=== PATIENT | female | born 1945 | race Caucasian/White ===

== ENCOUNTER 2016-09-13 13:02 | Emergency (ER) | payer OTHER ==
[~2016-09-13] VITALS: Ht 165.1 cm; Wt 88.9 kg
[~2016-09-13 13:02] MED LIST: CALC-478 PO; CHOLTAB3 PO; ESCI10TA17 PO; GLIP-197 PO; LISI-729 PO; LUTE20TA PO; REDCAP2 PO
[2016-09-13 13:09] VITALS: TEMP 37.5; Ht 165.1 cm; Wt 88.9 kg
[2016-09-13] MEDS ORDERED: SODIUM CHLORIDE 0.9% 1000ML 1,000 ML IV STA (15:49)
[2016-09-13] MEDS ORDERED: CLR10 PO (16:06)
[2016-09-13] MEDS ORDERED: AMOX875T PO (16:06)
[2016-09-13 16:29] LABS: BASO % 0.3 %; BASO ABS # 0.02 K/uL (0-0.2); COMPLETE YES; HEMATOCRIT 39.5 % (37-47); IG% 0.3 %; LYMPH % 9.5 %; LYMPH ABS # 0.66 K/uL (1.2-3.4); MEAN CELL VOLUME 89.4 fL (80-100); MEAN CORPUSCULAR HEMOGLOBIN 30.3 pg (25-34); MEAN CORPUSCULAR HGB CONC 33.9 g/dl (32-36); MEAN PLATELET VOLUME 9.3 fL (7.4-10.4); MONO % 11.1 %; NEUT % 77.8 %; PLATELET COUNT 185 K/uL (130-400); RED BLOOD COUNT 4.42 M/uL (4.2-5.4); WHITE BLOOD COUNT 6.92 K/uL (4.8-10.8)
[2016-09-13 16:38] LABS: INR 0.9 (0.9-1.1); PROTHROMBIN TIME (PATIENT) 9.9 SECONDS (9.0-12.0)
[2016-09-13] MEDS ORDERED: OPTIRAY 320 IV PRN (16:45)
[2016-09-13 16:46] VITALS: O2SAT 98
[2016-09-13 16:52] LABS: ALT/SGPT 18 U/L (12-78); BLOOD UREA NITROGEN 27 mg/dl (7-18); BUN/CREATININE RATIO 22.1 (10-20); CALCIUM 9.2 mg/dl (8.5-10.1); CARBON DIOXIDE 26 mmol/L (21-32); CHLORIDE 101 mmol/L (98-107); GLUCOSE 112 mg/dl (70-99); POTASSIUM 4.3 mmol/L (3.5-5.1); SODIUM 136 mmol/L (136-145)
[2016-09-13 16:55] LABS: ALKALINE PHOSPHATASE 112 U/L (45-117); AST/SGOT 13 U/L (15-37)
--- NOTE | 2016-09-13 18:22 | DIAGNOSTIC IMAGING REPORT ---
CT SCAN OF THE ABDOMEN AND PELVIS WITH IV CONTRAST CLINICAL HISTORY: Rectal bleeding status post colonoscopy. COMPARISON STUDY: Abdominal CT dated 02/23/2015 and 03/22/2011. TECHNIQUE: Following the IV administration of 116 cc of Optiray 320, CT scan of the abdomen and pelvis is performed from the lung bases to the proximal femora. Images are reviewed in the axial, sagittal, and coronal planes. IV contrast was administered without complication. Automated dose control exposure was utilized. CT DOSE: 638.23 mGy.cm FINDINGS: Lung bases: The heart is top normal in size and without pericardial effusion. The coronary arteries are densely calcified. There is elevation of the right hemidiaphragm with right basilar atelectasis. A 4 mm pleural-based nodule in the right lower lobe as seen on image #1. This was also seen previously. No airspace consolidation or pleural effusion is identified. Granulomas are noted at the right lung base. Liver: The contrast-enhanced liver is normal in size, contour, and attenuation. There is minimal central intrahepatic biliary ductal dilatation. The hepatic veins and portal veins are patent. Gallbladder: Surgically absent noting clips in the gallbladder fossa. Spleen: Normal in size and attenuation. There are scattered calcified splenic granulomas. Pancreas: The pancreas is atrophic. There is an 11 mm water attenuation lesion in the pancreatic tail seen on image #150. Adrenal glands: Unremarkable. Kidneys: The contrast enhanced kidneys are atrophic and without hydronephrosis. There are bilateral extrarenal pelvises. The kidneys enhance symmetrically. Abdominal vasculature: The abdominal aorta is normal in course and caliber noting moderate to advanced atherosclerotic calcification. Bowel: There are postoperative changes from left colon resection with left lower quadrant colostomy. There is a large parastomal hernia identified which contains loops of small bowel. Moderate fecal retention is seen in the right colon. There are also changes from right-sided colon resection, and a small bowel anastomosis is present in the left lower quadrant. No bowel obstruction is identified. The appendix is well-visualized and normal. Peritoneum: There is no intraperitoneal free air or abdominal ascites. Lymphadenopathy: None. Pelvic viscera: The bladder is normal as visualized. There are calcified uterine fibroids. There is a cystic focus identified in the right adnexa on image #361 which measures 3.5 x 2.1 cm. This is likely related to the right ovary and was also seen on 03/03/2015. There is marked presacral soft tissue induration. There is a fluid collection seen in the left presacral soft tissues on image #361 measuring approximate 4 x 4 cm. This is new from previous and appears to extend into the medial aspect of the left gluteal musculature. A rectal stump is not well delineated. Skeletal structures: The skeletal structures are osteopenic. Bilateral sacral insufficiency fractures are noted. There are mild superior endplate compression deformities of L2 and L3. Moderate lumbosacral spondylosis is observed. No lytic or blastic lesions are seen. IMPRESSION: 1. There are postoperative changes from left colon resection with left lower quadrant colostomy. There is a large parastomal hernia containing small bowel loops. No bowel obstruction is seen. 2. There is also evidence of previous right colonic resection, with a small bowel anastomosis also seen in the left lower quadrant. 3. A rectal stump is not clearly identified. 4. There is marked presacral soft tissue thickening and induration which is likely treatment related. There is a fluid collection identified in the left presacral soft tissues which appears to extend into the medial aspect of the left gluteal musculature. This is of indeterminant etiology and significance. This could be related to the reported history of a rectal stump with possible perforation/fistula, could represent treatment related change/abscess, or less likely could represent a hematoma given recent instrumentation. Clinical correlation will be essential. Follow-up with the patient's production grip is recommended. 5. There is a 3.5 cm cystic lesion in the right adnexa, likely related the right ovary. This has only minimally increased in size from 2015. 6. There is an 11 mm water attenuation structure in the pancreatic tail, typical in appearance for a small sidebranch abdomen. 7. Bilateral sacral insufficiency fractures. 8. Additional findings as above. Electronically signed by: Mikie Gomez M.D. 09/13/2016 6:21 PM Dictated Date/Time: 09/13/2016 6:00 PM
[2016-09-13 19:04] LABS: MANUAL MICROSCOPIC REQUIRED? NO; REVIEW REQ? NO; URINE APPEARANCE CLEAR (CLEAR); URINE BILIRUBIN NEG (NEG); URINE COLOR YELLOW; URINE EPITHELIAL CELL AUTO 20-30 /lpf (0-5); URINE NITRITE NEG (NEG); URINE SPECIFIC GRAVITY 1.017 (1.000-1.030); UROBILINOGEN NEG (NEG)
[2016-09-13 19:28] VITALS: BP 122/71; PULSE 109; O2SAT 97
--- NOTE | 2016-09-13 22:40 | EMERGENCY ROOM VISIT NOTE ---
History Report prepared by Terell: Thi Kothari Under the Supervision of: Dr. Carlin Holley M.D. First contact with patient: 15:48 Chief Complaint: RECTAL BLEEDING Stated Complaint: ABD PAIN Nursing Triage Summary: triage note: pt reports she had a colonscopy on september 03 and started to have rectal bleeding 4 days ago. pt reports she has a colonstomy "i am bleeding from what is left of my rectum." pt reports rectal pain. History of Present Illness The patient is a 71 year old female who presents to the Emergency Room with complaints of persistent rectal bleeding for the past 4 days. She has been wearing a light pad to collect the bleeding. She reports she underwent a colonoscopy on September [address] Segovia with [facility]. She reports she contacted his office and he was going to have her undergo a CT scan at [facility], but their radiology department was full, so he referred her to the ED for further evaluation. The patient has a history of colon cancer and had an ileostomy that was in place for 1 year, then she was resected. 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 She reports she still has "a little bit of fistula" left and Dr. Segovia told her perhaps the colonoscopy reopened part of her fistula. The patient denies any recent abdominal pain but admits to some "tolerable" back pain in the past 2 weeks. She notes she did see her family physician 5 days ago for a routine 6 month check-up, but states he did not examine her as she "wasn't having symptoms then". She does admit to diaphoresis and the chills 2 days ago, but does not think she has been experiencing a fever. Pt denies LOC , headache, fevers, visual changes, neck pain, chest pain, breathing difficulties, nausea, vomiting, melena, hematochezia, urinary symptoms, numbness , weakness, lymphadenopathy, rash, or other complaints. 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 A total of ten systems were reviewed and were otherwise negative. Past Medical & Surgical Medical Problems: (1) Adenomatous polyp of colon (2) Anemia (3) Anorectal fistula (4) Benign hypertension (5) Carcinoma of colon (6) Chronic kidney disease stage 3 (7) Deep venous thrombosis of lower extremity (8) Depression (9) Diabetes mellitus type 2 (10) Gallbladder disease (11) Pancreatitis (12) Partial resection of colon (13) s/p reversal temporary colostomy Surgical Problems: (1) History of colon resection (2) Status post cataract surgery Family History Diabetes mellitus FATHER FH: cancer FATHER (Lung CA ) Hypertension Social History Smoking Status: Never Smoker Alcohol Use: occasionally Drug Use: none Marital Status: Housing Status: lives with significant other Occupation Status: retired Current/Historical Medications Scheduled Amoxicillin & Pot Clavulanate (Augmentin 875-125 mg), 1 TAB PO BID Hubzctw-Eofektpcr-Ongk (Calcium & Magnesium + Zin 334-134-5 mg), 1 TAB PO QAM Escitalopram (Lexapro), 10 MG PO QAM Glipizide (Glipizide Er), 5 MG PO DAILY Lisinopril (Zestril), 5 MG PO DAILY Loratadine (Claritin), 10 MG PO DAILY Lutein (Lutein), 20 MG PO QAM Allergies Coded Allergies: Adhesives (Verified Allergy, Unknown, HIVES, 09/13/16) Rosiglitazone (Verified Allergy, Unknown, ANEMIA/RECTAL BLEEDING, 09/13/16) Physical Exam Vital Signs Date Time Temp Pulse Resp B/P (MAP) Pulse Ox O2 Delivery O2 Flow Rate FiO2 09/13/16 19:28 109 20 122/71 97 Room Air 09/13/16 16:52 78 09/13/16 16:48 79 18 98 Room Air 09/13/16 16:46 98 Room Air 09/13/16 13:09 37.5 90 18 109/64 92 Room Air Physical Exam GENERAL: Awake, alert, well-appearing, in no distress HENT: Normocephalic, atraumatic. Oropharynx unremarkable. EYES: Normal conjunctiva. Sclera non-icteric. NECK: Supple. No nuchal rigidity. FROM. No JVD. RESPIRATORY: Clear to auscultation. CARDIAC: Regular rate, normal rhythm. Extremities warm and well perfused. Pulses equal. ABDOMEN: Soft, non-distended. No tenderness to palpation. No rebound or guarding. No masses. RECTAL: Old hemorrhage, no active bleeding. No signs of infection. Patient requested not to have an internal exam done at this time. MUSCULOSKELETAL: Chest examination reveals no tenderness. The back is symmetrical on inspection without obvious abnormality. There is no CVA tenderness to palpation. No joint edema. LOWER EXTREMITIES: Calves are equal size bilaterally and non-tender. No edema. No discoloration. NEURO: Normal sensorium. No sensory or motor deficits noted. SKIN: No rash or jaundice noted. Medical Decision & Procedures ER Provider Diagnostic Interpretation: Radiology results as stated below per my review and radiologist interpretation: CT SCAN OF THE ABDOMEN AND PELVIS WITH IV CONTRAST CLINICAL HISTORY: Rectal bleeding status post colonoscopy. COMPARISON STUDY: Abdominal CT dated 02/23/2015 and 03/22/2011. TECHNIQUE: Following the IV administration of 116 cc of Optiray 320, CT scan of the abdomen and pelvis is performed from the lung bases to the proximal femora. Images are reviewed in the axial, sagittal, and coronal planes. IV contrast was administered without complication. Automated dose control exposure was utilized. CT DOSE: 638.23 mGy.cm FINDINGS: Lung bases: The heart is top normal in size and without pericardial effusion. The coronary arteries are densely calcified. There is elevation of the right hemidiaphragm with right basilar atelectasis. A 4 mm pleural-based nodule in the right lower lobe as seen on image #1. This was also seen previously. No airspace consolidation or pleural effusion is identified. Granulomas are noted at the right lung base. Liver: The contrast-enhanced liver is normal in size, contour, and attenuation. There is minimal central intrahepatic biliary ductal dilatation. The hepatic veins and portal veins are patent. Gallbladder: Surgically absent noting clips in the gallbladder fossa. Spleen: Normal in size and attenuation. There are scattered calcified splenic granulomas. Pancreas: The pancreas is atrophic. There is an 11 mm water attenuation lesion in the pancreatic tail seen on image #150. Adrenal glands: Unremarkable. Kidneys: The contrast enhanced kidneys are atrophic and without hydronephrosis. There are bilateral extrarenal pelvises. The kidneys enhance symmetrically. Abdominal vasculature: The abdominal aorta is normal in course and caliber noting moderate to advanced atherosclerotic calcification. Bowel: There are postoperative changes from left colon resection with left lower quadrant colostomy. There is a large parastomal hernia identified which contains loops of small bowel. Moderate fecal retention is seen in the right colon. There are also changes from right-sided colon resection, and a small bowel anastomosis is present in the left lower quadrant. No bowel obstruction is identified. The appendix is well-visualized and normal. Peritoneum: There is no intraperitoneal free air or abdominal ascites. Lymphadenopathy: None. Pelvic viscera: The bladder is normal as visualized. There are calcified uterine fibroids. There is a cystic focus identified in the right adnexa on image #361 which measures 3.5 x 2.1 cm. This is likely related to the right ovary and was also seen on 03/03/2015. There is marked presacral soft tissue induration. There is a fluid collection seen in the left presacral soft tissues on image #361 measuring approximate 4 x 4 cm. This is new from previous and appears to extend into the medial aspect of the left gluteal musculature. A rectal stump is not well delineated. Skeletal structures: The skeletal structures are osteopenic. Bilateral sacral insufficiency fractures are noted. There are mild superior endplate compression deformities of L2 and L3. Moderate lumbosacral spondylosis is observed. No lytic or blastic lesions are seen. IMPRESSION: 1. There are postoperative changes from left colon resection with left lower quadrant colostomy. There is a large parastomal hernia containing small bowel loops. No bowel obstruction is seen. 2. There is also evidence of previous right colonic resection, with a small bowel anastomosis also seen in the left lower quadrant. 3. A rectal stump is not clearly identified. 4. There is marked presacral soft tissue thickening and induration which is likely treatment related. There is a fluid collection identified in the left presacral soft tissues which appears to extend into the medial aspect of the left gluteal musculature. This is of indeterminant etiology and significance. This could be related to the reported history of a rectal stump with possible perforation/fistula, could represent treatment related change/abscess, or less likely could represent a hematoma given recent instrumentation. Clinical correlation will be essential. Follow-up with the patient's office 365 consultant is recommended. 5. There is a 3.5 cm cystic lesion in the right adnexa, likely related the right ovary. This has only minimally increased in size from 2015. 6. There is an 11 mm water attenuation structure in the pancreatic tail, typical in appearance for a small sidebranch abdomen. 7. Bilateral sacral insufficiency fractures. 8. Additional findings as above. Electronically signed by: Mikie Gomez M.D. 09/13/2016 6:21 PM Laboratory Results 09/13/16 16:14 Red Blood Count 4.42, Mean Corpuscular Volume 89.4, Mean Corpuscular Hemoglobin 30.3, Mean Corpuscular Hemoglobin Concent 33.9, Mean Platelet Volume 9.3, Neutrophils (%) (Auto) 77.8, Lymphocytes (%) (Auto) 9.5, Monocytes (%) (Auto) 11.1, Eosinophils (%) (Auto) 1.0, Basophils (%) (Auto) 0.3, Neutrophils # (Auto ) 5.38, Lymphocytes # (Auto) 0.66, Monocytes # (Auto) 0.77, Eosinophils # (Auto ) 0.07, Basophils # (Auto) 0.02 09/13/16 16:14 Test 09/13/16 16:14 09/13/16 17:00 White Blood Count 6.92 K/uL (4.8-10.8) Red Blood Count 4.42 M/uL (4.2-5.4) Hemoglobin 13.4 g/dL (12.0-16.0) Hematocrit 39.5 % (37-47) Mean Corpuscular Volume 89.4 fL (80-100) Mean Corpuscular Hemoglobin 30.3 pg (25-34) Mean Corpuscular Hemoglobin Concent 33.9 g/dl (32-36) Platelet Count 185 K/uL (130-400) Mean Platelet Volume 9.3 fL (7.4-10.4) Neutrophils (%) (Auto) 77.8 % Lymphocytes (%) (Auto) 9.5 % Monocytes (%) (Auto) 11.1 % Eosinophils (%) (Auto) 1.0 % Basophils (%) (Auto) 0.3 % Neutrophils # (Auto) 5.38 K/uL (1.4-6.5) Lymphocytes # (Auto) 0.66 K/uL (1.2-3.4) Monocytes # (Auto) 0.77 K/uL (0.11-0.59) Eosinophils # (Auto) 0.07 K/uL (0-0.5) Basophils # (Auto) 0.02 K/uL (0-0.2) RDW Standard Deviation 43.6 fL (36.4-46.3) RDW Coefficient of Variation 13.2 % (11.5-14.5) Immature Granulocyte % (Auto) 0.3 % Immature Granulocyte # (Auto) 0.02 K/uL (0.00-0.02) Erythrocyte Sedimentation Rate 57 mm/hr (0-21) Prothrombin Time 9.9 SECONDS (9.0-12.0) Prothromb Time International Ratio 0.9 (0.9-1.1) Activated Partial Thromboplast Time 26.8 SECONDS (21.0-31.0) Partial Thromboplastin Ratio 1.0 Anion Gap 9.0 mmol/L (3-11) Est Creatinine Clear Calc Drug Dose 48.7 ml/min Estimated GFR () 53.4 Estimated GFR (Non- 46.1 BUN/Creatinine Ratio 22.1 (10-20) Calcium Level 9.2 mg/dl (8.5-10.1) Total Bilirubin 0.4 mg/dl (0.2-1) Direct Bilirubin < 0.1 mg/dl (0-0.2) Aspartate Amino Transf (AST/SGOT) 13 U/L (15-37) Alanine Aminotransferase (ALT/SGPT) 18 U/L (12-78) Alkaline Phosphatase 112 U/L (45-117) C-Reactive Protein 11.60 mg/dl (0-0.29) Total Protein 7.4 gm/dl (6.4-8.2) Albumin 3.2 gm/dl (3.4-5.0) Lipase 113 U/L (73-393) Urine Color YELLOW Urine Appearance CLEAR (CLEAR) Urine pH 7.0 (4.5-7.5) Urine Specific Topmost 1.017 (1.000-1.030) Urine Protein TRACE (NEG) Urine Glucose (UA) NEG (NEG) Urine Ketones NEG (NEG) Urine Occult Blood NEG (NEG) Urine Nitrite NEG (NEG) Urine Bilirubin NEG (NEG) Urine Urobilinogen NEG (NEG) Urine Leukocyte Esterase SMALL (NEG) Urine WBC (Auto) 5-10 /hpf (0-5) Urine RBC (Auto) 0-4 /hpf (0-4) Urine Hyaline Casts (Auto) 0 /lpf (0-5) Urine Epithelial Cells (Auto) 20-30 /lpf (0-5) Urine Bacteria (Auto) NEG (NEG) Laboratory results reviewed by me Medications Administered Medications (Trade) Dose Ordered Sig/Adrienne Route Start Time Stop Time Status Last Admin Dose Admin Sodium Chloride 1,000 ml @ 125 mls/hr Q8H STAT IV 09/13/16 15:49 09/13/16 20:02 DC 09/13/16 17:09 125 MLS/HR ED Course 1553: The patient was evaluated in room A5. A complete history and physical exam was performed. 1549: NSS 1000 ml @ 125 mls/hr IV. 1623: I discussed the patients case with Dr. Segovia, [facility]. He recommends a CT scan with no contrast. 1855: I discussed the patients case with Dr. Segovia, [facility], again. He recommends checking with the patient and seeing if she feels like she wants to stay in the hospital. If not, he will have his office contact her tomorrow. 190: I reevaluated the patient. She would like to go home. I discussed her results and discharge instruction and she verbalized complete understanding and agreement. Medical Decision Medication Reconciliation: I attest that I have personally reviewed the patient' s current medication list Blood pressure screening: Patient was found to have a slightly elevated blood pressure, but I believe this is situational and does not require follow-up. Etiologies such as a perirectal abscess, rectal perforation, complication of prior surgery, diverticulitis, obstruction, inflammatory bowel disease, mesenteric ischemia, infections, genitourinary, UTI, perforated viscus, as well as others were entertained. The patient was evaluated. Clinically she was doing well. Her CBC was unremarkable. Her chemistry panel did not reveal any significant findings. She did have an elevation of her CRP and ESR concerning for an inflammatory process. The patient underwent CT imaging and this revealed multiple findings as above. The left-sided fluid collection appears to be new. The patient noted that she just started Augmentin today that was prescribed by Dr. Segovia. I contacted him and we discussed the issues. We reviewed the CT imaging in detail. Since the patient is doing very well he offered to follow her up in the office and considered outpatient follow-up CT imaging. The patient was given the option and she does not want to come in the hospital. She prefers to try the Augmentin and have close outpatient follow-up. She feels most comfortable with this plan. I did ask for her to return immediately if she is worsening in anyway and she and her agree. Risks and benefits were discussed. Using shared decision making the patient will be discharged to follow-up with her office 365 consultant. By the evaluation outlined above other emergent etiologies such as those listed in the differential, as well as others, were deemed relatively unlikely. The patient was educated about the findings as listed above. All questions were answered and the patient was pleased with the treatment. Return instructions were outlined and the patient was discharged in stable condition. The patient was referred to gastroenterology this week for follow-up for a recheck of the current condition. Consults Time Called: 1620 Consulting Physician: [facility] Returned Call: [phone] I discussed the patients case with [facility]. He recommends a CT scan with no contrast. Impression Primary Impression: Rectal pain Additional Impression: perirectal fluid collection Scribe Attestation The scribe's documentation has been prepared under my direction and personally reviewed by me in its entirety. I confirm that the note above accurately reflects all work, treatment, procedures, and medical decision making performed by me. Departure Information Dispostion Home / Self-Care Referrals Alcon Salguero M.D.(JERZY) (PCP) Patient Instructions My [facility] Additional Instructions Continue the Augmentin as previously prescribed. Continue current medications. Follow-up with Dr. Segovia's office tomorrow for additional treatment and scheduling outpatient visits. Return to the ER for worsening rectal pain, abdominal pain, vomiting, fevers, bloody stools, or as needed. Problem Qualifiers
== END 2016-09-13 19:38 | disposition home or self-care (01) ==
LOC: C.EDB 13:03 → C.EDA 19:38
DX: K62.89 Other specified diseases of anus and rectum (principal); E11.9 Type 2 diabetes mellitus without complications; I10 Essential (primary) hypertension; N18.3 Chronic kidney disease, stage 3 (moderate); F32.9 Major depressive disorder, single episode, unspecified; K86.1 Other chronic pancreatitis; D64.9 Anemia, unspecified; Z86.718 Personal history of other venous thrombosis and embolism; Z85.038 Personal history of other malignant neoplasm of large intestine; Z98.49 Cataract extraction status, unspecified eye; Z79.899 Other long term (current) drug therapy; Z91.09 Other allergy status, other than to drugs and biological substances; Z88.8 Allergy status to other drugs, medicaments and biological substances; Z83.3 Family history of diabetes mellitus; Z80.9 Family history of malignant neoplasm, unspecified; Z82.49 Family history of ischemic heart disease and other diseases of the circulatory system

== ENCOUNTER 2019-08-02 12:45 | Inpatient (IN) ==
--- OUTSIDE RECORDS SUMMARY | 2019-08-02 12:47 | External Medical Summary | Continuity of Care Document ---
:1945 Author Name Lamar Rogers Address Unavailable Unavailable , Care Team Providers Name Role Phone Sunita Xiao M.D.. 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 Start: 06-Oct-2011 Refills: 0 Vitamin D 400 UNIT TABS; TAKE 1 TABLET DAILY DIRECTED. Start: 06-Oct-2011 Refills: 0 Lutein 6 MG Oral Tablet; daily Start: Oct-2011 Refills: 0 Travatan Z 0.004 % Ophthalmic Solution; one drop right eye a t bedtime Start: 4-Terence-2016 Refills: 0 Loratadine 10 MG Oral Tablet; TAKE 1 TABLET DAILY NEEDED. Start: 10-Mar-2015 Refills: 0 Lexapro 10 MG Oral Tablet; TAKE 1 TABLET EVERY DAY Start: 06-Oct-2011 Quantity: 30 Refills: 1 glipiZIDE 5 MG Oral Tablet; TAKE 1 TABLET DAILY. Start: 06-Oct-2011 Refills: 0 Lisinopril 5 MG Oral Tablet; TAKE 1 TABLET DAILY. Start: 06-Oct-2011 Refills: 0 Lalito-Mag Aspartate 333.33-167 MG Oral Tablet; TAKE 1 TABLET D AILY. Start: 06-Oct-2011 Refills: 0 Procedures History of Cholecystectomy Laparoscopic Status: Completed 06-Mar-2015 0:00 History of Partial Colectomy Status: Com pleted History of Complete Colonoscopy Status: Completed History of Cystoscopy With Insertion Of Ureteral Status: Completed 15-Mar-2012 0:00 Stent History of Abdominal Surgery Status: Com pleted History of Cataract Surgery Status: Comp leted Immunizations Immunizations not documented Family History Father Family history of lung cancer (V16.1) (Z80.1) Status: Active Family history of diabetes mellitus (V18.0) (Z83.3) Status: Active Grandmother Family history of diabetes mellitus (V18.0) (Z83.3) Status: Active Social History - Smoking Status Never smoked tobacco Interventions Discussion/SummaryDoing well s/p Laparoscopic cholecystectomy-dietary plan reviewed, the patient is satisfied with theentire process, will f/u prn. Plan of Treatment Planned Observations Planned Goals not documented Results No Known Results Results not documented Encounters Appointment; Alfonzo Xiao M.D. 16-Apr-2015 10:20 Encounter Diagnosis: Problem not documented
--- NOTE | 2019-08-02 13:14 | Emergency Department Note ---
Impression & Plan CHF (congestive heart failure), SOB (shortness of breath), Elevated troponin I level ED Provider Note NAME: SUSHMA GILMAN AGE: 74 SEX: F : 1945 ARRIVES VIA: Walk-In INFORMANT: Patient, ED PROVIDER(S): Lars Ndiaye MD Chief Complaint: Shortness of breath, weakness HPI: Patient states that she began developing symptoms over the weekend. The patient states she states she 1 evening she had night sweats. Subsequent evening she had a lot of chest pressure. Patient states thereafter she is felt, weak and short of breath. The shortness of breath is intermittent primarily exacerbated with movement. No orthopnea cough. Patient states her allergies have been acting up and she not on antihistamines. Patient does not present with cough, fevers, chills, coronavirus contacts, coronavirus testing, or recent travel. Patient denies any prior heart or lung history. The patient denies any worsening lower extremity swelling. Today patient does not have a prior history of DVT in her left lower extremity which does have slight greater lower extremity swelling compared to the right. The patient states that this was caused by chemo, Procrit, and a procedure. This was approximate 10 years prior. Patient denies any recent procedures or hospitalizations. Patient denies any lower extremity calf pain. Patient was seen at [facility] and referred here due to concern about her shortness of breath. Patient denies any blood in the stool. Patient does not take blood thinners. ROS: See HPI for pertinent positives and negatives. A total of 10 systems were reviewed and otherwise negative. Past medical history: See below Surgical history: See below Social history: See below Physical Exam: GENERAL: NAD, non-toxic. Wearing glasses and mask EYE EXAM: Normal conjunctiva. PERRL, no anisocoria and EOM's grossly intact w/o pain. NECK: Supple, no nuchal rigidity, no adenopathy, non-tender. No signs of meningismus. LUNGS: Clear to auscultation. Normal chest wall mechanics. HEART: NSR, no MRG. ABDOMEN: Abdomen soft, non-tender, normo-active bowel sounds, no masses, no rebound or guarding. BACK: No CVA TTP. SKIN: No rashes and no bruising. UPPER EXTREMITIES: Upper extremities are grossly normal. LOWER EXTREMITIES: Left greater than right lower extremity edema without pain or erythema, negative Homans sign bilaterally. NEURO EXAM: A&O x3, cranial nerves II-XII grossly intact, normal speech, moves all 4 extremities on command w/o issue. Differential diagnoses: Reactive airway disease, pneumonia, pneumothorax, COPD, CHF, infections, cardiac ischemia, pulmonary embolism, musculoskeletal, gastrointestinal, as well as other pathologies. Course: Patient was seen and evaluated the bedside. Full history physical exam was performed. EKG: Indication: Shortness of breath Normal sinus rhythm, rate of 96, wide QRS borderline prolonged QTC, normal axis, left bundle branch block, no Sgarbossa criteria noted. Per patient she does have a known left bundle branch block. Left bundle is new compared to comparison EKG from April 29, 2011. Imaging Studies: Radiology results as stated below per my review in the radiologist's interpretation: XR chest 1V portable CLINICAL HISTORY: Dyspnea COMPARISON STUDY: 03/25/2011 FINDINGS: Moderate cardiomegaly. Small left basilar effusion versus infiltrate. Mild prominence of the pulmonary vasculature. IMPRESSION: Developing congestive heart failure with a potential superimposed left basilar infiltrate/small effusion. ACT 112: Negative or not required by law. The above report was generated using voice recognition software. It may contain grammatical, syntax or spelling errors. Electronically signed by: Gerber Garica M.D. 08/02/2019 1:41 PM Dictated: 08/02/19 1340 Transcribed: 08/02/19 1340 Cardiac monitoring: An order was placed for continuous cardiac monitoring. The monitor shows a rate of 95 with sinus rhythm. MDM: Patient was seen as referral to concern for shortness of breath and weakness. Patient does not have acute symptoms at rest and denies any chest pain. Patient states that over the weekend she did have night sweats as well as chest pain but they were on 2 separate occasions and not concurrent. Patient did a blood work completed along with a chest x-ray. This x-ray shows congestion of change. EKG does show left bundle without sgarbossa criteria. Normal white count H&H and platelet count. Kidney function is unremarkable. Glucose is borderline elevated. Slightly elevated troponin with elevated BNP. Patient's chest x-ray shows concern for congestive change. I believe this is more likely as the patient has had worsening shortness of breath with MIRAMONTES and findings that may be more consistent with CHF than an infectious process at this time as the patient has not had any productive cough fever or white count. I did speak the on-call hospitalist and the patient is to be admitted under Dr. Gilman with [facility] hospitalist service. Past Med/Surg History Medical History (Updated 08/02/19 @ 16:20 by Lars Ndiaye MD) Hypertension Pancreatitis Surgical History History of colon resection (Inactive) Status post cataract surgery (Inactive) Social History Preferred Language: [place] Feels Safe at Home: Yes Smoking Status: Never smoker Allergies Allergies Allergy/AdvReac Type Severity Reaction Status Date / Time adhesive Allergy Unknown HIVES Verified 08/02/19 15:26 rosiglitazone Allergy Unknown ANEMIA/RECTAL Verified 08/02/19 15:26 BLEEDING Home Meds Home Medications Medication Instructions Recorded Confirmed escitalopram oxalate [Lexapro] 10 mg PO DAILY #0 03/20/11 08/02/19 [id number] 1 tab PO DAILY #0 03/03/15 08/02/19 glipizide 5 mg PO DAILY #0 tab 03/03/15 08/02/19 lisinopril [Zestril] 5 mg PO DAILY #0 tab 03/03/15 08/02/19 lutein 20 mg PO DAILY #0 03/03/15 08/02/19 loratadine [Claritin] 10 mg PO DAILY PRN #0 tab 09/13/16 08/02/19 Results & Data (ED) Vital Signs Vital Signs - 24 hr 08/02/19 12:46 08/02/19 12:56 08/02/19 12:57 Temperature 36.9 C Temperature Source Oral Pulse Rate 102 H 104 H 103 H Pulse Rate [Right Finger] Pulse Rhythm Regular Pulse Strength Normal Respiratory Rate 20 17 12 Respiratory Effort / Characteristics Non-Labored Spontaneous Respiratory Depth Normal Respiratory Pattern Regular Blood Pressure 134/83 118/77 Blood Pressure [Right Arm] Blood Pressure Mean 100 89 Blood Pressure Mean [Right Arm] Blood Pressure Position Sitting Pulse Oximetry 96 Oxygen Delivery Method Room Air Sepsis Recent Fever Within 48 Hours No Sepsis New/Unexplained Change in Mental Status No Sepsis Action Taken by Nursing No Action Required 08/02/19 13:00 08/02/19 13:01 08/02/19 13:30 Temperature Temperature Source Pulse Rate 100 H 97 H 106 H Pulse Rate [Right Finger] Pulse Rhythm Pulse Strength Respiratory Rate 14 14 23 Respiratory Effort / Characteristics Respiratory Depth Respiratory Pattern Blood Pressure 154/101 H 153/93 H Blood Pressure [Right Arm] Blood Pressure Mean 126 105 Blood Pressure Mean [Right Arm] Blood Pressure Position Pulse Oximetry Oxygen Delivery Method Sepsis Recent Fever Within 48 Hours Sepsis New/Unexplained Change in Mental Status Sepsis Action Taken by Nursing 08/02/19 13:31 08/02/19 13:56 08/02/19 14:00 Temperature Temperature Source Pulse Rate 106 H 99 H Pulse Rate [Right Finger] Pulse Rhythm Pulse Strength Respiratory Rate 22 26 H Respiratory Effort / Characteristics Respiratory Depth Respiratory Pattern Blood Pressure 126/92 Blood Pressure [Right Arm] Blood Pressure Mean 108 Blood Pressure Mean [Right Arm] Blood Pressure Position Pulse Oximetry Oxygen Delivery Method Room Air Sepsis Recent Fever Within 48 Hours Sepsis New/Unexplained Change in Mental Status Sepsis Action Taken by Nursing 08/02/19 14:01 08/02/19 14:30 08/02/19 14:31 Temperature Temperature Source Pulse Rate 98 H 95 H 96 H Pulse Rate [Right Finger] Pulse Rhythm Pulse Strength Respiratory Rate 26 H 22 16 Respiratory Effort / Characteristics Respiratory Depth Respiratory Pattern Blood Pressure 113/87 Blood Pressure [Right Arm] Blood Pressure Mean 102 Blood Pressure Mean [Right Arm] Blood Pressure Position Pulse Oximetry Oxygen Delivery Method Sepsis Recent Fever Within 48 Hours Sepsis New/Unexplained Change in Mental Status Sepsis Action Taken by Nursing 08/02/19 15:12 Temperature Temperature Source Pulse Rate Pulse Rate [Right Finger] 94 H Pulse Rhythm Pulse Strength Respiratory Rate 22 Respiratory Effort / Characteristics Respiratory Depth Respiratory Pattern Blood Pressure Blood Pressure [Right Arm] 139/87 Blood Pressure Mean Blood Pressure Mean [Right Arm] 104 Blood Pressure Position Pulse Oximetry 97 Oxygen Delivery Method Room Air Sepsis Recent Fever Within 48 Hours Sepsis New/Unexplained Change in Mental Status Sepsis Action Taken by Prison Medications Current Medication List: was personally reviewed by me Laboratory Data Attestation: I reviewed the patient's lab results. Result diagrams: 08/02/19 13:53 08/02/19 13:53 Lab Results 08/02/19 08/02/19 08/02/19 Range/Units 13:53 13:53 13:53 WBC 6.63 (4.8-10.8) K/uL RBC 4.26 (4.2-5.4) M/uL Hgb 12.2 (12.0-16.0) g/dL Hct 37.8 (37-47) % MCV 88.7 (80-100) fL MCH 28.6 (25-34) pg MCHC 32.3 (32-36) g/dL RDW Std Deviation 46.0 (36.4-46.3) fL RDW Coeff of Gemma 14.1 (11.5-14.5) % Plt Count 242 (130-400) K/uL MPV 9.3 (7.4-10.4) fL Immature Gran % (Auto) 0.3 % Neut % (Auto) 81.9 % Lymph % (Auto) 7.5 % [place] % (Auto) 8.9 % Eos % (Auto) 1.1 % Baso % (Auto) 0.3 % Immature Gran # (Auto) 0.02 (0.00-0.02) K/uL Neut # (Auto) 5.43 (1.4-6.5) K/uL Lymph # (Auto) 0.50 L (1.2-3.4) K/uL [place] # (Auto) 0.59 (0.11-0.59) K/uL Eos # (Auto) 0.07 (0-0.5) K/uL Baso # (Auto) 0.02 (0-0.2) K/uL PT 10.7 (9.0-12.0) Seconds INR 1.0 (0.9-1.1) APTT 25.1 (21.0-31.0) Seconds PTT Ratio 0.9 Sodium 138 (136-145) mmol/L Potassium 4.3 (3.5-5.1) mmol/L Chloride 105 (98-107) mmol/L Carbon Dioxide 29 (21-32) mmol/L Anion Gap 4.0 (3-11) BUN 21 H (7-18) mg/dl Creatinine 1.06 (0.6-1.2) mg/dl Est Cr Clr Drug Dosing 52.1 ml/min Est GFR ( Amer) 60.8 Est GFR (Non-Af Amer) 52.4 BUN/Creatinine Ratio 19.7 (10-20) Glucose 181 H (70-99) mg/dl Calcium 8.8 (8.5-10.1) mg/dl Magnesium 2.1 (1.8-2.4) mg/dl Total Bilirubin 0.3 (0.2-1) mg/dl AST 12 L (15-37) U/L ALT 21 (12-78) U/L Alkaline Phosphatase 115 (45-117) U/L Troponin I 0.084 H* (0-0.045) ng/ml NT-Pro-B Natriuret Pep 93575 H (0-900) pg/ml Total Protein 7.0 (6.4-8.2) gm/dl Albumin 3.0 L (3.4-5.0) gm/dl Globulin 4.0 (2.5-4.0) gm/dl Albumin/Globulin Ratio 0.8 L (0.9-2) TSH 0.545 (0.300-4.500) uIu/ml Administered Medications Discontinued Medications Furosemide (Lasix) 40 mg IV NOW STA Stop: 08/02/19 14:53 Last Admin: 08/02/19 15:12 Dose: 40 mg Documented by: [id number] Discharge Plan Visit Data Chief Complaint: Shortness of Breath/Dyspnea Stated Complaint: SOB ED Provider: Lars Ndiaye Discharge Problem: CHF (congestive heart failure), SOB (shortness of breath), Elevated troponin I level Forms Stand Alone Forms: [facility] Prescriptions Prescriptions: No Action escitalopram oxalate [Lexapro] 10 mg Tablet 10 mg PO DAILY Qty: 0 RF: 0 glipizide 5 mg Tablet Extended Release 24hr 5 mg PO DAILY Qty: 0 RF: 0 lisinopril [Zestril] 5 mg Tablet 5 mg PO DAILY Qty: 0 RF: 0 [id number] 333-133-8.3 mg Tablet 1 tab PO DAILY Qty: 0 RF: 0 lutein 20 mg Tablet 20 mg PO DAILY Qty: 0 RF: 0 loratadine [Claritin] 10 mg Tablet 10 mg PO DAILY PRN (Reason: Allergy Symptoms) Qty: 0 RF: 0 Discharge Problem: CHF (congestive heart failure) Qualifiers: Heart failure type: unspecified Heart failure chronicity: acute Qualified Code(s): I50.9 - Heart failure, unspecified
--- NOTE | 2019-08-02 13:43 | XRay Report ---
XR chest 1V portable CLINICAL HISTORY: Dyspnea COMPARISON STUDY: 03/25/2011 FINDINGS: Moderate cardiomegaly. Small left basilar effusion versus infiltrate. Mild prominence of th e pulmonary vasculature. IMPRESSION: Developing congestive heart failure with a potential superimposed left basilar infiltrat e/small effusion. ACT 112: Negative or not required by law. The above report was generated using voice recognition software. It may contain grammatical, syntax or spelling errors. Electronically signed by: Gerber Garcia M.D. 08/02/2019 1:41 PM
[2019-08-02 14:01] LABS: Basophils # (auto) 0.02 K/uL (0-0.2); Basophils % (auto) 0.3 %; Eosinophils # (auto) 0.07 K/uL (0-0.5); Eosinophils % (auto) 1.1 %; Hematocrit (blood only) 37.8 % (37-47); Hemoglobin 12.2 g/dL (12.0-16.0); Immature Granulocytes # (auto) 0.02 K/uL (0.00-0.02); Immature Granulocytes % (auto) 0.3 %; Lymphocytes % (auto) 7.5 %; Mean Corpuscular Hemoglobin 28.6 pg (25-34); Mean Corpuscular Hgb Conc 32.3 g/dL (32-36); Mean Corpuscular Volume 88.7 fL (80-100); Mean Platelet Volume 9.3 fL (7.4-10.4); Monocytes # (auto) 0.59 K/uL (0.11-0.59); Monocytes % (auto) 8.9 %; Neutrophils # (auto) 5.43 K/uL (1.4-6.5); Neutrophils % (auto) 81.9 %; Platelet Count 242 K/uL (130-400); RDW Coefficient of Variation 14.1 % (11.5-14.5); Red Blood Count 4.26 M/uL (4.2-5.4); White Blood Count 6.63 K/uL (4.8-10.8)
[2019-08-02 14:12] LABS: Partial Thromboplastin Ratio 0.9; Partial Thromboplastin Time 25.1 Seconds (21.0-31.0); Prothrombin Time 10.7 Seconds (9.0-12.0)
[2019-08-02 14:18] LABS: BUN Creatinine Ratio 19.7 (10-20); Calcium 8.8 mg/dl (8.5-10.1); Creatinine Clr Calc Pharmacy 52.1 ml/min; Est GFR (African American) 60.8; Est GFR (Non-African American) 52.4; Magnesium 2.1 mg/dl (1.8-2.4); Potassium 4.3 mmol/L (3.5-5.1)
[2019-08-02 14:44] LABS: Albumin Globulin Ratio 0.8 (0.9-2); Bilirubin,Total 0.3 mg/dl (0.2-1); Thyroid Stimulating Hormone 0.545 uIu/ml (0.300-4.500); Troponin I 0.084 ng/ml (0-0.045)
[2019-08-02] MEDS ORDERED: FUROSEMIDE 40 MG/4 ML VIAL IV STA (14:52)
[2019-08-02] MEDS ORDERED: LORATADINE 10 MG TAB PO PRN (17:56)
[2019-08-02] MEDS ORDERED: ACETAMINOPHEN 325 MG TAB PO PRN (17:56)
[2019-08-02] MEDS ORDERED: NITROGLYCERIN SL 0.4 MG/TAB TAB SL PRN (17:56)
[2019-08-02] MEDS ORDERED: MoRPHine SULFATE 2 MG/ML CARP IV PRN (17:56)
--- NOTE | 2019-08-02 18:25 | History & Physical Report ---
Date of Service August 02, 2019 Assessment & Plan (1) CHF (congestive heart failure): Progressive dyspnea over past week. Had an episode of diaphoresis, but no fever. Possible density at left base on chest x-ray. Overall, clinical history, exam, radiographic appearance, elevated BNP suggest new onset CHF. LVEF 45% by echo in 2019. Had mild aortic stenosis at that time. Received IV furosemide in ED. Check echo. Check TSH. Continue lisinopril. Further titration of cardiovascular meds once more data available. (2) Elevated troponin I level: Serum troponin 0.084, repeat 0.085. EKG shows chronic LBBB. Episode of chest pressure 5 days prior to admission. Elevated troponin could be secondary to myocardial infarction, CHF, infection. Check serial troponins. Check echo. Check lipids. Start antiplatelet therapy with aspirin. Consulted Cardiology. IV heparin until acute coronary syndrome ruled out. (3) Elevated d-dimer: D-dimer 3740. Remote history DVT LLE. Check CTA chest and venous duplex lower extremities. IV heparin pending results. (4) Hypertension: Continue lisinopril. Further adjustment of cardiovascular meds after echo results available. 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 Check Hgb A1C. Hold glipizide during hospital stay. Insulin coverage as needed. (6) Dyslipidemia: Check lipid profile. (7) History of MRSA infection: History of MRSA from buttock ulcer. Seen by ID Feb 2019 who recommended decolonization. No testing since then. Contact precautions pending further discussion with Infection Prevention and Control. (8) COVID-19 ruled out: COVID-19 considered in light of sweats, SOB, LLL infiltrate, lymphopenia. VERIFYING SPECIALIST swab for SARS-CoV-2 PCR negative. (9) DVT prophylaxis: Initial anticoagulation with IV heparin as noted above. (10) Discharge planning issues: Anticipated discharge to home. Family Medicine follow-up with Dr. Salguero. Cardiology follow-up with Dr. Little. Admission and Anticipated Discharge Date Admission Date: August 02, 2019 History of Present Illness Chief Complaint: shortness of breath Primary Care Provider: Alcon Salguero MD 74 YO female followed by Dr. Salguero for Family Medicine and Dr. Little for Cardiology. History of hypertension, DM type 2, rectal carcinoma, DVT, and other problems. Preop EKG in 2019 showed left bundle branch block. Seen in consultation by Cardiology. Echo showed mild aortic stenosis, LVEF 45%, no segmental wall motion abnormalities. Nuclear stress study did not show any evidence of stress-induced ischemia. About 1 week prior to admission, experienced onset of malaise and right-sided headache. She had 1 episode of diaphoresis without apparent fever. Subsequently noted onset of dyspnea, at rest and with exertion. The evening of 07/27 she had an episode of midsternal chest pressure at rest with worsening dyspnea. No palpitations. Mild nonproductive cough. No pleuritic chest pain. Over next few days, experienced persistent and worsening dyspnea on exertion. Mild chronic LLE edema. Seen in clinic today for evaluation and referred to ED for further evaluation and management. Received furosemide in ED with improvement of her symptoms. No sick contacts. Traveled to [facility] in February. Traveled to [place] in early May. Has been careful to follow social distancing guidelines. Allergies Allergy/AdvReac Type Severity Reaction Status Date / Time adhesive Allergy Unknown HIVES Verified 08/02/19 15:26 rosiglitazone Allergy Unknown ANEMIA/RECTAL Verified 08/02/19 15:26 BLEEDING Home Medications Home Medications Medication Instructions Recorded Confirmed Type escitalopram oxalate [Lexapro] 10 mg PO DAILY #0 03/20/11 08/02/19 History [id number] 1 tab PO DAILY #0 03/03/15 08/02/19 History glipizide 5 mg PO DAILY #0 tab 03/03/15 08/02/19 History lisinopril [Zestril] 5 mg PO DAILY #0 tab 03/03/15 08/02/19 History lutein 20 mg PO DAILY #0 03/03/15 08/02/19 History loratadine [Claritin] 10 mg PO DAILY PRN #0 tab 09/13/16 08/02/19 History Past Med/Surg History Medical History (Updated 08/02/19 @ 23:42 by Carlin Medina MD) Anorectal fistula (Inactive Unknown) Depression Diabetes mellitus type 2 with complications Diabetic neuropathy Diabetic retinopathy Dyslipidemia History of DVT (deep vein thrombosis) 2003- LLE while receiving EPO History of MRSA infection buttock ulcer 2018 History of osteomyelitis sacrum Hypertension Left bundle branch block Pancreatitis Rectal carcinoma 2003- dS/P resection, chemo, radiation therapy Surgical History (Updated 08/02/19 @ 23:15 by Carlin Medina MD) History of colon resection (Inactive) low anterior resection for colon cancer Status post cataract surgery (Inactive) Status post cholecystectomy Status post colostomy initially after resection rectal cancer, reversed new colostomy after pelvic abscess Family History (Updated 08/02/19 @ 23:16 by Carlin Medina MD) Father Lung cancer Diabetes Mother Hypertension Heart disease Social History (Updated 08/02/19 @ 23:30 by Carlin Medina MD) Preferred Language: Spanish Communication Ability: Effective Rattling Machine Tender Required: No Beliefs That Will Affect Care: None Current Living Situation: Spouse Other Information That Helps Us Care for You: No Feels Safe at Home: Yes Safety Concerns: Feels Safe At This Time Smoking Status: Never smoker Second Hand Exposure: Yes ; Hx Alcohol Use: Yes Alcohol Intake Frequency Comment: occasional Hx Substance Use: No Review of Systems Constitutional: + sweats and + malaise; no fever and no weight loss Eyes: no diplopia and no worsening vision (chronic vision loss due to retinopathy, no recent change) Ear, Nose, Mouth, Throat: + nasal congestion (seasonal allergies); no sinus pain/pressure and no sore throat Respiratory: as per Subjective / HPI Cardiovascular: as per Subjective / HPI Gastrointestinal: no nausea, no vomiting, no constipation, no diarrhea/loose stools, no blood in stools and no melena colostomy Genitourinary: no dysuria and no hematuria Musculoskeletal: no joint pain and no myalgia Integumentary: no rash Neurologic: + headache(s) Psychiatric: + depression Endocrine: no polydipsia and no polyuria blood sugars low 100's Hematologic / Lymphatic: no easy bleeding, no easy bruising and no lymphadenopathy Allergy / Immunological: seasonal allergies Physical Exam Constitutional: WD/WN, vitals as above no acute distress Eyes: PERRL, conjunctivae normal, anicteric sclerae ENMT: external ear and nose normal, oropharynx normal Neck: trachea midline, no thyromegaly Respiratory: no respiratory distress Auscultation: + rales (bibasilar); no rhonchi and no wheezes Cardiovascular: Rate/Rhythm: regular rate Heart Sounds: + murmur (II/ sys murmur at base); no gallop and no cardiac rub Vessels: + JVD Extremities: normal capillary refill; no calf tenderness and no edema Gastrointestinal (Abdomen): normal bowel sounds, soft, nontender, no hepatosplenomegaly left-sided colostomy Musculoskeletal: Head/Neck/Chest: neck supple Extremities: strength 5/5 throughout; no cyanosis and no clubbing Skin: no rashes, warm and dry Neurologic: PERRL, EOMI no facial palsy no dysarthria or aphasia patellar DTR's 1/2 bilat Psychiatric: Orientation: alert and oriented x 3 Affect: euthymic affect Lymphatic: no cervical lymphadenopathy Results & Data Results & Data ([facility]) Vital Signs (Past 12 Hours) Vital Signs Temp Pulse Pulse Resp BP BP Pulse Ox 08/02/19 17:55 102 H 08/02/19 17:42 36.8 C 112 H 20 138/87 93 08/02/19 17:22 134/85 08/02/19 15:12 94 H 22 139/87 97 08/02/19 14:31 96 H 16 08/02/19 14:30 95 H 22 113/87 08/02/19 14:01 98 H 26 H 08/02/19 14:00 99 H 26 H 126/92 08/02/19 13:31 106 H 22 08/02/19 13:30 106 H 23 153/93 H 08/02/19 13:01 97 H 14 154/101 H 08/02/19 13:00 100 H 14 08/02/19 12:57 103 H 12 08/02/19 12:56 104 H 17 118/77 08/02/19 12:46 36.9 C 102 H 20 134/83 96 Laboratory Results Laboratory Results - last 24 hr 08/02/19 08/02/19 08/02/19 13:53 13:53 13:53 WBC 6.63 RBC 4.26 Hgb 12.2 Hct 37.8 MCV 88.7 MCH 28.6 MCHC 32.3 RDW Std Deviation 46.0 RDW Coeff of Gemma 14.1 Plt Count 242 MPV 9.3 Immature Gran % (Auto) 0.3 Neut % (Auto) 81.9 Lymph % (Auto) 7.5 [place] % (Auto) 8.9 Eos % (Auto) 1.1 Baso % (Auto) 0.3 Immature Gran # (Auto) 0.02 Neut # (Auto) 5.43 Lymph # (Auto) 0.50 L [place] # (Auto) 0.59 Eos # (Auto) 0.07 Baso # (Auto) 0.02 PT 10.7 INR 1.0 APTT 25.1 PTT Ratio 0.9 D-Dimer Sodium 138 Potassium 4.3 Chloride 105 Carbon Dioxide 29 Anion Gap 4.0 BUN 21 H Creatinine 1.06 Est Cr Clr Drug Dosing 52.1 Est GFR ( Amer) 60.8 Est GFR (Non-Af Amer) 52.4 BUN/Creatinine Ratio 19.7 Glucose 181 H POC Glucose Calcium 8.8 Magnesium 2.1 Total Bilirubin 0.3 AST 12 L ALT 21 Alkaline Phosphatase 115 Troponin I 0.084 H* NT-Pro-B Natriuret Pep 08972 H Total Protein 7.0 Albumin 3.0 L Globulin 4.0 Albumin/Globulin Ratio 0.8 L TSH 0.545 COVID-19 PCR SARS-CoV-2 RNA (RT-PCR) 08/02/19 08/02/19 08/02/19 17:53 20:06 20:06 WBC RBC Hgb Hct MCV MCH MCHC RDW Std Deviation RDW Coeff of Gemma Plt Count MPV Immature Gran % (Auto) Neut % (Auto) Lymph % (Auto) [place] % (Auto) Eos % (Auto) Baso % (Auto) Immature Gran # (Auto) Neut # (Auto) Lymph # (Auto) [place] # (Auto) Eos # (Auto) Baso # (Auto) PT INR APTT PTT Ratio D-Dimer 3740 H* Sodium Potassium Chloride Carbon Dioxide Anion Gap BUN Creatinine Est Cr Clr Drug Dosing Est GFR ( Amer) Est GFR (Non-Af Amer) BUN/Creatinine Ratio Glucose POC Glucose 115 H Calcium Magnesium Total Bilirubin AST ALT Alkaline Phosphatase Troponin I 0.085 H* NT-Pro-B Natriuret Pep Total Protein Albumin Globulin Albumin/Globulin Ratio TSH COVID-19 PCR SARS-CoV-2 RNA (RT-PCR) 08/02/19 08/02/19 Unknown Unknown WBC RBC Hgb Hct MCV MCH MCHC RDW Std Deviation RDW Coeff of Gemma Plt Count MPV Immature Gran % (Auto) Neut % (Auto) Lymph % (Auto) [place] % (Auto) Eos % (Auto) Baso % (Auto) Immature Gran # (Auto) Neut # (Auto) Lymph # (Auto) [place] # (Auto) Eos # (Auto) Baso # (Auto) PT INR APTT PTT Ratio D-Dimer Sodium Potassium Chloride Carbon Dioxide Anion Gap BUN Creatinine Est Cr Clr Drug Dosing Est GFR ( Amer) Est GFR (Non-Af Amer) BUN/Creatinine Ratio Glucose POC Glucose Calcium Magnesium Total Bilirubin AST ALT Alkaline Phosphatase Troponin I NT-Pro-B Natriuret Pep Total Protein Albumin Globulin Albumin/Globulin Ratio TSH COVID-19 PCR NEGATIVE SARS-CoV-2 RNA (RT-PCR) Cancelled Diagnostic Findings Portable chest x-ray reviewed by undersigned and formally interpreted by Radiology: FINDINGS: Moderate cardiomegaly. Small left basilar effusion versus infiltrate. Mild prominence of the pulmonary vasculature. IMPRESSION: Developing congestive heart failure with a potential superimposed left basilar infiltrate/small effusion. ACT 112: Negative or not required by law. The above report was generated using voice recognition software. It may contain grammatical, syntax or spelling errors. Electronically signed by: Gerber Garcia M.D. 08/02/2019 1:41 PM ECG Additional Comments: EKG performed at 1352 reviewed and demonstrated NSR at 96 / min, left bundle branch block. No significant change compared to 07/13/2018. Code Status & VTE Plan Code Status Discussed with patient. She has a living will. She would like resuscitation attempted if there is a reasonable chance of a meaningful recovery. However, she does not want extraordinary measures initiated or continued if prognosis is very poor. Code status, therefore, is full resuscitation. VTE Prophylaxis Plan VTE Prophylaxis will be ordered: Yes (1) CHF (congestive heart failure) Heart failure chronicity: acute Heart failure type: unspecified Qualified C ode(s): I50.9 - Heart failure, unspecified
[2019-08-02] MEDS: ASPIRIN 81 MG ECTAB PO SCH (18:46)
[2019-08-02 20:40] LABS: D Dimer 3740 ug/L FEU (0-500)
[2019-08-02] MEDS ORDERED: GLUCAGON FOR INJ 1 MG VIAL IM PRN (20:45)
[2019-08-02] MEDS ORDERED: CARBOHYDRATES FOR HYPOGLYCEMIA PO PRN (20:45)
[2019-08-02] MEDS ORDERED: HEPARIN SODIUM/DEXTROSE 25,000 UNITS/500 ML BAG IV SCH (20:45)
[2019-08-02] MEDS ORDERED: DEXTROSE 50% 50 ML SYRINGE IV PRN (20:45)
[2019-08-02] MEDS ORDERED: GLUCOSE 40% GEL 15 GM TUBE PO PRN (20:45)
[2019-08-02] MEDS ORDERED: GLUCOSE 10 TABS/TUBE PO PRN (20:45)
[2019-08-02] MEDS ORDERED: HEPARIN IV BOLUS 5,000 UNITS in SYRINGE 0 ML IV ONE (21:00)
[2019-08-02] MEDS ORDERED: OPTIRAY 320 125ml IV PRN (22:04)
[2019-08-02] MEDS: INSULIN ASPART 100 UNITS/ML 3 ML PEN SC SCH (22:41)
[2019-08-03 06:02] LABS: Partial Thromboplastin Ratio 1.7
[2019-08-03 06:03] LABS: BUN Creatinine Ratio 19.2 (10-20); Calcium 8.6 mg/dl (8.5-10.1); Creatinine Clr Calc Pharmacy 50.2 ml/min; Est GFR (African American) 58.7; Est GFR (Non-African American) 50.7; Partial Thromboplastin Time 46.7 Seconds (21.0-31.0)
[2019-08-03 06:18] LABS: Thyroid Stimulating Hormone 0.688 uIu/ml (0.300-4.500); Troponin I 0.096 ng/ml (0-0.045)
--- NOTE | 2019-08-03 06:37 | Electrocardiogram Report ---
Test Reason : Blood Pressure : / mmHG Vent. Rate : 096 BPM Atrial Rate : 096 BPM P-R Int : 174 ms QRS Dur : 132 ms QT Int : 396 ms P-R-T Axes : 098 019 148 degrees QTc Int : 500 ms Poor data quality, interpretation may be adversely affected Normal sinus rhythm Left bundle branch block Abnormal ECG When compared with ECG of 29-APR-2011 12:44, Left bundle branch block is now Present Confirmed by Papito Gilmore ([id number]) on 08/03/2019 6:36:51 AM Referred By: REFERRED SELF Confirmed By:Papito Gilmore
[2019-08-03 06:56] LABS: Estimated Average Glucose 194 mg/dl; Hemoglobin A1C 8.4 % (4.5-5.6)
--- NOTE | 2019-08-03 07:16 | CT Scan Report ---
CHEST CTA for PULMONARY ARTERIES CT DOSE: 507.65 mGy.cm HISTORY: elevated D-dimer TECHNIQUE: Multiaxial CT images of the chest were performed following the intravenous administration of contrast to evaluate the pulmonary arteries. Maximal intensity projection images were also obtaine d. A dose lowering technique was utilized adhering to the principles of ALARA. COMPARISON STUDY: None. FINDINGS: Normal caliber thoracic aorta with no evidence for dissection. The heart is mildly enlarged . Small to moderate bilateral pleural effusions. No pericardial effusion. Equivocal filling defect se en within a segmental branch of the left lower lobe on image 80 is at a location of motion artifact. Otherwise, no definite filling defects within the pulmonary arteries to suggest pulmonary embolus. No pneumothorax. Mild interlobular septal thickening. A few scattered punctate calcified granulomas. Co nsolidation within the lower lobes posteriorly. This is nonspecific but favors atelectasis from the p leural effusions. No suspicious lytic are blastic osseous lesions. The visualized liver is unremarkab le. Normal esophagus. Mild asymmetric skin thickening within the left nipple/breast. No mediastinal o r hilar lymphadenopathy. Calcified subcarinal and right hilar lymph nodes. Small subpleural nodular d ensity within the right lower lobe with the largest measuring 5 mm. IMPRESSION: 1. No definite filling defects within the pulmonary arteries to suggest pulmonary embolus. Equivocal filling defect within a segmental branch of the left lower lobe is likely due to motion artifact. 2. [id number]-qn-[id number] bilateral pleural effusions and mild interstitial pulmonary edema. 3. Consolidation within the lower lobes posteriorly favors compressive atelectasis from the pleural e ffusions. A developing pneumonia cannot be excluded. 4. A few small nodular densities within the right lower lobe the largest measuring 5 mm. 5. Mild asymmetric skin thickening within the left breast/nipple. Follow-up mammogram recommended for further evaluation. ACT 112: Positive. There are findings on this exam that require communication between the performing entity and the patient following Patient Test Result Information Act ([place] Act 112) guidelines. Electronically signed by: Kalpesh Bolden M.D. 08/03/2019 7:15 AM
--- NOTE | 2019-08-03 07:20 | Ultrasound Report ---
BILATERAL LOWER EXTREMITY VENOUS DOPPLER CLINICAL HISTORY: elevated D-dimer COMPARISON STUDY: Bilateral lower extremity venous Doppler ultrasound August or 2011. TECHNIQUE: Sonography of the deep venous system of the bilateral lower extremities was performed. Co mpression and augmentation were evaluated. FINDINGS: Evaluation was mildly compromised due to inability to tolerate compression of the left leg. The bilateral common femoral, superficial femoral and popliteal veins were compressible. Augmentatio n was normal. Flow was shown within the deep calf vessels. IMPRESSION: Exam mildly compromised but no evidence of deep venous thrombus within the bilateral lowe r extremities. ACT 112: Negative or not required by law. Electronically signed by: Luis Fernando Cobos M.D. 08/03/2019 7:19 AM
[2019-08-03] MEDS: lisinopriL 5 MG TAB PO SCH (08:12)
[2019-08-03] MEDS: ASPIRIN 81 MG ECTAB PO SCH (08:12)
[2019-08-03] MEDS: ESCITALOPRAM OXALATE 10 MG TAB PO SCH (08:12)
[2019-08-03] MEDS ORDERED: FUROSEMIDE 40 MG in SYRINGE 0 ML IV ONE (08:20)
--- NOTE | 2019-08-03 08:58 | Cardiology Consultation ---
Date of Consultation August 03, 2019 Assessment & Plan (1) Acute HFrEF (heart failure with reduced ejection fraction): (2) Left bundle branch block: COVID-[address] angiogram of the chest reveals no evidence of venous thromboembolic disease. Bilateral pleural effusions noted on CT as well as chest x-ray.ProBNP elevated. Follow-up echocardiogram this morning reveals severe left ventricular systolic dysfunction with septal dyskinesis, inferior wall as well, and for severe hy pokinesis otherwise. Chamber size was dilated. Qualitative ejection fraction severely diminished, 25 to 30%. She had a minimal, flat elevation in her troponin consistent with congestive heart failure, although her recent times are somewhat concerning for possible underlying angina however , could have also been due to CHF. The etiology of her LV dysfunction could be due to underlying conduction system abnormality, or perhaps underlying ischemic heart disease and this will need to be sorted out. She had a nuclear stress test without ischemia a year ago, however time, she is developed symptoms, as well as a severe decline in her LV function. Patient received IV contrast evening of 08/02/2019, along with 40 mg of IV furosemide. She received another 40 mg of IV furosemide this morning 08/03/2019. Monitor renal function. Continue 40 mg daily for the time being, reassessment of her kidney function after contrast administration. Future considerations include adding spironolactone. Carvedilol 3.125 mg twice daily has been ordered, and her prior to hospital dosing of lisinopril has been continued. We will work on optimizing her from a CHF standpoint. I do not think she is having an acute coronary syndrome at present, therefore I am going to discontinue her unfractionated heparin, transition her to Lovenox DVT prophylaxis dose. History of Present Illness Attending Physician: Carlin Medina MD History of Present Illness Pearl Persaud is a 74-year-old diabetic female seen in cardiology consultation per the request of Dr. Medina for the evaluation of shortness of breath. I previously seen Pearl in cardiology consultation 08/03/2028. At that time she had been found to have an abnormal left stereotactic core biopsy June 2018 with inconclusive findings therefore excisional biopsy had been however a preop EKG performed 07/13/2018 revealed findings of a new left bundle branch block at 94 bpm with QRS duration of 114 ms. She describes no significant cardiac complaints at that time. A resting echocardiogram demonstrated low normal to mi ldly reduced left ventricular ejection fraction in the range of 45 to 50%, with wall motion abnormality consistent with left bundle branch block, and mild aortic valve stenosis. Nuclear stress testing revealed fixed anteroseptal and inferoseptal perfusion defects. Medication therapy was recommended including lisinopril. She underwent left breast biopsy in September, with findings of a benign lymph node with calcification and ossification. At the time for cardiology follow-up September, she described stable signs and symptoms without cardiac complaint. The patient was seen as an outpatient by primary care yesterday and referred to the emergency room for progressive dyspnea over the last week. She describes shortness of breath with minimal exertion such as climbing a flight of stairs. She describes that about 6 days ago on Tuesday night, she was reading at bedtime, and noted a prolonged interval of resting chest pressure. She cannot get comfortable in bed and therefore moved to her recliner, and this persisted for at least 1 hour at approximately 1 in the morning for she finally was able to get some rest. She states that in retrospect, she felt very poorly, and she regrets not having sought medical care at that point. Additional History: She has a past history of rectal adenocarcinoma status post neoadjuvant chemo radiation with last cycle of chemotherapy received in February 2004.She received four cycles of 5-Fluorouracil and leucovorin chemotherapy between 11/2003- 02/2004. She was hospitalized for infection at [facility] in March 2011 and a transthoracic echocardiogram revealed an echodensity of the aortic valve. She underwent a transesophageal echocardiogram on 03/22/2011. The report unfortunately is not available for review at present, but the patient remembers being counseled that this was not an infectious process and ongoing observation was recommended. She also describes having had a transesophageal echocardiogram in [place] and was told she had a hole in her heart". She has a history of osteomyelitis of the sacroiliac bone and received intravenous antibiotic therapy, colostomy procedure and had surgical interve ntion for this in [place] in 2012. From a vascular standpoint, she has a history of left lower extremity DVTs that occurred during her chemotherapy. She has residual affects of generalized weakness and neuropathy of the left lower leg. She was evaluated for claudication symptoms in 2018. An exercise lower extremity arterial duplex was somewhat technically limited due to calcinosis the vessels, but was not suggestive of significant peripheral arterial disease. Family History: Mother: at age 85, possible heart attack or stroke, suddenly. Had history of high BP. No prior heart trouble. Father: of lung cancer at the age of 69. Prior smoker. Siblin brother, no heart disease Allergies Allergy/AdvReac Type Severity Reaction Status Date / Time adhesive Allergy Unknown HIVES Verified 08/02/19 15:26 rosiglitazone Allergy Unknown ANEMIA/RECTAL Verified 08/02/19 15:26 BLEEDING Home Medications Home Medications Medication Instructions Recorded Confirmed Type escitalopram oxalate [Lexapro] 10 mg PO DAILY #0 03/20/11 08/02/19 History ekrmoun-wuayjbtvw-ebib 1 tab PO DAILY #0 03/03/15 08/02/19 History glipizide 5 mg PO DAILY #0 tab 03/03/15 08/02/19 History lisinopril [Zestril] 5 mg PO DAILY #0 tab 03/03/15 08/02/19 History lutein 20 mg PO DAILY #0 03/03/15 08/02/19 History loratadine [Claritin] 10 mg PO DAILY PRN #0 tab 09/13/16 08/02/19 History Patient History Medical History Anorectal fistula (Inactive Unknown) Depression Diabetes mellitus type 2 with complications Diabetic neuropathy Diabetic retinopathy Dyslipidemia History of DVT (deep vein thrombosis) 2003- LLE while receiving EPO History of MRSA infection buttock ulcer 2019 History of osteomyelitis sacrum Hypertension Left bundle branch block Pancreatitis Rectal carcinoma 2004- dS/P resection, chemo, radiation therapy Surgical History History of colon resection (Inactive) low anterior resection for colon cancer Status post cataract surgery (Inactive) Status post cholecystectomy Status post colostomy initially after resection rectal cancer, reversed new colostomy after pelvic abscess Family History Father Lung cancer Diabetes Mother Hypertension Heart disease Social History Preferred Language: Tanzanian Communication Ability: Effective Other Sports Official Required: No Beliefs That Will Affect Care: None Current Living Situation: Spouse Other Information That Helps Us Care for You: No Feels Safe at Home: Yes Safety Concerns: Feels Safe At This Time Smoking Status: Never smoker Second Hand Exposure: Yes ; Hx Alcohol Use: Yes Alcohol Intake Frequency Comment: occasional Hx Substance Use: No Review of Systems Review of Systems: All systems reviewed & are unremarkable except as noted in HPI & below Physical Exam Physical Exam: Temp Pulse Resp BP Pulse Ox 37.2 C 94 H 19 114/73 90 08/03/19 11:44 08/03/19 11:44 08/03/19 11:44 08/03/19 11:44 08/03/19 11:44 Constitutional: WD/WN, vitals as above Respiratory: Auscultation: + diminished lung sounds (Decreased breath sounds bilaterally at the bases); no rales and no rhonchi Cardiovascular: Rate/Rhythm: regular rate and + tachycardic Heart Sounds: + murmur (1/6 systolic murmur) Vessels: + JVD Extremities: + edema (Trace bilateral lower extremity edema, left leg worse than right(chronic) ) Results & Data ([facility]) Vital Signs (Past 12 Hours) Vital Signs Temp Pulse Pulse Resp BP Pulse Ox 08/03/19 07:33 36.7 C 89 20 117/75 96 08/03/19 03:49 36.8 C 93 H 16 127/77 98 08/02/19 23:15 92 08/02/19 23:00 36.7 C 104 H 95 H 18 110/71 88 L Laboratory Results Cardiac Enzymes 08/02/19 08/02/19 08/03/19 Range/Units 13:53 20:06 05:23 AST 12 L (15-37) U/L Troponin I 0.084 H* 0.085 H* 0.096 H* (0-0.045) ng/ml Coagulation 08/02/19 08/03/19 Range/Units 13:53 05:23 PT 10.7 (9.0-12.0) Seconds APTT 25.1 46.7 H* (21.0-31.0) Seconds Lipids 08/03/19 Range/Units 05:23 Triglycerides 82 (0-150) mg/dl Cholesterol 116 (0-200) mg/dl HDL Cholesterol 34 mg/dl Cholesterol/HDL Ratio 3 CBC 08/02/19 Range/Units 13:53 WBC 6.63 (4.8-10.8) K/uL RBC 4.26 (4.2-5.4) M/uL Hgb 12.2 (12.0-16.0) g/dL Hct 37.8 (37-47) % Plt Count 242 (130-400) K/uL Neut # (Auto) 5.43 (1.4-6.5) K/uL Lymph # (Auto) 0.50 L (1.2-3.4) K/uL [place] # (Auto) 0.59 (0.11-0.59) K/uL Eos # (Auto) 0.07 (0-0.5) K/uL Baso # (Auto) 0.02 (0-0.2) K/uL Comprehensive Metabolic Panel 08/02/19 08/03/19 Range/Units 13:53 05:23 Sodium 138 141 (136-145) mmol/L Potassium 4.3 4.0 (3.5-5.1) mmol/L Chloride 105 107 (98-107) mmol/L Carbon Dioxide 29 30 (21-32) mmol/L BUN 21 H 21 H (7-18) mg/dl Creatinine 1.06 1.09 (0.6-1.2) mg/dl Glucose 181 H 95 (70-99) mg/dl Calcium 8.8 8.6 (8.5-10.1) mg/dl AST 12 L (15-37) U/L ALT 21 (12-78) U/L Alkaline Phosphatase 115 (45-117) U/L Total Protein 7.0 (6.4-8.2) gm/dl Albumin 3.0 L (3.4-5.0) gm/dl Intake and Output 08/02/19 08/03/19 08/03/19 22:59 06:59 14:59 Intake Total 150 / 150 203.6 / 203.6 Output Total 110 / 821 711 / 821 Balance -110 / -671 -561 / -671 203.6 / 203.6 Intake: IV 203.6 / 203.6 HEPARIN SODIUM/DEXTROSE 25,000 203.6 / 203.6 units In 500 ml @ 1,200 UNITS/ HR 24 mls/hr IV .[id number] [facility] Rx #:[id number] Oral 150 / 150 Output: Urine 110 / 820 710 / 820 Stool 0 / 0 Emesis 0 / 0 # Bowel Movements 1 Other: Weight 88.506 kg 88.4 kg Diagnostic Findings EKG 08/03/2019 reveals sinus rhythm with premature atrial contractions, left bundle branch block morphology, QRS duration 130 ms.
[2019-08-03] MEDS: INSULIN ASPART 100 UNITS/ML 3 ML PEN SC SCH ×4 (09:39→21:11)
[2019-08-03] MEDS ORDERED: POTASSIUM CHLORIDE 20 MEQ TABCR PO ONE (11:46)
[2019-08-03] MEDS ORDERED: carvediloL 3.125 MG TAB PO ONE (13:36)
--- NOTE | 2019-08-03 16:57 | Electrocardiogram Report ---
Test Reason : Blood Pressure : / mmHG Vent. Rate : 092 BPM Atrial Rate : 092 BPM P-R Int : 168 ms QRS Dur : 130 ms QT Int : 416 ms P-R-T Axes : 033 -21 113 degrees QTc Int : 514 ms Sinus rhythm with Premature atrial complexes Left bundle branch block Cannot rule out Anteroseptal infarct (cited on or before 03-AUG-2019) T wave abnormality, consider lateral ischemia Abnormal ECG When compared with ECG of 02-AUG-2019 13:52, Premature atrial complexes are now Present Confirmed by Madhu Hall ([id number]) on 08/03/2019 4:56:55 PM Referred By: REFERRED SELF Confirmed By:Madhu Hall
[2019-08-03] MEDS ORDERED: carvediloL 3.125 MG TAB PO SCH (21:00)
[2019-08-03] MEDS: TRAVOPROST Z 0.004% OPH SOLN 2.5 ML BTL OPR SCH (21:14)
--- NOTE | 2019-08-03 21:16 | Hospitalist Progress Note ---
Date of Service August 03, 2019 Assessment & Plan (1) CHF (congestive heart failure): Progressive dyspnea over past week. Had an episode of diaphoresis, but no fever. Possible density at left base on chest x-ray. Overall, clinical history, exam, radiographic appearance, elevated BNP suggest new onset CHF. LVEF 45% by echo in 2019. Had mild aortic stenosis at that time. Echo today showed mild , mild-mod MR, thinning and severe hypokinesis inferior wall, overall LVEF 20-25%. TSH normal. Acute / new onset left ventricular systolic heart failure. Started on carvedilol. Continue lisinopril. Titrate diuretics. (2) Elevated troponin I level: Serum troponin 0.084, repeat 0.085. EKG shows chronic LBBB. Episode of chest pressure 5 days prior to admission. Elevated troponin could be secondary to myocardial infarction, CHF, infection. Serial troponins 0.084, 0.085, 0.096. Echo showed inferior hypokinesis with wall thinning. CTA chest demonstrated coronary calcifications. Probable coronary artery disease with prior infarct; doubt acute coronary syndrome. Pulmonary embolism ruled out. Slightly elevated troponin could be due to CHF. LDL-c = 66. Started antiplatelet therapy with aspirin. Cardiology consulted; cath under consideration. (3) Elevated d-dimer: D-dimer 3740. Remote history DVT LLE. CTA chest negative for PE. Venous duplex lower extremities negative for DVT.. (4) Hypertension: Continue lisinopril. Further adjustment of cardiovascular meds after echo results available. 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 Hgb A1c = 8.4. Hold glipizide during hospital stay. Insulin coverage as needed. (6) Dyslipidemia: Check lipid profile. (7) History of MRSA infection: History of MRSA from buttock ulcer. Seen by ID Feb 2019 who recommended decolonization. No testing since then. Contact precautions. (8) COVID-19 ruled out: COVID-19 considered in light of sweats, SOB, LLL infiltrate, lymphopenia. [employer] swab for SARS-CoV-2 PCR negative. (9) Abnormal finding on breast imaging: Thickening of skin left breast / nipple noted on CT of chest. Had negative breast biopsy with Dr. Rose last year. Needs follow-up with Dr. Rose. # for appt: [phone]. (10) DVT prophylaxis: Initially received anticoagulation with IV heparin. Now receiving SQ enoxaparin. (11) Discharge planning issues: Anticipated discharge to home. Family Medicine follow-up with Dr. Salguero. Cardiology follow-up with Dr. Little. given update by phone this evening. Admission and Anticipated Discharge Date Admission Date: August 02, 2019 Subjective Recheck for CHF and other problems. Patient seen in their room this morning. Feels better. Less SOB. No chest pain. Review of Systems: Constitutional- no fever. Cardiac- as noted above. Pulmonary- no cough or SOB. GI- no nausea, vomiting, diarrhea, melena, hematochezia. - no urinary symptoms. Otherwise, as noted above. Physical Exam Constitutional: WD/WN, vitals as above no acute distress Respiratory: normal respiratory effort, lungs clear to auscultation no respiratory distress Cardiovascular: Rate/Rhythm: regular rate Heart Sounds: + murmur (II/ sys murmur at base); no gallop and no cardiac rub Vessels: + JVD Extremities: normal capillary refill; no calf tenderness and no edema Gastrointestinal (Abdomen): normal bowel sounds, soft, nontender, no hepatosplenomegaly Musculoskeletal: Extremities: no cyanosis and no clubbing Skin: no rashes, warm and dry Psychiatric: Orientation: alert and oriented x 3 Results & Data Results & Data ([facility]) Vital Signs (Past 12 Hours) Vital Signs Temp Pulse Pulse Resp BP Pulse Ox 08/03/19 19:37 36.9 C 88 18 107/71 92 08/03/19 16:00 94 H 08/03/19 15:23 37.2 C 88 19 118/77 90 08/03/19 11:44 37.2 C 94 H 19 114/73 90 Laboratory Results Laboratory Results - last 24 hr 08/03/19 08/03/19 08/03/19 05:23 05:23 05:23 APTT 46.7 H* PTT Ratio 1.7 Sodium 141 Potassium 4.0 Chloride 107 Carbon Dioxide 30 Anion Gap 4.0 BUN 21 H Creatinine 1.09 Est Cr Clr Drug Dosing 50.2 Est GFR ( Amer) 58.7 Est GFR (Non-Af Amer) 50.7 BUN/Creatinine Ratio 19.2 Glucose 95 POC Glucose Estimat Average Glucose 194 Hemoglobin A1c 8.4 H Calcium 8.6 Troponin I 0.096 H* Triglycerides 82 Cholesterol 116 LDL Cholesterol, Calc 66 VLDL Cholesterol, Calc 16 HDL Cholesterol 34 Cholesterol/HDL Ratio 3 TSH 0.688 08/03/19 08/03/19 08/03/19 07:26 11:34 16:17 APTT PTT Ratio Sodium Potassium Chloride Carbon Dioxide Anion Gap BUN Creatinine Est Cr Clr Drug Dosing Est GFR ( Amer) Est GFR (Non-Af Amer) BUN/Creatinine Ratio Glucose POC Glucose 108 H 199 H 144 H Estimat Average Glucose Hemoglobin A1c Calcium Troponin I Triglycerides Cholesterol LDL Cholesterol, Calc VLDL Cholesterol, Calc HDL Cholesterol Cholesterol/HDL Ratio TSH 08/03/19 20:44 APTT PTT Ratio Sodium Potassium Chloride Carbon Dioxide Anion Gap BUN Creatinine Est Cr Clr Drug Dosing Est GFR ( Amer) Est GFR (Non-Af Amer) BUN/Creatinine Ratio Glucose POC Glucose 143 H Estimat Average Glucose Hemoglobin A1c Calcium Troponin I Triglycerides Cholesterol LDL Cholesterol, Calc VLDL Cholesterol, Calc HDL Cholesterol Cholesterol/HDL Ratio TSH (1) CHF (congestive heart failure) Heart failure chronicity: acute Heart failure type: unspecified Qualified Code(s): I50.9 - Heart failure, unspecified
[2019-08-04 06:57] LABS: Basophils # (auto) 0.01 K/uL (0-0.2); Basophils % (auto) 0.2 %; Eosinophils # (auto) 0.09 K/uL (0-0.5); Eosinophils % (auto) 1.4 %; Hematocrit (blood only) 37.6 % (37-47); Hemoglobin 12.2 g/dL (12.0-16.0); Immature Granulocytes # (auto) 0.02 K/uL (0.00-0.02); Immature Granulocytes % (auto) 0.3 %; Lymphocytes # (auto) 0.67 K/uL (1.2-3.4); Lymphocytes % (auto) 10.5 %; Mean Corpuscular Hemoglobin 28.7 pg (25-34); Mean Corpuscular Hgb Conc 32.4 g/dL (32-36); Mean Corpuscular Volume 88.5 fL (80-100); Mean Platelet Volume 9.3 fL (7.4-10.4); Monocytes # (auto) 0.56 K/uL (0.11-0.59); Monocytes % (auto) 8.8 %; Neutrophils # (auto) 5.01 K/uL (1.4-6.5); Neutrophils % (auto) 78.8 %; Platelet Count 242 K/uL (130-400); RDW Coefficient of Variation 14.2 % (11.5-14.5); RDW Standard Deviation 45.9 fL (36.4-46.3); Red Blood Count 4.25 M/uL (4.2-5.4); White Blood Count 6.36 K/uL (4.8-10.8)
[2019-08-04 07:23] LABS: Albumin Level 2.7 gm/dl (3.4-5.0); BUN Creatinine Ratio 22.8 (10-20); Calcium 8.6 mg/dl (8.5-10.1); Creatinine Clr Calc Pharmacy 46.9 ml/min; Est GFR (African American) 54.5; Potassium 4.5 mmol/L (3.5-5.1)
[2019-08-04 07:25] LABS: Albumin Globulin Ratio 0.7 (0.9-2); Bilirubin,Total 0.5 mg/dl (0.2-1); Globulin 3.9 gm/dl (2.5-4.0); Total Protein 6.6 gm/dl (6.4-8.2)
[2019-08-04] MEDS: INSULIN ASPART 100 UNITS/ML 3 ML PEN SC SCH ×4 (09:14→21:02)
[2019-08-04] MEDS: carvediloL 3.125 MG TAB PO SCH ×2 (09:19→20:37)
[2019-08-04] MEDS: lisinopriL 5 MG TAB PO SCH (09:19)
[2019-08-04] MEDS: ESCITALOPRAM OXALATE 10 MG TAB PO SCH (09:19)
[2019-08-04] MEDS: ASPIRIN 81 MG ECTAB PO SCH (09:19)
[2019-08-04] MEDS: ENOXAPARIN INJ 40 MG/0.4 ML SYR SQ SCH (09:19)
--- NOTE | 2019-08-04 11:43 | Cardiology Progress Note ---
Date of Service August 04, 2019 Assessment & Plan (1) Acute HFrEF (heart failure with reduced ejection fraction): (2) Left bundle branch block: (3) Elevated troponin I level: Lasix 40 mg IV today. Repeat basic metabolic panel in a.m. Continue carvedilol and lisinopril as previously ordered. Risk versus benefit of cardiac catheterization discussed with patient at length. Plan left heart catheterization with coronary angiography 08/06/2019. N.p.o. except medications after midnight on Tuesday. Subjective Patient seen and examined at the bedside. Feeling much better from a respiratory standpoint with diuretic therapy. Fluid balance -520 cc over the past 24 hours. Renal function remains stable. Sinus rhythm noted on telemetry. Tolerating current medications. Patient anxious for discharge. Review of Systems Review of Systems: All systems reviewed & are unremarkable except as noted in HPI & below Physical Exam Constitutional: well developed, well nourished and + obese Respiratory: normal respiratory effort; no respiratory distress, no labored breathing and no retractions Auscultation: + rales (Bases bilateral); no crackles, no rhonchi and no wheezes Cardiovascular: Rate/Rhythm: regular rate Heart Sounds: normal S1, normal S2 and + murmur (1/6 systolic ejection murmur heard best at the right second intercostal space) Vessels: no JVD and no carotid bruit Extremities: no edema Gastrointestinal (Abdomen): Inspection/Auscultation: abdomen normal to inspection and normal bowel sounds; abdomen not distended Percussion/Palpation: abdomen soft; abdomen nontender, no guarding and abdomen not rigid Musculoskeletal: Extremities: strength 5/5 throughout Skin: no rashes, warm and dry Neurologic: moves all extremities; no focal motor deficits Speech / Cognition: normal speech Motor/Sensory: no tremor Psychiatric: A+Ox3, euthymic affect Results & Data Vital Signs (Past 12 Hours) Vital Signs Temp Pulse Pulse Resp BP Pulse Ox 08/04/19 11:29 36.9 C 80 20 106/69 90 08/04/19 07:38 89 08/04/19 07:13 36.7 C 87 18 117/72 91 08/04/19 03:34 36.9 C 89 16 100/67 90 08/04/19 00:06 36.8 C 93 H 16 123/78 91
[2019-08-04] MEDS ORDERED: FUROSEMIDE 40 MG in SYRINGE 0 ML IV ONE (12:00)
--- NOTE | 2019-08-04 13:23 | Hospitalist Progress Note ---
Date of Service August 04, 2019 Assessment & Plan (1) CHF (congestive heart failure): Progressive dyspnea over week prior to admission.. Had an episode of diaphoresis, but no fever. Possible density at left base on chest x-ray. Overall, clinical history, exam, radiographic appearance, elevated BNP suggest new onset CHF. LVEF 45% by echo in 2019. Had mild aortic stenosis at that time. Echo 08/02 showed mild , mild-mod MR, thinning and severe hypokinesis inferior wall, overall LVEF 20-25%. TSH normal. Acute / new onset left ventricular systolic heart failure. Started on carvedilol. Continue lisinopril. Titrate diuretics. (2) Elevated troponin I level: Serum troponin 0.084, repeat 0.085. EKG shows chronic LBBB. Episode of chest pressure 5 days prior to admission. Elevated troponin could be secondary to myocardial infarction, CHF, infection. Serial troponins 0.084, 0.085, 0.096. Echo showed inferior hypokinesis with wall thinning. CTA chest demonstrated coronary calcifications. Probable coronary artery disease with prior infarct; doubt acute coronary syndrome. Pulmonary embolism ruled out. Slightly elevated troponin could be due to CHF. LDL-c = 66. Started antiplatelet therapy with aspirin. Cardiology consulted; cath recommended and is tentatively planned for 08/05. (3) Elevated d-dimer: D-dimer 3740. Remote history DVT LLE. CTA chest negative for PE. Venous duplex lower extremities negative for DVT.. (4) Hypertension: Cardiovascular meds as note above. 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 Hgb A1c = 8.4. Hold glipizide during hospital stay. Insulin coverage as needed. FBS today = 108. (6) Dyslipidemia: LDL-c = 66. Start atorvastatin for suspected coronary artery disease. (7) History of MRSA infection: History of MRSA from buttock ulcer. Seen by ID Feb 2019 who recommended decolonization. No testing since then. Contact precautions. (8) COVID-19 ruled out: COVID-19 considered in light of sweats, SOB, LLL infiltrate, lymphopenia. 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 (9) Abnormal finding on breast imaging: Thickening of skin left breast / nipple noted on CT of chest. Had negative breast biopsy with Dr. Rose last year. Needs follow-up with Dr. Rose. # for appt: [phone]. (10) DVT prophylaxis: Initially received anticoagulation with IV heparin. Now receiving SQ enoxaparin. (11) Discharge planning issues: Anticipated discharge to home. Family Medicine follow-up with Dr. Salguero. Cardiology follow-up with Dr. Little. given update by phone last evening. Admission and Anticipated Discharge Date Admission Date: August 02, 2019 Subjective Recheck for CHF and other problems. Patient seen in their room around 1000. Doing well. Less SOB. No chest pain. Review of Systems: Constitutional- no fever. Cardiac- as noted above. Pulmonary- no cough or SOB. GI- no nausea, vomiting, diarrhea, melena, hematochezia. - no urinary symptoms. Otherwise, as noted above. Physical Exam Constitutional: WD/WN, vitals as above no acute distress Respiratory: normal respiratory effort, lungs clear to auscultation no respiratory distress Auscultation: + rales (few bibasilar); no rhonchi and no wheezes Cardiovascular: Rate/Rhythm: regular rate Heart Sounds: + murmur (II/ sys murmur at base / LSB); no gallop and no cardiac rub Vessels: no JVD Extremities: normal capillary refill; no calf tenderness and no edema Gastrointestinal (Abdomen): normal bowel sounds, soft, nontender, no hepatosplenomegaly Musculoskeletal: Extremities: no cyanosis Skin: no rashes, warm and dry Psychiatric: Orientation: alert and oriented x 3 Affect: euthymic affect Results & Data Results & Data ([facility]) Vital Signs (Past 12 Hours) Vital Signs Temp Pulse Pulse Resp BP Pulse Ox 08/04/19 11:29 36.9 C 80 20 106/69 90 08/04/19 07:38 89 08/04/19 07:13 36.7 C 87 18 117/72 91 08/04/19 03:34 36.9 C 89 16 100/67 90 Laboratory Results Cardiac Enzymes 08/04/19 Range/Units 06:17 AST 11 L (15-37) U/L CBC 08/04/19 Range/Units 06:17 WBC 6.36 (4.8-10.8) K/uL RBC 4.25 (4.2-5.4) M/uL Hgb 12.2 (12.0-16.0) g/dL Hct 37.6 (37-47) % Plt Count 242 (130-400) K/uL Neut # (Auto) 5.01 (1.4-6.5) K/uL Lymph # (Auto) 0.67 L (1.2-3.4) K/uL Riley # (Auto) 0.56 (0.11-0.59) K/uL Eos # (Auto) 0.09 (0-0.5) K/uL Baso # (Auto) 0.01 (0-0.2) K/uL Comprehensive Metabolic Panel 08/04/19 Range/Units 06:17 Sodium 138 (136-145) mmol/L Potassium 4.5 (3.5-5.1) mmol/L Chloride 103 (98-107) mmol/L Carbon Dioxide 31 (21-32) mmol/L BUN 26 H (7-18) mg/dl Creatinine 1.16 (0.6-1.2) mg/dl Glucose 106 H (70-99) mg/dl Calcium 8.6 (8.5-10.1) mg/dl AST 11 L (15-37) U/L ALT 18 (12-78) U/L Alkaline Phosphatase 108 (45-117) U/L Total Protein 6.6 (6.4-8.2) gm/dl Albumin 2.7 L (3.4-5.0) gm/dl Intake and Output 08/03/19 08/04/19 08/04/19 22:59 06:59 14:59 Intake Total 300 / 1181.15 100 / 1181.15 Output Total 300 / 1500 300 / 1500 Balance 0 / -318.85 -200 / -318.85 Intake: Oral 300 / 840 100 / 840 Output: Urine 300 / 1500 300 / 1500 Other: Weight 87.4 kg ECG Additional Comments: EKG performed at 0939 reviewed and demonstrated NSR at 90 / min, occasional PVC, LBBB, NSSTTWA's. (1) CHF (congestive heart failure) Heart failure chronicity: acute Heart failure type: unspecified Qualified Code(s): I50.9 - Heart failure, unspecified
[2019-08-04] MEDS: TRAVOPROST Z 0.004% OPH SOLN 2.5 ML BTL OPR SCH (20:37)
[2019-08-05 06:48] LABS: BUN Creatinine Ratio 27.3 (10-20); Calcium 8.4 mg/dl (8.5-10.1); Creatinine Clr Calc Pharmacy 47.4 ml/min; Est GFR (African American) 55.6; Potassium 4.1 mmol/L (3.5-5.1)
--- NOTE | 2019-08-05 07:35 | Electrocardiogram Report ---
Test Reason : Blood Pressure : / mmHG Vent. Rate : 092 BPM Atrial Rate : 092 BPM P-R Int : 172 ms QRS Dur : 130 ms QT Int : 408 ms P-R-T Axes : 042 -46 107 degrees QTc Int : 504 ms Sinus rhythm with occasional Premature ventricular complexes Left axis deviation Left bundle branch block Abnormal ECG When compared with ECG of 03-AUG-2019 07:15, Premature ventricular complexes are now Present Premature atrial complexes are no longer Present Confirmed by Morteza Taylor ([id number]) on 08/05/2019 7:35:27 AM Referred By: REFERRED SELF Confirmed By:Morteza Taylor
[2019-08-05] MEDS: INSULIN ASPART 100 UNITS/ML 3 ML PEN SC SCH ×4 (08:43→21:07)
[2019-08-05] MEDS: carvediloL 3.125 MG TAB PO SCH ×2 (08:44→21:07)
[2019-08-05] MEDS: ESCITALOPRAM OXALATE 10 MG TAB PO SCH (08:44)
[2019-08-05] MEDS: ASPIRIN 81 MG ECTAB PO SCH (08:44)
[2019-08-05] MEDS: lisinopriL 5 MG TAB PO SCH (08:44)
[2019-08-05] MEDS: ATORVASTATIN 40 MG TAB PO SCH (08:44)
[2019-08-05] MEDS: ENOXAPARIN INJ 40 MG/0.4 ML SYR SQ SCH (08:45)
--- NOTE | 2019-08-05 10:35 | Hospitalist Progress Note ---
Date of Service August 05, 2019 Assessment & Plan (1) CHF (congestive heart failure): Progressive dyspnea over week prior to admission.. Had an episode of diaphoresis, but no fever. Possible density at left base on chest x-ray. Overall, clinical history, exam, radiographic appearance, elevated BNP suggest new onset CHF. LVEF 45% by echo in 2019. Had mild aortic stenosis at that time. Echo 08/02 showed mild , mild-mod MR, thinning and severe hypokinesis inferior wall, overall LVEF 20-25%. TSH normal. Acute / new onset left ventricular systolic heart failure. Started on carvedilol. Lisinopril continued. Titrate diuretics. (2) Elevated troponin I level: Serum troponin 0.084, repeat 0.085. EKG shows chronic LBBB. Episode of chest pressure 5 days prior to admission. Elevated troponin could be secondary to myocardial infarction, CHF, infection. Serial troponins 0.084, 0.085, 0.096. Echo showed inferior hypokinesis with wall thinning. CTA chest demonstrated coronary calcifications. Probable coronary artery disease with prior infarct; doubt acute coronary syndrome. Pulmonary embolism ruled out. Slightly elevated troponin could be due to CHF or subacute NE. LDL-c = 66. Started antiplatelet therapy with aspirin. Cardiology consulted; cath recommended and is tentatively planned for 08/05. (3) Elevated d-dimer: D-dimer 3740. Remote history DVT LLE. CTA chest negative for PE. Venous duplex lower extremities negative for DVT.. (4) Hypertension: Cardiovascular meds as note above. 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 Hgb A1c = 8.4. Hold glipizide during hospital stay. Insulin coverage as needed. FBS today = 110. (6) Dyslipidemia: LDL-c = 66. Start atorvastatin for suspected coronary artery disease. (7) History of MRSA infection: History of MRSA from buttock ulcer. Seen by ID Feb 2019 who recommended decolonization. No testing since then. Contact precautions. (8) COVID-19 ruled out: COVID-19 considered in light of sweats, SOB, LLL infiltrate, lymphopenia. 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 (9) Abnormal finding on breast imaging: Thickening of skin left breast / nipple noted on CT of chest. Had negative breast biopsy with Dr. Rose last year. Needs follow-up with Dr. Rose. # for appt: [phone]. (10) DVT prophylaxis: Initially received anticoagulation with IV heparin. Now receiving SQ enoxaparin. (11) Discharge planning issues: Anticipated discharge to home. Family Medicine follow-up with Dr. Salguero. Cardiology follow-up with Dr. Little. Admission and Anticipated Discharge Date Admission Date: August 02, 2019 Subjective Recheck for CHF and other problems. Patient seen in their room around 0910. Doing well. No SOB. No chest pain. Occasional PVC's on campus monitor. Review of Systems: Constitutional- no fever. Cardiac- as noted above. Pulmonary- no cough or SOB. GI- no nausea, vomiting, diarrhea, melena, hematochezia. - no urinary symptoms. Otherwise, as noted above. Physical Exam Constitutional: WD/WN, vitals as above no acute distress Respiratory: normal respiratory effort, lungs clear to auscultation Auscultation: no rales and no wheezes Cardiovascular: Rate/Rhythm: regular rate Heart Sounds: + murmur (II/ sys murmur at base / LSB); no gallop and no cardiac rub Vessels: no JVD Extremities: no calf tenderness and no edema Gastrointestinal (Abdomen): normal bowel sounds, soft, nontender, no hepatosplenomegaly Musculoskeletal: Extremities: no cyanosis Skin: no rashes, warm and dry Psychiatric: Orientation: alert and oriented x 3 Results & Data Results & Data ([facility]) Vital Signs (Past 12 Hours) Vital Signs Temp Pulse Pulse Resp BP Pulse Ox 08/05/19 08:00 83 08/05/19 07:20 36.7 C 80 19 111/69 91 08/05/19 03:31 36.7 C 86 16 103/61 91 08/05/19 00:14 81 08/04/19 23:32 36.8 C 81 18 94/59 L 92 Laboratory Results Comprehensive Metabolic Panel 08/05/19 Range/Units 05:44 Sodium 139 (136-145) mmol/L Potassium 4.1 (3.5-5.1) mmol/L Chloride 103 (98-107) mmol/L Carbon Dioxide 28 (21-32) mmol/L BUN 31 H (7-18) mg/dl Creatinine 1.14 (0.6-1.2) mg/dl Glucose 110 H (70-99) mg/dl Calcium 8.4 L (8.5-10.1) mg/dl Intake and Output 08/04/19 08/05/19 08/05/19 22:59 06:59 14:59 Intake Total 360 / 1040 200 / 1040 Output Total 800 / 1800 400 / 1800 Balance -440 / -760 -200 / -760 Intake: Oral 360 / 1040 200 / 1040 Output: Urine 800 / 1800 400 / 1800 Other: Weight 86.2 kg (1) CHF (congestive heart failure) Heart failure chronicity: acute Heart failure type: unspecified Qualified Code(s): I50.9 - Heart failure, unspecified
--- NOTE | 2019-08-05 12:16 | Cardiology Progress Note ---
Date of Service August 05, 2019 Assessment & Plan (1) Acute HFrEF (heart failure with reduced ejection fraction): (2) Left bundle branch block: (3) Elevated troponin I level: Volume status improved. Hold diuretic therapy today. Repeat basic metabolic panel in a.m. Continue carvedilol and lisinopril as previously ordered. Risk versus benefit of cardiac catheterization reviewed with patient. Left heart catheterization with coronary angiography scheduled 08/06/2019. N.p.o. except medications after midnight. Subjective Patient seen and examined at the bedside. Fluid balance -760 cc over the past 24 hours. Renal function remains stable. Patient feeling better today. Anxious for discharge when possible. Tolerating current medications. Offers no complaints. Telemetry demonstrates sinus rhythm with a short salvos of paroxysmal atrial tachycardia. Review of Systems Review of Systems: All systems reviewed & are unremarkable except as noted in HPI & below Physical Exam Constitutional: well developed, well nourished and + obese Respiratory: normal respiratory effort; no respiratory distress, no labored breathing and no retractions Auscultation: no crackles, no rales (Bases bilateral), no rhonchi and no wheezes Cardiovascular: Rate/Rhythm: regular rate Heart Sounds: normal S1, normal S2 and + murmur (1/6 systolic ejection murmur heard best at the right second intercostal space) Vessels: no JVD and no carotid bruit Extremities: no edema Gastrointestinal (Abdomen): Inspection/Auscultation: abdomen normal to inspection and normal bowel sounds; abdomen not distended Percussio n/Palpation: abdomen soft; abdomen nontender, no guarding and abdomen not rigid Musculoskeletal: Extremities: strength 5/5 throughout Skin: no rashes, warm and dry Neurologic: moves all extremities; no focal motor deficits Speech / Cognition: normal speech Motor/Sensory: no tremor Psychiatric: A+Ox3, euthymic affect Results & Data Vital Signs (Past 12 Hours) Vital Signs Temp Pulse Pulse Resp BP Pulse Ox 08/05/19 11:31 36.7 C 81 18 111/71 92 08/05/19 08:00 83 08/05/19 07:20 36.7 C 80 19 111/69 91 08/05/19 03:31 36.7 C 86 16 103/61 91 08/05/19 00:14 81
[2019-08-05] MEDS: TRAVOPROST Z 0.004% OPH SOLN 2.5 ML BTL OPR SCH (21:06)
[2019-08-06 07:20] LABS: Hematocrit (blood only) 38.5 % (37-47); Hemoglobin 12.3 g/dL (12.0-16.0); Mean Corpuscular Hemoglobin 28.3 pg (25-34); Mean Corpuscular Hgb Conc 31.9 g/dL (32-36); Mean Corpuscular Volume 88.7 fL (80-100); Mean Platelet Volume 9.3 fL (7.4-10.4); Platelet Count 230 K/uL (130-400); RDW Standard Deviation 45.4 fL (36.4-46.3); Red Blood Count 4.34 M/uL (4.2-5.4); White Blood Count 5.66 K/uL (4.8-10.8)
[2019-08-06] MEDS: INSULIN ASPART 100 UNITS/ML 3 ML PEN SC SCH ×2 (07:25→12:00)
[2019-08-06 07:52] LABS: BUN Creatinine Ratio 30.5 (10-20); Calcium 9.2 mg/dl (8.5-10.1); Creatinine Clr Calc Pharmacy 47.9 ml/min; Est GFR (African American) 56.2; Est GFR (Non-African American) 48.5; Potassium 3.9 mmol/L (3.5-5.1)
[2019-08-06] MEDS ORDERED: HEPARIN (PORCINE) 1000 UNIT/ML 10 ML (CATH LAB USE ONLY) ONE (08:19)
[2019-08-06] MEDS ORDERED: NiCARDipine HCL INJ 2.5 MG/ML 10 ML AMP ONE (08:19)
[2019-08-06] MEDS ORDERED: fentaNYL citrate 100 MCG/2 ML VIAL ONE (08:20)
[2019-08-06] MEDS ORDERED: MIDAZOLAM HCL 1 MG/ML 2ML VIAL ONE (08:20)
[2019-08-06] MEDS ORDERED: NITROGLYCERIN/D5W 100MCG/ML 20ML SYR ONE (08:21)
--- NOTE | 2019-08-06 08:34 | Pre Anesthesia Assessment ---
Date of Service August 06, 2019 Pre Sedation Assessment Vital Signs Temp Pulse Pulse Resp BP BP Pulse Ox 08/06/19 10:30 85 20 133/84 94 08/06/19 10:02 83 20 136/87 95 08/06/19 09:50 36.8 C 85 20 122/82 93 08/06/19 07:12 36.8 C 81 19 122/74 92 08/06/19 04:16 36.7 C 86 16 105/68 93 08/05/19 23:33 36.8 C 86 18 102/62 90 08/05/19 22:00 91 H 08/05/19 19:26 36.9 C 82 16 129/74 92 08/05/19 16:00 83 08/05/19 15:17 36.6 C 77 16 117/78 94 08/05/19 11:31 36.7 C 81 18 111/71 92 Cardiovascular RRR, no murmur, no edema Respiratory normal respiratory effort, lungs clear to auscultation Pre-Sedation Airway Assessment Smoking Status: Never smoker Oral Cavity: + WNL Mallampati Class: III ASA: ASA3 NPO Status Date of Last Intake of Fluids: 08/05/19 Date of Last Intake of Solid Food: 08/05/19 Procedure Planning Contraindications for Sedation: none Current Medications Reviewed: Yes Notes The planned sedation has been discussed with the patient. Informed Consent was obtained. I have identified the patient, determined the appropriateness of sedation and have assessed the patient immediately prior to the procedure. All medicine(s) and interventions are by my order.
--- NOTE | 2019-08-06 09:41 | Post Anesthesia Assessment ---
Date of Service August 06, 2019 Post Sedation Assessment Vital Signs Temp Pulse Pulse Resp BP BP Pulse Ox 08/06/19 10:30 85 20 133/84 94 08/06/19 10:02 83 20 136/87 95 08/06/19 09:50 36.8 C 85 20 122/82 93 08/06/19 07:12 36.8 C 81 19 122/74 92 08/06/19 04:16 36.7 C 86 16 105/68 93 08/05/19 23:33 36.8 C 86 18 102/62 90 08/05/19 22:00 91 H 08/05/19 19:26 36.9 C 82 16 129/74 92 08/05/19 16:00 83 08/05/19 15:17 36.6 C 77 16 117/78 94 08/05/19 11:31 36.7 C 81 18 111/71 92 Recovery Score Activity: Moves 4 extremities Respiration: Deep Breath/Cough Circulation: +/-20% PreAnes Value Consciousness: Arouseable (by name) Oxygen Saturation: O2 needed for >90% Discharge Sedation Level of Care: Phase I Post Sedation Plan On clinical assessment, the patient appears to have tolerated the sedation without complications. Patient is recovering as anticipated. Patient will continue to be monitored by nursing and may be discharged when sedation discharge criteria are met per below protocol. Upon Completions of procedure up to 15 minutes continue every 5 minute vital signs and the P.A.R. score; then discharge to a Phase I or Fast Track to Phase II per the following guidelines: * Discharge Patient to appropriate Phase II area if PAR is 8 or greater or return to pre- procedure baseline. The post - procedure orders will be as directed. * If PAR score is less than 8 or not return to pre-procedure baseline then patient will follow Phase I monitoring till PAR is reached for Phase II. The Phase I may be done in procedure room or may call to secure a Phase I area. * If naloxone or flumazenil are used for reversal, hold in Phase I for continued monitoring from when last reversal dose was given for a minimum of 60 minutes or longer pending the nurse and/or physician discretion of patient condition before discharge to Phase II. Please call the Sedation Physician to re-evaluate and complete post-note for discharge to Phase II area. Do NOT discharge from procedure sedation or Phase 1 until post- sedation evaluation note is complete by procedure /sedation MD Sedation Discharge Instructions to be given to the patient at discharge to home.
--- NOTE | 2019-08-06 09:50 | Cardiac Catheterization ---
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 The left main is a large vessel which bifurcates in left anterior descending and left circumflex artery. Left main is free of significant obstructive disease. Left anterior descending artery is a moderate caliber vessel proximally which tapers down to a small vessel apically. The LAD is diffusely diseased. There is a 70% proximal stenosis followed by a small poststenotic aneurysmal segment. The mid segment is diffusely diseased with a 99% mid stenosis. Severe mid to apical LAD stenosis with stenosis up to 90%. The mid to distal LAD appears to be a poor surgical target. The LAD gives rise to 1 small diagonal branch vessel. The diagonal branch vessel demonstrates moderate diffuse disease wit hout focal stenosis. The left circumflex is a large nondominant vessel giving rise to 2 obtuse marginal branch vessels. There is a 75% mid stenosis. The first obtuse marginal is small to moderate caliber without focal obstructive disease. The second obtuse marginal branch vessel is moderate caliber without focal obstructive disease. The right coronary artery is a moderate caliber vessel proximally. There is severe diffuse calcification in the proximal to mid segment. The vessel demonstrates a 100% occlusion in the midsegment. Distal posterior lateral vessel can be seen filling via left to right collaterals. Hemodynamics Rest Ao:: 119/55/85 Final Ao: 119/54/79 LV: 117/3/18 Recommendations Recommendations: CABG Specimens Specimens: None Radiation Exposure (mGy) 626 Contrast (mls) 55 Fluids (cc crystalloids) Fluids (cc crystalloids): 15 Nss Drains Drains: N/A Anesthesia Moderate sedation. Start 903. End 929. Sedation monitor : Bhavik DE LEÓN Procedural Complication(s) None Disposition PCU I attest to the content of the Intraoperative Record and any orders documented therein. Any exceptions are noted below. 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 Status Clinical evaluation leading to the procedure CAD Presenation: Unstable angina Anginal Classification: CCS IV Heart Failure: NYHA Class: CCS IV Cardiogenic Shock within 24 Hours: No Cardiac Arrest within 24 Hours: No Imaging Studies Past 6 Months: Yes Stress Studies Past 6 Months: No Coronary Anatomy Dominant: Right Left Main (% Stenosis): Mid (10%) LAD (% Stenosis): Proximal (70% followed by a small poststenotic aneurysmal segment) and Mid (99% focal stenosis followed by a long diffuse 'string like' 90% stenosis extending to the apical segment.) D1 (% Stenosis): Mid (20-30% diffuse) Circumflex (% Stenosis): Proximal (20%), Mid (75%) and Distal (30% distal to OM2 ostia) OM1 (% Stenosis): Ostial (30%) OM2 (% Stenosis): Proximal (20%) R PDA (% Stenosis): Proximal (70% severe calcification ) and Mid (100%) Diagnostic Physicians Name: Sarbjit Lewis DO Status: Urgent Closure Device Percutaneous Entry Location: Femoral Closure Device: Mynx Recommendations: CABG Intraprocedure Events Significant Disection: No Perforation: No
[2019-08-06] MEDS ORDERED: ACETAMINOPHEN 325 MG TAB PO PRN (10:02)
[2019-08-06] MEDS: ENOXAPARIN INJ 40 MG/0.4 ML SYR SQ SCH (10:07)
[2019-08-06] MEDS: ATORVASTATIN 40 MG TAB PO SCH (10:08)
[2019-08-06] MEDS: ASPIRIN 81 MG ECTAB PO SCH (10:08)
[2019-08-06] MEDS: carvediloL 3.125 MG TAB PO SCH (10:09)
[2019-08-06] MEDS: lisinopriL 5 MG TAB PO SCH (10:09)
[2019-08-06] MEDS: ESCITALOPRAM OXALATE 10 MG TAB PO SCH (10:09)
--- NOTE | 2019-08-06 10:56 | Cardiology Progress Note ---
Date of Service August 06, 2019 Assessment & Plan (1) Multi-vessel coronary artery stenosis: (2) Ischemic cardiomyopathy: (3) Severe mitral regurgitation: (4) Acute HFrEF (heart failure with reduced ejection fraction): (5) Left bundle branch block: (6) Elevated troponin I level: Cardiac catheterization revealed severe multivessel coronary disease with suboptimal surgical targets. Case discussed with cardiothoracic surgery at [facility] in [place]. Recommend transfer to [facility] for viability testing/cardiac MRI. If LAD territory is viable, patient will proceed with coronary artery bypass grafting. She will remain at bedrest for 4 hours post catheterization. Continue current cardiovascular medications as previously ordered. Case discussed with via telephone. Patient agreeable to transfer. Subjective Patient seen and examined post cardiac catheterization. Results of procedure discussed at length. Currently denies chest pain or shortness of breath. Hemodynamically stable. No groin discomfort or hematoma. She offers no concerns/complaints currently. Review of Systems Review of Systems: All systems reviewed & are unremarkable except as noted in HPI & below Physical Exam Constitutional: well developed, well nourished and + obese ENMT: Mallampati Class: III Respiratory: normal respiratory effort, lungs clear to auscultation normal respiratory effort; no respiratory distress, no labored breathing and no retractions Auscultation: no crackles, no rales (Bases bilateral), no rhonchi and no wheezes Cardiovascular: RRR, no murmur, no edema Rate/Rhythm: regular rate Heart Sounds: normal S1, normal S2 and + murmur (1/6 systolic ejection murmur heard best at the right second intercostal space) Vessels: no JVD and no carotid bruit Extremities: no edema Gastrointestinal (Abdomen): Inspection/Auscultation: abdomen normal to inspection and normal bowel sounds; abdomen not distended Percus hugo/Palpation: abdomen soft; abdomen nontender, no guarding and abdomen not rigid Musculoskeletal: Extremities: strength 5/5 throughout Skin: no rashes, warm and dry Neurologic: moves all extremities; no focal motor deficits Speech / Cognition: normal speech Motor/Sensory: no tremor Psychiatric: A+Ox3, euthymic affect Results & Data Vital Signs (Past 12 Hours) Vital Signs Temp Pulse Resp BP BP Pulse Ox 08/06/19 10:30 85 20 133/84 94 06/01/20 10:02 83 20 136/87 95 08/06/19 09:50 36.8 C 85 20 122/82 93 08/06/19 07:12 36.8 C 81 19 122/74 92 08/06/19 04:16 36.7 C 86 16 105/68 93 08/05/19 23:33 36.8 C 86 18 102/62 90
--- NOTE | 2019-08-06 12:22 | Hospitalist Progress Note ---
Date of Service August 06, 2019 Assessment & Plan (1) CHF (congestive heart failure): Progressive dyspnea over week prior to admission. Had an episode of diaphoresis, but no fever. Possible density at left base on chest x-ray. Overall, clinical history, exam, radiographic appearance, elevated BNP suggested new onset CHF. LVEF 45% by echo in 2019. Had mild aortic stenosis at that time. Echo 08/02 showed mild , mild-mod MR, thinning and severe hypokinesis inferior wall, overall LVEF 20-25%. TSH normal. Acute / new onset left ventricular systolic heart failure, probably secondary to underlying ischemic heart disease. Started on carvedilol. Lisinopril continued. Titrate diuretics. (2) Elevated troponin I level: Serum troponin 0.084, repeat 0.085. EKG shows chronic LBBB. Episode of chest pressure 5 days prior to admission. Elevated troponin could be secondary to myocardial infarction, CHF, infection. Serial troponins 0.084, 0.085, 0.096. Echo showed inferior hypokinesis with wall thinning. Probable coronary artery disease with prior infarct; doubt acute coronary syndrome. Pulmonary embolism ruled out. Slightly elevated troponin could be due to CHF or subacute [place]. LDL-c = 66. Started antiplatelet therapy with aspirin. Cardiology consulted; cath as discussed below. (3) Coronary artery disease: No known prior history of ischemic heart disease. Presented with new onset CHF. Episode of chest pressure and SOB several days prior to admission. Troponins slightly elevated as discussed above and did not rise significantly. CTA chest demonstrated coronary calcifications. Echo showed inferior hypokinesis with wall thinning, overall LVEF 25%. Cardiac cath performed by Dr. Lewis: Coronary Anatomy Dominant: Right Left Main (% Stenosis): Mid (10%) LAD (% Stenosis): Proximal (70% followed by a small poststenotic aneurysmal segment) and Mid (99% focal stenosis followed by a long diffuse 'string like' 90% stenosis extending to the apical segment.) D1 (% Stenosis): Mid (20-30% diffuse) Circumflex (% Stenosis): Proximal (20%), Mid (75%) and Distal (30% distal to OM2 ostia) OM1 (% Stenosis): Ostial (30%) OM2 (% Stenosis): Proximal (20%) R PDA (% Stenosis): Proximal (70% severe calcification ) and Mid (100%) Transfer to [facility] recommended for further evaluation and management. (4) Severe mitral regurgitation: Moderate to severe MR noted on echo. MR probably secondary to CHF. Management per Cardiology. (5) Elevated d-dimer: D-dimer 3740. Remote history DVT LLE. CTA chest negative for PE. Venous duplex lower extremities negative for DVT.. (6) Hypertension: Cardiovascular meds as note above. 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 Hgb A1c = 8.4. Hold glipizide during hospital stay. Insulin coverage as needed. FBS today = 172. (8) Dyslipidemia: LDL-c = 66. Started atorvastatin for suspected coronary artery disease. (9) History of MRSA infection: History of MRSA from buttock ulcer. Seen by ID Feb 2019 who recommended decolonization. No testing since then. Contact precautions. (10) COVID-19 ruled out: COVID-19 considered in light of sweats, SOB, LLL infiltrate, lymphopenia. [employer] swab for SARS-CoV-2 PCR negative. (11) Abnormal finding on breast imaging: Thickening of skin left breast / nipple noted on CT of chest. Had negative breast biopsy with Dr. Rose last year. Discussed with Dr. Rose and she recommends outpatient follow-up with her. Findings and need for follow-up were discussed with patient's , but not discussed with the patient during this hospital stay given her cardiac situation and need to avoid additional stress. Will ask PCP to discuss with her an arrange for follow-up once her cardiac needs are addressed. (12) DVT prophylaxis: Initially received anticoagulation with IV heparin. Now receiving SQ enoxaparin. (13) Discharge planning issues: Arrangements are being made for transfer to [facility] for further cardiac evaluation and management. Receiving provider: Dr. Colby. Family Medicine follow-up with Dr. Salguero. Cardiology follow-up with Dr. Little. Admission and Anticipated Discharge Date Admission Date: August 02, 2019 Subjective Recheck for CHF and other problems. Patient seen in their room around 1130. Cardiac cath performed this morning via right femoral approach. Found to have 3-vessel disease. Transfer to [facility] recommended for further evaluation and management. Patient upset about the results of the cath. No CP or SOB. Review of Systems: Constitutional- no fever. Cardiac- as noted above. Pulmonary- no cough or SOB. GI- no nausea, vomiting, diarrhea, melena, hematochezia. - no urinary symptoms. Otherwise, as noted above. Physical Exam Constitutional: WD/WN, vitals as above no acute distress Respiratory: normal respiratory effort, lungs clear to auscultation Auscultation: no rales and no wheezes Cardiovascular: Rate/Rhythm: regular rate Heart Sounds: + murmur (II/ sys murmur at base / LSB); no gallop and no cardiac rub Vessels: no JVD Extremities: no calf tenderness and no edema Gastrointestinal (Abdomen): normal bowel sounds, soft, nontender, no hepatosplenomegaly Musculoskeletal: Extremities: no cyanosis Psychiatric: Orientation: alert and oriented x 3 Results & Data Results & Data ([facility]) Vital Signs (Past 12 Hours) Vital Signs Temp Pulse Resp BP BP Pulse Ox 08/06/19 11:15 79 20 135/84 93 08/06/19 10:45 81 20 140/84 93 08/06/19 10:30 85 20 133/84 94 08/06/19 10:02 83 20 136/87 95 08/06/19 09:50 36.8 C 85 20 122/82 93 08/06/19 07:12 36.8 C 81 19 122/74 92 08/06/19 04:16 36.7 C 86 16 105/68 93 Laboratory Results 08/06/19 07:01 08/06/19 07:01 (1) CHF (congestive heart failure) Heart failure chronicity: acute Heart failure type: unspecified Qualified Code(s): I50.9 - Heart failure, unspecified
--- NOTE | 2019-08-06 13:14 | Discharge Summary ---
Date of Service Date of Admission: 08/02/19 Date of Transfer: 08/06/19 Admission HPI Per Admitting Provider 74 YO female followed by Dr. Salguero for Family Medicine and Dr. Little for Cardiology. History of hypertension, DM type 2, rectal carcinoma, DVT, and other problems. Preop EKG in 2019 showed left bundle branch block. Seen in consultation by Cardiology. Echo showed mild aortic stenosis, LVEF 45%, no segmental wall motion abnormalities. Nuclear stress study did not show any evidence of stress-induced ischemia. About 1 week prior to admission, experienced onset of malaise and right-sided headache. She had 1 episode of diaphoresis without apparent fever. Subsequently noted onset of dyspnea, at rest and with exertion. The evening of 07/27 she had an episode of midsternal chest pressure at rest with worsening dyspnea. No palpitations. Mild nonproductive cough. No pleuritic chest pain. Over next few days, experienced persistent and worsening dyspnea on exertion. Mild chronic LLE edema. Seen in clinic today for evaluation and referred to ED for further evaluation and management. Received furosemide in ED with improvement of her symptoms. No sick contacts. Traveled to [facility] in February. Traveled to [place] in early May. Has been careful to follow social distancing guidelines. Principal Diagnosis congestive heart failure, systolic, due to ischemic cardiomyopathy coronary artery disease, severe, multivessel mitral regurgitation, moderate- severe Discharge Data Allergies Allergy/AdvReac Type Severity Reaction Status Date / Time adhesive Allergy Unknown HIVES Verified 08/02/19 15:26 rosiglitazone Allergy Unknown ANEMIA/RECTAL Verified 08/02/19 15:26 BLEEDING Consultations 08/02/19 15:08 ED Decision to Admit Stat 08/02/19 17:56 Consult Cardiology Routine 08/06/19 08:51 Consult Cardiac Catheterization Routine Procedures Performed Operation Date: 08/06/19 09:00 Actual Procedures p Cath, Left with Cors and Vent - Sarbjit Lewis DO s Cineradiography w/Routine Exam Jose Carlos Lewis DO Ordered Studies 08/02/19 20:54 CT angio chest PE protocol Urgent US venous doppler LE BI Urgent 08/06/19 06:50 CL Cath Imgs for PACS use only Routine Hospital Course (1) CHF (congestive heart failure): Progressive dyspnea over week prior to admission. Had an episode of diaphoresis, but no fever. Possible density at left base on chest x-ray. Overall, clinical history, exam, radiographic appearance, elevated BNP suggested new onset CHF. LVEF 45% by echo in 2019. Had mild aortic stenosis at that time. Echo 08/02 showed mild , mild-mod MR, thinning and severe hypokinesis inferior wall, overall LVEF 20-25%. TSH normal. Acute / new onset left ventricular systolic heart failure, probably secondary to underlying ischemic cardiomyopathy. Started on carvedilol. Lisinopril continued. Titrate diuretics. (2) Elevated troponin I level: Serum troponin 0.084, repeat 0.085. EKG shows chronic LBBB. Episode of chest pressure 5 days prior to admission. Elevated troponin could be secondary to myocardial infarction, CHF, infection. Serial troponins 0.084, 0.085, 0.096. Echo showed inferior hypokinesis with wall thinning. Probable coronary artery disease with prior infarct; doubt acute coronary syndrome. Pulmonary embolism ruled out. Slightly elevated troponin could be due to CHF or subacute [place]. LDL-c = 66. Started antiplatelet therapy with aspirin. Cardiology consulted; cath as discussed below. (3) Coronary artery disease: No known prior history of ischemic heart disease. Presented with new onset CHF. Episode of chest pressure and SOB several days prior to admission. Troponins slightly elevated as discussed above and did not rise significantly. CTA chest demonstrated coronary calcifications. Echo showed inferior hypokinesis with wall thinning, overall LVEF 25%. Cardiac cath performed by Dr. Lewsi 08/06/19: Coronary Anatomy Dominant: Right Left Main (% Stenosis): Mid (10%) LAD (% Stenosis): Proximal (70% followed by a small poststenotic aneurysmal segment) and Mid (99% focal stenosis followed by a long diffuse 'string like' 90% stenosis extending to the apical segment.) D1 (% Stenosis): Mid (20-30% diffuse) Circumflex (% Stenosis): Proximal (20%), Mid (75%) and Distal (30% distal to OM2 ostia) OM1 (% Stenosis): Ostial (30%) OM2 (% Stenosis): Proximal (20%) R PDA (% Stenosis): Proximal (70% severe calcification ) and Mid (100%) Transfer to [facility] recommended for further evaluation and management. (4) Severe mitral regurgitation: Moderate to severe MR noted on echo. MR probably secondary to CHF. Management per Cardiology. (5) Elevated d-dimer: D-dimer 3740. Remote history DVT LLE. CTA chest negative for PE. Venous duplex lower extremities negative for DVT.. (6) Hypertension: Cardiovascular meds as note above. 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 Hgb A1c = 8.4. Hold glipizide during hospital stay. Insulin coverage as needed. FBS day of discharge = 172. (8) Dyslipidemia: LDL-c = 66. Started atorvastatin for suspected coronary artery disease. (9) History of MRSA infection: History of MRSA from buttock ulcer. Seen by ID Feb 2019 who recommended decolonization. No testing since then. Contact precautions. (10) COVID-19 ruled out: COVID-19 considered in light of sweats, SOB, LLL infiltrate, lymphopenia. [employer] swab for SARS-CoV-2 PCR negative. (11) Abnormal finding on breast imaging: Thickening of skin left breast / nipple noted on CT of chest. Had negative breast biopsy with Dr. Rose last year. Discussed with Dr. Rose and she recommends outpatient follow-up with her. Findings and need for follow-up were discussed with patient's , but not discussed with the patient during this hospital stay given her cardiac situation and need to avoid additional stress. Will ask PCP to discuss with her an arrange for follow-up once her cardiac needs are addressed. (12) DVT prophylaxis: Initially received anticoagulation with IV heparin, subsequently received SQ enoxaparin. (13) Discharge planning issues: Arrangements are being made for transfer to [facility] for further cardiac evaluation and management. Receiving provider: Dr. Colby. Family Medicine follow-up with Dr. Salguero. Cardiology follow-up with Dr. Little. Home Medications escitalopram oxalate [Lexapro] 10 mg PO DAILY #0 03/20/11 [History Confirmed 08/02/19] [id number] 1 tab PO DAILY #0 03/03/15 [History Confirmed 08/02/19] glipizide 5 mg PO DAILY #0 tab 03/03/15 [History Confirmed 08/02/19] (on hold during hospital stay) lisinopril [Zestril] 5 mg PO DAILY #0 tab 03/03/15 [History Confirmed 08/02/19] lutein 20 mg PO DAILY #0 03/03/15 [History Confirmed 08/02/19] loratadine [Claritin] 10 mg PO DAILY PRN #0 tab 09/13/16 [History Confirmed 08/02/19] travoprost 1 drp OPR HS 08/03/19 [History Confirmed 08/03/19] Current Inpatient Medications Acetaminophen (Tylenol) 650 mg PO Q4H PRN PRN Reason: Pain or Fever Stop: 09/01/19 17:55 Acetaminophen (Tylenol) 650 mg PO Q4H PRN PRN Reason: PAIN 1-3 Stop: 09/05/19 10:01 Aspirin (Ecotrin Ectab) [facility] [place] Stop: 09/01/19 17:55 Last Admin: 08/06/19 10:08 Dose: 81 mg Documented by: Atorvastatin Calcium (Lipitor) 40 mg PO QAM [facility] Stop: 09/04/19 08:59 Last Admin: 08/06/19 10:08 Dose: 40 mg Documented by: Carvedilol (Coreg) 3.125 mg PO BID [facility] Stop: 09/03/19 08:59 Last Admin: 08/06/19 10:09 Dose: 3.125 mg Documented by: Dextrose (Dextrose 50%) 25 - 50 ml IV UD PRN; Protocol PRN Reason: Hypoglycemia Protocol Stop: 09/01/19 20:44 Enoxaparin Sodium (Lovenox) 40 mg SQ [facility] [place] Stop: 09/03/19 08:59 Last Admin: 08/06/19 10:07 Dose: 40 mg Documented by: Escitalopram Oxalate (Lexapro Tab) 10 mg PO DAILY [facility] Stop: 09/02/19 08:59 Last Admin: 08/06/19 10:09 Dose: 10 mg Documented by: Glucagon (Glucagen) 1 mg IM UD PRN; Protocol PRN Reason: Hypoglycemia Protocol Stop: 09/01/19 20:44 Glucose (Glucose 40%) 15 - 30 gm PO UD PRN; Protocol PRN Reason: Hypoglycemia Protocol Stop: 09/01/19 20:44 Glucose (Dex4 Glucose) 4 - 8 tabs PO UD PRN; Protocol PRN Reason: Hypoglycemia Protocol Stop: 09/01/19 20:44 Insulin Aspart (Novolog Flexpen) 0 units SC [facility] Stop: 09/01/19 20:59 Last Admin: 08/06/19 12:00 Dose: Not Given Documented by: Ioversol (Optiray 320 125ml) 118 ml IV ONCE PRN PRN Reason: Interaction Checking Stop: 08/06/19 22:03 Last Admin: 08/02/19 22:05 Dose: 1 ml Documented by: Lisinopril (Zestril) 5 mg PO DAILY [facility] Stop: 09/02/19 08:59 Last Admin: 08/06/19 10:09 Dose: 5 mg Documented by: Loratadine (Claritin) 10 mg PO DAILY PRN PRN Reason: Allergy Symptoms Stop: 09/01/19 17:55 Last Admin: 08/03/19 08:12 Dose: 10 mg Documented by: Miscellaneous (Carbohydrates For Hypoglycemia) 15 - 30 gm PO UD PRN PRN Reason: Hypoglycemia Treatment Stop: 09/01/19 20:44 Morphine Sulfate (Morphine Sulfate) 2 mg IV Q30M PRN PRN Reason: Chest Pain Stop: 08/16/19 17:55 Nitroglycerin (Nitrostat) 0.4 mg SL UD PRN PRN Reason: Chest Pain Stop: 09/01/19 17:55 Travoprost (Travatan Z) 1 drops OPR HS [facility] Stop: 09/02/19 20:59 Last Admin: 08/05/19 21:06 Dose: 1 drops Documented by: Total Time Total Time Spent Total Time Spent (In Minutes): 50 Discharge Plan Discharge Items Patient Disposition: Transfer Acute Care Hospital Reason For Visit: shortness of breath Discharge Diagnosis: new onset congestive heart failure, systolic coronary artery disease mitral regurgitation Condition on Discharge: Good Activity: As commented below Activity Comment: bedrest for 4 hrs after cardiac cath Non-emergency contact: Primary Care Provider, Hospitalist and Installation And Service Technician Call non-emergency contact if: you have any medication questions and your symptoms worsen Follow-up/Referrals: Alcon Salguero MD [Primary Care Provider] - Diet: Carb Consistent or DM2 and Heart Healthy Addtl Attending Provider Instructions: CURRENT INPATIENT MEDS: Please note current inpatient med list at end of hospital course in discharge summary. ISOLATION PRECAUTIONS: contact isolation for MRSA (wound infection 2019) VTE prophylaxis: enoxaparin 30 mg SQ q a.m. (last dose 08/06/19 at 1007) Images from this admission were transferred to [facility] PACS. Thank you for receiving this patient in transfer. Please call or TigerText if you have any questions. Carlin Medina Pending Studies at Discharge: No Stand-Alone Forms: [facility] Skilled Items Patient informed of condition?: Yes DNR: No Discharge Level of Care: Other Communicable Disease: Yes (hx MRSA wound infection Jan 2019) Discharge Prognosis: Stable Lines: Peripheral IV Urinary Catheter: No Medications and DC Order Prescriptions: Continued escitalopram oxalate [Lexapro] 10 mg Tablet 10 mg PO DAILY Qty: 0 RF: 0 glipizide 5 mg Tablet Extended Release 24hr 5 mg PO DAILY Qty: 0 RF: 0 lisinopril [Zestril] 5 mg Tablet 5 mg PO DAILY Qty: 0 RF: 0 [id number] [id number] mg Tablet 1 tab PO DAILY Qty: 0 RF: 0 lutein 20 mg Tablet 20 mg PO DAILY Qty: 0 RF: 0 loratadine [Claritin] 10 mg Tablet 10 mg PO DAILY PRN (Reason: Allergy Symptoms) Qty: 0 RF: 0 travoprost 0.004 % drops 1 drp OPR HS RF: 0 Admission Data Admit Date/Time: 08/02/19 15:27 Attending Provider: Carlin Medina Admit Provider: Carlin Medina Primary Care Provider: Alcon Salguero Other Providers: Christine Gilman ; Vishnu Little ; Sarbjit Lewis
== END 2019-08-06 15:17 | disposition short-term general hospital (02) | DRG 286 ==
LOC: ED 12:45 → 2S 15:27

== ENCOUNTER 2021-12-11 14:06 | Inpatient (IN) ==
--- NOTE | 2021-12-11 15:22 | XRay Report ---
XR sacrum coccyx min 2V HISTORY: 76 years-old Female fall on bottom, HX of infection acute pelvic pain status post fall COMPARISON: CT abdomen pelvis 09/08/2019 TECHNIQUE: 3 views of the sacrum and coccyx FINDINGS: Demineralized appearance of the bones. Bridging osteophytosis of the lower lumbar spine. Moderate to severe degeneration of the SI joints with unchanged sclerosis. Surgical clips of the pelvis. No acute fracture or dislocation identified. Unchanged deformity of the sacrococcygeal junction. IMPRESSION: 1. No acute fracture identified. 2. Chronic sacral insufficiency fractures. ACT 112: Negative or not required by law. The above report was generated using voice recognition software. It may contain grammatical, syntax o r spelling errors. Electronically signed by: Miller Dougherty M.D. 12/11/2021 3:21 PM
[2021-12-11 16:20] LABS: Hemoglobin 12.7 g/dl (12.0-16.0); Mean Corpuscular Hgb Conc 35.3 g/dL (32.0-36.0); Mean Corpuscular Volume 90.7 fL (80.0-100.0); Mean Platelet Volume 10.3 fL (9.4-12.3); Platelet Count 149 K/uL (130-400); RDW Coefficient of Variation 15.1 % (11.5-14.5); RDW Standard Deviation 48.9 fL (36.4-46.3); Red Blood Count 3.97 M/uL (3.93-5.22); White Blood Count 6.17 K/ul (4.8-10.8)
[2021-12-11 16:40] LABS: Alanine Aminotransferase 17 U/L (7-52); Albumin Level 3.2 gm/dl (3.4-5.0); Alkaline Phosphatase 100 U/L (34-104); Anion Gap 9 (3-11); Aspartate Aminotransferase 17 U/L (13-39); BUN Creatinine Ratio 18.4 (10-20); Bilirubin,Total 0.7 mg/dl (0.2-1.0); Blood Urea Nitrogen 30 mg/dl (6-23); Calcium 8.8 mg/dl (8.5-10.1); Carbon Dioxide 24 mmol/L (21-32); Chloride 99 mmol/L (98-107); Est GFR (African American) 35.6 ml/min; Est GFR (Non-African American) 30.7 ml/min; Globulin 3.2 gm/dl (2.5-4.0); Glucose 264 mg/dl (70-99(Fasting)); Magnesium 1.5 mg/dl (1.7-2.4); Sodium 132 mmol/L (136-145); Total Protein 6.4 gm/dl (6.0-8.3)
[2021-12-11 16:44] LABS: Basophils # (auto) 0.03 K/uL (0-0.2); Basophils % (auto) 0.5 %; Immature Granulocytes # (auto) 0.02 K/uL (0.00-0.02); Immature Granulocytes % (auto) 0.3 %; Lymphocytes % (auto) 3.2 %; Monocytes # (auto) 0.24 K/uL (0.24-0.82); Monocytes % (auto) 3.9 %; Neutrophils # (auto) 5.68 K/uL (1.4-6.5); Neutrophils % (auto) 92.1 %; Polychromasia 1+; Toxic Vacuolation 1+
--- NOTE | 2021-12-11 16:55 | Emergency Department Note ---
History of Present Illness General Chief complaint: Fall Stated complaint: PASSED OUT, FELL Time Seen by Provider: 12/11/21 16:23 Source: patient Mode of arrival: ambulatory Limitations: no limitations History of Present Illness Provider complaint: Syncope, left buttock pain This is a 76-year-old female who presents emergency department with complaints of left buttock pain and a syncopal event today. 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 Patient has had intermittent infections which she states she was told are unable to be treated other than with antibiotics. She states she does keep Bactrim at home that occasionally when she has a small amount of rectal bleeding she starts taking the Bactrim again as she states that is usually the first sign that the infection is recurring. She states she has been told there is no way to completely fix the fistula. She denies any recent change in the drainage from her ostomy. Patient states she noticed pain at the left buttock without any palpable mass or overlying skin changes this morning. She started bactrim and took ibuprofen. She states she and her had traveled to the [place] area today as they were planning to fly to [place] and after getting out of the car and walking towards [facility] she became suddenly lightheaded however the had a hold of her and she did not fall but did lose consciousness on the helped to slowly lowered her to the ground. She denies injury from this event. She denies any other prodromal headaches, chest pain, palpitations, or nausea. No history of syncope. No other recent change in medications. Patient does have significant heart history. She states after several minutes on the ground she felt better and was able to get up with assistance and go inside. denied any seizure-like activity. She states inside she had chills, but no sense of fever. states they both had covid in october. Home Medications Medication Instructions Recorded Confirmed Type apixaban 5 mg tablet (Eliquis) 5 mg PO BID 12/11/21 12/11/21 History atorvastatin 80 mg tablet 80 mg PO QAM 12/11/21 12/11/21 History clopidogrel 75 mg tablet 75 mg PO DAILY 12/11/21 12/11/21 History escitalopram oxalate 10 mg tablet 10 mg PO QAM 12/11/21 12/11/21 History glipizide 5 mg tablet 5 mg PO AMPM 12/11/21 12/11/21 History latanoprost 0.005 % eye drops 1 drp OPR QAM 12/11/21 12/11/21 History metoprolol succinate 25 mg 50 mg PO QAM 12/11/21 12/11/21 History tablet,extended release 24 hr semaglutide 0.25 mg or 0.5 mg (2 0.25 mg subcut WE 12/11/21 12/11/21 History mg/1.5 mL) subcutaneous pen injector (Ozempic) valacyclovir 1 gram tablet 2 mg PO BID PRN .COLD SORES 12/11/21 12/11/21 History vitamins A,C,G-vwqs-veurxo 14,320 1 cap PO DAILY 12/11/21 12/11/21 History unit-226 mg-200 unit capsule (PreserVision AREDS) amoxicillin 875 mg-potassium 1 tab PO BID 12 days #24 tabs 12/13/21 Rx clavulanate 125 mg tablet doxycycline hyclate 100 mg capsule 100 mg PO BID 12 days #24 caps 12/13/21 Rx mupirocin 2 % topical ointment 1 applic topical BID #15 grams 12/13/21 Rx Allergies Allergy/AdvReac Type Severity Reaction Status Date / Time adhesive Allergy Unknown HIVES Verified 12/11/21 20:49 rosiglitazone Allergy Unknown ANEMIA/RECTAL Verified 12/11/21 20:49 BLEEDING Past Med/Surg History Medical History (Updated 12/13/21 @ 19:28 by Catina Ga, ) Anorectal fistula (Unknown) Carotid artery disease Chronic systolic heart failure Coronary artery disease Depression Diabetes mellitus type 2 with complications Diabetic neuropathy Diabetic retinopathy Dyslipidemia History of DVT (deep vein thrombosis) 2004- LLE while receiving EPO History of MRSA infection buttock ulcer 2019 History of osteomyelitis sacrum Hypertension Left bundle branch block Pancreatitis Rectal carcinoma 2004- dS/P resection, chemo, radiation therapy Ventricular mural thrombus Surgical History History of colon resection low anterior resection for colon cancer Status post cataract surgery Status post cholecystectomy Status post colostomy initially after resection rectal cancer, reversed new colostomy after pelvic abscess Family History Father Lung cancer Diabetes Mother Hypertension Heart disease Social History Smoking Status: Never smoker Second Hand Exposure: Yes; Hx Alcohol Use: Yes Alcohol Intake Frequency Comment: occasional Hx Substance Use: No Preferred Language: Persian Communication Ability: Effective Billing Representative Required: No Beliefs That Will Affect Care: None Current Living Situation: Spouse Feels Safe at Home: Yes Assistive Devices: Cane Review of Systems A total of 10 systems reviewed and were otherwise negative All systems reviewed & are unremarkable except as noted in HPI & below Physical Exam Vital Signs Vital Signs - 24 hr 12/11/21 14:43 12/11/21 16:02 12/11/21 16:00 Temperature 36.8 C Temperature Source Oral Pulse Rate 67 76 Pulse Rate [Apical] 76 Pulse Rhythm Regular Pulse Strength Normal Respiratory Rate 18 18 Respiratory Effort / Characteristics Non-Labored Spontaneous Respiratory Depth Normal Blood Pressure 90/56 L Blood Pressure [Left Arm] 103/61 Blood Pressure Mean 67 Blood Pressure Mean [Left Arm] 75 Blood Pressure Position Sitting Blood Pressure Position [Left Arm] Pulse Oximetry 95 93 94 Oxygen Delivery Method Room Air Room Air Room Air Sepsis Recent Fever Within 48 Hours No Sepsis New/Unexplained Change in Mental Status No Sepsis Action Taken by Nursing No Action Required 12/11/21 18:00 12/11/21 20:00 Temperature Temperature Source Pulse Rate Pulse Rate [Apical] 75 73 Pulse Rhythm Pulse Strength Respiratory Rate 18 21 Respiratory Effort / Characteristics Non-Labored Spontaneous Respiratory Depth Normal Blood Pressure Blood Pressure [Left Arm] 115/53 L 112/63 Blood Pressure Mean Blood Pressure Mean [Left Arm] 73 79 Blood Pressure Position Blood Pressure Position [Left Arm] Lying Pulse Oximetry 93 92 Oxygen Delivery Method Room Air Sepsis Recent Fever Within 48 Hours Sepsis New/Unexplained Change in Mental Status Sepsis Action Taken by Nursing GENERAL: alert, well appearing, well nourished, no distress, non-toxic EYE EXAM: normal conjunctiva, PERRL and EOM's grossly intact OROPHARYNX: no exudate, no erythema, lips, buccal mucosa, and tongue normal and mucous membranes are moist NECK: supple, no nuchal rigidity, no adenopathy, non-tender LUNGS: Clear to auscultation. Normal chest wall mechanics, no w/r/r HEART: no murmurs, S1 normal and S2 normal ABDOMEN: abdomen soft, non-tender, normo-active bowel sounds, no masses, no rebound or guarding. BUTTOCK: was able to point the area of pain which is coke still cleaner to palpation on the patient's medial left buttock, no overlying erythema, no area of induration or palpable mass BACK: Back is symmetrical on inspection and there is no deformity, no midline tenderness, no CVA tenderness. SKIN: no rashes and no bruising UPPER EXTREMITIES: upper extremities are grossly normal. FROM, nml pulses b/l. LOWER EXTREMITIES: No pitting edema. FROM, nml pulses b/l. NEURO EXAM: Normal sensorium, cranial nerves II-XII grossly intact, normal speech, no gross weakness of arms, no gross weakness of legs. Gross sensation intact. Course Course 1921: Patient and family updated on results. was able to show me results from her prior culture and PET scan performed at [facility] several years ago. 1935: Discussed with gen surg, Dr. Ram. Administered Medications Discontinued Medications Escitalopram Oxalate (Escitalopram Oxalate 10 Mg Tab) [facility] Stop: 01/11/22 08:59 Last Admin: 12/13/21 08:50 Dose: 10 mg Documented By: Admin: 12/12/21 07:55 Dose: 10 mg Documented By: KAT Magnesium Sulfate/Dextrose (Magnesium Sulfate / D5w) 1 gm in 100 mls @ 100 mls/hr IV NOW STA Stop: 12/11/21 18:22 Last Infusion: 12/11/21 22:06 Dose: 0 mls/hr Documented By: Infusion: 12/11/21 18:56 Dose: 0 mls/hr Documented By: Admin: 12/11/21 17:51 Dose: 100 mls/hr Documented By: ANABELLA Piperacillin Sod/Tazobactam Sod (Zosyn) 4.5 gm in 120 mls @ 240 mls/hr IV NOW ONE Stop: 12/11/21 19:47 Last Infusion: 12/11/21 20:33 Dose: 0 mls/hr Documented By: Admin: 12/11/21 19:54 Dose: 240 mls/hr Documented By: ANABELLA Magnesium Sulfate/Dextrose (Magnesium Sulfate / D5w) 1 gm in 100 mls @ 50 mls/hr IV ONE ONE Stop: 12/11/21 22:00 Last Infusion: 12/11/21 22:23 Dose: 0 mls/hr Documented By: Admin: 12/11/21 20:33 Dose: 50 mls/hr Documented By: JEFFREY Albumin Human (Albumin 25% 100 Ml) 25 gm in 100 mls @ 50 mls/hr IV ONE ONE Stop: 12/11/21 22:31 Last Infusion: 12/12/21 00:23 Dose: 0 mls/hr Documented By: Admin: 12/11/21 22:23 Dose: 50 mls/hr Documented By: ANABELLA Daptomycin 225 mg/ Syringe 4.5 mls @ 2.25 mls/min IV NOW ONE; Protocol Stop: 12/11/21 22:01 Last Admin: 12/11/21 23:20 Dose: 2.25 mls/min Documented By: THOMAS Piperacillin Sod/Tazobactam (Sod 3.375 gm/ Dextrose) 115 mls @ 28.75 mls/hr IV Q8H VERNELL; Protocol Stop: 12/22/21 01:59 Last Infusion: 12/13/21 13:22 Dose: 0 mls/hr Documented By: Admin: 12/13/21 09:51 Dose: 28.5 mls/hr Documented By: Infusion: 12/13/21 07:52 Dose: 0 mls/hr Documented By: Admin: 12/13/21 02:04 Dose: 28.5 mls/hr Documented By: Infusion: 12/12/21 21:26 Dose: 0 mls/hr Documented By: Admin: 12/12/21 17:05 Dose: 28.8 mls/hr Documented By: SMMaggie Infusion: 12/12/21 14:23 Dose: 0 mls/hr Documented By: Admin: 12/12/21 09:36 Dose: 28.8 mls/hr Documented By: Infusion: 12/12/21 05:27 Dose: 0 mls/hr Documented By: Admin: 12/12/21 01:10 Dose: 28.8 mls/hr Documented By: THOMAS Daptomycin 225 mg/ Syringe 4.5 mls @ 2.25 mls/min IV Q24H VERNELL; Protocol Stop: 12/22/21 21:59 Last Admin: 12/12/21 21:14 Dose: 2.25 mls/min Documented By: MARISSA Albumin Human (Albumin 25% 100 Ml) 25 gm in 100 mls @ 50 mls/hr IV Q8H VERNELL Stop: 12/15/21 05:59 Last Infusion: 12/12/21 08:07 Dose: 0 mls/hr Documented By: Admin: 12/12/21 05:21 Dose: 50 mls/hr Documented By: THOMAS Sodium Chloride (Nss 1000ml) 1,000 mls @ 75 mls/hr IV .[id number] [facility] Stop: 01/11/22 08:44 Last Infusion: 12/13/21 09:43 Dose: 0 mls/hr Documented By: Admin: 12/12/21 21:05 Dose: 75 mls/hr Documented By: Infusion: 12/12/21 21:05 Dose: 75 mls/hr Documented By: Admin: 12/12/21 09:50 Dose: 75 mls/hr Documented By: KAT Insulin Aspart (Insulin Aspart Per Unit) 0 units SC ACHS VERNELL Stop: 01/10/22 23:06 Last Admin: 12/13/21 12:23 Dose: 8 units Documented By: KAT Co-signed By: ROSARIO Admin: 12/13/21 08:52 Dose: Not Given Documented By: KAT Co-signed By: ROSARIO Admin: 12/12/21 21:04 Dose: Not Given Documented By: MARISSA Co-signed By: MG Admin: 12/12/21 17:05 Dose: 3 units Documented By: KAT Co-signed By: ROSARIO Admin: 12/12/21 12:31 Dose: 4 units Documented By: KAT Co-signed By: ROSARIO Admin: 12/12/21 07:51 Dose: Not Given Documented By: Admin: 12/11/21 23:25 Dose: 4 units Documented By: THOMAS Co-signed By: [id number] Insulin Glargine (Lantus Per Unit Charge) 5 units SQ NOW STA Stop: 12/11/21 21:47 Last Admin: 12/11/21 22:28 Dose: 5 units Documented By: ANABELLA Co-signed By: KAF Insulin Glargine (Lantus Per Unit Charge) 5 units SQ HS VERNELL Stop: 01/11/22 20:59 Last Admin: 12/12/21 21:05 Dose: 5 units Documented By: LAT Co-signed By: MG Ioversol (Ioversol 350 Mg 100ml Prefilled Syringe) 70 ml IV ONCE ONE Stop: 12/11/21 17:11 Last Admin: 12/11/21 17:11 Dose: 70 ml Documented By: PREMA Lactobacillus Acidophilus (Advanced Probiotic 1250 Mg Capsule) 2 cap PO DAILY [facility] Stop: 01/11/22 11:44 Last Admin: 12/13/21 07:55 Dose: 2 cap Documented By: Admin: 12/12/21 12:46 Dose: 2 cap Documented By: KAT Latanoprost (Latanoprost 0.005% Op Soln 2.5 Ml Btl) 1 drops OPR [facility] Stop: 01/11/22 08:59 Last Admin: 12/13/21 07:51 Dose: Not Given Documented By: Admin: 12/12/21 07:56 Dose: 1 drops Documented By: KAT Metoprolol Succinate (Metoprolol Succ 25mg Ext Rel Tab) [facility] Stop: 01/11/22 08:59 Last Admin: 12/12/21 07:56 Dose: 25 mg Documented By: KAT Metoprolol Succinate (Metoprolol Succ 25mg Ext Rel Tab) 12.5 mg PO [facility] Stop: 01/12/22 08:59 Last Admin: 12/13/21 07:56 Dose: 12.5 mg Documented By: KAT Miscellaneous (Carbohydrates For Hypoglycemia ) 15 - 30 gm PO UD PRN PRN Reason: Hypoglycemia Protocol Stop: 01/10/22 23:06 Last Admin: 12/12/21 07:50 Dose: 15 gm Documented By: KAT Mupirocin (Mupirocin 2% Oint 22 Gm Tube) 1 appln EXT BID [facility] Stop: 01/12/22 11:29 Last Admin: 12/13/21 11:37 Dose: Not Given Documented By: KAT Medical Decision Making Differential Diagnosis Differential diagnosis: Etiologies such as viral syndrome, otitis, pharyngitis, pneumonia, influenza, meningitis, urinary tract infection, sepsis, bacteremia, as well as others were entertained. Medical Records Attestation: I reviewed the patient's medical records. Home Medications Current Medication List: was personally reviewed by me Laboratory Data Attestation: I reviewed the patient's lab results. Result diagrams: 12/13/21 05:19 12/13/21 05:19 Lab Results 12/11/21 12/11/21 12/11/21 Range/Units 14:50 16:00 16:00 WBC 6.17 (4.8-10.8) K/ul RBC 3.97 (3.93-5.22) M/uL Hgb 12.7 (12.0-16.0) g/dl Hct 36.0 (34.1-44.9) % MCV 90.7 (80.0-100.0) fL MCH 32.0 (25.0-34.0) pg MCHC 35.3 (32.0-36.0) g/dL RDW Std Deviation 48.9 H (36.4-46.3) fL RDW Coeff of Gemma 15.1 H (11.5-14.5) % Plt Count 149 (130-400) K/uL MPV 10.3 (9.4-12.3) fL Immature Gran % (Auto) 0.3 % Neut % (Auto) 92.1 % Lymph % (Auto) 3.2 % Wilson % (Auto) 3.9 % Eos % (Auto) 0.0 % Baso % (Auto) 0.5 % Neut # (Auto) 5.68 (1.4-6.5) K/uL Lymph # (Auto) 0.20 L (1.2-3.4) K/uL Wilson # (Auto) 0.24 (0.24-0.82) K/uL Eos # (Auto) 0.00 (0-0.50) K/uL Baso # (Auto) 0.03 (0-0.2) K/uL Immature Gran # (Auto) 0.02 (0.00-0.02) K/uL Toxic Vacuolation 1+ Polychromasia 1+ PT (9.0-12.0) Seconds INR (0.9-1.1) Sodium 132 L (136-145) mmol/L Potassium 4.0 (3.5-5.1) mmol/L Chloride 99 (98-107) mmol/L Carbon Dioxide 24 (21-32) mmol/L Anion Gap 9 (3-11) BUN 30 H (6-23) mg/dl Creatinine 1.63 H (0.6-1.2) mg/dl Est Cr Clr Drug Dosing Not Reportable Est GFR ( Amer) 35.6 ml/min Est GFR (Non-Af Amer) 30.7 ml/min BUN/Creatinine Ratio 18.4 (10-20) Glucose 264 H (70-99(Fasting)) mg/dl POC Glucose 261 H (70-99) mg/dl Lactate (0.4-2.0) mmol/L Calcium 8.8 (8.5-10.1) mg/dl Magnesium 1.5 L (1.7-2.4) mg/dl Total Bilirubin 0.7 (0.2-1.0) mg/dl AST 17 (13-39) U/L ALT 17 (7-52) U/L Alkaline Phosphatase 100 (34-104) U/L Total Protein 6.4 (6.0-8.3) gm/dl Albumin 3.2 L (3.4-5.0) gm/dl Globulin 3.2 (2.5-4.0) gm/dl Albumin/Globulin Ratio 1.0 (0.9-2) Procalcitonin (0-0.5) ng/ml TSH (0.300-4.500) uIu/ml SARS-CoV-2, RNA, NAAT (NEGATIVE) 12/11/21 12/11/21 12/11/21 Range/Units 16:00 16:00 16:00 WBC (4.8-10.8) K/ul RBC (3.93-5.22) M/uL Hgb (12.0-16.0) g/dl Hct (34.1-44.9) % MCV (80.0-100.0) fL MCH (25.0-34.0) pg MCHC (32.0-36.0) g/dL RDW Std Deviation (36.4-46.3) fL RDW Coeff of Gemma (11.5-14.5) % Plt Count (130-400) K/uL MPV (9.4-12.3) fL Immature Gran % (Auto) % Neut % (Auto) % Lymph % (Auto) % Wilson % (Auto) % Eos % (Auto) % Baso % (Auto) % Neut # (Auto) (1.4-6.5) K/uL Lymph # (Auto) (1.2-3.4) K/uL Wilson # (Auto) (0.24-0.82) K/uL Eos # (Auto) (0-0.50) K/uL Baso # (Auto) (0-0.2) K/uL Immature Gran # (Auto) (0.00-0.02) K/uL Toxic Vacuolation Polychromasia PT 11.2 (9.0-12.0) Seconds INR 1.1 (0.9-1.1) Sodium (136-145) mmol/L Potassium (3.5-5.1) mmol/L Chloride (98-107) mmol/L Carbon Dioxide (21-32) mmol/L Anion Gap (3-11) BUN (6-23) mg/dl Creatinine (0.6-1.2) mg/dl Est Cr Clr Drug Dosing Est GFR ( Amer) ml/min Est GFR (Non-Af Amer) ml/min BUN/Creatinine Ratio (10-20) Glucose (70-99(Fasting)) mg/dl POC Glucose (70-99) mg/dl Lactate (0.4-2.0) mmol/L Calcium (8.5-10.1) mg/dl Magnesium (1.7-2.4) mg/dl Total Bilirubin (0.2-1.0) mg/dl AST (13-39) U/L ALT (7-52) U/L Alkaline Phosphatase (34-104) U/L Total Protein (6.0-8.3) gm/dl Albumin (3.4-5.0) gm/dl Globulin (2.5-4.0) gm/dl Albumin/Globulin Ratio (0.9-2) Procalcitonin 4.77 H (0-0.5) ng/ml TSH 0.867 (0.300-4.500) uIu/ml SARS-CoV-2, RNA, NAAT (NEGATIVE) 12/11/21 12/11/21 12/11/21 Range/Units 16:58 19:24 20:33 WBC (4.8-10.8) K/ul RBC (3.93-5.22) M/uL Hgb (12.0-16.0) g/dl Hct (34.1-44.9) % MCV (80.0-100.0) fL MCH (25.0-34.0) pg MCHC (32.0-36.0) g/dL RDW Std Deviation (36.4-46.3) fL RDW Coeff of Gemma (11.5-14.5) % Plt Count (130-400) K/uL MPV (9.4-12.3) fL Immature Gran % (Auto) % Neut % (Auto) % Lymph % (Auto) % Wilson % (Auto) % Eos % (Auto) % Baso % (Auto) % Neut # (Auto) (1.4-6.5) K/uL Lymph # (Auto) (1.2-3.4) K/uL Wilson # (Auto) (0.24-0.82) K/uL Eos # (Auto) (0-0.50) K/uL Baso # (Auto) (0-0.2) K/uL Immature Gran # (Auto) (0.00-0.02) K/uL Toxic Vacuolation Polychromasia PT (9.0-12.0) Seconds INR (0.9-1.1) Sodium (136-145) mmol/L Potassium (3.5-5.1) mmol/L Chloride (98-107) mmol/L Carbon Dioxide (21-32) mmol/L Anion Gap (3-11) BUN (6-23) mg/dl Creatinine (0.6-1.2) mg/dl Est Cr Clr Drug Dosing Est GFR ( Amer) ml/min Est GFR (Non-Af Amer) ml/min BUN/Creatinine Ratio (10-20) Glucose (70-99(Fasting)) mg/dl POC Glucose 245 H (70-99) mg/dl Lactate 1.7 (0.4-2.0) mmol/L Calcium (8.5-10.1) mg/dl Magnesium (1.7-2.4) mg/dl Total Bilirubin (0.2-1.0) mg/dl AST (13-39) U/L ALT (7-52) U/L Alkaline Phosphatase (34-104) U/L Total Protein (6.0-8.3) gm/dl Albumin (3.4-5.0) gm/dl Globulin (2.5-4.0) gm/dl Albumin/Globulin Ratio (0.9-2) Procalcitonin (0-0.5) ng/ml TSH (0.300-4.500) uIu/ml SARS-CoV-2, RNA, NAAT NEGATIVE (NEGATIVE) Imaging Data Radiologist's Impression: Sacrum and Coccyx X-Ray 12/11/21 14:47 XR sacrum coccyx min 2V HISTORY: 76 years-old Female fall on bottom, HX of infection acute pelvic pain status post fall COMPARISON: CT abdomen pelvis 09/08/2019 TECHNIQUE: 3 views of the sacrum and coccyx FINDINGS: Demineralized appearance of the bones. Bridging osteophytosis of the lower lumbar spine. Moderate to severe degeneration of the SI joints with unchanged sclerosis. Surgical clips of the pelvis. No acute fracture or dislocation identified. Unchanged deformity of the sacrococcygeal junction. IMPRESSION: 1. No acute fracture identified. 2. Chronic sacral insufficiency fractures. ACT 112: Negative or not required by law. The above report was generated using voice recognition software. It may contain grammatical, syntax or spelling errors. Electronically signed by: Miller Dougherty M.D. 12/11/2021 3:21 PM Abdomen/Pelvis CT 12/11/21 16:[address] WITH IV CONTRAST CT DOSE: 608.52 mGy.cm HISTORY: Acute pain of the pelvis and left buttock status post fall . Follow-up study in a patient with prior rectal resection and presacral fluid collections. left buttock pain, hx fistula TECHNIQUE: Multiaxial CT images of the abdomen and pelvis were performed following the IV administration of 70 cc of Optiray, A dose lowering technique was utilized adhering to the principles of ALARA. COMPARISON STUDY: CT abdomen pelvis 09/08/2019 FINDINGS: Cardiomegaly with partially imaged pacer/AICD leads. Calcified granulomata of the lung bases. Mild right hemidiaphragmatic elevation. Segmental bibasilar atelectasis/scarring. No pneumatosis or pneumoperitoneum. Calcified granulomata of the spleen. 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 Mild generalized pancreatic atrophy. The adrenal glands are within normal limits. C holecystectomy. Unremarkable liver. Patency of the hepatic and portal veins. Mild cortical thinning of the kidneys without hydronephrosis. Intermediate density 10 mm lesion of the lateral interpolar right kidney on image 157. Probable cyst of the right kidney measuring 7 mm on image 1:30, technically too small to characterize. Urinary bladder wall thickening with partial distention. Calcified uterine fibroids. Atherosclerosis of the aorta without aneurysm. No bowel obstruction. Left parastomal hernia redemonstrated containing trace amount of free fluid. Status post rectal resection. There is redemonstration of presacral soft tissue thickening with chronic fluid collections. 4.1 x 1.6 cm right hemipelvis fluid collection on image 327 previously measured 3.7 x 1.7 cm. Left hemipelvis ill-defined collection on image 362 measures 4.0 x 2.8 cm, previously 3.8 x 3.7 cm. Infiltration within the left greater the right piriform is musculature. The left hemipelvis collection with trace progressively worsened extension into left gluteus fabio muscle and adjacent subcutaneous tissues measuring up to 2.6 x 3.9 x 8.8 cm. Chronic bone infarcts/insufficiency fractures of the sacrum and iliac bones. There is suggestion of prior resection of the coccyx. Unchanged appearance of the chronic L2 and L3 compression deformities. IMPRESSION: 1. No acute posttraumatic intra-abdominal or intrapelvic abnormality. 2. Status post rectal resection with chronic presacral soft tissue thickening and fluid collections suggestive of chronic abscesses. 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 Follow-up ultrasound after treatment course recommended to exclude an underlying solid lesion. 3. Redemonstration of a left parastomal hernia containing a trace amount of fluid. No bowel obstruction. 4. Indeterminate 10 mm intermediate density lesion of the lateral interpolar right kidney. Nonemergent ultrasound recommended to exclude a small renal cell carcinoma. 5. Additional findings as above. ACT 112: Negative or not required by law. The above report was generated using voice recognition software. It may contain grammatical, syntax or spelling errors. Electronically signed by: Miller Dougherty M.D. 12/11/2021 5:36 PM Chest X-Ray 12/11/21 20:01 XR chest 1V portable CLINICAL HISTORY: renal failure COMPARISON STUDY: Chest CT July 25, 2019. Chest radiograph September 08, 2019. FINDINGS: A left subclavian pacer/AICD is in place. Lung volumes are normal. Lungs are clear. There is no pneumothorax or pleural effusion. Mild cardiomegaly is unchanged. Mediastinal contours are normal. There is pulmonary vascular congestion without overt pulmonary edema, unchanged. IMPRESSION: Cardiomegaly with pulmonary vascular congestion, similar to prior exam. ACT 112: Negative or not required by law. Electronically signed by: Luis Fernando Cobos M.D. 12/11/2021 8:25 PM ECG Data Attestation: I personally reviewed and interpreted this ECG as follows: Indication: + syncope Rate (beats per minute): 79 Rhythm: + other ECG Intervals/blocks: + Normal QRS and + Normal QT ECG [place]: + Normal ECG ST segments: + Nonspecific ST abnormalities Additional Comments: paced MDM Narrative An order was placed for continuous cardiac monitoring. The monitor shows a rate of _78_ with _paced_ rhythm. This is an elderly female brought by family due to concern for worsening of chronic abscesses from prior surgery as well as syncopal event. VS stable and patient afebrile. No trauma. Pt did take first dose of bactrim at home as she has previously had "flare ups" of her known abscesses. Patient with minimal to eat/drink prior to syncopal event. While patient does have cardiac history, I do not strongly suspect cardiac etiology of syncopy. No acute surgical emergency noted on CT. Given elevated procalcitonin and patient's history, we d iscussed observation and IV antibiotics. Cultures pending. Case discussed with gen surg regarding CT findings and pt history and then with hospitalist team. 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
[2021-12-11] MEDS ORDERED: IOVERSOL 350 MG 100mL Prefilled Syringe IV ONE (17:10)
[2021-12-11] MEDS ORDERED: MAGNESIUM SULFATE / D5W 1 GM/100 ML BAG IV STA (17:23)
--- NOTE | 2021-12-11 17:37 | CT Scan Report ---
ABDOMEN AND PELVIS CT WITH IV CONTRAST CT DOSE: 608.52 mGy.cm HISTORY: Acute pain of the pelvis and left buttock status post fall . Follow-up study in a patient wi th prior rectal resection and presacral fluid collections. left buttock pain, hx fistula TECHNIQUE: Multiaxial CT images of the abdomen and pelvis were performed following the IV administrat ion of 70 cc of Optiray, A dose lowering technique was utilized adhering to the principles of ALARA. COMPARISON STUDY: CT abdomen pelvis 09/08/2019 FINDINGS: Cardiomegaly with partially imaged pacer/AICD leads. Calcified granulomata of the lung base s. Mild right hemidiaphragmatic elevation. Segmental bibasilar atelectasis/scarring. No pneumatosis o r pneumoperitoneum. Calcified granulomata of the spleen. 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 Mild generalized pancre atic atrophy. The adrenal glands are within normal limits. Cholecystectomy. Unremarkable liver. Paten cy of the hepatic and portal veins. Mild cortical thinning of the kidneys without hydronephrosis. Intermediate density 10 mm lesion of th e lateral interpolar right kidney on image 157. Probable cyst of the right kidney measuring 7 mm on i mage 1:30, technically too small to characterize. Urinary bladder wall thickening with partial disten tion. Calcified uterine fibroids. Atherosclerosis of the aorta without aneurysm. No bowel obstruction. Left parastomal hernia redemonstrated containing trace amount of free fluid. St atus post rectal resection. There is redemonstration of presacral soft tissue thickening with chronic fluid collections. 4.1 x 1.6 cm right hemipelvis fluid collection on image 327 previously measured 3 .7 x 1.7 cm. Left hemipelvis ill-defined collection on image 362 measures 4.0 x 2.8 cm, previously 3. 8 x 3.7 cm. Infiltration within the left greater the right piriform is musculature. The left hemipelv is collection with trace progressively worsened extension into left gluteus fabio muscle and adjace nt subcutaneous tissues measuring up to 2.6 x 3.9 x 8.8 cm. Chronic bone infarcts/insufficiency fractures of the sacrum and iliac bones. There is suggestion of p rior resection of the coccyx. Unchanged appearance of the chronic L2 and L3 compression deformities. IMPRESSION: 1. No acute posttraumatic intra-abdominal or intrapelvic abnormality. 2. Status post rectal resection with chronic presacral soft tissue thickening and fluid collections s uggestive of chronic abscesses. 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 Follow -up ultrasound after treatment course recommended to exclude an underlying solid lesion. 3. Redemonstration of a left parastomal hernia containing a trace amount of fluid. No bowel obstructi on. 4. Indeterminate 10 mm intermediate density lesion of the lateral interpolar right kidney. Nonemergen t ultrasound recommended to exclude a small renal cell carcinoma. 5. Additional findings as above. ACT 112: Negative or not required by law. The above report was generated using voice recognition software. It may contain grammatical, syntax o r spelling errors. Electronically signed by: Miller Dougherty M.D. 12/11/2021 5:36 PM
[2021-12-11 18:03] LABS: INR 1.1 (0.9-1.1); Prothrombin Time 11.2 Seconds (9.0-12.0)
[2021-12-11] MEDS ORDERED: PIPERACILLIN/TAZOBACTAM 4.5 GM/120 ML BAG IV ONE (19:18)
[2021-12-11] MEDS ORDERED: MAGNESIUM SULFATE / D5W 1 GM/100 ML BAG IV ONE (20:01)
--- NOTE | 2021-12-11 20:26 | XRay Report ---
XR chest 1V portable CLINICAL HISTORY: renal failure COMPARISON STUDY: Chest CT July 25, 2019. Chest radiograph September 08, 2019. FINDINGS: A left subclavian pacer/AICD is in place. Lung volumes are normal. Lungs are clear. There i s no pneumothorax or pleural effusion. Mild cardiomegaly is unchanged. Mediastinal contours are duc l. There is pulmonary vascular congestion without overt pulmonary edema, unchanged. IMPRESSION: Cardiomegaly with pulmonary vascular congestion, similar to prior exam. ACT 112: Negative or not required by law. Electronically signed by: Luis Fernando Cobos M.D. 12/11/2021 8:25 PM
--- NOTE | 2021-12-11 20:28 | History & Physical Report ---
Date of Service December 11, 2021 Assessment & Plan (1) Abscess: (2) BENI (acute kidney injury): (3) Hypomagnesemia: (4) Diabetes mellitus type 2 with complications: (5) Coronary artery disease: (6) Chronic systolic heart failure: (7) Hypertension: (8) Dyslipidemia: (9) Left bundle branch block: (10) Ventricular mural thrombus: Plan: HPI, ROS, PE, med rec completed by Jovana Blanco PA-C Assessment and Plan per Dr Zuniga History of Present Illness Chief Complaint: Syncope Primary Care Provider: Dane Godwin MD Patient is 76 y/o F with PMH DM II, HTN, dyslipidemia, history of DVT, rectal CA s/p surgery, chemo, history fistula, ostomy, history of presacral abscess, chronic systolic heart failure, CAD s/p stent, chronic LBBB, history of ventricular thrombus on Eliquis, carotid disease, PAD presented to ER with complaint of syncopal episode today. Patient states this morning woke up and felt a little "off". She reports started having pain to left buttock. Patient with history of presacral abscess and has been seen at [facility] and patient reports was told no further intervention recommended. She states she will intermittently have episodes of bleeding from buttock area and when this occurs she takes Bactrim for a week with resolution. She however does not usually have pain associated with this chronic intermittent bleeding. Did not have any bleeding or noted discharge this morning. Since had onset of buttock discomfort this morning she started Bactrim and has taken one dose. She also took 400mg ibuprofen. She reports she was traveling in the car to go to the airport today. On the way there they stopped at [employer] to eat and she got out of the car. Patient states felt a little lightheaded when getting out of the car however proceeded to walk to the sidewalk. Next thing patient remembers is waking up on the sidewalk. Patient's states patient walked to sidewalk and stopped and her legs started to buckle and she passed out. Her was able to safely lower her to ground avoiding a fall. reports patient "out of it" for approximately 3 minutes. Patient proceeded to go into restaurant and try to drink a Coke and had onset of shaking, chills, diaphoresis. Patient unsure if had fever. They drove home to [facility] and came to ER. Patient denies headache, chest pain, shortness of breath, abdominal pain, nausea, vomiting. Denies any increased stool output to ostomy. Since being in ER started having some bleeding from buttock area. Reports some post nasal drip but relates that to seasonal allergies. Denies vision changes, neck pain, palpitations, cough, sore throat, choking, otalgia, rhinorrhea, abdominal pain, paresthesias, extremity weakness, extremity edema, rashes, urinary symptoms. Allergies Allergy/AdvReac Type Severity Reaction Status Date / Time adhesive Allergy Unknown HIVES Verified 12/11/21 20:49 rosiglitazone Allergy Unknown ANEMIA/RECTAL Verified 12/11/21 20:49 BLEEDING Home Medications Medication Instructions Recorded Confirmed Type apixaban 5 mg tablet (Eliquis) 5 mg PO BID 12/11/21 12/11/21 History atorvastatin 80 mg tablet 80 mg PO QAM 12/11/21 12/11/21 History clopidogrel 75 mg tablet 75 mg PO DAILY 12/11/21 12/11/21 History escitalopram oxalate 10 mg tablet 10 mg PO QAM 12/11/21 12/11/21 History furosemide 20 mg tablet (Lasix) 20 mg PO DAILY 12/11/21 12/11/21 History glipizide 5 mg tablet 5 mg PO AMPM 12/11/21 12/11/21 History latanoprost 0.005 % eye drops 1 drp OPR QAM 12/11/21 12/11/21 History metoprolol succinate 25 mg 50 mg PO QAM 12/11/21 12/11/21 History tablet,extended release 24 hr semaglutide 0.25 mg or 0.5 mg (2 0.25 mg subcut WE 12/11/21 12/11/21 History mg/1.5 mL) subcutaneous pen injector (Ozempic) sulfamethoxazole 800 1 tab PO DIRECTED 12/11/21 12/11/21 History mg-trimethoprim 160 mg tablet valacyclovir 1 gram tablet 2 mg PO BID PRN .COLD SORES 12/11/21 12/11/21 History vitamins A,C,X-cpnr-nvgatd 14,320 1 cap PO DAILY 12/11/21 12/11/21 History unit-226 mg-200 unit capsule (PreserVision AREDS) Past Med/Surg History Medical History (Updated 12/12/21 @ 09:17 by Mara Xiao PA-C) Anorectal fistula (Unknown) Carotid artery disease Chronic systolic heart failure Coronary artery disease Depression Diabetes mellitus type 2 with complications Diabetic neuropathy Diabetic retinopathy Dyslipidemia History of DVT (deep vein thrombosis) 2004- LLE while receiving EPO History of MRSA infection buttock ulcer 2019 History of osteomyelitis sacrum Hypertension Left bundle branch block Pancreatitis Rectal carcinoma 2004- dS/P resection, chemo, radiation therapy Ventricular mural thrombus Surgical History History of colon resection low anterior resection for colon cancer Status post cataract surgery Status post cholecystectomy Status post colostomy initially after resection rectal cancer, reversed new colostomy after pelvic abscess Family History Father Lung cancer Diabetes Mother Hypertension Heart disease Social History Smoking Status: Never smoker Second Hand Exposure: Yes; Hx Alcohol Use: Yes Alcohol Intake Frequency Comment: occasional Hx Substance Use: No Preferred Language: Filipino Communication Ability: Effective Management Technician Required: No Beliefs That Will Affect Care: None Current Living Situation: Spouse Feels Safe at Home: Yes Assistive Devices: Cane Review of Systems Review of Systems: All systems reviewed & are unremarkable except as noted in HPI & below Physical Exam Physical Exam: General: no distress, WDWN Head: normocephalic, atraumatic Eyes: conjunctiva non-injected, anicteric ENT: normal inspection external ears, nose, mucous membranes moist Neck: supple, trachea midline Lungs: clear, no respiratory distress, no wheezing/rhonchi/rales CV: RRR, + murmur, no pretibial edema Abd: +ostomy left side, normal BS, soft, non-tender Buttock: no significant erythema, left buttock medial aspect near gluteal fold with reported area of tenderness with pressure of sitting, however is tenderness not reproducible with palpation. +clothing soiled with bright red blood, however no active bleeding noted from buttock/sacral region at time of exam Ext: no cyanosis, no calf tenderness Neuro: A&O x 3, no focal deficits noted, normal affect Skin: warm, dry Results & Data Results & Data ([facility]) Vital Signs (Past 12 Hours) Vital Signs Temp Pulse Pulse Resp BP BP Pulse Ox 12/11/21 18:00 75 18 115/53 L 93 12/11/21 16:00 76 18 103/61 94 12/11/21 16:02 76 93 12/11/21 14:43 36.8 C 67 18 90/56 L 95 O2 Del Method 12/11/21 18:00 12/11/21 16:00 Room Air 12/11/21 16:02 Room Air 12/11/21 14:43 Room Air Laboratory Results Short CBC 12/11/21 Range/Units 16:00 WBC 6.17 (4.8-10.8) K/ul Hgb 12.7 (12.0-16.0) g/dl Hct 36.0 (34.1-44.9) % Plt Count 149 (130-400) K/uL BMP 12/11/21 16:00 Sodium 132 L Potassium 4.0 Chloride 99 Carbon Dioxide 24 BUN 30 H Creatinine 1.63 H Glucose 264 H Calcium 8.8 Liver Function 12/11/21 Range/Units 16:00 Total Bilirubin 0.7 (0.2-1.0) mg/dl AST 17 (13-39) U/L ALT 17 (7-52) U/L Alkaline Phosphatase 100 (34-104) U/L Albumin 3.2 L (3.4-5.0) gm/dl Diagnostic Findings Sacrum and Coccyx X-Ray 12/11/21 14:47 XR sacrum coccyx min 2V HISTORY: 76 years-old Female fall on bottom, HX of infection acute pelvic pain status post fall COMPARISON: CT abdomen pelvis 09/08/2019 TECHNIQUE: 3 views of the sacrum and coccyx FINDINGS: Demineralized appearance of the bones. Bridging osteophytosis of the lower lumbar spine. Moderate to severe degeneration of the SI joints with unchanged sclerosis. Surgical clips of the pelvis. No acute fracture or dislocation identified. Unchanged deformity of the sacrococcygeal junction. IMPRESSION: 1. No acute fracture identified. 2. Chronic sacral insufficiency fractures. ACT 112: Negative or not required by law. The above report was generated using voice recognition software. It may contain grammatical, syntax or spelling errors. Electronically signed by: Miller Dougherty M.D. 12/11/2021 3:21 PM Abdomen/Pelvis CT 12/11/21 16:[address] WITH IV CONTRAST CT DOSE: 608.52 mGy.cm HISTORY: Acute pain of the pelvis and left buttock status post fall . Follow-up study in a patient with prior rectal resection and presacral fluid collections. left buttock pain, hx fistula TECHNIQUE: Multiaxial CT images of the abdomen and pelvis were performed following the IV administration of 70 cc of Optiray, A dose lowering technique was utilized adhering to the principles of ALARA. COMPARISON STUDY: CT abdomen pelvis 09/08/2019 FINDINGS: Cardiomegaly with partially imaged pacer/AICD leads. Calcified granulomata of the lung bases. Mild right hemidiaphragmatic elevation. Segmental bibasilar atelectasis/scarring. No pneumatosis or pneumoperitoneum. Calcified granulomata of the spleen. 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 Mild generalized pancreatic atrophy. The adrenal glands are within normal limits. Cholecystectomy. Unremarkable liver. Patency of the hepatic and portal veins. Mild cortical thinning of the kidneys without hydronephrosis. Intermediate density 10 mm lesion of the lateral interpolar right kidney on image 157. Probable cyst of the right kidney measuring 7 mm on image 1:30, technically too small to characterize. Urinary bladder wall thickening with partial distention. Calcified uterine fibroids. Atherosclerosis of the aorta without aneurysm. No bowel obstruction. Left parastomal hernia redemonstrated containing trace amount of free fluid. Status post rectal resection. There is redemonstration of presacral soft tissue thickening with chronic fluid collections. 4.1 x 1.6 cm right hemipelvis fluid collection on image 327 previously measured 3.7 x 1.7 cm. Left hemipelvis ill-defined collection on image 362 measures 4.0 x 2.8 cm, previously 3.8 x 3.7 cm. Infiltration within the left greater the right piriform is musculature. The left hemipelvis collection with trace progressively worsened extension into left gluteus fabio muscle and adjacent subcutaneous tissues measuring up to 2.6 x 3.9 x 8.8 cm. Chronic bone infarcts/insufficiency fractures of the sacrum and iliac bones. There is suggestion of prior resection of the coccyx. Unchanged appearance of the chronic L2 and L3 compression deformities. IMPRESSION: 1. No acute posttraumatic intra-abdominal or intrapelvic abnormality. 2. Status post rectal resection with chronic presacral soft tissue thickening and fluid collections suggestive of chronic abscesses. 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 Follow-up ultrasound after treatment course recommended to exclude an underlying solid lesion. 3. Redemonstration of a left parastomal hernia containing a trace amount of fluid. No bowel obstruction. 4. Indeterminate 10 mm intermediate density lesion of the lateral interpolar right kidney. Nonemergent ultrasound recommended to exclude a small renal cell carcinoma. 5. Additional findings as above. ACT 112: Negative or not required by law. The above report was generated using voice recognition software. It may contain grammatical, syntax or spelling errors. Electronically signed by: Miller Dougherty M.D. 12/11/2021 5:36 PM Chest X-Ray 12/11/21 20:01 XR chest 1V portable CLINICAL HISTORY: renal failure COMPARISON STUDY: Chest CT July 25, 2019. Chest radiograph September 08, 2019. FINDINGS: A left subclavian pacer/AICD is in place. Lung volumes are normal. Lungs are clear. There is no pneumothorax or pleural effusion. Mild cardiomegaly is unchanged. Mediastinal contours are normal. There is pulmonary vascular congestion without overt pulmonary edema, unchanged. IMPRESSION: Cardiomegaly with pulmonary vascular congestion, similar to prior exam. ACT 112: Negative or not required by law. Electronically signed by: Luis Fernando Cobos M.D. 12/11/2021 8:25 PM Supervising Physician Co-Signing Physician Notes IM ATTENDING : Patient seen and examined. History obtained from patient and records. Preceding documentation by Ms. Jovana Blanco PA-C reviewed. FINAL ASSESSMENT AND PLAN as follows : Recurrent pelvic abscesses hx rectal cancer status post surgery/chemoradiation History IR drainage History of MRSA on previous CS Patient not a candidate for procedural intervention as per [facility] specialists as per patient account. No sepsis for now Bleeding drainage noted at the ER. Patient predisposed by antiplatelet and Eliquis Rx for CAD status post stent/PVD/cardiac thrombus hx. Current hemoglobin stable. ARF secondary to illness, recent Bactrim Rx contributory Syncope likely secondary to orthostasis secondary to illness SBP 90s upon arrival at the ER. Possible underlying DM neuropathy, suboptimal control DM2 on oral medications, hemoglobin A1c of 8 from October 2021 Rule out progression of valvular heart disease (moderate from TTE 2020) chronic systolic heart failure secondary to ischemic cardiomyopathy (EF 28%, TTE 2020) status post ICD, equivocal volume status pulmonary congestion on CXR, patient seems intravascularly dry chronic LBBB hyperlipidemia on statin Rx hx osteomyelitis/radiation proctitis/fistula status post ostomy status post prolonged antibiotic Rx (2011) hx DVT as per records Medical telemetry CS, Daptomycin, Zosyn General surgery consultation Re: Recurrent pelvic abscesses (ER provider already in touch with Dr. Ram.) Appropriate to hold antiplatelet Rx/Eliquis for now given bleeding drainage. Resume above medications if hemoglobin stable/bleeding resolved. Monitor creatinine response to IV albumin (preferred over crystalloid given congestion on CXR) Hold home diuretic until kidney function back to baseline Decrease maintenance beta-sherif dose for now given borderline BP. Update TTE Basal bolus insulin, ISS BG goal 1 10-1 40, carb count coverage DVT prophylaxis. SCDs Re: Bleeding drainage Full code Text document was generated using [employer] voice recognition software. It may contain grammatical or spelling errors. Kindly contact undersigned for clarification of any documentation item in question.
[2021-12-11] MEDS ORDERED: ALBUMIN 25% 100 mL 25 GM/100 ML VIAL IV ONE (20:32)
[2021-12-11] MEDS ORDERED: LANTUS PER UNIT CHARGE SQ STA (21:46)
[2021-12-11] MEDS ORDERED: DAPTOmycin 225 MG in SYRINGE 0 ML IV ONE (22:00)
[2021-12-11] MEDS ORDERED: PROMETHAZINE HCL 12.5 MG in SODIUM CHLORIDE 0.9% 50 ML IV PRN (23:07)
[2021-12-11] MEDS ORDERED: CARBOHYDRATES FOR HYPOGLYCEMIA PO PRN (23:07)
[2021-12-11] MEDS ORDERED: GLUCAGON FOR INJ 1 MG VIAL SQ PRN (23:07)
[2021-12-11] MEDS ORDERED: traMADol HCL 50 MG TABLET PO PRN (23:07)
[2021-12-11] MEDS ORDERED: GLUCOSE 10 TAB/TUBE PO PRN (23:07)
[2021-12-11] MEDS ORDERED: GLUCOSE 40% GEL 15 GM TUBE PO PRN (23:07)
[2021-12-11] MEDS ORDERED: DEXTROSE 50% 50 ML SYRINGE IV PRN (23:07)
[2021-12-11] MEDS ORDERED: ACETAMINOPHEN 325 MG TAB PO PRN (23:07)
[2021-12-11] MEDS: INSULIN ASPART PER UNIT SC SCH (23:25)
[2021-12-12 01:00] LABS: Hemoglobin 10.3 g/dl (12.0-16.0)
[2021-12-12] MEDS: PIPERACILLIN/TAZOBACTAM 3.375 GM in DEXTROSE 5% 100 ML IV SCH ×3 (01:10→17:05)
[2021-12-12 01:24] LABS: BUN Creatinine Ratio 20.5 (10-20); Calcium 8.5 mg/dl (8.5-10.1); Creatinine Clr Calc Pharmacy 32.3 ml/min; Est GFR (African American) 36.1 ml/min; Est GFR (Non-African American) 31.2 ml/min; Potassium 3.8 mmol/L (3.5-5.1)
[2021-12-12] MEDS ORDERED: ALBUMIN 25% 100 mL 25 GM/100 ML VIAL IV SCH (06:00)
[2021-12-12 06:04] LABS: Hematocrit (blood only) 32.2 % (34.1-44.9); Hemoglobin 11.1 g/dl (12.0-16.0); Mean Platelet Volume 10.2 fL (9.4-12.3); Platelet Count 126 K/uL (130-400)
[2021-12-12 06:30] LABS: Appearance Urine Clear (Clear); Bacteria Urine Automated Negative (Negative); Bilirubin Urine Negative (Negative); Blood Urine 3+ (Negative); Color Urine Yellow; Epithelial Cell Urine Auto 20-30 /lpf (0-5); Glucose Urine UA Negative (Negative); Ketones Urine Negative (Negative); Leukocyte Esterase Urine Trace (Negative); Nitrite Urine Negative (Negative); Protein Urine Negative (Negative); RBC Urine Automated >30 /hpf (0-4); Specific Gravity Urine 1.032 (1.000-1.030); Urobilinogen Urine Negative (Negative)
[2021-12-12 06:41] LABS: Basophils # (auto) 0.01 K/uL (0-0.2); Basophils % (auto) 0.3 %; Eosinophils # (auto) 0.04 K/uL (0-0.50); Eosinophils % (auto) 1.1 %; Immature Granulocytes # (auto) 0.01 K/uL (0.00-0.02); Immature Granulocytes % (auto) 0.3 %; Lymphocytes # (auto) 0.44 K/uL (1.2-3.4); Lymphocytes % (auto) 12.6 %; Mean Corpuscular Hemoglobin 31.1 pg (25.0-34.0); Mean Corpuscular Hgb Conc 34.5 g/dL (32.0-36.0); Mean Corpuscular Volume 90.2 fL (80.0-100.0); Monocytes # (auto) 0.18 K/uL (0.24-0.82); Monocytes % (auto) 5.1 %; Neutrophils # (auto) 2.82 K/uL (1.4-6.5); Neutrophils % (auto) 80.6 %; RDW Standard Deviation 47.9 fL (36.4-46.3); Red Blood Count 3.57 M/uL (3.93-5.22)
[2021-12-12 07:13] LABS: Calcium 8.6 mg/dl (8.5-10.1); Creatinine Clr Calc Pharmacy 32.5 ml/min; Est GFR (African American) 36.4 ml/min; Est GFR (Non-African American) 31.4 ml/min; Potassium 3.6 mmol/L (3.5-5.1)
[2021-12-12] MEDS: INSULIN ASPART PER UNIT SC SCH ×4 (07:51→21:04)
[2021-12-12] MEDS: ESCITALOPRAM OXALATE 10 MG TAB PO SCH (07:55)
[2021-12-12] MEDS: LATANOPROST 0.005% OP SOLN 2.5 ML BTL OPR SCH (07:56)
[2021-12-12] MEDS ORDERED: METOPROLOL SUCC 25MG EXT REL TAB PO SCH (09:00)
--- NOTE | 2021-12-12 09:04 | Surgery Progress Note ---
Date of Service December 12, 2021 Assessment & Plan (1) Pelvic abscess: Plan: 76-year-old female with history of rectal carcinoma s/p resection. Patient has anorectal fistula and has chronic infections that usually respond well to outpatient PO antibiotics. She is followed by [facility] who does not recommend surgical intervention. Recent imaging in ED shows chronic presacral soft tissue thickening and fluid collections suggestive of chronic abscesses. No indication for surgical intervention. Recommend continued antibiotic treatment per primary team. General surgery will sign off. Admission and Anticipated Discharge Date Admission Date: December 11, 2021 Supervising Physician Co-Signing Physician Notes I personally saw and evaluated the patient with Jesus Xiao PA-C and agree with the assessment and plan. 76-year-old female status post LAR in the early with resultant leak and multiple abdominal surgeries, now with a chronic abscess/fistula from her pelvis into the left buttock CT images and results personally viewed by me, no acute infection seen or anything drainable surgically She is feeling better with some IV antibiotics She does have some scant blood per rectum which she states does happen off and on when her infection flares up I have nothing to offer her surgically and would suggest at least 2-week course of antibiotics Surgery will sign off at this time, please call with any questions or concerns Subjective Pearl is a 76-year-old female with past medical history significant for rectal carcinoma (s/p resection, with chemotherapy and radiation) with complication of anorectal fistula. Patient reports chronic issue with infect ions. She states that she is usually treated with outpatient oral antibiotics when she starts to develop rectal bleeding. She follows with [facility] who does not recommend surgical intervention. Patient presented to [facility] ED yesterday after episode of syncope while she was on her way to the airport. She states that she was not feeling well immediately before she passed out. Currently, she states that she is feeling much better than she did on admission and denies feeling lightheaded. No WBC elevation on admission. Hgb 11.1 and Hct 32.[address] of abdomen/pelvis shows 1. No acute posttraumatic intra-abdominal or intrapelvic abnormality. 2. Status post rectal resection with chronic presacral soft tissue thickening and fluid collections suggestive of chronic abscesses. 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 Review of Systems Constitutional: no fever, no chills, no fatigue and no weakness Integumentary: as per Subjective / HPI Physical Exam Constitutional: WD/WN, vitals as above patient afebrile. Respiratory: normal respiratory effort; no respiratory distress and no labored breathing Skin: Left medial buttock- No active bleeding from buttocks. No erythema of the soft tissue, no fluctuance, no area of induration or palpable mass. Patient non-tender. Results & Data ([facility]) Vital Signs (Past 12 Hours) Vital Signs Temp Pulse Pulse Pulse Resp BP BP 12/12/21 08:16 36.7 C 77 19 12/12/21 03:14 36.8 C 93 H 16 107/63 12/11/21 22:53 83 12/11/21 23:35 12/11/21 23:35 36.7 C 77 18 91/55 L 12/11/21 23:07 36.7 C 77 18 91/55 L 12/11/21 23:07 12/11/21 22:35 74 18 132/69 12/11/21 22:00 74 18 134/67 BP Pulse Ox Pulse Ox O2 Del Method O2 Del Method 12/12/21 08:16 103/61 92 Nasal Cannula 12/12/21 03:14 93 Room Air 12/11/21 22:53 12/11/21 23:35 Room Air 12/11/21 23:35 92 Room Air 12/11/21 23:07 92 Room Air 12/11/21 23:07 92 Room Air 12/11/21 22:35 100 Room Air 12/11/21 22:00 97 PG Care Time/CCT Total # of Minutes Spent Total Time Spent with Patient: Total time spent is greater than 50% in coordination of care (as documented) at patient's floor/unit and/or counseling patient: Coding Level of Care Code 25515 Subseq Hosp Care Lvl 1 Diagnoses Pelvic abscess
[2021-12-12] MEDS: SODIUM CHLORIDE 0.9% 1000ML 1,000 ML IV SCH ×2 (09:50→21:05)
[2021-12-12] MEDS: ADVANCED PROBIOTIC 1250 MG CAPSULE PO SCH (12:46)
--- NOTE | 2021-12-12 12:48 | Electrocardiogram Report ---
Test Reason : Blood Pressure : / mmHG Vent. Rate : 079 BPM Atrial Rate : 079 BPM P-R Int : 194 ms QRS Dur : 070 ms QT Int : 404 ms P-R-T Axes : 086 -31 074 degrees QTc Int : 463 ms Poor data quality, interpretation may be adversely affected Atrial-sensed ventricular-paced rhythm Abnormal ECG When compared with ECG of 08-SEP-2019 02:36, Electronic ventricular pacemaker has replaced Sinus rhythm Confirmed by Morteza Taylor ([id number]) on 12/12/2021 12:48:00 PM Referred By: REFERRED SELF Confirmed By:Morteza Taylor
[2021-12-12 13:50] LABS: Hematocrit (blood only) 27.9 % (34.1-44.9)
--- NOTE | 2021-12-12 16:49 | Hospitalist Progress Note ---
Date of Service December 12, 2021 Assessment & Plan (1) Abscess: (2) BENI (acute kidney injury): (3) Hypomagnesemia: (4) Diabetes mellitus type 2 with complications: (5) Coronary artery disease: (6) Chronic systolic heart failure: (7) Hypertension: (8) Dyslipidemia: (9) Left bundle branch block: (10) Ventricular mural thrombus: Plan: Per admitting service notes with addendum: Recurrent pelvic abscesses hx rectal cancer status post surgery/chemoradiation History IR drainage History of MRSA on previous CS -- General surgery consulted No surgical intervention, drainage recommended at this time Recommend to continue antibiotics, to complete 2-week course -- Left buttock pain improving, still having some rectal bleeding Hemoglobin 10 - 11 -- Continue IV Zosyn plus doxycycline ID consulted Possible DC home on doxycycline plus Augmentin to complete 2-week course Probiotics ARF secondary to Lasix, underlying infection, recent Bactrim Rx contributory -- Creatinine 1.6, baseline 0.9 --Hold Lasix, IV NSS ordered --Repeat creatinine tomorrow --Will need to hold Lasix until follow-up with PCP, may need to reduce Lasix to twice a week or discontinue Syncope likely secondary to orthostasis secondary to illness SBP 90s upon arrival at the ER. Possible underlying DM neuropathy, suboptimal control DM2 on oral medications, hemoglobin A1c of 8 from October 2021 Rule out progression of valvular heart disease (moderate from TTE 2020) -- IV NSS --Echocardiogram ordered chronic systolic heart failure secondary to ischemic cardiomyopathy (EF 28%, TTE 2020) status post ICD -- Patient on the dry side Gentle IV fluids ordered chronic LBBB hyperlipidemia on statin Rx hx osteomyelitis/radiation proctitis/fistula status post ostomy status post prolonged antibiotic Rx (2011) hx DVT as per records -- Hold Eliquis in light of rectal bleeding DVT prophylaxis. SCDs Re: Bleeding drainage Full code Disposition Anticipate discharge to home tomorrow when medically stable May benefit from home health services Admission and Anticipated Discharge Date Admission Date: December 11, 2021 Subjective Follow-up for pelvic, and presacral chronic abscess, syncope, etc. Seen sitting up in bed, awake and alert, answers all questions appropriately Comfortable Patient's Baljeet at the bedside visiting Patient states that she feels better today compared to yesterday No dizziness, headache, pink syncope or syncope recurrence, ambulates to the bathroom with no problems Reports left buttock pain is also much better Still had 2 episodes of rectal bleeding this morning No fevers or chills no chest pain, dyspnea, palpitations, dizziness No other symptoms Review of Systems Review of Systems: all noted and negative except for above Physical Exam Physical Exam: General- oriented x 3, not in distress, speaks in sentences with no effort or accessory muscle use Head- atraumatic Eyes- PERRL, EOMI, anicteric ENT- oropharynx clear Neck- supple, no JVD, no adenopathy, no thyromegaly; carotids +2/2, no bruits appreciated Lungs- clear to auscultation bilaterally, no rales/wheezes Heart- normal rate, regular rhythm; positive grade 3 out of 6 holosystolic murmur, no gallop, no rub appreciated Abdomen- normal bowel sounds, nondistended, soft, nontender, no masses or hepatosplenomegaly Colostomy in the left lower quadrant in place, with brown, formed stools Extremities- no pretibial edema, no calf tenderness; peripheral pulses intact Left buttock-positive moderate tenderness area, lower half Neuro- alert, oriented x 3; CN 2-12 grossly intact; motor 5/5 bilaterally;sensation 100% on all extremities; no other gross focal neurologic deficits Skin- warm & dry Results & Data Results & Data ([facility]) Vital Signs (Past 12 Hours) Vital Signs Temp Pulse Pulse Resp BP BP Pulse Ox 12/12/21 15:56 36.7 C 73 20 116/70 95 12/12/21 15:06 70 12/12/21 08:00 51 L 12/12/21 11:48 36.9 C 63 19 132/77 91 12/12/21 08:16 36.7 C 77 19 103/61 92 O2 Del Method 12/12/21 15:56 Room Air 12/12/21 15:06 12/12/21 08:00 12/12/21 11:48 Room Air 12/12/21 08:16 Nasal Cannula all noted and reviewed including below
[2021-12-12] MEDS ORDERED: LANTUS PER UNIT CHARGE SQ SCH (21:00)
[2021-12-12] MEDS ORDERED: DAPTOmycin 225 MG in SYRINGE 0 ML IV SCH (22:00)
[2021-12-13] MEDS: PIPERACILLIN/TAZOBACTAM 3.375 GM in DEXTROSE 5% 100 ML IV SCH ×2 (02:04→09:51)
--- NOTE | 2021-12-13 04:34 | Communication Note ---
Date of Service: December 13, 2021 Patient with episodic bradycardia as per RN. Cardiac rate briefly down to the 30s. Patient asymptomatic as per RN. AP Episodic bradycardia Decrease current beta-sherif dose given syncope complaint on admission
[2021-12-13 05:29] LABS: Basophils # (auto) 0.01 K/uL (0-0.2); Basophils % (auto) 0.4 %; Eosinophils # (auto) 0.08 K/uL (0-0.50); Eosinophils % (auto) 2.9 %; Hematocrit (blood only) 29.5 % (34.1-44.9); Hemoglobin 9.7 g/dl (12.0-16.0); Immature Granulocytes # (auto) 0.01 K/uL (0.00-0.02); Immature Granulocytes % (auto) 0.4 %; Lymphocytes # (auto) 0.58 K/uL (1.2-3.4); Lymphocytes % (auto) 20.8 %; Mean Platelet Volume 9.6 fL (9.4-12.3); Monocytes # (auto) 0.42 K/uL (0.24-0.82); Monocytes % (auto) 15.1 %; Neutrophils # (auto) 1.69 K/uL (1.4-6.5); Neutrophils % (auto) 60.4 %; Platelet Count 111 K/uL (130-400); White Blood Count 2.79 K/ul (4.8-10.8)
[2021-12-13 05:47] LABS: BUN Creatinine Ratio 19.8 (10-20); Calcium 8.4 mg/dl (8.5-10.1); Creatinine Clr Calc Pharmacy 39.6 ml/min; Est GFR (African American) 46.4 ml/min; Magnesium 2.2 mg/dl (1.7-2.4); Potassium 3.9 mmol/L (3.5-5.1)
[2021-12-13 06:04] LABS: Mean Corpuscular Hemoglobin 29.9 pg (25.0-34.0); Mean Corpuscular Hgb Conc 32.9 g/dL (32.0-36.0); RDW Coefficient of Variation 15.2 % (11.5-14.5); Red Blood Count 3.24 M/uL (3.93-5.22)
[2021-12-13] MEDS: LATANOPROST 0.005% OP SOLN 2.5 ML BTL OPR SCH (07:51)
[2021-12-13] MEDS: ADVANCED PROBIOTIC 1250 MG CAPSULE PO SCH (07:55)
[2021-12-13] MEDS: ESCITALOPRAM OXALATE 10 MG TAB PO SCH (08:50)
[2021-12-13] MEDS: INSULIN ASPART PER UNIT SC SCH ×2 (08:52→12:23)
[2021-12-13] MEDS ORDERED: METOPROLOL SUCC 25MG EXT REL TAB PO SCH (09:00)
--- NOTE | 2021-12-13 11:04 | Hospitalist Progress Note ---
Date of Service December 13, 2021 Assessment & Plan (1) Abscess: (2) BENI (acute kidney injury): (3) Hypomagnesemia: (4) Diabetes mellitus type 2 with complications: (5) Coronary artery disease: (6) Chronic systolic heart failure: (7) Hypertension: (8) Dyslipidemia: (9) Left bundle branch block: (10) Ventricular mural thrombus: Plan: Per admitting service notes with addendum: Recurrent pelvic abscesses hx rectal cancer status post surgery/chemoradiation History IR drainage History of MRSA on previous CS -- General surgery consulted No surgical intervention, drainage recommended at this time Recommend to continue antibiotics, to complete 2-week course -- Left buttock pain improved, rectal bleeding also improving Hemoglobin 9-10 -- given IV Zosyn plus doxycycline -- afebrile -- DC home on doxycycline plus Augmentin to complete 2-week course Probiotics daily x 1 month ARF secondary to Lasix, underlying infection, recent Bactrim Rx contributory -- Creatinine 1.6, baseline 0.9 --Hold Lasix, IV NSS ordered --Repeat creatinine : 1.3 --Will need to hold Lasix until follow-up with PCP, may need to reduce Lasix to twice a week or discontinue -- repeat BMP on ff up with PCP Syncope likely secondary to orthostasis SBP 90s upon arrival at the ER. -- IV NSS --Echocardiogram : EF 45-50% -- BP improved no dizziness with ambulation chronic systolic heart failure secondary to ischemic cardiomyopathy (EF 28%, TTE 2020) status post ICD -- given gentle IV fluids Echocardiogram : EF 45-50% ff up with Cardiology chronic LBBB hyperlipidemia on statin Rx hx osteomyelitis/radiation proctitis/fistula status post ostomy status post prolonged antibiotic Rx (2011) hx DVT as per records -- resume Eliquis DVT prophylaxis. SCDs Re: Bleeding drainage Full code Disposition d/c home ff up with PCP in 1 week ff up with Wire Mesh Gate Assembler as scheduled Admission and Anticipated Discharge Date Admission Date: December 11, 2021 Subjective ff up for syncope, etc seen resting in bed, comfortable states she feels much better overall no dizziness, weakness ambulating to the bathroom with no problems buttock pain also much better rectal bleeding resolving no other symptoms Review of Systems Review of Systems: all noted and negative except for above Physical Exam Physical Exam: General- oriented x 3, not in distress, speaks in sentences with no effort or accessory muscle use Eyes- anicteric Neck- no JVD Lungs- clear breath sounds bilaterally, no rales/wheezes Heart- normal rate, regular rhythm; no murmurs Abdomen- normal bowel sounds, nondistended, soft, nontender L Buttock- minimal tenderness Extremities- no pretibial edema, no calf tenderness Neuro- alert, oriented x 3; no gross focal neurologic deficits Skin- warm & dry Results & Data Results & Data ([facility]) Vital Signs (Past 12 Hours) Vital Signs Temp Pulse Pulse Resp BP BP Pulse Ox 12/13/21 11:03 36.9 C 73 18 129/65 93 12/13/21 07:35 36.8 C 71 18 130/75 93 12/13/21 07:16 76 O2 Del Method 12/13/21 11:03 Room Air 12/13/21 07:35 Room Air 12/13/21 07:16 all noted and reviewed including below
[2021-12-13] MEDS ORDERED: MUPIROCIN 2% OINT 22 GM TUBE EXT SCH (11:30)
[2021-12-13 16:29] LABS: Anion Gap 5.7 (3-11)
--- NOTE | 2021-12-14 16:02 | Discharge Summary ---
Discharge Summary Date of Service December 14, 2021 Notes For Next Care Provider Please repeat CBC and basic metabolic profile on follow-up visit [address] week post discharge Abnormal CT abdomen and pelvis findings: Indeterminate 10 mm intermediate density lesion of the lateral interpolar right kidney. Nonemergent ultrasound recommended to exclude a small renal cell carcinoma. Medication Changes From Visit Lasix discontinued New medications: Doxycycline x12 days Augmentin x12 days Mupirocin ointment x4 days Probiotics Admission HPI Per Admitting Provider Patient is 76 y/o F with PMH DM II, HTN, dyslipidemia, history of DVT, rectal CA s/p surgery, chemo, history fistula, ostomy, history of presacral abscess, chronic systolic heart failure, CAD s/p stent, chronic LBBB, history of ventricular thrombus on Eliquis, carotid disease, PAD presented to ER with complaint of syncopal episode today. Patient states this morning woke up and felt a little "off". She reports started having pain to left buttock. Patient with history of presacral abscess and has been seen at [facility] and patient reports was told no further intervention recommended. She states she will intermittently have episodes of bleeding from buttock area and when this occurs she takes Bactrim for a week with resolution. She however does not usually have pain associated with this chronic intermittent bleeding. Did not have any bleeding or noted discharge this morning. Since had onset of buttock discomfort this morning she started Bactrim and has taken one dose. She also took 400mg ibuprofen. She reports she was traveling in the car to go to the airport today. On the way there they stopped at [facility] to eat and she got out of the car. Patient states felt a little lightheaded when getting out of the car however proceeded to walk to the sidewalk. Next thing patient remembers is waking up on the sidewalk. Patient's states patient walked to sidewalk and stopped and her legs started to buckle and she passed out. Her was able to safely lower her to ground avoiding a fall. reports patient "out of it" for approximately 3 minutes. Patient proceeded to go into restaurant and try to drink a Coke and had onset of shaking, chills, diaphoresis. Patient unsure if had fever. They drove home to [place] and came to ER. Patient denies headache, chest pain, shortness of breath, abdominal pain, nausea, vomiting. Denies any increased stool output to ostomy. Since being in ER started having some bleeding from buttock area. Reports some post nasal drip but relates that to seasonal allergies. Denies vision changes, neck pain, palpitations, cough, sore throat, choking, otalgia, rhinorrhea, abdominal pain, paresthesias, extremity weakness, extremity edema, rashes, urinary symptoms. Admission Exam Per Admitting Provider General: no distress, WDWN Head: normocephalic, atraumatic Eyes: conjunctiva non-injected, anicteric ENT: normal inspection external ears, nose, mucous membranes moist Neck: supple, trachea midline Lungs: clear, no respiratory distress, no wheezing/rhonchi/rales CV: RRR, + murmur, no pretibial edema Abd: +ostomy left side, normal BS, soft, non-tender Buttock: no significant erythema, left buttock medial aspect near gluteal fold with reported area of tenderness with pressure of sitting, however is tenderness not reproducible with palpation. +clothing soiled with bright red blood, however no active bleeding noted from buttock/sacral region at time of exam Ext: no cyanosis, no calf tenderness Neuro: A&O x 3, no focal deficits noted, normal affect Skin: warm, dry Principal Dx & Hospital Course #1 = Principal Diagnosis (1) Abscess: (2) BENI (acute kidney injury): (3) Hypomagnesemia: (4) Diabetes mellitus type 2 with complications: (5) Coronary artery disease: (6) Chronic systolic heart failure: (7) Hypertension: (8) Dyslipidemia: (9) Left bundle branch block: (10) Ventricular mural thrombus: Per admitting service notes with addendum: Recurrent pelvic abscesses hx rectal cancer status post surgery/chemoradiation History IR drainage History of MRSA on previous CS -- General surgery consulted No surgical intervention, drainage recommended at this time Recommend to continue antibiotics, to complete 2-week course -- Left buttock pain improved, rectal bleeding also improving Hemoglobin 9-10 -- given IV Zosyn plus doxycycline -- afebrile -- DC home on doxycycline plus Augmentin to complete 2-week course Probiotics daily x 1 month ARF secondary to Lasix, underlying infection, recent Bactrim Rx contributory -- Creatinine 1.6, baseline 0.9 --Hold Lasix, IV NSS ordered --Repeat creatinine : 1.3 --Will need to hold Lasix until follow-up with PCP, may need to reduce Lasix to twice a week or discontinue -- repeat BMP on ff up with PCP Syncope likely secondary to orthostasis SBP 90s upon arrival at the ER. -- IV NSS --Echocardiogram : EF 45-50% No significant aortic valvular stenosis, aortic valve sclerosis mild Mild aortic regurgitation Mild tricuspid regurgitation -- BP improved no dizziness with ambulation chronic systolic heart failure secondary to ischemic cardiomyopathy (EF 28%, TTE 2020) status post ICD -- given gentle IV fluids Echocardiogram : EF 45-50% ff up with Cardiology Abnormal CT abdomen and pelvis findings: Indeterminate 10 mm intermediate density lesion of the lateral interpolar right kidney. Nonemergent ultrasound recommended to exclude a small renal cell carcinoma. chronic LBBB hyperlipidemia on statin Rx hx osteomyelitis/radiation proctitis/fistula status post ostomy status post prolonged antibiotic Rx (2011) hx DVT as per records -- resume Eliquis Disposition d/c home ff up with PCP in 1 week ff up with Document Processing Specialist as scheduled Discharge Exam General- oriented x 3, not in distress, speaks in sentences with no effort or accessory muscle use Eyes- anicteric Neck- no JVD Lungs- clear breath sounds bilaterally, no rales/wheezes Heart- normal rate, regular rhythm; no murmurs Abdomen- normal bowel sounds, nondistended, soft, nontender L Buttock- minimal tenderness Extremities- no pretibial edema, no calf tenderness Neuro- alert, oriented x 3; no gross focal neurologic deficits Skin- warm & dry Updated Medication List Medication Instructions Recorded Confirmed Type apixaban 5 mg tablet (Eliquis) 5 mg PO BID 12/11/21 12/11/21 History atorvastatin 80 mg tablet 80 mg PO QAM 12/11/21 12/11/21 History clopidogrel 75 mg tablet 75 mg PO DAILY 12/11/21 12/11/21 History escitalopram oxalate 10 mg tablet 10 mg PO QAM 12/11/21 12/11/21 History glipizide 5 mg tablet 5 mg PO AMPM 12/11/21 12/11/21 History latanoprost 0.005 % eye drops 1 drp OPR QAM 12/11/21 12/11/21 History metoprolol succinate 25 mg 50 mg PO QAM 12/11/21 12/11/21 History tablet,extended release 24 hr semaglutide 0.25 mg or 0.5 mg (2 0.25 mg subcut WE 12/11/21 12/11/21 History mg/1.5 mL) subcutaneous pen injector (Ozempic) valacyclovir 1 gram tablet 2 mg PO BID PRN .COLD SORES 12/11/21 12/11/21 History vitamins A,C,C-bnhz-jpihuo 14,320 1 cap PO DAILY 12/11/21 12/11/21 History unit-226 mg-200 unit capsule (PreserVision AREDS) amoxicillin 875 mg-potassium 1 tab PO BID 12 days #24 tabs 12/13/21 Rx clavulanate 125 mg tablet doxycycline hyclate 100 mg capsule 100 mg PO BID 12 days #24 caps 12/13/21 Rx mupirocin 2 % topical ointment 1 applic topical BID #15 grams 12/13/21 Rx Hospital Stay Data Consultations 12/11/21 20:03 ED Decision to Admit Stat 12/11/21 23:07 Consult General Surgery Routine 12/12/21 11:38 Consult Infectious Diseases Routine Diagnostic Imagining Performed ABDOMEN AND PELVIS CT WITH IV CONTRAST CT DOSE: 608.52 mGy.cm HISTORY: Acute pain of the pelvis and left buttock status post fall . Follow-up study in a patient with prior rectal resection and presacral fluid collections. left buttock pain, hx fistula TECHNIQUE: Multiaxial CT images of the abdomen and pelvis were performed following the IV administration of 70 cc of Optiray, A dose lowering technique was utilized adhering to the principles of ALARA. COMPARISON STUDY: CT abdomen pelvis 09/08/2019 FINDINGS: Cardiomegaly with partially imaged pacer/AICD leads. Calcified granulomata of the lung bases. Mild right hemidiaphragmatic elevation. Segmental bibasilar atelectasis/scarring. No pneumatosis or pneumoperitoneum. Calcified granulomata of the spleen. 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 Mild generalized pancreatic atrophy. The adrenal glands are within normal limits. Cholecystectomy. Unremarkable liver. Patency of the hepatic and portal veins. Mild cortical thinning of the kidneys without hydronephrosis. Intermediate density 10 mm lesion of the lateral interpolar right kidney on image 157. Probable cyst of the right kidney measuring 7 mm on image 1:30, technically too small to characterize. Urinary bladder wall thickening with partial distention. Calcified uterine fibroids. Atherosclerosis of the aorta without aneurysm. No bowel obstruction. Left parastomal hernia redemonstrated containing trace amount of free fluid. Status post rectal resection. There is redemonstration of presacral soft tissue thickening with chronic fluid collections. 4.1 x 1.6 cm right hemipelvis fluid collection on image 327 previously measured 3.7 x 1.7 cm. Left hemipelvis ill-defined collection on image 362 measures 4.0 x 2.8 cm, previously 3.8 x 3.7 cm. Infiltration within the left greater the right piriform is musculature. The left hemipelvis collection with trace progressively worsened extension into left gluteus fabio muscle and adjacent subcutaneous tissues measuring up to 2.6 x 3.9 x 8.8 cm. Chronic bone infarcts/insufficiency fractures of the sacrum and iliac bones. There is suggestion of prior resection of the coccyx. Unchanged appearance of the chronic L2 and L3 compression deformities. IMPRESSION: 1. No acute posttraumatic intra-abdominal or intrapelvic abnormality. 2. Status post rectal resection with chronic presacral soft tissue thickening and fluid collections suggestive of chronic abscesses. 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 Follow-up ultrasound after treatment course recommended to exclude an underlying solid lesion. 3. Redemonstration of a left parastomal hernia containing a trace amount of fluid. No bowel obstruction. 4. Indeterminate 10 mm intermediate density lesion of the lateral interpolar right kidney. Nonemergent ultrasound recommended to exclude a small renal cell carcinoma. 5. Additional findings as above. ACT 112: Negative or not required by law. The above report was generated using voice recognition software. It may contain grammatical, syntax or spelling errors. Electronically signed by: Miller Dougherty M.D. 12/11/2021 5:36 PM Pending Results Patient Have Any Pending Studies at Discharge: Yes Discharge Instructions Given to Patient (Per Discharging Provider) PLEASE REFER TO YOUR NEW MEDICATION LIST AND FOLLOW INSTRUCTIONS CAREFULLY. YOUR NEW MEDICATIONS INCLUDE: Doxycycline, Augmentin-antibiotic for pelvic abscess If rectal bleeding continues to improve, resume Plavix and Eliquis tomorrow. Please stop taking Lasix until reevaluated by your primary care physician. Take a probiotic daily for at least 1 month (Renew life brand is recommended). Drink at least 2 L of fluids per day to prevent dehydration. Do not take medications under the class of NSAIDs including ibuprofen, naproxen, etc. as this can cause kidney injury. PLEASE CALL YOUR PRIMARY CARE PHYSICIAN OR RETURN TO THE ER IF WITH WORSENING OF SYMPTOMS, INCLUDING Shortness of breath, leg swelling, Dizziness, weakness, Worsening of pain, rectal bleeding, fevers or chills. FOLLOW UP WITH PRIMARY CARE PHYSICIAN in 1 week. Follow-up with your bottle house quality control technician in 2 to 3 weeks. The clinic will be calling you soon for the appointment schedule. Total Time Total Time Spent Total Time Spent (In Minutes): >30 minutes
== END 2021-12-13 13:40 | disposition home or self-care (01) | DRG 603 ==
LOC: ED 14:06 → 2N 21:49 → 2W 12-12 00:14
DX: R79.89 Other specified abnormal findings of blood chemistry; Z92.3 Personal history of irradiation; Z79.01 Long term (current) use of anticoagulants; E11.51 Type 2 diabetes mellitus with diabetic peripheral angiopathy without gangrene; Z79.84 Long term (current) use of oral hypoglycemic drugs; Z85.048 Personal history of other malignant neoplasm of rectum, rectosigmoid junction, and anus; I51.3 Intracardiac thrombosis, not elsewhere classified; Z86.16 Personal history of COVID-19; Z95.810 Presence of automatic (implantable) cardiac defibrillator; K60.5 Anorectal fistula; I95.1 Orthostatic hypotension; E78.5 Hyperlipidemia, unspecified; E83.42 Hypomagnesemia; L02.31 Cutaneous abscess of buttock; I50.22 Chronic systolic (congestive) heart failure; E11.42 Type 2 diabetes mellitus with diabetic polyneuropathy; M60.08 Infective myositis, other site; Z86.718 Personal history of other venous thrombosis and embolism; I25.10 Atherosclerotic heart disease of native coronary artery without angina pectoris; I44.7 Left bundle-branch block, unspecified; N17.9 Acute kidney failure, unspecified; Z86.14 Personal history of Methicillin resistant Staphylococcus aureus infection; I25.5 Ischemic cardiomyopathy; N73.8 Other specified female pelvic inflammatory diseases; Z79.02 Long term (current) use of antithrombotics/antiplatelets

== ENCOUNTER 2024-06-12 20:50 | Observation (INO) ==
[2024-06-12 21:44] LABS: Alanine Aminotransferase 293 U/L (7-52); Albumin Globulin Ratio 1.2 (0.9-2); Albumin Level 3.6 gm/dl (3.4-5.0); Alkaline Phosphatase 284 U/L (34-104); Anion Gap 6 (3-11); Aspartate Aminotransferase 206 U/L (13-39); BUN Creatinine Ratio 24.2 (10-20); Bilirubin,Total 0.6 mg/dl (0.2-1.0); Blood Urea Nitrogen 32 mg/dl (6-23); Calcium 8.7 mg/dl (8.6-10.3); Carbon Dioxide 22 mmol/L (21-32); Chloride 103 mmol/L (98-107); Globulin 3.1 gm/dl (2.5-4.0); Glucose 380 mg/dl (70-99(Fasting)); Potassium 5.2 mmol/L (3.5-5.1); Sodium 131 mmol/L (136-145); Total Protein 6.7 gm/dl (6.0-8.3)
[2024-06-12 21:50] LABS: Hematocrit (blood only) 34.9 % (37.0-47.0); Hemoglobin 11.1 g/dl (12.0-16.0); Mean Corpuscular Hemoglobin 28.4 pg (25.0-34.0); Mean Corpuscular Hgb Conc 31.8 g/dL (32.0-36.0); Mean Corpuscular Volume 89.3 fL (80.0-100.0); Mean Platelet Volume 10.5 fL (9.4-12.4); Platelet Count 176 K/uL (130-400); RDW Coefficient of Variation 15.1 % (11.5-14.5); Red Blood Count 3.91 M/uL (4.20-5.40); White Blood Count 9.63 K/ul (4.8-10.8)
--- NOTE | 2024-06-12 23:16 | Emergency Department Note ---
Impression & Plan Elevated troponin Admission ED Provider Note HPI: History obtained from patient and patient's family at the bedside. The patient is a 79-year-old female with history of rectal adenocarcinoma, status post neoadjuvant chemotherapy and radiation therapy in 2003, status post end colostomy in 2012, chronic issues with recurrent fistula and intermittent rectal bleeding, presents the emergency department with a chief complaint of rectal irritation and bleeding. Patient states she has had the symptoms for the past 4 days. Patient states she also developed some pain and fluctuance in the area of her left buttocks where she has previously had fistulas. On arrival here to the ED the patient is hemodynamically stable, she denies any abdominal pain, she denies any vomiting. ROS: - Per HPI Differential Diagnosis: Perirectal abscess, hemorrhagic mass, external hemorrhoids, deep space infection/abscess of the gluteus, necrotizing soft tissue infection, amongst other potential pathologies. *Outpatient medications and allergy history reviewed. PE: General: Alert HEENT: Normocephalic, trachea midline Eyes: Extraocular eye movement is intact, no scleral erythema Pulmonary: Clear to auscultation bilaterally, no wheezing Cardio: Regular rate and rhythm GI: Abdomen is soft to palpation, rectal examination shows evidence of gross bleeding and moderate-sized external hemorrhoid, ostomy in place with appropriate stool drainage : No suprapubic tenderness MSK: No evidence of trauma or malformation of the extremities, no edema, fluctuant mass palpated in the mid aspect of the left gluteus muscle without any active purulent drainage Skin: No evidence of rash Neuro: Alert, no focal deficits Psychiatric: Cooperative INDEPENDENT INTERPRETATIONS: youth nutritional monitor: (As interpreted by myself): - An order was placed for continuous cardiac monitoring - Patient was noted to be in paced rhythm with a rate of 90 EKG: (As interpreted by myself): Rate: 95 Rhythm: Paced rhythm Intervals: QRS 130 ms, QTc 507 ms, RI within normal limits ST changes: No ST elevation Time: 2105 Interventions provided in ED: - IV morphine, IV Zofran, IV Zosyn, IV fluid bolus, aspirin Medical Decision Making: IV was established and lab work obtained, patient was placed on ekg monitor tech. Lab work shows no leukocytosis, hemoglobin is stable at 11.1, platelet count is normal, CMP shows a mild hyperkalemia at 5.2, creatinine is baseline at 1.32, glucose is elevated at 380 without any evidence of DKA on lab work. There is a transaminitis with AST of 206, ALT of 293, and alk phos of 284, bilirubin is normal. Troponin is initially elevated at 43.0, patient denies any chest pain or shortness of breath. CT imaging of the abdomen pelvis was obtained, this does show evidence of slight enlargement of the patient's chronic fluid collection in the left gluteal region that likely represents abscess. This does appear to be chronic in nature upon review of the patient's outpatient records and CT imaging from February through the [facility]. I discussed the patient's presentation with on- call colorectal surgery at [facility] in [place], Dr. Lopez. At this time he does not feel any acute surgical interventions are indicated, this is consistent with the patient's recent visit with colorectal surgery in April 2024 when conservative measures were also recommended when the patient was having similar symptoms. On my reassessment the patient appears to be in no acute distress, she states her pain is greatly improved following a dose of IV morphine and IV Zofran. Patient did have a repeat troponin performed here in the ED that elevated to 239.5. She states she does not have any chest pain or shortness of breath on my reassessment. Patient was given aspirin in the ED, will avoid heparin at this time given lack of symptoms and given rectal bleeding. Her initial EKG shows a paced rhythm without any acute ischemic changes per my interpretation. This could possibly be stress-induced from infection, urinalysis is possibly consistent with UTI. Patient will be treated with IV Zosyn and blood cultures were drawn here in the ED. I discussed the patient's presentation and above findings with the on-call hospitalist, Dr. Zuniga, and the patient was placed for admission in stable condition. The patient and her at the bedside were in agreement for admission. Consultants/Discussions held with other healthcare providers: - Colorectal Surgery at [facility], Dr. Lopez - Hospitalist, Dr. Zuniga Disposition discussion held by myself with: - Patient and patient's at the bedside Diagnosis: 1. Blood per rectum, acute 2. Chronic pelvic fluid collection/abscess, acute, left gluteal region 3. Elevated troponin, acute 4. History of ischemic cardiomyopathy 5. Hyperglycemia without DKA 6. Hyperkalemia, acute, mild 7. Transaminitis, acute, nonspecific 8. 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, chronic (Acute) Left buttock pain (Acute) BENI (acute kidney injury) (Acute) Syncope (Acute) Pelvic abscess Carotid artery disease Ventricular mural thrombus Chronic systolic heart failure Hypomagnesemia BENI (acute kidney injury) Abscess Coronary artery disease Severe mitral regurgitation Ischemic cardiomyopathy Multi-vessel coronary artery stenosis Elevated troponin I level Abnormal finding on breast imaging Acute HFrEF (heart failure with reduced ejection fraction) Elevated d-dimer Discharge planning issues DVT prophylaxis COVID-19 ruled out Depression Left bundle branch block Diabetic neuropathy Diabetic retinopathy Diabetes mellitus type 2 with complications Dyslipidemia History of MRSA infection buttock ulcer 2019 Elevated troponin I level (Acute) SOB (shortness of breath) (Acute) CHF (congestive heart failure) (Acute) Hypertension Medical History Colostomy present Diabetes mellitus, type 2 History of anemia Retinopathy being monitored Depression Neuropathy Hx of pancreatitis Ejection fraction < 50% 25 per >just checked at [facility] ICD (implantable cardioverter-defibrillator) in place 2020>[employer] device ([facility] Hx of acute heart failure 2019 History of myocardial infarction 2020 Hypertension Hyperlipidemia History of DVT (deep vein thrombosis) 2004- LLE while receiving EPO History of osteomyelitis sacrum Rectal carcinoma hx of 2004- dS/P resection, chemo, radiation therapy Anorectal fistula (Unknown) presently being treated for infection in fistula Surgical History History of anesthesia reaction slow to wake up after colonoscopy History of ERCP History of esophagogastroduodenoscopy (EGD) History of colonoscopy History of tooth extraction History of cataract surgery right/left H/O vitrectomy right History of heart artery stent 1 stent [facility] Status post colostomy 2003 initially after resection rectal cancer, reversed new colostomy after pelvic abscess in 2011 History of colon resection low anterior resection for colon cancer Family History Father Diabetes Lung cancer Mother Heart disease Hypertension Other No family history of adverse response to anesthesia Social History Smoking Status: Never smoker Tobacco Type: Cigarettes Second Hand Exposure: Yes (as a child); Hx Alcohol Use: Yes Alcohol type: hard liquor Alcohol Intake Frequency Comment: occasional Hx Substance Use: No Preferred Language: Malagasy Communication Ability: Effective Auto Repair Technician Required: No Beliefs That Will Affect Care: None Current Living Situation: Spouse Feels Safe at Home: Yes Assistive Devices: Cane and Glasses Allergies Allergies Allergy/AdvReac Type Severity Reaction Status Date / Time adhesive Allergy Intermediate HIVES Verified 06/12/24 22:07 rosiglitazone AdvReac Unknown ANEMIA/retinal Verified 06/12/24 22:07 BLEEDING Home Meds Home Medications Medication Instructions Recorded Confirmed apixaban 5 mg tablet (Eliquis) 5 mg PO BID 12/11/21 06/12/24 atorvastatin 80 mg tablet 80 mg PO QPM 12/11/21 06/12/24 escitalopram oxalate 10 mg tablet 10 mg PO QAM 12/11/21 06/12/24 glipizide 5 mg tablet 5 mg PO AMPM 12/11/21 06/12/24 latanoprost 0.005 % eye drops 1 drp OPB QAM 12/11/21 06/12/24 metoprolol succinate 25 mg 25 mg PO BID 12/11/21 06/12/24 tablet,extended release 24 hr vitamins A,C,B-csqj-zbgcvt 4,296 1 cap PO DAILY 12/11/21 06/12/24 mcg-226 mg-90 mg capsule (PreserVision AREDS) aspirin 81 mg capsule 81 mg PO QAM 12/09/23 06/12/24 dorzolamide-timolol (PF) 2 %-0.5 % 1 drp ophthalmic (eye) AMPM 12/09/23 06/12/24 eye drops in a dropperette (Cosopt (PF)) lisinopril 2.5 mg tablet 2.5 mg PO QAM 12/09/23 06/12/24 semaglutide 0.25 mg or 0.5 mg (2 0.5 mg subcut WK 06/12/24 06/12/24 mg/3 mL) subcutaneous pen injector (Ozempic) Results & Data (ED) Vital Signs Vital Signs - 24 hr 06/12/24 20:52 06/12/24 21:33 06/12/24 22:00 Temperature 36.9 C Temperature Source Oral Pulse Rate 95 H 91 H 87 Pulse Rate [Apical] Pulse Rate from SpO2 Sensor 87 Pulse Rhythm Regular Pulse Rhythm [Apical] Pulse Strength [Apical] Respiratory Rate 17 27 H Respiratory Effort / Characteristics Non-Labored Respiratory Depth Normal Respiratory Pattern Blood Pressure 124/69 108/57 L Blood Pressure [Left Arm] Blood Pressure Mean 87 74 Blood Pressure Mean [Left Arm] Blood Pressure Position [Left Arm] Pulse Oximetry 95 90 Oxygen Delivery Method Room Air Sepsis Recent Fever Within 48 Hours No Sepsis New/Unexplained Change in Mental Status No Sepsis Action Taken by Nursing No Action Required 06/12/24 22:30 06/12/24 22:51 06/12/24 23:00 Temperature Temperature Source Pulse Rate Pulse Rate [Apical] 84 Pulse Rate from SpO2 Sensor Pulse Rhythm Pulse Rhythm [Apical] Regular Pulse Strength [Apical] Normal Respiratory Rate 18 Respiratory Effort / Characteristics Non-Labored Spontaneous Respiratory Depth Normal Respiratory Pattern Regular Blood Pressure 115/66 108/72 Blood Pressure [Left Arm] 112/67 Blood Pressure Mean 80 90 Blood Pressure Mean [Left Arm] 82 Blood Pressure Position [Left Arm] Lying Pulse Oximetry 93 Oxygen Delivery Method Room Air Sepsis Recent Fever Within 48 Hours Sepsis New/Unexplained Change in Mental Status Sepsis Action Taken by Nursing 06/13/24 00:03 06/13/24 01:00 06/13/24 01:29 Temperature Temperature Source Pulse Rate 85 80 77 Pulse Rate [Apical] Pulse Rate from SpO2 Sensor 85 80 Pulse Rhythm Pulse Rhythm [Apical] Pulse Strength [Apical] Respiratory Rate 23 19 Respiratory Effort / Characteristics Respiratory Depth Respiratory Pattern Blood Pressure 112/67 107/73 Blood Pressure [Left Arm] Blood Pressure Mean 82 84 Blood Pressure Mean [Left Arm] Blood Pressure Position [Left Arm] Pulse Oximetry 92 98 Oxygen Delivery Method Sepsis Recent Fever Within 48 Hours Sepsis New/Unexplained Change in Mental Status Sepsis Action Taken by Nursing 06/13/24 01:39 06/13/24 02:06 06/13/24 02:30 Temperature Temperature Source Pulse Rate 75 76 74 Pulse Rate [Apical] Pulse Rate from SpO2 Sensor 75 78 75 Pulse Rhythm Pulse Rhythm [Apical] Pulse Strength [Apical] Respiratory Rate 14 17 20 Respiratory Effort / Characteristics Respiratory Depth Respiratory Pattern Blood Pressure 109/67 125/75 119/66 Blood Pressure [Left Arm] Blood Pressure Mean 81 91 83 Blood Pressure Mean [Left Arm] Blood Pressure Position [Left Arm] Pulse Oximetry 98 99 97 Oxygen Delivery Method Sepsis Recent Fever Within 48 Hours Sepsis New/Unexplained Change in Mental Status Sepsis Action Taken by Nursing Laboratory Data 06/12/24 21:11 06/12/24 21:11 Lab Results 06/12/24 06/12/24 06/12/24 Range/Units 21:11 22:43 22:44 WBC 9.63 (4.8-10.8) K/ul RBC 3.91 L (4.20-5.40) M/uL Hgb 11.1 L (12.0-16.0) g/dl Hct 34.9 L (37.0-47.0) % MCV 89.3 (80.0-100.0) fL MCH 28.4 (25.0-34.0) pg MCHC 31.8 L (32.0-36.0) g/dL RDW Std Deviation 49.0 H (36.4-46.3) fL RDW Coeff of Gemma 15.1 H (11.5-14.5) % Plt Count 176 (130-400) K/uL MPV 10.5 (9.4-12.4) fL PT Cancelled 10.9 INR Cancelled 1.0 APTT Cancelled 27 PTT Ratio Cancelled 1.0 Sodium 131 L (136-145) mmol/L Potassium 5.2 H (3.5-5.1) mmol/L Chloride 103 (98-107) mmol/L Carbon Dioxide 22 (21-32) mmol/L Anion Gap 6 (3-11) BUN 32 H (6-23) mg/dl Creatinine 1.32 H (0.6-1.2) mg/dl Est Cr Clr Drug Dosing Not Reportable eGFR 41.58 BUN/Creatinine Ratio 24.2 H (10-20) Glucose 380 H* (70-99(Fasting)) mg/dl Calcium 8.7 (8.6-10.3) mg/dl Total Bilirubin 0.6 (0.2-1.0) mg/dl AST 206 H (13-39) U/L ALT 293 H (7-52) U/L Alkaline Phosphatase 284 H (34-104) U/L Troponin I High Sens 43.0 H 239.5 H* D (0-14) pg/ml Total Protein 6.7 (6.0-8.3) gm/dl Albumin 3.6 (3.4-5.0) gm/dl Globulin 3.1 (2.5-4.0) gm/dl Albumin/Globulin Ratio 1.2 (0.9-2) Urine Color Urine Appearance (Clear) Urine pH (4.5-7.5) Ur Specific [place] (1.000-1.030) Urine Protein (Negative) Urine Glucose (UA) (Negative) Urine Ketones (Negative) Urine Blood (Negative) Urine Nitrite (Negative) Urine Bilirubin (Negative) Urine Urobilinogen (Negative) Ur Leukocyte Esterase (Negative) Urine WBC (Auto) (0-5) /hpf Urine RBC (Auto) (0-2) /hpf U Hyaline Cast (Auto) (0-2) /lpf U Epithel Cells (Auto) (0-2) /hpf Urine Bacteria (Auto) (None Seen) Blood Type B Positive Antibody Screen NEGATIVE 06/12/24 Range/Units 23:22 WBC (4.8-10.8) K/ul RBC (4.20-5.40) M/uL Hgb (12.0-16.0) g/dl Hct (37.0-47.0) % MCV (80.0-100.0) fL MCH (25.0-34.0) pg MCHC (32.0-36.0) g/dL RDW Std Deviation (36.4-46.3) fL RDW Coeff of Gemma (11.5-14.5) % Plt Count (130-400) K/uL MPV (9.4-12.4) fL PT INR APTT PTT Ratio Sodium (136-145) mmol/L Potassium (3.5-5.1) mmol/L Chloride (98-107) mmol/L Carbon Dioxide (21-32) mmol/L Anion Gap (3-11) BUN (6-23) mg/dl Creatinine (0.6-1.2) mg/dl Est Cr Clr Drug Dosing eGFR BUN/Creatinine Ratio (10-20) Glucose (70-99(Fasting)) mg/dl Calcium (8.6-10.3) mg/dl Total Bilirubin (0.2-1.0) mg/dl AST (13-39) U/L ALT (7-52) U/L Alkaline Phosphatase (34-104) U/L Troponin I High Sens (0-14) pg/ml Total Protein (6.0-8.3) gm/dl Albumin (3.4-5.0) gm/dl Globulin (2.5-4.0) gm/dl Albumin/Globulin Ratio (0.9-2) Urine Color Yellow Urine Appearance Cloudy A (Clear) Urine pH 5.0 (4.5-7.5) Ur Specific [place] 1.024 (1.000-1.030) Urine Protein 1+ H (Negative) Urine Glucose (UA) Trace H (Negative) Urine Ketones Trace H (Negative) Urine Blood 3+ H (Negative) Urine Nitrite Negative (Negative) Urine Bilirubin Negative (Negative) Urine Urobilinogen Negative (Negative) Ur Leukocyte Esterase 2+ H (Negative) Urine WBC (Auto) >50 H (0-5) /hpf Urine RBC (Auto) 3-5 H (0-2) /hpf U Hyaline Cast (Auto) >20 H (0-2) /lpf U Epithel Cells (Auto) 6-10 H (0-2) /hpf Urine Bacteria (Auto) 4+ H (None Seen) Blood Type Antibody Screen Administered Medications Discontinued Medications Aspirin (Aspirin Chew 324 Mg) 324 mg PO NOW STA Stop: 06/13/24 01:50 Last Admin: 06/13/24 01:56 Dose: 324 mg Documented By: ANNETTE Sodium Chloride (Nss) 1,000 mls @ 999 mls/hr IV .Q1H1M ONE Stop: 06/13/24 00:06 Last Infusion: 06/13/24 00:30 Dose: Infused Documented By: Admin: 06/12/24 23:26 Dose: 999 mls/hr Documented By: ANNETTE Piperacillin Sod/Tazobactam Sod (Zosyn) 4.5 gm in 100 mls @ 200 mls/hr IV NOW ONE; Protocol Stop: 06/13/24 00:38 Last Infusion: 06/13/24 01:29 Dose: Infused Documented By: Admin: 06/13/24 00:52 Dose: 200 mls/hr Documented By: ANNETTE Ioversol (Optiray 320 100ml) 100 ml IV ONCE ONE Stop: 06/12/24 23:58 Last Admin: 06/12/24 23:57 Dose: 93 ml Documented By: TASHA Morphine Sulfate (Morphine Sulfate 4 Mg/Ml 1 Ml Carp\\Vial) 4 mg IV NOW STA Stop: 06/12/24 23:33 Last Admin: 06/12/24 23:37 Dose: 4 mg Documented By: ANNETTE Ondansetron HCl (Ondansetron Inj 2 Mg/Ml 2 Ml Vial) 4 mg IV NOW STA Stop: 06/12/24 23:33 Last Admin: 06/12/24 23:37 Dose: 4 mg Documented By: ANNETTE Imaging Data Radiologist's Impression: Abdomen/Pelvis CT 06/12/24 23:15 EXAM: CT abd pelvis IV con only CLINICAL HISTORY: Transaminitis, rectal pain/bleeding, left buttocks TECHNIQUE: CT of the abdomen and pelvis was performed with and without contrast, with the following protocol: axial images with, and reconstructed coronal and sagittal images. One of the following dose reduction techniques was utilized for this exam: Automated exposure control, adjustment of the mA and/or kV according to patient size, and use of iterative reconstruction. COMPARISON: 12/11/2021. FINDINGS: Lung bases: New bilateral mild pleural effusion, with passive atelectasis. A new consolidation in the left lower lobe. Few calcified granulomas and visualized both lungs. Abdomen: Interval increase in size of the heterogeous soft tissue density in the presacral space, measuring about 7.0 x 8.1 cm (previously 5.0 x 6.4 cm), with hypodense areas, also an increase in size, and calcifications. The largest hypodense collection is seen extending superficially to the left gluteal region. It measures about 5.5 x 3.5 cm (previously 4.4 x 2.6 cm). The uterus and rectum are not seen separately. Liver: Normal in size, shape, and density. No focal lesions, cysts, or masses were identified. Hepatic vasculature is unremarkable. New intrahepatic biliary ectasia. A calcified granuloma in right lobe of liver. Gallbladder and Biliary System: The gallbladder is surgically absent. The common bile duct is midly dilated, new finding. Pancreas: Pancreatic head, body, and tail are visualized and appear normal in size and density. No pancreatic masses or calcifications were noted. The pancreatic duct is not dilated. Spleen: Normal in size, shape, and density. No splenic lesions or masses were identified. Few calcified granulomas in the splenic parenchyma. Appendix: Not clearly delineated. Kidneys and Adrenal Glands: Both kidneys are normal in size, shape, and position. Cortical thickness is within normal limits. Bilateral small renal cortical cyst. No renal calculi or hydronephrosis. Perinephric fat stranding seen bilaterally. Adrenal glands are unremarkable with no evidence of masses or hyperplasia. Pelvis: Urinary Bladder: The urinary bladder is moderately filled with diffuse mural thickening and perivesical fat-stranding. Peritoneal and Retroperitoneal Structures: No free fluid or abnormal fluid collections were identified within the abdomen or pelvis. No lymphadenopathy was noted. Bowel: Mild mucosal wall thickening of the gastric antrum. A stoma in the left lower anterior abdomen, with herniated large and small bowel loops. Surgical wires are seen in the presumed sigmoid in the left lower abdomen and the hepatic flexure. There is diverticulum at the 2nd segment of the duodenum, which is interval stable. No evidence of bowel obstruction or wall thickening. Bones and Soft Tissues: Bilateral sacroilitis. No fractures or abnormal masses were identified. IMPRESSION: 1. Interval increase in size of the heterogeneous soft tissue density in the presacral space, measuring about 7.0 x 8.1 cm (previously 5.0 x 6.4 cm), with hypodense areas, also increase in sizes, and calcifications. The largest hypodense collection is seen extending superficially to the left gluteal region,likely an absces. It measures about 5.5 x 3.5 cm (previously 4.4 x 2.6 cm). The uterus and rectum are not seen separately. 2. Mild mucosal wall thickening of the gastric antrum. 3. A stoma in the left lower anterior abdomen, with herniated large and small bowel loops. No evidence of bowel obstruction. 4. New bilateral mild pleural effusion, with passive atelectasis. 5. A new consolidation in the left lower lobe. Electronically signed by Vince White 06-13-2024 01:25 AM Discharge Plan Visit Data Chief Complaint: Rectal Bleed Stated Complaint: RECTAL BLEEDING, DEHYDRATED ED Provider: Gerber Mcclain Discharge Problem: Elevated troponin Forms Stand Alone Forms: [facility] Prescriptions Prescriptions: No Action latanoprost 0.005 % drops 1 drp OPB QAM atorvastatin 80 mg tablet 80 mg PO QPM metoprolol succinate 25 mg tablet extended release 24 hr 25 mg PO BID glipizide 5 mg tablet 5 mg PO AMPM escitalopram oxalate 10 mg tablet 10 mg PO QAM PreserVision AREDS 14320-243-200 [id number] Capsule 1 cap PO DAILY Eliquis 5 mg tablet 5 mg PO BID Rx Instructions: PER PT'S SPOUSE "STOPPED D/T BLEEDING". lisinopril 2.5 mg Tablet 2.5 mg PO QAM dorzolamide-timolol (PF) [Cosopt (PF)] 2-0.5 % Dropperette 1 drp OPHTHALMIC (EYE) AMPM aspirin 81 mg Capsule 81 mg PO QAM Ozempic 0.25 mg or 0.5 mg (2 mg/3 mL) Pen Injector 0.5 mg SUBCUT WK Rx Instructions: SATURDAYS Referrals Referrals: Dane Godwin MD [Primary Care Provider] -
[2024-06-12] MEDS: SODIUM CHLORIDE 0.9% 1,000 ML IV ONE (23:26)
[2024-06-12 23:29] LABS: Partial Thromboplastin Time 27 Seconds (21-31); Prothrombin Time 10.9 Seconds (9.0-12.0)
[2024-06-12] MEDS: MoRPHine SULFATE 4 MG/ML 1 ML CARP\\VIAL IV STA (23:37)
[2024-06-12] MEDS: ONDANSETRON INJ 2 MG/ML 2 ML VIAL IV STA (23:37)
[2024-06-12] MEDS: OPTIRAY 320 100ml IV ONE (23:57)
[2024-06-12 23:59] LABS: Appearance Urine Cloudy (Clear); Bacteria Urine Automated 4+ (None Seen); Bilirubin Urine Negative (Negative); Blood Urine 3+ (Negative); Cast Urine Automated >20 /lpf (0-2); Color Urine Yellow; Glucose Urine UA Trace (Negative); Ketones Urine Trace (Negative); Leukocyte Esterase Urine 2+ (Negative); Nitrite Urine Negative (Negative); Protein Urine 1+ (Negative); Specific Gravity Urine 1.024 (1.000-1.030); Urobilinogen Urine Negative (Negative); WBC Urine Automated >50 /hpf (0-5)
[2024-06-13] MEDS: PIPERACILLIN/TAZOBACTAM 4.5 GM/100 ML BAG IV ONE (00:52)
--- NOTE | 2024-06-13 01:25 | CT Scan Report ---
EXAM: CT abd pelvis IV con only CLINICAL HISTORY: Transaminitis, rectal pain/bleeding, left buttocks TECHNIQUE: CT of the abdomen and pelvis was performed with and without contrast, with the following protocol: axial images with, and reconstructed coronal and sagittal images. One of the following dose reduction techniques was utilized for this exam: Automated exposure control, adjustment of the mA and/or kV according to patient size, and use of iterative reconstruction. COMPARISON: 12/11/2021. FINDINGS: Lung bases: New bilateral mild pleural effusion, with passive atelectasis. A new consolidation in the left lower lobe. Few calcified granulomas and visualized both lungs. Abdomen: Interval increase in size of the heterogeous soft tissue density in the presacral space, measuring about 7.0 x 8.1 cm (previously 5.0 x 6.4 cm), with hypodense areas, also an increase in size, and calcifications. The largest hypodense collection is seen extending superficially to the left gluteal region. It measures about 5.5 x 3.5 cm (previously 4.4 x 2.6 cm). The uterus and rectum are not seen separately. Liver: Normal in size, shape, and density. No focal lesions, cysts, or masses were identified. Hepatic vasculature is unremarkable. New intrahepatic biliary ectasia. A calcified granuloma in right lobe of liver. Gallbladder and Biliary System: The gallbladder is surgically absent. The common bile duct is midly dilated, new finding. Pancreas: Pancreatic head, body, and tail are visualized and appear normal in size and density. No pancreatic masses or calcifications were noted. The pancreatic duct is not dilated. Spleen: Normal in size, shape, and density. No splenic lesions or masses were identified. Few calcified granulomas in the splenic parenchyma. Appendix: Not clearly delineated. Kidneys and Adrenal Glands: Both kidneys are normal in size, shape, and position. Cortical thickness is within normal limits. Bilateral small renal cortical cyst. No renal calculi or hydronephrosis. Perinephric fat stranding seen bilaterally. Adrenal glands are unremarkable with no evidence of masses or hyperplasia. Pelvis: Urinary Bladder: The urinary bladder is moderately filled with diffuse mural thickening and perivesical fat-stranding. Peritoneal and Retroperitoneal Structures: No free fluid or abnormal fluid collections were identified within the abdomen or pelvis. No lymphadenopathy was noted. Bowel: Mild mucosal wall thickening of the gastric antrum. A stoma in the left lower anterior abdomen, with herniated large and small bowel loops. Surgical wires are seen in the presumed sigmoid in the left lower abdomen and the hepatic flexure. There is diverticulum at the 2nd segment of the duodenum, which is interval stable. No evidence of bowel obstruction or wall thickening. Bones and Soft Tissues: Bilateral sacroilitis. No fractures or abnormal masses were identified. IMPRESSION: 1. Interval increase in size of the heterogeneous soft tissue density in the presacral space, measuring about 7.0 x 8.1 cm (previously 5.0 x 6.4 cm), with hypodense areas, also increase in sizes, and calcifications. The largest hypodense collection is seen extending superficially to the left gluteal region,likely an absces. It measures about 5.5 x 3.5 cm (previously 4.4 x 2.6 cm). The uterus and rectum are not seen separately. 2. Mild mucosal wall thickening of the gastric antrum. 3. A stoma in the left lower anterior abdomen, with herniated large and small bowel loops. No evidence of bowel obstruction. 4. New bilateral mild pleural effusion, with passive atelectasis. 5. A new consolidation in the left lower lobe. Electronically signed by Vince White 06-13-2024 01:25 AM
[2024-06-13] MEDS: ASPIRIN CHEW 324 MG PO STA (01:56)
--- OUTSIDE RECORDS SUMMARY | 2024-06-13 02:45 | External Medical Summary | Summary of Care ---
Author Name Unknown Organization [facility] Address [address] [place] [address] Phone [phone] Care Team Providers Care Form Building Supervisor Name Role Phone Dane Godwin MD Primary Care Provider [phone] Reason for Visit * Reason Comments NEW PATIENT Anal bleeding off an d on. * Evaluate & Treat - Unlimited Visits (Within 10 days (routine)) - Authorized Specialty Diagnoses / Procedures Referred By Gayatri arndt Referred To Contact General Surgery Diagnoses Colonic fistula Dane Godwin MD [address] [place] [address] Phone: tel: fax: Referral ID Status Reason Start Date Expiration Date Visits Requested Visits Authorized [id number] Authorized Specialty Services Required [phone] Encounter Details Date Type Department Care Team (Late st Contact Info) Description 04/24/2024 10:30 AM EST Office Visit General Surgery, [facility] [address] [facility] [place] [address] Marilyn Boyle MD [address] [place] [address] Colostomy status (HCC)*; History of rectal cancer Allergies Active Allergy Reactions Criticality Noted Date Comments Adhesive Tape 05/10/2011 Only use paper tape Rosiglitazone 12/01/2005 anemia documented as of this encounter (statuses as of 04/24/2024) Medications ONETOUCH ULTRA BLUE STRPIndications :Background diabetic retinopathy(362 .01) test blood sugar 2 times daily dx 250.00 6 Box 3 04/03/2012 Active Latanoprost 0.005 % Ophthalmic Solution (Xalatan) Instill 1 Drop into both eyes at bedtime. 09/20/2021 Active PreserVision AREDS 2+Multi Vit Oral Capsule Take 1 Capsule by mouth daily. Active Aspirin 81 MG Oral Tablet Delayed Release Take 1 Tablet by mouth in the morning. Active Dorzolamide HCl-Timolol Mal 2-0.5 % Ophthalmic Solution (Cosopt Ocumeter Plus) INSTILL 1 DROP INTO EACH EYE TWICE DAILY 05/16/2023 Active Metoprolol Succinate ER 25 MG Oral Tablet Extended Release 24 Hour (toPROL XL) Take 1 Tablet by mouth in the morning and 1 Tablet before bedtime. 180 Tablet 3 08/15/2023 Active glipiZIDE 5 MG Oral Tablet (Glucotrol)La cations:Diabete s mellitus with stage 3 chronic kidney disease (HCC) TAKE 1 TABLET TWICE A DAY 30 MINUTES BEFORE MORNING AND EVENING MEALS 180 Tablet 3 08/22/2023 Active Escitalopram Oxalate 10 MG Oral Tablet (Lexapro)Indica tions:Adjustmen t disorder with depressed mood Take 1 Tablet by mouth in the morning. In the morning.. 90 Tablet 2 10/24/2023 Active Ozempic (0.25 or 0.5 MG/DOSE) 2 MG/3ML Solution Pen-injector (Semaglutide(0. 25 or 0.5MG/DOS))La cations:Diabete s mellitus with stage 3 chronic kidney disease (HCC) INJECT 0.5 MG UNDER THE SKIN ONCE A WEEK 9 mL 1 01/10/2024 Active Atorvastatin Calcium 80 MG Oral Tablet (Lipitor) TAKE 1 TABLET IN THE MORNING 90 Tablet 1 01/17/2024 Active Apixaban 5 MG Oral Tablet (Eliquis) TAKE 1 TABLET IN THE MORNING AND 1 TABLET BEFORE BEDTIME 180 Tablet 1 03/11/2024 Active Lisinopril 2.5 MG Oral Tablet (Prinivil)Indic ations:Ischemic cardiomyopathy, Chronic systolic congestive heart failure (HCC),Nonrheuma tic aortic valve stenosis Take 1 Tablet by mouth in the morning. 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 Dyslipidemia 07/28/2012 Type 2 diabetes mellitus wit h hemoglobin A1c goal of less than 8.0% 01/02/2009 Overview (07/01/2015): Per Diabetes Taxonomy. ICD-10 update of inactive term Stage 3a chronic kidney disease 05/24/2007 History of rectal cancer 12/01/2005 Overview (04/23/2009): S/p ileostomy and reversal S/p chemotherapy 6weeks of pre op and 5-6 weekly session 5-FU post op. Repeat colonoscopy in 08/11 She should have c-scope 1 yr, 3 yrs, and 5 years after her diagnosis of rectal CA IF she received XRT post her coloncancer surgery. Flex sigs should be done more often if she did not receive radiation, but I believe that her fistula is from XRT. She should also undergo flex sig if she develops any abnormal symptoms or imaging - ie, change in stool frequency or pattern of bleeding, as happened in 2007. Thanks, Lalo Segovia MD Diabetic polyneuropathy 12/01/2005 Overview (05/23/2015): May be from DM vs chemo/radiation ICD-10 update of inactive term Diabetes mellitus with background retinopathy Overview (05/22/2015): ICD-10 update of inactive term Major depressive disorder Overview (12/28/2016): ICD-10 update of inactive term documented as of this encounter (statuses as of 04/24/2024) Resolved Problems Problem Noted Date Diagnosed Date Resolved Date Pelvic fluid collection 02/16/202403/08 Pain of left lower leg 02/07/202403/30 Rectal bleeding 02/07/2024 03/30/2024 Medical home patient encounter 12/18/2021 02/24/2022 Diabetes mellitus with stage 3 chronic kidney disease 01/14/2020 08/26/2022 Overview: Per CKD protocol Hypertensive kidney disease with stage 3a chronic kidney disease 01/14/2020 07/05/2020 Overview: Per CKD protocol Sacral wound 09/08/2019 07/05/2020 Abscess 09/08/2019 07/05/2020 Overview (09/08/2019): Prescaral abscess Intracardiac thrombus 08/09/20192020 Acute systolic heart failure 08/09/2019 08/09/2019 Hypertensive kidney disease with stage 3 chronic kidney disease 08/10/2018 01/17/2020 Overview: Per CKD protocol History of colon polyps 06/12/2018 05/0 03/2020 Type 2 diabetes mellitus wit h stage 3 chronic kidney disease, without long-term current use of insulin 06/12/2018 01/17/2020 Overview: Per CKD protocol HTN, GOAL BELOW 140/80 10/25/201106/11 Overview: Per HTN Protocol #27. Anal fistula 04/29/2011 03/12/2016 History of osteomyelitis 04/01/201103/2020 Overview (09/09/2016): Sacral osteomyelitis HTN, goal below 130/80 04/22/200910/27 DM TYPE 2 CAUSING RENAL DZ 01/02/2009 0 08/10/2018 Overview (01/02/2009): Per Diabetes Taxonomy. Added per DM w/ renal complications protocol #4 DIAB RENAL MANIF ADULT 09/27/200701/02 Overview (01/02/2009): Per Diabetes Taxonomy. Added per DM w/ renal complications protocol #4 Benign neoplasm of colon 09/30/200610/2018 Overview (10/04/2006): adenomatous tissue ADVANCE DIRECTIVE INFORMATION 05/25/2006 07/05/2020 Overview (05/25/2006): Yes, Patient instructed to provide copy of advance directive for provider to review and to be scanned into Electronic Medical Record Type 2 diabetes mellitus wit h hemoglobin A1c goal of less than 7.0% 12/01/2005 01/02/2009 Overview (07/01/2015): Per Diabetes Taxonomy. ICD-10 update of inactive term INFORMATION 12/01/2005 12/01/2005 Overview (12/01/2005): Cold agglutins. Autoimmune hemolytic anemia 12/01/2005 09/09/2016 Overview (12/01/2005): Dx'd by studio operations engineer in charge/oncologist ADJ DISORDER W/DEPRES MOOD 12/01/2005 0 07/05/2020 BENIGN HYPERTENSION 12/01/2005 01/08/20 06 Anemia 12/01/2005 07/05/2020 Menopause 12/14/2002 03/14/2017 ELEV BL PRES W-O HYPERTN 12/14/2002 FAM HX-DIABETES MELLITUS Disorder of intervertebral disc 02/23/2018 documented as of this encounter (statuses as of 04/24/2024) Immunizations Name Administration Dates Next Due COVID-19 mRNA, LNP-s, No Pre serve, 2-Dose Series (Moderna) 05/02/2020,04/04/2020 COVID-19, MRNA-LNP, PF, 30 M CG/0.3 mL, 12 YRS AND ABOVE, IM (PFIZER-Comirnaty) 11/25/2023,12/20/2022 COVID-19, mRNA, LNP-s, PF, B ooster, 100mcg/0.5mg (Moderna) 06/05/2021,01/06/2021 Covid-19, Mrna, Lnp-s, Pf, B ivalent, 30 Mcg, IM, 12 yrs and above (Pfizer) 01/22/2022 H1N1 2009 Influenza, IM 04/22/2009 Pneumococcal Conjugate Vacc, 13 Valent (Prevnar) 09/10/2015 Pneumococcal Polysaccharide PPV23 (Pneumovax) 09/09/2016,12/01/2005 RSV Vac., Recomb, Adjuvant, PF,0.5 Ml (Arexvy) 12/20/2022 Seasonal Influenza Vac., MDV , IM, 0.5 mL (Fluzone) 12/13/2013,11/28/2012,11/22/2011,12/03,04/22/2009,01/29/2008,12/19/2006 ,01/06/2006 Seasonal Influenza Virus Vac cine, Unspecified Formulation 12/22/2020,12/01/2019,11/08/2018,12/20,01/11/2017,12/02/2015,12/13/2014 ,12/13/2013,11/28/2012,11/22/2011,11/06,04/22/2009,01/29/2008, 7,01/06/2006 Seasonal Influenza, High Dos e, Trivalent, PF, IM (Fluzone HD) 11/25/2023 Seasonal Influenza, PF, 6 M & above, IM , (FluLaval or Fluzone) 12/20/2017,01/11/2017 Seasonal Influenza, Quadriva lent Hd (Fluzone Hd) 12/06/2022,11/27/2021,12/22/2020 Seasonal Influenza, Quadriva lent Hd, 65+ Yrs 12/01/2019 Seasonal Influenza, Quadriva lent, No Preserve, IM 12/02/2015,12/13/2014 Seasonal Influenza, Trivalen t, Adjuvanted, 65+ YRS, PF, (Fluad) 12/01/2019,11/08/2018 TDAP (age 10 and older)(Boostrix) 06/22/2018 TDAP, Age 7 and older, IM (Adacel) 02/27/2008 Varicella Zoster Vaccine (Adult) 05/05/2012 Zoster Vaccine Recombinant (Shingrix) 01/07/2020 ,08/16/2019 documented as of this encounter Social History Tobacco Use Types Packs/Day Years Used Date Smoking Tobacco: Never Smokeless Tobacco: Never Alcohol Use Standard Drinks/Week Comments Yes 0 (1 standard drink = 0.6 oz pur e alcohol) rarely PHQ-2 Answer Date Recorded PHQ Adult Total Score 0 11/25/2023 Hunger Vital Sign Answer Date Recorded Worried About Running Out of Food in the Last Ye ar Not on file 08/17/2023 Within the past 12 months, t he food you bought just didn't last and you didn't have money to get more. Never true 08/17/2023 Childcare Answer Date Recorded Do you feel overwhelmed with taking care of a child, family member or friend? No 08/17/2023 Does your family need help f inding childcare? (Household - for ages 0-17 years) Not on file 08/17/2023 Clothing Answer Date Recorded Have you been unable to get clothing when it was really needed? No 08/17/2023 Is your family able to get c lothes or diapers when needed? (Household - for ages 0-17 years) Not on file 08/17/2023 Personal Safety Answer Date Recorded Do you feel unsafe or have concerns for your saf ety? No 08/17/2023 Do you have concerns for you r family's safety? (Household - for ages 0-17 years) Not on file 08/17/2023 Utilities Answer Date Recorded Do you have trouble paying y our heating, water, or electric bill? No 08/17/2023 Is your family able to pay t he heat, water, or electric bill? (Household - for ages 0-17 years) Not on file 08/17/2023 Does your family have access to good internet? (Household - for ages 0-17 years) Not on file 08/17/2023 Employment Status Answer Date Recorded Are you unemployed or without regular income? No 08/17/2023 Does the household have a re gular source of income? (Household - for ages 0-17 years) Not on file 08/17/2023 Social Connections Answer Date Recorded How often do you feel lonely or isolated from th ose around you? Never 08/17/2023 Financial Resource Strain Answer Date R ecorded Do you have any trouble payi ng for your medications, or do you think you might in the future? No 08/17/2023 Does your family have troubl e paying for medicine? (Household - for ages 0-17 years) Not on file 08/17/2023 Transportation Needs Answer Date Record ed READ ONLY Do you have troubl e getting a ride to medical visits or work? Never True 08/17/2023 Does your family have a hard time getting a ride to doctors visits? (Household - for ages 0-17 years) Not on file 08/17/2023 Has lack of transportation k ept you from medical appointments, meetings, work, or from getting things needed for daily living? Check all that apply. (Adult - for ages 18 years and over) Not on file 08/17/2023 Do you (or your family) have trouble finding or paying for a ride (transportation)? (Household - for ages 0-17 years) Not on file 08/17/2023 Housing Stability Answer Date Recorded Do you currently live in a s helter or have no steady place to sleep at night? No 08/17/2023 READ ONLY Do you think you a re at risk of becoming homeless? No 08/17/2023 Does your family worry about paying for your home or becoming homeless? (Household - for ages 0-17 years) Not on file 0 08/17/2023 Are you homeless or worried that you might be in the future? (Adult - for ages 18 years and over) Not on file Are you (or your family) savannah eless or worried that you might be in the future? (Household - for ages 0-17 years) Not on file Food Insecurity Answer Date Recorded Do you need food for this week? No 08/17/2023 Are you able to get enough f ood for your family? (Household - for ages 0-17 years) Not on file 08/17/2023 Does your family need food t his week? (Household - for ages 0-17 years) Not on file 08/17/2023 Do you always have enough fo od for your family? (Household - for ages 0-17 years) Not on file 08/17/2023 Food Insecurity Answer Date Recorded Worried About Running Out of Food in the Last Ye ar Not on file 08/17/2023 Within the past 12 months, t he food you bought just didn't last and you didn't have money to get more. Never true 08/17/2023 Do you need food for this week? 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 Answer Date of Assessment Author No 09/08/2019 1:36 PM KIMT Clint Henderson RN * Are you blind or do you have serious difficulty seeing, even when wearing glasses? Answer Date of Assessment Author Yes 09/08/2019 1:36 PM KIMT Clint Henderson RN * Do you have serious difficulty walking or climbing stairs? (5 years old or older) Answer Date of Assessment Author No 09/08/2019 1:36 PM Clint Soto RN * Do you have difficulty dressing or bathing? (5 years old or older) Answer Date of Assessment Author No 09/08/2019 1:36 PM KIMT Clint Henderson RN * Because of a physical, mental, or emotional condition, do you have difficulty doing errands alone such as visiting a doctor’s office or shopping? (15 years old or older) Answer Date of Assessment Author No 09/08/2019 11:43 AM EDT Kristen Macdonald i, LPN documented as of this encounter Mental Status * Because of a physical, mental, or emotional condition, do you have serious difficulty concentrating, remembering, or making decisions? (5 years old or older) Answer Entry Date Author No 09/08/2019 1:36 PM EDT Clint Henderson RN documented in this encounter Progress Notes * Marilyn Boyle MD - 04/24/2024 10:30 AM EST Images from the original note were not included. COLORECTAL SURGERY [facility] Pearl Persaud [phone] 04/23/2024 Cc: Abdominopelvic fistulas HPI: Pearl Persaud is a 79 year old female referred by Dane Godwin MD who presents inclinic for discussion for management of abdominal pelvic fistulas. 2003 - rectosigmoid. Had chemo/radiation, then surgery. Diverting loop ileostomy. Then reversed ileostomy. 2011--started getting back pain. Then had a fistula to her gluteus, all around sacrum from the anastomosis. Mid transverse loop ostomy 04/2011. Went back to [facility] in 03/2012--reversed t-colon ostomy and disconnected the prior anastomosis and brought out a colostomy. They had thought about an APR but were told radiation damage and everyone decided would not be soto to proceed with that. In February, noted a pinhole at the top of the gluteal cleft. Last time, end of January with this episode. "Episodes" consistent of every 3-4 months (sometimes 5-6 months) of left buttock pain, malaise ("feeling like crap") and then egress of blood and mucous from the anus. Patient has an AICD with a 25% EF. Last Colonoscopy: 03/08/2024 Findings & Specimens: The scope was first introduced into the ostomy, and advanced to what appeared to be an ileo-colonic anastamosis. The entire colon was unremarkable. The scope was then introduced into the anus. There was a large hemorrhoid at the anus. There was marked anal stenosis, and the ultra-thin upper endoscope was used. The mucosa of the rectal stump was pale, atrophic, with multiple telangeictasias and contact bleeding. The suture line of the rectal stump was markedly abnormal, characterized by ulceration and multiple areas of outpouching with an ulcerated surface mucosa and exudate. There was a possible pinpoint fistula opening. There was no evidence of malignancy in the rectal stump, although the marked ulceration makes detection of malignancy difficult. CT A/P 02/07/24: IMPRESSION 1. Chronic post treatment changes of the rectal stump and presacral area with chronic 3.8 cm left presacral fluid collection and persistent fistula with 5.2 cm left medial gluteal fluid collection. Persistent 3.2 cm right presacral fluid collection 2. Indeterminate irregular left lower lobe nodule. CT chest is recommended for further evaluation. CT 09/26/2019: IMPRESSION Persistent fluid collections in the presacral region, present on numerous prior studies (as far back as 2013), with differential including abscesses and seromas. Consider follow-up imaging and/or fluid aspiration as clinically warranted. Review of Systems: Review of Systems Constitutional: Negative for activity change, appetite change, fatigue, fever and unexpected weightchange. HENT: Negative for ear pain and hearing loss. Eyes: Negative for visual disturbance. Respiratory: Negative for chest tightness and shortness of breath. Cardiovascular: Negative for chest pain and palpitations. Gastrointestinal: Positive for anal bleeding. Negative for abdominal distention and abdominal pain. Genitourinary: Negative for difficulty urinating. Musculoskeletal: Negative for arthralgias. Hematological: Does not bruise/bleed easily. All other systems reviewed and negative. Past Medical History: Diagnosis Date Benign neoplasm of colon 09/30/2006 adenomatous tissue Benign neoplasm of colon 06/25/2009 one polyp, fistula, adenomatous tissue repeat in 3 years Chronic systolic heart failure (HCC) 07/05/2020 Depressive disorder, not elsewhere classified Disorder of intervertebral disc resolved DM type 2, goal A1c below 7 Dyslipidemia 07/28/2012 H. 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 COLONOSCOPY 08/16/2005 no tumor, repeat in one year COLONOSCOPY 05/18/2005 stable fistula and tract COLONOSCOPY 01/15/2005 COLONOSCOPY 07/09/2003 f/u to rectal ca Dx COLONOSCOPY 05/26/2003 cancer of upper rectum COLONOSCOPY W/ BIOPSY (RECTUM) 09/30/2006 adenomatous tissue COLONOSCOPY, DIAGNOSTIC (RECTUM) 06/20/2007 await pathology COLONOSCOPY, DIAGNOSTIC (RECTUM) 06/15/2013 COLONOSCOPY FLEXIBLE PROXIMAL DIAGNOSTIC performed by Lalo Segovia MD at ENDOSCOPY [facility] COLONOSCOPY, DIAGNOSTIC (RECTUM) 09/03/2016 benign polyp, repeat 5 yrs/COLONOSCOPY FLEXIBLE PROXIMAL DIAGNOSTIC performed by Lalo Segovia MD at ENDOSCOPY [facility] COLONOSCOPY, DIAGNOSTIC (RECTUM) 07/13/2018 radiation changes, repeat 5 yrs/COLONOSCOPY FLEXIBLE PROXIMAL DIAGNOSTIC performed by Lalo Segovia MD at ENDOSCOPY [facility] COLONOSCOPY, DIAGNOSTIC (RECTUM) N/A 03/08/2024 large hemorrhoid, marked anal stenosis/ulceration and multiple areas of outpouching with ulcerated surface mucosa and exudate/COLONOSCOPY FLEXIBLE PROXIMAL DIAGNOSTIC performed by Lalo Segovia MD at OR [facility] COLORECTAL CANCER SCREEN; COLON 06/25/2009 one polyp, fistula, adenomatous tissue repeat in 3 years COLOSTOMY 05/03/2011 COLOSTOMY performed by KEVIN MORE at OR [facility] CYSTOSCOPY/INSERTION OF STENT 03/15/2012 ECHO (2-D COMPLETE) murmur, "pin shaped hole in heart", no SBE EGD, FLEXIBLE, W/US GUIDE FNA/BIOPSY 05/19/2004 h. pylori ERCP, DIAGNOSTIC, SPECIMEN COLLECTION 03/04/2015 inpt [facility] EXC BREAST LESION RADMARK Left 09/13/2018 EXCISION OF BREAST LESION RADIOLOGICAL MARKER performed by Randi Rose MD at OR [facility] EXPLORATION OF ABDOMEN 03/15/2012 redo of low anterior resection with removal of previous anastamosis, drainage of pelvic abscess,takedown of loop anastamosis with resection and anastomosis, hernia repair at old ostomy site, creationof new end ostomy in LLQ, mobilitzation splenic flexure INFORMATION Left 04/30/2016 04/30/2016 I & D left axillary - office procedure - DR. Gerber Lovett INSERT/REPLACE DEFIBRILLATOR W/TRANSVERSE LEAD(S) Left 12/06/2019 BIVENTRICULAR DEFIBRILLATOR performed by Renee Vo IV, MD at [facility]ARD[facility]AC [facility]S [facility] MAMMOGRAM - BILATERAL 03/06/2008 birad code 2 PARTIAL REMOVAL OF RECTUM 09/2003 and reversal in 09/08 RADATION/ONCOLOGY CONSULT 2003 treated with Rad Rx and chemoradiotherapy REMOVE GALLBLADDER 03/04/2015 gallstones pancreatitis US GUIDED BREAST BIOPSY LEFT Left 07/04/2018 benign breast tissue with focal apocrine change and few associated microcalcifications Current Outpatient Medications Medication Sig Dispense Refill [employer] ULTRA BLUE STRP test blood sugar 2 times daily dx 250.00 6 Box 3 Latanoprost 0.005 % Ophthalmic Solution (Xalatan) Instill 1 Drop into both eyes at bedtime. PreserVision AREDS 2+Multi Vit Oral Capsule Take 1 Capsule by mouth daily. Aspirin 81 MG Oral Tablet Delayed Release Take 1 Tablet by mouth in the morning. Dorzolamide HCl-Timolol Mal 2-0.5 % Ophthalmic Solution (Cosopt Ocumeter Plus) INSTILL 1 DROP INTO EACH EYE TWICE DAILY Metoprolol Succinate ER 25 MG Oral Tablet Extended Release 24 Hour (toPROL XL) Take 1 Tablet by mouth in the morning and 1 Tablet before bedtime. 180 Tablet 3 glipiZIDE 5 MG Oral Tablet (Glucotrol) TAKE 1 TABLET TWICE A DAY 30 MINUTES BEFORE MORNING AND EVENING MEALS 180 Tablet 3 Escitalopram Oxalate 10 MG Oral Tablet (Lexapro) Take 1 Tablet by mouth in the morning. In the morning.. 90 Tablet 2 Ozempic (0.25 or 0.5 MG/DOSE) 2 MG/3ML Solution Pen-injector (Semaglutide(0.25 or 0.5MG/DOS)) INJECT 0.5 MG UNDER THE SKIN ONCE A WEEK 9 mL 1 Atorvastatin Calcium 80 MG Oral Tablet (Lipitor) TAKE 1 TABLET IN THE MORNING 90 Tablet 1 Apixaban 5 MG Oral Tablet (Eliquis) TAKE 1 TABLET IN THE MORNING AND 1 TABLET BEFORE BEDTIME 180 Tablet 1 Lisinopril 2.5 MG Oral Tablet (Prinivil) Take 1 Tablet by mouth in the morning. 90 Tablet 1 No current facility-administered medications for this visit. Review of patient's allergies indicates: Allergen Reactions Adhesive Tape Only use paper tape Rosiglitazone anemia Family History Problem Relation Name Age of Onset Hypertension Mother Thyroid Disorder Mother Diabetes Father Cancer Father lung with ? mets to brain No Known Problems Daughter No Known Problems Daughter No Known Problems Brother Diabetes Grandmother (Paternal) Breast Cancer No significant family history Social History Tobacco Use Smoking status: Never Smokeless tobacco: Never Vaping Use Vaping status: Never Used Substance Use Topics Alcohol use: Yes Comment: rarely Drug use: No Physical Examination: BP 133/63 | Pulse 89 | Wt 77.6 kg (171 lb) | BMI 28.46 kg/m² | BSA 1.89 m² Physical Exam Constitutional: General: She is not in acute distress. Appearance: She is well-developed. HENT: Head: Normocephalic and atraumatic. Eyes: Pupils: Pupils are equal, round, and reactive to light. Cardiovascular: Rate and Rhythm: Normal rate. Pulmonary: Effort: Pulmonary effort is normal. No respiratory distress. Abdominal: Palpations: Abdomen is soft. Genitourinary: Comments: Punctate opening at the superior gluteal cleft. No evidence of drainage. Anal opening stenotic, smooth. No attempt at ORTIZ. Musculoskeletal: General: Normal range of motion. Cervical back: Normal range of motion. Skin: General: Skin is warm and dry. Findings: No erythema. Neurological: Mental Status: She is alert and oriented to person, place, and time. 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 My thoughts are that the buildup of mucus are is what is causing these episodes that she has and when she has egress of blood in her mucus this improves that those feelings and the cycle continues. Jnoatan wondering if an exam under anesthesia in any amount of dilation would help this. It would also give us an opportunity to see if we can do and they are butyrate enemas or formalin instillation to help with any of the bleeding. We did discuss the definitive procedure of an abdominal perineal resection, however the patient is very averse to having an operation like this. In addition I do think this would be an incredibly technically challenging procedure to undertake in the patient who has poor cardiac function. Therefore we have decided together to try to take a more conservative approach to management of this. This will start with an exam under anesthesia and possible dilation. Plan: 1. EUA, dilation. 2. T/c formalin instillation vs butyrate enemas in the future for bleeding. 3. Allow the fistulas to form if dilation is unsuccessful. Marilyn Boyle MD [address] [facility] [id number] 04/24/2024 (This note was completed using the dictation program Fluency Direct. As such, there may be misspellings, word substitutions, or other variations that should not change the essence of the clinical content of this encounter note. If there is need for further clarification, please direct questions to the provider listed above.) documented in this encounter Nursing Notes * Kiana Arredondo MED ASSIST - 04/24/2024 10:32 AM EST Chief Complaint Patient presents with NEW PATIENT Anal bleeding off and on. Verified patient. documented in this encounter Plan of Treatment Upcoming Encounters Date Type Department Care Team (Late st Contact Info) Description 05/30/2024 2:00 PM EDT Cardiac Studies Cardiac Studies, [facility] [address] [facility] [place] [id number] 05/30/2024 3:00 PM EDT Office Visit Cardiology, [facility] [address] [facility] [place] [address] Chuck Steen MD [address] [place] [address] 07/09/2024 1:15 PM EDT Imaging Radiology [address] [facility] [place] [id number] 08/14/2024 10:00 AM EDT Office Visit Cardiology, [facility] [address] [facility] [place] [address] Livia Rosa CRNP [address] [place] [address] 09/24/2024 10:00 AM EDT Office Visit Cardiology, [facility] [address] [facility] [place] [address] [facility] Kat [facility] [address] 10/02/2024 7:40 AM EDT Office Visit Family Practice [facility] [address] [facility] [place] [address] Dane Godwin MD [address] [facility] [place] [address] 11/27/2024 8:00 AM EDT Nurse Only Ancillary [facility] [address] [facility] [place] [address] [facility], Nurse [facility] [address] [facility] [place] [address] 11/29/2024 10:30 AM EDT Appointment Vascular Lab [address] [address] 11/29/2024 11:00 AM EDT Appointment Vascular Lab [address] [address] 11/29/2024 12:00 PM EDT Office Visit Vascular Surg [facility] [place] [address] [place] [address] Vishnu Metzger MD [address] [facility] [place] [address] Health Maintenance Due Date Last Done Comments DXA Scan 06/10/2019 06/10/2015, 03/08, 04/02/2013 CKD PHOS USE SMARTSET 12846 02/18/202402/04, 08/04/2022, 01/09/2021, Additional history exists COVID-19 Vaccine ( season) 2024 11/25/2023, 12/20/2022, 01/22/2022, Additional history exists GFR 08/07/2024 02/07/2024, 07/06, 02/22/2023, Additional history exists HbA1c 08/18/2024 02/18/2024, 07/06, 08/04/2022, Additional history exists Diabetic Foot Exam 08/29/2024 08/30/2023, 0 08/27/2022, 08/25/2021, Additional history exists Adult Wellness Visit 11/24/2024 11/25/2023, 11/16/2022, 11/13/2021 Depression Monitoring 11/24/2024 11/25/2023 Diabetic Eye Exam 01/15/2025 01/16/2024, , 05/16/2023, Additional history exists CKD HGB USE SMARTSET 81222 02/06/202502/06, 02/07/2024, 12/03/2023, Additional history exists Albumin/Creatinine Ratio 02/17/2025 024, 08/07/2022, 08/21/2021, Additional history exists DTap/Tdap Vaccines (3 - Td or Tdap) 06/22/2028 06/22/2018, 02/27/2008 Colonoscopy 03/08/2029 03/08/2024, 01/0 04/2024, 07/13/2018, Additional history exists Pneumococcal Vaccine: 50+ Years Completed 09/09/2016, 09/10/2015, 12/01/2005 Zoster Vaccines Completed 01/07/2020, 08/05, 05/05/2012 Influenza Vaccine (FLU shot) Completed 11/25/2023, 11/25/2023, 12/06/2022, Additional history exists RETIRED - COLONOSCOPY-EVERY 5 YRS AGES 18-100 Discontinued 03/08/2024, 03/08/2024, 07/13/2018, Additional history exists HPV (Gardasil) Vaccine Aged Out No lo nger eligible based on patient's age to complete this topic Hepatitis B Vaccine Aged Out No longe r eligible based on patient's age to complete this topic MENINGOCOCCAL (MENACTRA/MENVEO) Aged Out No longer eligible based on patient's age to complete this topic Meningitis B Vaccine (Bexsero/Trumemba) Aged Out No longer eligible based on patient's age to complete this topic documented as of this encounter Medical Devices Not on filedocumented as of this encounter Visit Diagnoses Diagnosis Colostomy status (HCC)- Primary Colostomy status History of rectal cancer Personal history of malignant neoplasm of rectum, rectosigmoid junction, and anus documented in this encounter Advance Directives * Full Code (Latest Code Status on File) Date Activated Date Inactivated Comments 09/08/2019 1:23 PM 09/11/2019 4:04 PM This order ref lects the patients wishes and were consensually agreed upon. Question Answer Comments Discussion of Advance Directives occurred with: Patient * Full Code Date Activated Date Inactivated Comments 08/06/2019 5:21 PM 08/09/2019 8:34 PM This order ref lects the patients wishes and were consensually agreed upon. * Full Code Date Activated Date Inactivated Comments 04/29/2011 6:22 PM 05/06/2011 2:24 PM This order re flects the patients wishes and were consensually agreed upon. Care Teams Form Building Supervisor Relationship Specialty Start Date End Date Dane Godwin MD [address] [place] [address] PCP - General Family Medicine 07/08/20 documented as of this encounter
--- OUTSIDE RECORDS SUMMARY | 2024-06-13 02:45 | External Medical Summary | Summary of Care ---
Author Name Unknown Organization [facility] Address [address] [place] [address] Phone [phone] Care Team Providers Care Integration Aide Name Role Phone Dane Godwin MD Primary Care Provider [phone] Reason for Referral * Precert (Diagnostic Medical) (Within 10 days (routine)) - Authorized Specialty Diagnoses / Procedures Referred By Contac t Referred To Contact Cardiac Studies Diagnoses Moderate aortic stenosis Ischemic cardiomyopathy Procedures ECHO, COMPLETE (2D), TRANS-THORACIC Tona Neri PA-C [address] [place] [address] Phone: tel: fax: Referral ID Status Reason Start Date Expiration Date V isits Requested Visits Authorized [id number] Authorized Precert 11/30/2024 999 999 Reason for Visit * Reason Comments Follow Up Encounter Details Date Type Department Care Team (Latest Contact Info) Description 05/30/2024 3:00 PM EDT Office Visit Cardiology, [facility] [address] [facility] [place] [address] Chuck Steen MD [address] [place] [address] Moderate aortic stenosis*; Ischemic cardiomyopathy Allergies Active Allergy Reactions Criticality Noted Date Comments Adhesive Tape 05/10/2011 Only use paper tape Rosiglitazone 12/01/2005 anemia documented as of this encounter (statuses as of 05/30/2024) Medications ONETOUCH ULTRA BLUE STRPIndications :Background diabetic [...] as of this encounter (statuses as of 05/30/2024) Active Problems Problem Noted Date Diagnosed Date Radiation induced proctitis 02/02/2023 Overweight (BMI 25.0-29.9) 12/17/2021 LBBB (left bundle branch block) 12/02/2020 PAD (peripheral artery disease) 07/08/2020 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 07/05/2020 Chronic systolic heart failure 07/05/2020 Ischemic cardiomyopathy 08/16/2019 Mural thrombus of left ventricle 08/08/2019 Coronary artery disease invo lving kar[place] coronary artery of kar[place] heart 08/06/2019 Moderate aortic stenosis 09/13/2018 Colostomy [...] as of this encounter (statuses as of 05/30/2024) Resolved Problems Problem Noted Date Diagnosed Date [...] anemia 12/01/2005 09/09/2016 Overview (12/01/2005): Dx'd by bpo specialist/oncologist ADJ DISORDER W/DEPRES MOOD 12/01/2005 0 07/05/2020 BENIGN HYPERTENSION 12/01/2005 01/08/20 06 Anemia 12/01/2005 07/05/2020 Menopause 12/14/2002 03/14/2017 ELEV BL PRES W-O HYPERTN 12/14/2002 FAM HX-DIABETES MELLITUS Disorder of intervertebral disc 02/23/2018 documented as of this encounter (statuses as of 05/30/2024) Immunizations Name Administration Dates Next Due COVID-19 mRNA, LNP-s, No Pre serve, 2-Dose Series (Moderna) 05/02/2020,04/04/2020 COVID-19, MRNA-LNP, PF, 30 M CG/0.3 mL, 12 YRS AND ABOVE, IM (PFIZER-Comirnat) 11/25/2023,12/20/2022 COVID-19, mRNA, LNP-s, PF, B ooster, [...] Date Smoking Tobacco: Never Smokeless Tobacco: Never Tobacco Cessation:Counseling Given: Not Answered Alcohol Use Standard Drinks/Week Comments Yes 0 [...] 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 Answer Date of Assessment Author No 09/08/2019 1:36 PM EDT Clint Henderson RN * Are you blind or do you have serious difficulty seeing, even when wearing glasses? Answer Date of Assessment Author Yes 09/08/2019 1:36 PM EDT Clint Henderson RN * Do you have serious difficulty walking or climbing stairs? (5 years old or older) Answer Date of Assessment Author No 09/08/2019 1:36 PM EDT Clint Henderson RN * Do you have difficulty dressing or bathing? (5 years old or older) Answer Date of Assessment Author No 09/08/2019 1:36 PM EDT Clint Henderson RN * Because of a [...] documented in this encounter Progress Notes * Chuck Steen MD - 05/30/2024 3:10 PM EDT I have reviewed the advanced practitioner's documentation on the date of service referenced in note, and I agree with, and take responsibility for the plan of care. 79 year old female with aortic stenosis Sysotolic heart failure with ICM BivICD Cath in 2019 with PCI to the LCX. Cath in 2019 showed MACHINE HOSTLER of the RCA and MACHINE HOSTLER of the LAD. By cardiac MRI, there was no viability in the anterior wall. Hence she underwent PCI to the LCX. EF: 25-29%, peak velocity is 325 cm/s with calculated HARSHAD of 0.6, severe MR Rectal Ca with colostomy Some symptoms but are not progressive. See her back in February 2025 with repeat echo. If she worsens in the interim, will perform dobutamine stress echo to determine true severity of . Chuck Steen MD MPH Interventional Cardiology Pager: [phone] 05/30/24 3:18 PM * Tona Neri PA-C - 05/30/2024 2:15 PM EDT Cardiology Valve Clinic Note 05/30/2024 Primary Private Investigator: Dr Little/Dr eTsfaye/Dr Steen Cardiac Problems: 1. Moderate aortic stenosis vs pseudo aortic stenosis due to low EF 2. HFrEF, NYHA class 2 -BIV ICD, 12/06/[address] Vo 3. Ischemic cardiomyopathy -EF 25-29% since 2019 4. CAD -staged PCI to LCx 08/08/2019 5. LBBB 6. Hx LV thrombus 7. PAD 8. Carotid artery stenosis 9. Hx rectal carcinoma -status post chemo and radiation and colostomy 10. Hx DVT HPI: Pearl Persaud is a 79 year old female being seen today in valve clinic for follow-up of moderate aortic stenosis with EF 25-29% with peak velocity 300cm/s. Planned for surveillance with repeat echocardiogram in 1 year. If symptoms worsened in the interim planned for DSE to assess true severity of aortic stenosis. Here today accompanied by her Ambulates with cane. Feels there has been no real change in her breathing or activity level since last visit In physical therapy. Feels this is going well Follows with dentist routinely every 3 months. REVIEW OF SYSTEMS: See HPI for pertinent positives. All others negative other than those noted in the HPI. CONSTITUTIONAL: No change in weight, No weakness, No fatigue and No fevers, No sweats or chills. PULMONARY: No cough, sputum, or hemoptysis, No wheezing, No shortness or breath and No recent change in breathing. CARDIOVASCULAR: No chest pain, + dyspnea on exertion, No edema, No palpitations and No syncope. GASTROINTESTINAL: No abdominal pain, No change in bowel habits, No significant heartburn, No nausea, No vomiting, No diarrhea, No constipation, No blood in stools or black tarry stools. No dysphagia. HEMATOLOGIC: No abnormal bleeding and No bruising. NEUROLOGICAL: Normal balance, No headaches and No weakness. Current Outpatient Medications Medication Sig Dispense Refill Siege PaintballTOUCH ULTRA BLUE STRP test blood sugar 2 [...] mouth in the morning. 90 Tablet 1 Current Facility-Administered Medications Medication Dose Route Frequency Provider Last Rate Last Admin perflutren lipid microsphere inj SUSP 1.956 mg 1.956 mg Intravenous Once PRN Nakita Wang CRNP 1.956 mg at 05/30/24 1449 Review of patient's allergies indicates: Allergen Reactions Adhesive Tape Only use paper tape Rosiglitazone anemia Past Medical History: Diagnosis Date Benign neoplasm [...] by Brijesh Wayne DO at [facility] CATARACT SURGERY,COMPLEX 2005 both eyes, accelerated cataracts [...] performed by Lalo Segovia MD at ENDOSCOPY [facility] COLONOSCOPY, DIAGNOSTIC (RECTUM) 09/03/2016 benign polyp, repeat 5 yrs/COLONOSCOPY FLEXIBLE PROXIMAL DIAGNOSTIC performed by Lalo Segovia MD at ENDOSCOPY [facility] COLONOSCOPY, DIAGNOSTIC (RECTUM) 07/13/2018 radiation changes, repeat 5 yrs/COLONOSCOPY FLEXIBLE PROXIMAL DIAGNOSTIC performed by Lalo Segovia MD at ENDOSCOPY [facility] COLONOSCOPY, DIAGNOSTIC (RECTUM) N/A 03/08/2024 large hemorrhoid, marked anal stenosis/ulceration and multiple areas of outpouching with ulcerated surface mucosa and exudate/COLONOSCOPY FLEXIBLE PROXIMAL DIAGNOSTIC performed by Lalo Segovia MD at OR [facility] COLORECTAL CANCER SCREEN; COLON 06/25/2009 one polyp, fistula, adenomatous tissue repeat in 3 years COLOSTOMY 05/03/2011 COLOSTOMY performed by KEVIN MORE at [facility] CYSTOSCOPY/INSERTION OF STENT 03/15/2012 ECHO (2-D COMPLETE) murmur, "pin shaped hole in heart", no SBE EGD, FLEXIBLE, W/US GUIDE FNA/BIOPSY 05/19/2004 h. pylori ERCP, DIAGNOSTIC, SPECIMEN COLLECTION 03/04/2015 inpt [facility] EXC BREAST LESION RADMARK Left 09/13/2018 EXCISION OF BREAST LESION RADIOLOGICAL MARKER performed by Randi Rose MD at [facility] EXPLORATION OF ABDOMEN 03/15/2012 redo of [...] Renee Vo IV, MD at [facility] MAMMOGRAM - BILATERAL 03/06/2008 birad code 2 PARTIAL REMOVAL OF RECTUM 09/2003 and reversal in 09/08 RADATION/ONCOLOGY CONSULT 2003 treated with Rad Rx and chemoradiotherapy REMOVE GALLBLADDER 03/04/2015 gallstones pancreatitis US GUIDED BREAST BIOPSY LEFT Left 07/04/2018 benign breast tissue with focal apocrine change and few associated microcalcifications Family History Problem Relation Name Age of Onset Hypertension Mother Thyroid Disorder Mother Diabetes Father Cancer Father lung with ? 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 Back Care Not Asked Exercise Yes Comment: walking Bike Helmet Not Asked Seat Belt Yes Self-Exams Yes Comment: breast Social History Narrative Live in [place]. In [place] part of year with . Social Needs Financial Resource Strain: Low Risk (08/17/2023) Financial Resource Strain Do you have any trouble paying for your medications, or do you think you might in the future? (Adult - for ages 18 years and over): No Does your family have trouble paying for medicine? (Household - for ages 0-17 years): Not on file Food Insecurity: Unknown (08/17/2023) Food Insecurity Worried About Running Out of Food in the Last Year: Not on file Ran Out of Food in the Last Year: Never true Do you need food for this week? (Adult - for ages 18 years and over): No Transportation Needs: No Transportation Needs (08/17/2023) Transportation Needs Do you have trouble getting a ride to medical visits or work? (Adult - for ages 18 years and over):Never True Does your family have a hard time getting a ride to doctors’ visits? (Household - for ages 0-17 years): Not on file Has lack of transportation kept you from medical appointments, meetings, work, or from getting things needed for daily living? Check all that apply. (Adult - for ages 18 years and over): Not on file Do you (or your family) have trouble finding or paying for a ride (transportation)? (Household - for ages 0-17 years): Not on file Social Connections: Socially Integrated (08/17/2023) Social Connections How often do you feel lonely or isolated from those around you? (Adult - for ages 18 years and over): Never Housing Stability: Low Risk (08/17/2023) Housing Stability Do you currently live in a half-way or have no steady place to sleep at night? (Adult - for ages 18 years and over): No Do you think you are at risk of becoming homeless? (Adult - for ages 18 years and over): No Does your family worry about paying for your home or becoming homeless? (Household - for ages 0-17 years): Not on file Are you homeless or worried that you might be in the future? (Adult - for ages 18 years and over): Not on file Are you (or your family) homeless or worried that you might be in the future? (Household - for ages0-17 years): Not on file PHYSICAL EXAM: BP 144/76 (BP Site: Left Arm, BP Position: Sitting, BP Cuff Size: Large) | Pulse 72 | Resp 16 | Wt 79 kg (174 lb 1.6 oz) | BMI 28.97 kg/m² | BSA 1.9 m² Wt Readings from Last 3 Encounters: 05/30/24 79 kg (174 lb 1.6 oz) 04/24/24 77.6 kg (171 lb) 03/30/24 76.2 kg (168 lb) General: No acute distress. A+Ox3. HEENT: Normocephalic. Atraumatic. PERRL. EOMI. Conjunctiva and sclera clear. NECK: No carotid bruits. No JVD. Carotid upstrokes are brisk. Heart: RRR. S1 and S2 noted. Amite 3/6 systolic murmur. No rubs or gallops. PMI non displaced. Lungs: Clear to auscultation. No wheezes.No rhonchi. No rales. Abdomen: Normal bowel sounds. Soft. Nontender. No masses or organomegaly. No abdominal bruits. Extremities: No edema. No clubbing or cyanosis. Pulses: radial=2/4, posterior tibial=2/4, dorsalis pedis = 2/4. NEURO: No focal deficits. PSYCH: Appropriate affect and insight. DATA: Labs & Imaging Reviewed Below: ECHO 05/30/2024 Pending official read ECHO 08/31/2023 The left ventricular cavity size is normal. The wall thickness is mildly increased in segments with normal wall motion. There is a large sized apical, septal, anteroseptal, inferior, posterior, and lateral wall motion abnormality with hypokinesis to akinesis of the segments. There is a moderate sized apical and septal scar. The qualitative LV ejection fraction is 25-29% (severely reduced). The aortic valve is moderately calcified. The aortic valve opening is severely reduced. Imaging and Doppler analysis is discordant. Moderate aortic stenosis is present Mild aortic valve regurgitation is present. Moderate mitral regurgitation is present. In comparison to prior study of December 28, 2022, posterolateral wall is more hypokinetic, mitral insufficiency is greater Ao V2 max: 278.8 cm/sec Ao mean P.2 mmHg HARSHAD(I,D): 0.66 cm2 Echo 07/28/2022 The qualitative LV ejection fraction is 25-29% (severely reduced). There is a large sized apical, septal, anteroseptal, anterior, and inferior wall motion abnormalitywith hypokinesis to akinesis of the segments. There is a moderate sized apical and septal scar. The aortic valve is moderately calcified. Image and Doppler assessment of aortic stenosis severity is discordant: Moderate aortic stenosis ispresent. Consider pseudo-aortic stenosis in the setting of reduced ejection fraction. Mild mitral regurgitation is present. Mild tricuspid regurgitation is present. There is no evidence of pulmonary hypertension. Compared to prior study of 03/02/2021, there is no significant change. Ao V2 max: 256.4 cm/sec Ao mean P.0 mmHg HARSHAD(I,D): 0.85 cm2 Echo 12/12/2021 at [facility] LVEF 45-50% Frequent PVCs during the study Normal RV systolic function Mild aortic sclerosis without stenosis Mild AI Mild TR Echo 02/2021 The examination is adequate to evaluate the referral indication. The left ventricular systolic function is severely reduced. Calculated LV ejection Fraction = 28% (bi-plane method of discs). The left ventricular cavity is normal sized (LVED volume 29-61 ml/m^2). Regional wall motion abnormalities are present consistent with patient's history of an ischemic cardiomypathy as detailted below. The aortic valve has three leaflets. The aortic valve is moderately calcified. Moderate aortic valve stenosis is present. Mild aortic valve regurgitation is present. Mild mitral regurgitation is present. There is no evidence of pulmonary hypertension. Compared to prior study of 03/10/20, there is no significant change. Echocardiogram performed 2020 Performed 3 months following the initiation of cardiac resynchronization therapy: Moderate aortic valve stenosis is present, unchanged compared to the previous study Compared to her previous echocardiogram performed November,, a subtle improvement in the LVEFwas observed however ongoing severe left ventricular systolic dysfunction noted, LVEF 26%. Severe apical hypokinesis to akinesis noted without evidence of ongoing LV mural thrombus. IMPRESSION/PLAN: 1. Moderate aortic stenosis (Primary) 2. Ischemic cardiomyopathy -Patient with stable moderate aortic stenosis. EF 25-29%. Symptoms stable. -Euvolemic on examination -Recommend repeat echocardiogram and valve clinic follow-up in 9 months. Patient care was discussed/coordinated with Dr. Steen. The patient agrees to the above plan and will call with additional questions or concerns. All questions were answered to the patients satisfaction. ER with all emergencies advised. Tona Neri PA-C Cardiology, [address] [place] [address] I spent a total of 45 minutes on the date of service in preparation, delivery, and documentation ofthe care provided to Pearl Persaud excluding any time spent in the performance of separately billed services. This chart was completed in part utilizing [employer] Speech Voice Recognition Software. Grammatical errors, random word insertions, prounoun errors, and incomplete sentences are an occasional consequence of this system due to software limitations, ambient noise, and hardware issues. Any formal questions or concerns about the content, text, or information contained within the body of this dictation should be directly addressed to the provider for clarification. documented in this encounter Plan of Treatment Upcoming Encounters Date Type Department Care Team (Late st Contact Info) Description 07/09/2024 1:15 PM EDT Imaging Radiology [facility] 1st Floor, [place] [address] [place] [phone] 08/14/2024 10:00 AM EDT Office Visit Cardiology, [facility] [address] [place] [phone] Livia Rosa CRNP [address] [place] [address] [place] [address] 09/24/2024 10:00 AM EDT Office Visit Cardiology, [facility] [address] [place] [phone] Muriel Kat CRNP [address] [place] [address] 10/02/2024 7:40 AM EDT Office Visit Family Practice [facility] [address] [facility] [place] [address] Dane Godwin MD [address] [place] [address] 11/27/2024 8:00 AM EDT Nurse Only Ancillary [facility] [address] [facility] [place] [address] [facility], Nurse Annual Wellness [facility] [place] [address] 11/29/2024 10:30 AM EDT Appointment Vascular [facility] [place] [address] [place] [address] 11/29/2024 11:00 AM EDT Appointment Vascular Lab [place] [address] [place] [address] 11/29/2024 12:00 PM EDT Office Visit Vascular Surg [place] [address] [place] [address] Vishnu Metzger MD [address] [place] [address] 04/03/2025 3:00 PM EST Cardiac Studies Cardiac Studies, [facility] [address] [place] [phone] 04/03/2025 3:00 PM EST Office Visit Cardiology, [facility] [address] [place] [phone] Chuck Steen MD [facility] [address] [place], [place] [id number] Scheduled Orders Name Type Priority Associated Diagnoses Orde r Schedule ECHO, COMPLETE (2D), TRANS-THORACIC Echocardiology Routine Moderate aortic stenosis Ischemic cardiomyopathy Expected: 11/30/2024, Expires: 11/30/2025 Health Maintenance Due Date Last Done Comments DXA Scan 06/10/2019 06/10/2015, 03/08, 04/02/2013 CKD PHOS USE SMARTSET 39550 02/18/202402/04, 08/04/2022, 01/09/2021, Additional history exists COVID-19 [...] Additional history exists CKD HGB USE SMARTSET 68330 02/06/202502/06, 02/07/2024, 12/03/2023, Additional history exists Albumin/Creatinine Ratio 02/17/2025 024, 08/07/2022, 08/21/2021, Additional history exists DTap/Tdap Vaccines (3 - Td or Tdap) 06/22/2028 06/22/2018, 02/27/2008 Colonoscopy 03/08/2029 03/08/2024, 04/2024, 07/13/2018, Additional history exists Pneumococcal Vaccine: [...] as of this encounter Visit Diagnoses Diagnosis Moderate aortic stenosis- Primary Aortic valve disorders Ischemic cardiomyopathy Other specified forms of chronic ischemic heart disease documented in this encounter Advance Directives * [...] and were consensually agreed upon. Care Teams Integration Aide Relationship Specialty Start Date End Date Dane Godwin MD [address] [facility] [place] [address] PCP - General Family Medicine 07/08/20 documented as of this encounter
--- OUTSIDE RECORDS SUMMARY | 2024-06-13 02:45 | External Medical Summary | Summary of Care ---
Author Name Unknown Organization [facility] Address [address] [place] [address] Phone [phone] Care Team Providers Care Resident Program Specialist Name Role Phone Dane Godwin MD Primary Care Provider [phone] Encounter Details Date Type Department Care Team (Late st Contact Info) Description 04/13/2024 Result Scan Unspecified Department <No scans attached> Allergies Active Allergy Reactions Criticality Noted Date Comments Adhesive Tape 05/10/2011 Only use paper tape Rosiglitazone 12/01/2005 anemia documented as of this encounter (statuses as of 04/16/2024) Medications ONETOUCH ULTRA BLUE STRPIndications :Background diabetic [...] as of this encounter (statuses as of 04/16/2024) Active Problems Problem Noted Date Diagnosed Date Radiation induced proctitis 02/02/2023 Overweight (BMI 25.0-29.9) 12/17/2021 LBBB (left bundle branch block) 12/02/2020 PAD (peripheral artery disease) 07/08/2020 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 07/05/2020 Chronic systolic heart failure 07/05/2020 Ischemic cardiomyopathy 08/16/2019 Mural thrombus of left ventricle 08/08/2019 Coronary artery disease invo lving [place] coronary artery of [place] heart 08/06/2019 Moderate aortic stenosis 09/13/2018 Colostomy [...] as of this encounter (statuses as of 04/16/2024) Resolved Problems Problem Noted Date Diagnosed Date [...] anemia 12/01/2005 09/09/2016 Overview (12/01/2005): Dx'd by rent and housing investigator/oncologist ADJ DISORDER W/DEPRES MOOD 12/01/2005 0 07/05/2020 BENIGN HYPERTENSION 12/01/2005 01/08/20 06 Anemia 12/01/2005 07/05/2020 Menopause 12/14/2002 03/14/2017 ELEV BL PRES W-O HYPERTN 12/14/2002 FAM HX-DIABETES MELLITUS Disorder of intervertebral disc 02/23/2018 documented as of this encounter (statuses as of 04/16/2024) Immunizations Name Administration Dates Next Due COVID-19 [...] 08/17/2023 Does the household have a re lar source of income? 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 Answer Date of Assessment Author No 09/08/2019 1:36 PM EDT Libby Henderson RN * Are you blind or do you have serious difficulty seeing, even when wearing glasses? Answer Date of Assessment Author Yes 09/08/2019 1:36 PM EDT Libby Henderson RN * Do you have serious difficulty walking or climbing stairs? (5 years old or older) Answer Date of Assessment Author No 09/08/2019 1:36 PM EDT Libby Henderson RN * Do you have difficulty dressing or bathing? (5 years old or older) Answer Date of Assessment Author No 09/08/2019 1:36 PM EDT Libby Henderson RN * Because of a physical, [...] Date Author No 09/08/2019 1:36 PM EDT Libby Henderson RN documented in this encounter Plan of Treatment Upcoming Encounters Date Type Department Care Team (Late st Contact Info) Description 04/24/2024 10:30 AM EST Office Visit General Surgery, [address] [place] [address] Marilyn Boyle MD [address] [place] [address] 05/30/2024 2:00 PM EDT Cardiac Studies Cardiac Studies, [address] [place] [address] 05/30/2024 3:00 PM EDT Office Visit Cardiology, [address] [place] [address] Chuck Steen MD [address] [place] [address] 07/09/2024 1:15 PM EDT Imaging Radiology [facility] 1st [facility] [address] [place] [id number] 08/14/2024 10:00 AM EDT Office Visit Cardiology, [facility] [address] [place] [address] Livia Rosa CRNP [address] [place] [address] [place] [address] 09/24/2024 10:00 AM EDT Office Visit Cardiology, [facility] [address] [place] [address] Muriel Kat CRNP [address] [place] [address] 10/02/2024 7:40 AM EDT Office Visit Family Practice [facility] [address] [place] [address] Dane Godwin MD [address] [place] [address] 11/27/2024 8:00 AM EDT Nurse Only Ancillary [facility] [address] [place] [address] [facility], Nurse Annual Wellness [facility] [address] [place] [address] 11/29/2024 10:30 AM EDT Appointment Vascular Lab [place] [address] [place] [address] 11/29/2024 11:00 AM EDT Appointment Vascular Lab [place] [address] [place] [address] 11/29/2024 12:00 PM EDT Office Visit Vascular Surg [facility], [place] [address] [place] [address] Vishnu Metzegr MD [address] [place] [address] Health Maintenance Due Date Last Done Comments DXA Scan 06/10/2019 06/10/2015, 03/08, 04/02/2013 CKD PHOS USE SMARTSET 21741 02/18/202402/04, 08/04/2022, 01/09/2021, Additional history exists GFR 08/07/2024 02/07/2024, 07/06, 02/22/2023, Additional history exists HbA1c 08/18/2024 02/18/2024, 07/06, 08/04/2022, Additional history exists Diabetic Foot Exam 08/29/2024 08/30/2023, 0 08/27/2022, 08/25/2021, Additional history exists Adult Wellness Visit 11/24/2024 11/25/2023, 11/16/2022, 11/13/2021 Depression Monitoring 11/24/2024 11/25/2023 Diabetic Eye Exam 01/15/2025 01/16/2024, , 05/16/2023, Additional history exists CKD HGB USE SMARTSET 82043 02/06/202502/06, 02/07/2024, 12/03/2023, Additional history exists Albumin/Creatinine Ratio 02/17/2025 024, 08/07/2022, 08/21/2021, Additional history exists DTap/Tdap Vaccines (3 - Td or Tdap) 06/22/2028 06/22/2018, 02/27/2008 Colonoscopy 03/08/2029 03/08/2024, 01/0 04/2024, 07/13/2018, Additional history exists Pneumococcal Vaccine: 50+ Years Completed 09/09/2016, 09/10/2015, 12/01/2005 Zoster Vaccines Completed 01/07/2020, 08/05, 05/05/2012 COVID-19 Vaccine Completed 11/25/2023, , 01/22/2022, Additional history exists Influenza Vaccine (FLU shot) Completed 11/25/2023, 11/25/2023, [...] Not on filedocumented as of this encounter Procedures Procedure Name Priority Date/Time Associated Diagnosis Comments CARDIOLOGY SCANNED RESULT 04/13/2024 documented in this encounter Results * CARDIOLOGY SCANNED RESULT (04/13/2024) 04/13/2024 us No Physician Data Unknown OTHER Final Result documented in this encounter Advance Directives * [...] and were consensually agreed upon. Care Teams Resident Program Specialist Relationship Specialty Start Date End Date Dane Godwin MD [address] [place] [address] PCP - General Family Medicine 07/08/20 documented as of this encounter
--- OUTSIDE RECORDS SUMMARY | 2024-06-13 02:45 | External Medical Summary | Summary of Care ---
Author Name Unknown Organization [facility] Address [address] [place] [address] Phone [phone] Care Team Providers Care Filter Press Supervisor Name Role Phone Yimi Godwin MD Primary Care Provider [phone] Reason for Visit * Reason Onset Date Comments Medication Refill 04/12/2024 Encounter Details Date Type Department Care Team (Late st Contact Info) Description 04/12/2024 Refill Cardiology, [facility] [address] [place] [address] Muriel Gilbert CRNP [address] [facility] [address] Ischemic cardiomyopathy; Chronic systolic congestive heart failure (HCC); Nonrheumatic aortic valve stenosis Allergies Active Allergy Reactions Criticality Noted Date Comments Adhesive Tape 05/10/2011 Only use paper tape Rosiglitazone 12/01/2005 anemia documented as of this encounter (statuses as of 04/12/2024) Medications ONETOUCH ULTRA BLUE STRPIndications :Background diabetic retinopathy(362 .01) test blood sugar 2 times daily dx 250.00 6 Box 3 3 Active Latanoprost 0.005 % Ophthalmic Solution (Xalatan) Instill 1 Drop into both eyes at bedtime. 2 Active PreserVision AREDS 2+Multi Vit Oral Capsule Take 1 Capsule by mouth daily. Active Aspirin 81 MG Oral Tablet Delayed Release Take 1 Tablet by mouth in the morning. Active Dorzolamide HCl-Timolol Mal 2-0.5 % Ophthalmic Solution (Cosopt Ocumeter Plus) INSTILL 1 DROP INTO EACH EYE TWICE DAILY 4 Active Metoprolol Succinate ER 25 MG Oral Tablet Extended Release 24 Hour (toPROL XL) Take 1 Tablet by mouth in the morning and 1 Tablet before bedtime. 180 Tablet 3 4 Active glipiZIDE 5 MG Oral Tablet (Glucotrol)La cations:Diabete s mellitus with stage 3 chronic kidney disease (HCC) TAKE 1 TABLET TWICE A DAY 30 MINUTES BEFORE MORNING AND EVENING MEALS 180 Tablet 3 4 Active Escitalopram Oxalate 10 MG Oral Tablet (Lexapro)Indica tions:Adjustmen t disorder with depressed mood Take 1 Tablet by mouth in the morning. In the morning.. 90 Tablet 2 4 Active Ozempic (0.25 or 0.5 MG/DOSE) 2 MG/3ML Solution Pen-injector (Semaglutide(0. 25 or 0.5MG/DOS))La cations:Diabete s mellitus with stage 3 chronic kidney disease (HCC) INJECT 0.5 MG UNDER THE SKIN ONCE A WEEK 9 mL 1 4 Active Atorvastatin Calcium 80 MG Oral Tablet (Lipitor) TAKE 1 TABLET IN THE MORNING 90 Tablet 1 4 Active Apixaban 5 MG Oral Tablet (Eliquis) TAKE 1 TABLET IN THE MORNING AND 1 TABLET BEFORE BEDTIME 180 Tablet 1 5 Active Lisinopril 2.5 MG Oral Tablet (Prinivil)Indic ations:Ischemic cardiomyopathy, Chronic systolic congestive heart failure (HCC),Nonrheuma tic aortic valve stenosis Take 1 Tablet by mouth in the morning. 90 Tablet 1 5 Active Lisinopril 2.5 MG Oral Tablet (Prinivil)Indic ations:Ischemic cardiomyopathy, Chronic systolic congestive heart failure (HCC),Nonrheuma tic aortic valve stenosis Take 1 Tablet by mouth in the morning. 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 07/05/2020 Chronic systolic heart failure 07/05/2020 Ischemic cardiomyopathy 08/16/2019 Mural thrombus of left ventricle 08/08/2019 Coronary artery disease invo lving [place] coronary artery of [place] heart 08/06/2019 Moderate aortic stenosis 09/13/2018 Colostomy [...] as of this encounter (statuses as of 04/12/2024) Resolved Problems Problem Noted Date Diagnosed Date [...] CKD protocol History of colon polyps 06/12/2018 05/03/2020 Type 2 diabetes mellitus wit h stage [...] anemia 12/01/2005 09/09/2016 Overview (12/01/2005): Dx'd by middleware engineer/oncologist ADJ DISORDER W/DEPRES MOOD 12/01/2005 0 07/05/2020 BENIGN HYPERTENSION 12/01/2005 01/08/20 06 Anemia 12/01/2005 07/05/2020 Menopause 12/14/2002 03/14/2017 ELEV BL PRES W-O HYPERTN 12/14/2002 FAM HX-DIABETES MELLITUS Disorder of intervertebral disc 02/23/2018 documented as of this encounter (statuses as of 04/12/2024) Immunizations Name Administration Dates Next Due COVID-19 [...] 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 Not [...] Entry Date Author No 09/08/2019 1:36 PM KIMT Clint Henderson RN documented in this encounter Miscellaneous Notes * Telephone Encounter - Yimi Ramirez [facility] - 04/12/2024 3:12 PM EST Signed Prescriptions: Disp Refills Lisinopril 2.5 MG Oral Tablet (Prinivil) 90 Tab*1 Sig: Take 1 Tablet by mouth in the morning.Authorizing Provider: MURIEL GILBERT User: YIMI RAMIREZ documented in this encounter Plan of Treatment Upcoming Encounters Date Type Department Care Team (Late st Contact Info) Description 04/13/2024 9:00 AM EST Cardiac Studies Cardiac Studies, [facility] 132 [facility] [place] [address] 04/24/2024 10:30 AM EST Office Visit General Surgery, [address] [place] [address] Marilyn Boyle MD [address] [place] [address] 05/30/2024 2:00 PM EDT Cardiac Studies Cardiac Studies, [facility] [place] [address] 05/30/2024 3:00 PM EDT Office Visit Cardiology, [facility] [place] [address] Chuck Steen MD [address] [place], [place] [address] 07/09/2024 1:15 PM EDT Imaging Radiology [facility] [address] [facility], [place] 132 [facility] [place] [phone] 08/14/2024 10:00 AM EDT Office Visit Cardiology, [facility] [address] [facility] [place] [place] [address] Livia Rosa CRNP [address] [place], [place] [address] [address] 09/24/2024 10:00 AM EDT Office Visit Cardiology, [facility] [address] [facility] [place] [place] [address] Muriel Gilbert CRNP 132 [facility] [place] [address] 10/02/2024 7:40 AM EDT Office Visit Family Practice [facility] [address] [place] [address] Yimi Godwin MD 132 [facility] [place] [address] 11/27/2024 8:00 AM EDT Nurse Only Ancillary [facility] [address] [facility] [place] [place] [address] [facility], Nurse Annual Wellness [facility] [address] [facility] [place] [place] [address] 11/29/2024 10:30 AM EDT Appointment Vascular Lab [address] [address] 11/29/2024 11:00 AM EDT Appointment Vascular Lab [place] [address] [place] [address] 11/29/2024 12:00 PM EDT Office Visit Vascular Surg [place] [address] [place] [address] Vishnu Metzger MD [address] [place] [address] Health Maintenance Due Date Last Done Comments DXA Scan 06/10/2019 06/10/2015, 03/08, 04/02/2013 CKD PHOS USE SMARTSET 87755 02/18/202402/04, 08/04/2022, 01/09/2021, Additional history exists GFR 08/07/2024 02/07/2024, 07/06, 02/22/2023, Additional history exists HbA1c 08/18/2024 02/18/2024, 07/06, 08/04/2022, Additional history exists Diabetic Foot Exam 08/29/2024 08/30/2023, 0 08/27/2022, 08/25/2021, Additional history exists Adult Wellness Visit 11/24/2024 11/25/2023, 11/16/2022, 11/13/2021 Depression Monitoring 11/24/2024 11/25/2023 Diabetic Eye Exam 01/15/2025 01/16/2024, , 05/16/2023, Additional history exists CKD HGB USE SMARTSET 40895 02/06/202502/06, 02/07/2024, 12/03/2023, Additional history exists Albumin/Creatinine Ratio 02/17/2025 024, 08/07/2022, 08/21/2021, Additional history exists DTap/Tdap Vaccines (3 - Td or Tdap) 06/22/2028 06/22/2018, 02/27/2008 Colonoscopy 03/08/2029 03/08/2024, 010 04/2024, 07/13/2018, Additional history exists Pneumococcal Vaccine: [...] as of this encounter Visit Diagnoses Diagnosis Ischemic cardiomyopathy Other specified forms of chronic ischemic heart disease Chronic systolic congestive heart failure (HCC) Chronic systolic heart failure Nonrheumatic aortic valve stenosis Aortic valve disorders documented in this encounter Advance Directives * [...] and were consensually agreed upon. Care Teams Filter Press Supervisor Relationship Specialty Start Date End Date Yimi Godwin MD [address] [place] [address] PCP - General Family Medicine 07/08/20 documented as of this encounter
--- OUTSIDE RECORDS SUMMARY | 2024-06-13 02:45 | External Medical Summary | Summary of Care ---
Author Name Unknown Organization [facility] Address [address] [place] [address] Phone [phone] Care Team Providers Care Channel Specialist Name Role Phone Dane Godwin MD Primary Care Provider [phone] Reason for Visit * Reason Onset Date Comments STAIR Lung Nodule 04/23/2024 Encounter Details Date Type Department Care Team (Late st Contact Info) Description 04/23/2024 Telephone STAIR LUNG NODULE [address] [place] [address] Program, Stair [address] [place] [address] STAIR Lung Nodule Allergies Active Allergy Reactions Criticality Noted Date Comments Adhesive Tape 05/10/2011 Only use paper tape Rosiglitazone 12/01/2005 anemia documented as of this encounter (statuses as of 04/23/2024) Medications ONETOUCH ULTRA BLUE STRPIndications :Background diabetic [...] as of this encounter (statuses as of 04/23/2024) Active Problems Problem Noted Date Diagnosed Date Radiation induced proctitis 02/02/2023 Overweight (BMI 25.0-29.9) 12/17/2021 LBBB (left bundle branch block) 12/02/2020 PAD (peripheral artery disease) 07/08/2020 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 07/05/2020 Chronic systolic heart failure 07/05/2020 Ischemic cardiomyopathy 08/16/2019 Mural thrombus of left ventricle 08/08/2019 Coronary artery disease invo lving [place] coronary artery of [place] heart 08/06/2019 Moderate aortic stenosis 09/13/2018 Colostomy [...] as of this encounter (statuses as of 04/23/2024) Resolved Problems Problem Noted Date Diagnosed Date [...] CKD protocol History of colon polyps 06/12/2018 0503/2020 Type 2 diabetes mellitus wit h stage [...] anemia 12/01/2005 09/09/2016 Overview (12/01/2005): Dx'd by environmental health technician/oncologist ADJ DISORDER W/DEPRES MOOD 12/01/2005 0 07/05/2020 BENIGN HYPERTENSION 12/01/2005 01/08/20 06 Anemia 12/01/2005 07/05/2020 Menopause 12/14/2002 03/14/2017 ELEV BL PRES W-O HYPERTN 12/14/2002 FAM HX-DIABETES MELLITUS Disorder of intervertebral disc 02/23/2018 documented as of this encounter (statuses as of 04/23/2024) Immunizations Name Administration Dates Next Due COVID-19 [...] No 08/17/2023 Does the household have a [facility] center[facility] source of income? 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 Not [...] encounter Miscellaneous Notes * Telephone Encounter - Catina Nicolas LPN - 04/23/2024 1:44 PM EST Patient managed in STAIR Program for Pulmonary Nodule - banner added PCP managing documented in this encounter Plan of Treatment Upcoming Encounters Date Type Department Care Team (Late st Contact Info) Description 04/24/2024 10:30 AM EST Office Visit General Surgery, [facility] 132 [facility] [place] [address] Marilyn Boyle MD [address] [place] [address] 05/30/2024 2:00 PM EDT Cardiac Studies Cardiac Studies, [facility] 132 [facility] [place] [address] 05/30/2024 3:00 PM EDT Office Visit Cardiology, [facility] 132 [facility] [place] [address] Chuck Steen MD [address] [place] [address] 07/09/2024 1:15 PM EDT Imaging Radiology [address] [place] [phone] 08/14/2024 10:00 AM EDT Office Visit Cardiology, [facility] 132 [facility] [place] [address] Livia Rosa CRNP [address] [place] [address] 09/24/2024 10:00 AM EDT Office Visit Cardiology, [facility] [address] [facility] [place] [address] Muriel Kat CRNP [address] [place] [address] 10/02/2024 7:40 AM EDT Office Visit Family Practice [facility] [address] [place] [address] Dane Godwin MD 132 [place] [address] 11/27/2024 8:00 AM EDT Nurse Only Ancillary [facility] [place] [address] [facility] [place] [address] [place], Nurse Annual Wellness [facility] [address] [place] [address] 11/29/2024 10:30 AM EDT Appointment Vascular Lab [place] [address] [place] [address] 11/29/2024 11:00 AM EDT Appointment Vascular Lab [facility] [address] [place] [address] 11/29/2024 12:00 PM EDT Office Visit Vascular Surg [facility] [address] [place] [address] Vishnu Metzger MD [address] [place] [address] Health Maintenance Due Date Last Done Comments DXA Scan 06/10/2019 06/10/2015, 03/08, 04/02/2013 CKD PHOS USE SMARTSET 30998 02/18/202402/04, 08/04/2022, 01/09/2021, Additional history exists COVID-19 [...] Additional history exists CKD HGB USE SMARTSET 54179 02/06/202502/06, 02/07/2024, 12/03/2023, Additional history exists Albumin/Creatinine Ratio 02/17/202502/17/2 024, 08/07/2022, 08/21/2021, Additional history exists DTap/Tdap [...] Not on filedocumented as of this encounter Advance Directives * Full Code [...] and were consensually agreed upon. Care Teams Channel Specialist Relationship Specialty Start Date End Date Dane Godwin MD [address] [place] [address] PCP - General Family Medicine 07/08/20 documented as of this encounter
--- OUTSIDE RECORDS SUMMARY | 2024-06-13 02:45 | External Medical Summary | Summary of Care ---
Author Name Unknown Organization [facility] Address [address] [place] [address] Phone [phone] Care Team Providers Care Tail Dogger Name Role Phone Dane Godwin MD Primary Care Provider [phone] Reason for Visit * Reason Comments Follow Up Encounter Details Date Type Department Care Team (Latest Contact Info) Description 04/13/2024 9:00 AM EST Cardiac Studies Cardiac Studies, [facility] [address] [place] [address] Pacemaker lead malfunction, subsequent encounter [T82.110D]*; Ischemic cardiomyopathy [I25.5] Allergies Active Allergy Reactions Criticality Noted Date Comments Adhesive Tape 05/10/2011 Only use paper tape Rosiglitazone 12/01/2005 anemia documented as of this encounter (statuses as of 04/13/2024) Medications ONETOUCH ULTRA BLUE STRPIndications :Background diabetic [...] as of this encounter (statuses as of 04/13/2024) Active Problems Problem Noted Date Diagnosed Date Radiation induced proctitis 02/02/2023 Overweight (BMI 25.0-29.9) 12/17/2021 LBBB (left bundle branch block) 12/02/2020 PAD (peripheral artery disease) 07/08/2020 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 07/05/2020 Chronic systolic heart failure 07/05/2020 Ischemic cardiomyopathy 08/16/2019 Mural thrombus of left ventricle 08/08/2019 Coronary artery disease invo lving ute coronary artery of ute heart 08/06/2019 Moderate aortic stenosis 09/13/2018 Colostomy [...] as of this encounter (statuses as of 04/13/2024) Resolved Problems Problem Noted Date Diagnosed Date [...] CKD protocol History of colon polyps 06/12/2018 050 03/2020 Type 2 diabetes mellitus wit h [...] anemia 12/01/2005 09/09/2016 Overview (12/01/2005): Dx'd by inspector missile/oncologist ADJ DISORDER W/DEPRES MOOD 12/01/2005 0 07/05/2020 BENIGN HYPERTENSION 12/01/2005 01/08/20 06 Anemia 12/01/2005 07/05/2020 Menopause 12/14/2002 03/14/2017 ELEV BL PRES W-O HYPERTN 12/14/2002 FAM HX-DIABETES MELLITUS Disorder of intervertebral disc 02/23/2018 documented as of this encounter (statuses as of 04/13/2024) Immunizations Name Administration Dates Next Due COVID-19 [...] 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 Not on file Not [...] documented in this encounter Progress Notes * Mera Annabelle Gill, DO - 04/13/2024 8:59 AM EST Pt had her ICD alarm the last few days so she came in for a device check BiV ICD Interrogation today Independently performed and interpreted by myself Presenting Rhythm AP-BiV paced Underlying rhythm -VS 60s Battery function good Lead testing RA 2.9mV; 475 ohms; 0.625V @ 0.4ms RV >20mV; 0.75V @ 0.4ms; 361ohms C/S LV1-Can 0.75V @ 0.5ms; 342ohms Arrhythmia log NSVT in 12/2023 Reprogramming Changed C/S lead to LV1-Can as the threshold and impedence are great; it was only LV 2 that shows ahigh impedence LV amplitude from 5.5V to 1.5V LECG can to SVC to RV coil to A ring LECG range from +/-2 to +/-8 EGM 3 rage from +/-4 to +/- 8mV Continue follow up with Valve clinic in May and EP clinic in August Continue with routine device checks Annabelle Tesfaye DO Department of Cardiology [facility] [place] [address] documented in this encounter Plan of Treatment Upcoming Encounters Date Type Department Care Team (Late st Contact Info) Description 04/24/2024 10:30 AM EST Office Visit General Surgery, [address] [address] Marilyn Boyle MD [address] [place] [address] 05/30/2024 2:00 PM EDT Cardiac Studies Cardiac Studies, [address] [address] 05/30/2024 3:00 PM EDT Office Visit Cardiology, [address] [address] Chuck Steen MD [address], [place] [id number] 07/09/2024 1:15 PM EDT Imaging Radiology [facility] [address] [phone] 08/14/2024 10:00 AM EDT Office Visit Cardiology, [address] [place] [address] Livia Rosa CRNP [address] [facility] [place] [address] 09/24/2024 10:00 AM EDT Office Visit Cardiology, [facility] [address] [place] [address] Muriel Kat CRNP [address] [facility] [place] [address] 10/02/2024 7:40 AM EDT Office Visit Family Practice [facility] [address] [place] [address] [facility] [address] 11/27/2024 8:00 AM EDT Nurse Only Ancillary [address] [place] [address] [facility], Nurse Annual Wellness [address] [address] 11/29/2024 10:30 AM EDT Appointment Vascular Lab [address] [address] 11/29/2024 11:00 AM EDT Appointment Vascular Lab [address] [address] 11/29/2024 12:00 PM EDT Office Visit Vascular Surg [address] [address] Vishnu Metzger MD [facility] [place] [address] Health Maintenance Due Date Last Done Comments DXA Scan 06/10/2019 06/10/2015, 03/08, 04/02/2013 CKD PHOS USE SMARTSET 77717 02/18/202402/04, 08/04/2022, 01/09/2021, Additional history exists GFR 08/07/2024 02/07/2024, 07/06, 02/22/2023, Additional history exists HbA1c 08/18/2024 02/18/2024, 07/06, 08/04/2022, Additional history exists Diabetic Foot Exam 08/29/2024 08/30/2023, 0 08/27/2022, 08/25/2021, Additional history exists Adult Wellness Visit 11/24/2024 11/25/2023, 11/16/2022, 11/13/2021 Depression Monitoring 11/24/2024 11/25/2023 Diabetic Eye Exam 01/15/2025 01/16/2024, , 05/16/2023, Additional history exists CKD HGB USE SMARTSET 18412 02/06/202502/06, 02/07/2024, 12/03/2023, Additional history exists Albumin/Creatinine [...] as of this encounter Visit Diagnoses Diagnosis Pacemaker lead malfunction, subsequent encounter [T82.110D]- Primary Ischemic cardiomyopathy [I25.5] Other specified forms of chronic ischemic heart [...] and were consensually agreed upon. Care Teams Tail Dogger Relationship Specialty Start Date End Date Dane Godwin MD [address] [place] [address] PCP - General Family Medicine 07/08/20 documented as of this encounter
--- OUTSIDE RECORDS SUMMARY | 2024-06-13 02:46 | External Medical Summary | Summary of Care ---
Author Name Unknown Organization [facility] Address [address] [place] [address] Phone [phone] Care Team Providers Care Core Winder Machine Operator Name Role Phone Dane Godwin MD Primary Care Provider [phone] Reason for Referral * Evaluate & Treat - Unlimited Visits (Within 10 days (routine)) - Authorized Specialty Diagnoses / Procedures Referred By Gayatri t Referred To Contact Physical Therapy / Physical Medicine And Rehab Diagnoses Other abnormalities of gait and mobility Dane Godwin MD [address] [place] [address] Phone: tel: fax: Referral ID Status Reason Start Date Expiration Date Visits Requested Visits Authorized [id number] Authorized Specialty Services Required 03/30/[phone] Question Answer Referral Priority Within 10 days (routine) Where should this appointment be scheduled? [facility] * [facility] (Within 10 days (routine)) - Authorized Specialty Diagnoses / Procedures Referred By Conthoney t Referred To Contact Radiology Diagnoses Lung nodule Procedures CT CHEST WO CONTRAST Dane Godwin MD [address] [place] [address] Phone: tel: fax: Referral ID Status Reason Start Date Expiration Date V isits Requested Visits Authorized [id number] Authorized 03/30/[phone] Reason for Visit * Reason Comments Follow Up Pt here for 6 month follow up, would like to go over CT scan results Encounter Details Date Type Department Care Team (Latest Contact Info) Description 03/30/2024 7:40 AM EST Office Visit Family [facility] [address] [place] [address] Dane Godwin MD [address] [place] [address] Type 2 diabetes mellitus with hemoglobin A1c goal of less than 8.0% ([facility])*; Dyslipidemia; Diabetic polyneuropathy associated with type 2 diabetes mellitus ([facility]); Diabetes mellitus with background retinopathy ([facility]); PAD (peripheral artery disease) ([facility]); Mural thrombus of left ventricle; Mild aortic stenosis; Coronary artery disease involving shoshone-bannock coronary artery of shoshone-bannock heart without angina pectoris; Biventricular ICD (implantable cardioverter-defibrilla tor) in place; Radiation induced proctitis; Stage 3a chronic kidney disease ([facility]); Moderate episode of recurrent major depressive disorder ([facility]); Overweight (BMI 25.0-29.9); History of rectal cancer; Colostomy status ([facility]); Lung nodule; Other abnormalities of gait and mobility Allergies Active Allergy Reactions Criticality Noted Date Comments Adhesive Tape 05/10/2011 Only use paper tape Rosiglitazone 12/01/2005 anemia documented as of this encounter (statuses as of 03/30/2024) Medications ONETOUCH ULTRA BLUE STRPIndications :Background diabetic [...] Tablet by mouth in the morning. Active Lisinopril 2.5 MG Oral Tablet (Prinivil)Indic ations:Ischemic cardiomyopathy, Chronic systolic congestive heart failure (HCC),Nonrheuma tic aortic valve stenosis Take 1 Tablet by mouth in the morning. 90 Tablet 3 05/23/2023 Active Dorzolamide HCl-Timolol Mal 2-0.5 % Ophthalmic [...] BEFORE BEDTIME 180 Tablet 1 03/11/2024 Active documented as of this encounter (statuses as of 03/30/2024) Active Problems Problem Noted Date Diagnosed Date Radiation induced proctitis 02/02/2023 Overweight (BMI 25.0-29.9) 12/17/2021 LBBB (left bundle branch block) 12/02/2020 PAD (peripheral artery disease) 07/08/2020 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 07/05/2020 Chronic systolic heart failure 07/05/2020 Ischemic cardiomyopathy 08/16/2019 Mural thrombus of left ventricle 08/08/2019 Coronary artery disease invo lving shoshone-bannock coronary artery of shoshone-bannock heart 08/06/2019 Moderate aortic stenosis 09/13/2018 Colostomy [...] as of this encounter (statuses as of 03/30/2024) Resolved Problems Problem Noted Date Diagnosed Date [...] anemia 12/01/2005 09/09/2016 Overview (12/01/2005): Dx'd by poultry inspector/oncologist ADJ DISORDER W/DEPRES MOOD 12/01/2005 0 07/05/2020 BENIGN HYPERTENSION 12/01/2005 01/08/20 06 Anemia 12/01/2005 07/05/2020 Menopause 12/14/2002 03/14/2017 ELEV BL PRES W-O HYPERTN 12/14/2002 FAM HX-DIABETES MELLITUS Disorder of intervertebral disc 02/23/2018 documented as of this encounter (statuses as of 03/30/2024) Immunizations Name Administration Dates Next Due COVID-19 [...] ages 0-17 years) Not on file 08/17/2023 Comments No Sex and Gender Information Value Date Recorded Sex Assigned at Female 06/22/2018 7:56 AM EDT Legal Sex Female 7:14 AM EST Gender Identity Female 06/22/2018 7:56 AM EDT Sexual Orientation Straight 06/22/2018 7: 56 AM EDT 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 Not on julia e Travel History Travel Start Travel End Robin 02/20/2024 02/29/2024 documented as of this encounter Last Filed Vital Signs Vital Sign Reading Time Taken Comments Blood Pressure 122/64 03/30/2024 7:49 AM EST Pulse 76 03/30/2024 7:49 AM EST Temperature 36.6 °C (97.8 °F) 03/30/2024 7:49 AM ES T Respiratory Rate 18 03/30/2024 7:49 AM EST Oxygen Saturation - - Inhaled Oxygen Concentration - - Weight 76.2 kg (168 lb) 03/30/2024 7:49 AM EST Height 165.1 cm (5' 5") 03/30/2024 7:49 AM EST Body Mass Index 27.96 03/30/2024 7:49 AM EST documented in this [...] documented in this encounter Progress Notes * Dane Godwin MD - 03/30/2024 8:44 AM EST SUBJECTIVE: Pearl Persaud is a 79 year old female. Chief Complaint Patient presents with Follow Up Pt here for 6 month follow up, would like to go over CT scan results HPI: Medically complex but very stable 79 year old female here for 6 month follow up. She is going to bemeeting with surgery in few weeks to address her hemorrhoids. She does have some pelvic fluid that is not infectious. This was worked up in [place] last month. The intermittent rectal bleeding has fortunately stopped. She saw cardiology 3 days ago. No changes to her medication. She feels well from a cardiac standpoint. She was told she couldn't have a DEXA at [facility] due to her ICD. Patient Active Problem List Diagnosis History of rectal cancer Diabetic polyneuropathy ([facility]) Diabetes mellitus with background retinopathy ([facility]) Major depressive disorder Stage 3a chronic kidney disease ([facility]) Type 2 diabetes mellitus with hemoglobin A1c goal of less than 8.0% ([facility]) Dyslipidemia HTN, goal below 130/80 Colostomy status ([facility]) Moderate aortic stenosis Coronary artery disease involving shoshone-bannock coronary artery of shoshone-bannock heart Mural thrombus of left ventricle Ischemic cardiomyopathy Biventricular ICD (implantable cardioverter-defibrillator) in place Chronic systolic heart failure ([facility]) PAD (peripheral artery disease) ([facility]) LBBB (left bundle branch block) Overweight (BMI 25.0-29.9) Radiation induced proctitis Current Outpatient Medications Medication Sig Dispense Refill Latanoprost 0.005 % Ophthalmic Solution (Xalatan) Instill 1 Drop into both eyes at bedtime. PreserVision AREDS 2+Multi Vit Oral Capsule Take 1 Capsule by mouth daily. Aspirin 81 MG Oral Tablet Delayed Release Take 1 Tablet by mouth in the morning. Lisinopril 2.5 MG Oral Tablet (Prinivil) Take 1 Tablet by mouth in the morning. 90 Tablet 3 Dorzolamide HCl-Timolol Mal 2-0.5 % Ophthalmic Solution [...] 1 TABLET BEFORE BEDTIME 180 Tablet 1 Evento BLUE STRP test blood sugar 2 times daily dx 250.00 6 Box 3 No current facility-administered medications for this visit. Allergy: Review of patient's allergies indicates: Allergen Reactions Adhesive Tape Only use paper tape Rosiglitazone anemia OBJECTIVE: BP 122/64 | Pulse 76 | Temp 97.8 °F (36.6 °C) | Resp 18 | Ht 5' 5" (1.651 m) | Wt 168 lb (76.2 kg) | BMI 27.96 kg/m² | BSA 1.87 m² General: alert, healthy, and no distress Head: Normocephalic, No masses, lesions, tenderness or abnormalities Neck: supple, no adenopathy, no bruits, thyroid normal size, non-tender, without nodularity Lungs: chest symmetric with normal AP diameter, no chest deformities noted, no chest wall tenderness, lungs clear to auscultation Heart: rrr, 3/6 murmur Extremities: less than 2 second capillary refill, no joint deformities, effusion, or inflammation Neuro Exam: alert & oriented x 3 with fluent speech, no focal motor/sensory deficits, gait normal, reflexes normal and symmetric ASSESSMENT AND PLAN: (E11.9) Type 2 diabetes mellitus with hemoglobin A1c goal of less than 8.0% ([facility]) (primary encounter diagnosis) Plan: at goal; continue rx (E78.5) Dyslipidemia Plan: continue statin (E11.42) Diabetic polyneuropathy associated with type 2 diabetes mellitus ([facility]) Plan: quiescent (E11.3299) Diabetes mellitus with background retinopathy ([facility]) Plan: stable (I73.9) PAD (peripheral artery disease) ([facility]) Plan: stable (I51.3) Mural thrombus of left ventricle Plan: anticoagulated (I35.0) Mild aortic stenosis Plan: now moderate; asymptomatic; has follow up scheduled at valve clinic (I25.10) Coronary artery disease involving shoshone-bannock coronary artery of shoshone-bannock heart without angina pectoris Plan: continue rx (Z95.810) Biventricular ICD (implantable cardioverter-defibrillator) in place Plan: noted (K62.7) Radiation induced proctitis Plan: noted (N18.31) Stage 3a chronic kidney disease (HCC) Plan: stable (F33.1) Moderate episode of recurrent major depressive disorder (HCC) Plan: stable (E66.3) Overweight (BMI 25.0-29.9) Plan: stable (Z85.048) History of rectal cancer Plan: noted (Z93.3) Colostomy status (HCC) Plan: noted (R91.1) Lung nodule Plan: CT CHEST WO CONTRAST -f/u from incidental finding on abdominal CT in reserve (R26.89) Other abnormalities of gait and mobility Plan: PHYSICAL THERAPY REFERRAL OP Follow up in 6 month(s). No other complaints were offered at this time. Dane Godwin MD documented in this encounter Nursing Notes * Kriss Deal LPN - 03/30/2024 7:49 AM EST The patient has been properly identified by confirmation of name and date of . Chief Complaint Patient presents with Follow Up Pt here for 6 month follow up, would like to go over CT scan results documented in this encounter Plan of Treatment Upcoming Encounters Date Type Department Care Team (Late st Contact Info) Description 04/24/2024 10:30 AM EST Office Visit General Surgery, [facility] [address] [facility] [place] [address] Marilyn Boyle MD [address] [place] [facility] [place] [address] 05/30/2024 2:00 PM EDT Cardiac Studies Cardiac Studies, [facility] [address] [facility] [place] [address] 05/30/2024 3:00 PM EDT Office Visit Cardiology, [facility] [address] [place] [address] Chuck Steen MD [facility] [place] [address] 09/24/2024 10:00 AM EDT Office Visit Cardiology, [facility] [address] [place] [address] Muriel Kat CRNP [address] [facility] [place] [address] 10/02/2024 7:40 AM EDT Office Visit Family Practice [facility] [address] [facility] [place] [address] Dane Godwin MD [address] [facility] [place] [address] 11/27/2024 8:00 AM EDT Nurse Only Ancillary [facility] [address] [place] [address] [facility], Nurse Annual Wellness [facility] [address] [place] [address] 11/29/2024 10:30 AM EDT Appointment Vascular Lab [address] [address] 11/29/2024 11:00 AM EDT Appointment Vascular Lab [address] [address] 11/29/2024 12:00 PM EDT Office Visit Vascular Surg [address] [address] Vishnu Metzger MD [facility] [place] [address] Scheduled Orders Name Type Priority Associated Diagnoses Orde r Schedule CT CHEST WO CONTRAST Medical Imaging Routine Lung nodule Ordered: 03/30/2024 Scheduled Referrals Name Type Priority Associated Diagnoses Orde r Schedule PHYSICAL THERAPY REFERRAL OP Referral Within 10 days (routine) Other abnormalities of gait and mobility Ordered: 03/30/2024 Health Maintenance Due Date Last Done Comments DXA Scan 06/10/2019 06/10/2015, 03/08, 04/02/2013 CKD PHOS USE SMARTSET 37220 02/18/202402/04, 08/04/2022, 01/09/2021, Additional history exists GFR 08/07/2024 02/07/2024, 07/06, 02/22/2023, Additional history exists HbA1c 08/18/2024 02/18/2024, 07/06, 08/04/2022, Additional history exists Diabetic Foot Exam 08/29/2024 08/30/2023, 0 08/27/2022, 08/25/2021, Additional history exists Adult Wellness Visit 11/24/2024 11/25/2023, 11/16/2022, 11/13/2021 Depression Monitoring 11/24/2024 11/25/2023 Diabetic Eye Exam 01/15/2025 01/16/2024, , 05/16/2023, Additional history exists CKD HGB USE SMARTSET 19191 02/06/202502/06, 02/07/2024, 12/03/2023, Additional history exists Albumin/Creatinine [...] as of this encounter Visit Diagnoses Diagnosis Type 2 diabetes mellitus with hemoglobin A1c goal of less than 8.0% (HCC)- Primary Dyslipidemia Other and unspecified hyperlipidemia Diabetic polyneuropathy associated with type 2 diabetes mellitus (HCC) Diabetes mellitus with background retinopathy (HCC) PAD (peripheral artery disease) (HCC) Peripheral vascular disease, unspecified Mural thrombus of left ventricle Acute myocardial infarction, unspecified site, episode of care unspecified Mild aortic stenosis Aortic valve disorders Coronary artery disease involving shoshone-bannock coronary artery of shoshone-bannock heart without angina pectoris Biventricular ICD (implantable cardioverter-defibrillator) in place Radiation induced proctitis Other specified disorder of rectum and anus Stage 3a chronic kidney disease (HCC) Moderate episode of recurrent major depressive disorder (HCC) Overweight (BMI 25.0-29.9) Overweight History of rectal cancer Personal history of malignant neoplasm of rectum, rectosigmoid junction, and anus Colostomy status (HCC) Colostomy status Lung nodule Solitary pulmonary nodule Other abnormalities of gait and mobility documented in this encounter Advance Directives * [...] and were consensually agreed upon. Care Teams Core Winder Machine Operator Relationship Specialty Start Date End Date Dane Godwin MD [address] [place] [address] PCP - General Family Medicine 07/08/20 documented as of this encounter
--- OUTSIDE RECORDS SUMMARY | 2024-06-13 02:46 | External Medical Summary | Summary of Care ---
Author Name Unknown Organization [facility] Address [address] [facility] [place] [address] Phone [phone] Care Team Providers Care Band Lining Bander Name Role Phone Dane Godwin MD Primary Care Provider [phone] Reason for Visit * Reason Comments Follow Up Encounter Details Date Type Department Care Team (Late st Contact Info) Description 03/27/2024 9:00 AM EST Office Visit Cardiology, [facility] [address] [facility] [address] Muriel Kat CRNP [address] [facility] [place] [address] Chronic coronary artery disease*; Ischemic cardiomyopathy; Biventricular ICD (implantable cardioverter-defibri llator) in place; LBBB (left bundle branch block); Chronic systolic heart failure (HCC); Moderate aortic stenosis; HTN, goal below 130/80; Dyslipidemia Allergies Active Allergy Reactions Criticality Noted Date Comments Adhesive Tape 05/10/2011 Only use paper tape Rosiglitazone 12/01/2005 anemia documented as of this encounter (statuses as of 03/28/2024) Medications ONETOUCH ULTRA BLUE STRPIndications: Background diabetic retinopathy(362. 01) test blood sugar 2 times daily dx 250.00 6 Box 3 3 Active Latanoprost 0.005 % Ophthalmic Solution (Xalatan) Instill 1 Drop into both eyes at bedtime. 2 Active PreserVision AREDS 2+Multi Vit Oral Capsule Take 1 Capsule by mouth daily. Active Aspirin 81 MG Oral Tablet Delayed Release Take 1 Tablet by mouth in the morning. Active Lisinopril 2.5 MG Oral Tablet (Prinivil)Indica tions:Ischemic cardiomyopathy,C hronic systolic congestive heart failure (HCC),Nonrheumat ic aortic valve stenosis Take 1 Tablet by mouth in the morning. 90 Tablet 3 4 Active Dorzolamide HCl-Timolol Mal 2-0.5 % Ophthalmic Solution (Cosopt Ocumeter Plus) INSTILL 1 DROP INTO EACH EYE TWICE DAILY 4 Active Metoprolol Succinate ER 25 MG Oral Tablet Extended Release 24 Hour (toPROL XL) Take 1 Tablet by mouth in the morning and 1 Tablet before bedtime. 180 Tablet 3 4 Active glipiZIDE 5 MG Oral Tablet (Glucotrol)Indic ations:Diabetes mellitus with stage 3 chronic kidney disease (HCC) TAKE 1 TABLET TWICE A DAY 30 MINUTES BEFORE MORNING AND EVENING MEALS 180 Tablet 3 4 Active Escitalopram Oxalate 10 MG Oral Tablet (Lexapro)Indicat ions:Adjustment disorder with depressed mood Take 1 Tablet by mouth in the morning. In the morning.. 90 Tablet 2 4 Active Ozempic (0.25 or 0.5 MG/DOSE) 2 MG/3ML Solution Pen-injector (Semaglutide(0.2 5 or 0.5MG/DOS))Indic ations:Diabetes mellitus with stage 3 chronic kidney disease (HCC) INJECT 0.5 MG UNDER THE SKIN ONCE A WEEK 9 mL 1 4 Active Atorvastatin Calcium 80 MG Oral Tablet (Lipitor) TAKE 1 TABLET IN THE MORNING 90 Tablet 1 4 Active Apixaban 5 MG Oral Tablet (Eliquis) TAKE 1 TABLET IN THE MORNING AND 1 TABLET BEFORE BEDTIME 180 Tablet 1 5 Active guaiFENesin-Code ine 100-10 MG/5ML Oral Syrup (Robitussin AC)Indications:S ubacute bronchitis Take 5 mL by mouth every 4 hours as needed for Cough. 120 mL 4 03/27/19 25 Discontinu ed(End of Procedure) Amoxicillin-Pot Clavulanate 875-125 MG Oral Tablet (Augmentin)Indic ations:Colonic fistula Take 1 Tablet by mouth in the morning and 1 Tablet before bedtime. 20 Tablet 1 4 03/27/19 25 Discontinu ed(End of Procedure) Doxycycline Hyclate 100 MG Oral CapsuleIndicatio ns:Colonic fistula Take 1 Capsule by mouth in the morning and 1 Capsule before bedtime. Until gone.. 20 Capsule 1 4 03/27/19 25 Discontinu ed(End of Procedure) documented as of this encounter (statuses as of 03/28/2024) Active Problems Problem Noted Date Diagnosed Date Pelvic fluid collection 02/16/2024 Pain of left lower leg 02/07/2024 Rectal bleeding 02/07/2024 Radiation induced proctitis 02/02/2023 Overweight (BMI 25.0-29.9) 12/17/2021 LBBB (left bundle branch block) 12/02/2020 PAD (peripheral artery disease) 07/08/2020 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 07/05/2020 Chronic systolic heart failure 07/05/2020 Ischemic cardiomyopathy 08/16/2019 Mural thrombus of left ventricle 08/08/2019 Coronary artery disease invo lving ekwok coronary artery of ekwok heart 08/06/2019 Mild aortic stenosis 09/13/2018 Colostomy status 09/09/2016 HTN, [...] as of this encounter (statuses as of 03/28/2024) Resolved Problems Problem Noted Date Diagnosed Date Resolved Date Medical home patient encounter 12/18/2021 02/24/2022 Diabetes [...] anemia 12/01/2005 09/09/2016 Overview (12/01/2005): Dx'd by ux manager/oncologist ADJ DISORDER W/DEPRES MOOD 12/01/2005 0 07/05/2020 BENIGN HYPERTENSION 12/01/2005 01/08/20 06 Anemia 12/01/2005 07/05/2020 Menopause 12/14/2002 03/14/2017 ELEV BL PRES W-O HYPERTN 12/14/2002 FAM HX-DIABETES MELLITUS Disorder of intervertebral disc 02/23/2018 documented as of this encounter (statuses as of 03/28/2024) Immunizations Name Administration Dates Next Due COVID-19 [...] 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 Not on file Not on julia e Travel History Travel Start Travel End [facility] 02/20/2024 02/29/2024 documented as of this encounter Last Filed Vital Signs Vital Sign Reading Time Taken Comments Blood Pressure 138/82 03/27/2024 9:25 AM EST Pulse 80 03/27/2024 9:02 AM EST Temperature - - Respiratory Rate 12 03/27/2024 9:02 AM EST Oxygen Saturation - - Inhaled Oxygen Concentration - - Weight 78 kg (172 lb) 03/27/2024 9:02 AM EST Height - - Body Mass Index 28.62 03/08/2024 8:55 AM EST documented in this encounter Functional [...] documented in this encounter Progress Notes * Muriel Kat CRNP - 03/27/2024 9:00 AM EST 03/26/2024 Cardiology Follow Up Primary Rubber Goods Tester Water: Dr. Little/Dr. Tesfaye (EP), Dr. Steen (valve) Cardiac Problems: Chronic systolic heart failure, ischemic cardiomyopathy, NYHA class 2 Status post biventricular pacemaker/ICD, 12/06/[address] Vo Ischemic cardiomyopathy Coronary artery disease, status post staged PCI to circumflex 08/08/2019 Moderate aortic stenosis versus possible pseudo aortic stenosis due to low EF LBBB H/o Left ventricular apical mural thrombus- on eliquis Peripheral arterial disease--follows with vascular Carotid artery stenosis, follows with vascular History of rectal carcinoma status post chemo and radiation S/p colostomy HPI: Pearl Persaud is a 79 year old female presents for routine cardiology follow up. Patient was last seen by General cardiology 06/07/23 stable from a cardiac perspective. Patient presents today with family, feeling well from a cardiac perspective. Denies any acute cardiac complaints. Endorses some fatigue. They will be seeing her PCP Tuesday to discuss physical therapy. Expresses concerns over elevated blood pressures. Spouse checks them on a regular basis at home andreports that her systolic readings have been in the 150's. Recheck here today demonstrates good control 138/82. Most recent device interrogation late Dec 2023. 2.83 years battery life. Compliant on all medication therapies with no untoward effects Cardiac History per Dr. Little: In Jul, 2019 she presented initially present amount any with progressive shortness of breath with exertion, and volume overload, and was found to have an LVEF in the range 25%. Cardiac catheterization had been performed at [facility] after she was optimized from a volume standpoint, and she was found to have multivessel coronary heart disease including a chronic right coronary artery occlusion, left main, LAD disease, and circumflex stenosis. The bypass targets for the LAD were poor and MRI revealed limited to no viability of the anterior wall and apex. A left ventricular apical mural thrombus was noted on cardiac MRI, that had not been visualized on transthoracic echocardiogram. She went on to have a drug-eluting stent to the circumflex coronary artery on 08/08/2019. Biventricular pacemaker ICD 12/06/2019, Dr Vo, [facility] [place] REVIEW OF SYSTEMS: See HPI for pertinent positives. All others negative other than those noted in the HPI. CONSTITUTIONAL: No change in weight, No weakness, No fatigue and No fevers, No sweats or chills. PULMONARY: No cough, sputum, or hemoptysis, No wheezing, No shortness or breath and No recent change in breathing. CARDIOVASCULAR: No chest pain, No dyspnea on exertion, No edema, No palpitations and No syncope. GASTROINTESTINAL: No abdominal pain, No change in bowel habits, No significant heartburn, No nausea, No vomiting, No diarrhea, No constipation, No blood in stools or black tarry stools. No dysphagia. HEMATOLOGIC: No abnormal bleeding and No bruising. NEUROLOGICAL: Normal balance, No headaches and No weakness. Review of patient's allergies indicates: Allergen Reactions Adhesive Tape Only use paper tape Rosiglitazone anemia Current Outpatient Medications Medication Sig Dispense Refill [...] 1 TABLET BEFORE BEDTIME 180 Tablet 1 [employer] ULTRA BLUE STRP test blood sugar 2 times daily dx 250.00 6 Box 3 No current facility-administered medications for this visit. Past Medical History: Diagnosis Date Benign neoplasm [...] 01/2004 secondary to procrit, finished coumadin 12/09 Family History Problem Relation Name Age of Onset Hypertension Mother Thyroid Disorder Mother Diabetes Father Cancer Father lung with ? 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 Exercise Yes Comment: walking Seat Belt Yes Self-Exams Yes Comment: breast Social History Narrative Live in [place]. In [place] part of year with . Social Needs Financial Resource Strain: Low Risk (08/17/2023) Financial Resource Strain Do you have any trouble paying for your medications, or do you think you might in the future? (Adult - for ages 18 years and over): No Food Insecurity: No Food Insecurity (08/17/2023) Food Insecurity Do you need food for this week? (Adult - for ages 18 years and over): No Transportation Needs: No Transportation Needs (08/17/2023) Transportation Needs Do you have trouble getting a ride to medical visits or work? (Adult - for ages 18 years and over):Never True Social Connections: Socially Integrated (08/17/2023) Social Connections How often do you feel lonely or isolated from those around you? (Adult - for ages 18 years and over): Never Housing Stability: Low Risk (08/17/2023) Housing Stability Do you currently live in a fdc or have no steady place to sleep at night? (Adult - for ages 18 years and over): No Do you think you are at risk of becoming homeless? (Adult - for ages 18 years and over): No OBJECTIVE/PHYSICAL EXAMINATION: BP 138/82 | Pulse 80 | Resp 12 | Wt 78 kg (172 lb) | BMI 28.62 kg/m² | BSA 1.89 m² General: No acute distress. A+Ox3. HEENT: Normocephalic. Atraumatic. PERRL. EOMI. Conjunctiva and sclera clear. NECK: No carotid bruits. No JVD. Carotid upstrokes are brisk. Heart: RRR. S1 and S2 noted. No murmur. No rubs or gallops. PMI non displaced. Lungs: Clear to auscultation. No wheezes.No rhonchi. No rales. Abdomen: Normal bowel sounds. Soft. Nontender. No masses or organomegaly. No abdominal bruits. Extremities: No edema. No clubbing or cyanosis. Pulses: radial=2/4, posterior tibial=2/4, dorsalis pedis = 2/4. NEURO: No focal deficits. PSYCH: Appropriate affect and insight. DATA Labs & Imaging Reviewed Below: Device interrogation 12/28/23 Normal Device Function Events or Alerts: 10 Battery: 2.96V, 2.83 yrs Sensing, impedance and thresholds reviewed Programmed parameters reviewed Presenting rhythm APVP Heart Rate Histograms reviewed Echo 07/28/2022 The qualitative LV ejection fraction [...] of 03/02/2021, there is no significant change. Echo 12/12/2021 at [facility] LVEF 45-50% Frequent PVCs during the study [...] without evidence of ongoing LV mural thrombus. Impression/Plan: 1. Chronic systolic congestive heart failure (HCC) 2. Ischemic cardiomyopathy, NYHA class 2 3. Moderate aortic stenosis -LVEF severely reduced at 25-29% overall stable on recent echo -NYHA class 1 1. Continue goal-directed medical therapy with metoprolol succinate and lisinopril as ordered. 2. Euvolemic on exam, not requiring diuretic therapy. 3. Questionable pseudo severe aortic stenosis given severe LV systolic dysfunction. S2 diminished on today's exam. Recommend referral to the valve clinic for 2nd opinion regarding degree of aortic stenosis, question if this is contributing to her LV systolic decline. Echo prior. ASSESSMENT/PLAN: 79 year old year old female 1. Chronic coronary artery disease 2. Ischemic cardiomyopathy 3. Biventricular ICD (implantable cardioverter-defibrillator) in place 4. LBBB (left bundle branch block) 5. Chronic systolic heart failure (HCC) -Stable from a cardiac perspective, She has been dealing with some balance/gait instability and is going to see her PCP this week to discuss physical therapy options -Most recent remote Device interrogation Dec 2023, will check with device nurse when her next remote should transmit. -Euvolemic on exam -Continue GDMT with Atorvastatin, Lisinopril, Toprol xl and Aspirin 6. Moderate aortic stenosis -Following with valve clinic. Will have repeat echocardiogram and see Dr. Steen may 2024 7. HTN, goal below 130/80 -Controlled. Discussed continued home monitoring, Continue Toprol xl, and lisinopril. If blood pressures would trend up about 150mmHg systolic and sustain, will increase Lisinopril dosing 8. Dyslipidemia -Recommend yearly lipid panel Continue Atorvastatin DISPOSITION: Follow up 6 months or if symptoms worsen/fail to improve. All questions were answered to the patients satisfaction. Patient advised to report to ED with any and all emergencies. The patient agrees to the above plan and will call with additional questions or concerns. LUCINDA Suarez Cardiology, [address] [address] I spent a total of 34 minutes on the date of service in preparation, delivery, and documentation ofthe care provided to Pearl Persaud excluding any time spent in the performance of separately billed services. This chart was completed in part utilizing [employer] Speech Voice Recognition Software. Grammatical errors, random word insertions, pronoun errors, and incomplete sentences are an occasional consequence of this system due to software limitations, ambient noise, and hardware issues. Any formal questions or concerns about the content, text, or information contained within the body of this dictation should be directly addressed to the provider for clarification. documented in this encounter Nursing Notes * Feli Fernandez CMA - 03/27/2024 9:00 AM EST Examination Room: 7 Name: Pearl Persaud Date of : (1945). Reason for Visit: 10M f/u Interim Hospitalization(s): [facility] [place] 02/07/24 leg pain Problems/Concerns: Denies concerns at this time. Questioning battery life on ICD. Chest Pain/SOB: Denies CP or worsening SOB. [facility] Discussed: Not applicable [facility] is a way you can talk to your provider online through e-mail. Would you like to sign up? I can activate it for you? ALREADY ACTIVE Patient was instructed to not get up on the exam table until directed and assisted by their provider; patient is to remain seated in the chair/ wheelchair/ exam table for fall prevention and safety reasons. Patient is aware to have assistance to step down off exam table with personnel. Patient voiced full comprehension of instructions. documented in this encounter Plan of Treatment Upcoming Encounters Date Type Department Care Team (Late st Contact Info) Description 03/30/2024 7:40 AM EST Office Visit Family Practice [facility] [address] [place] [address] Dane Godwin MD [address] [place] [address] 04/24/2024 10:30 AM EST Office Visit General Surgery, [facility] [address] [place] [address] Marilyn Boyle MD [address] [place] [address] 05/30/2024 2:00 PM EDT Cardiac Studies Cardiac Studies, [facility] [address] [place] [address] 05/30/2024 3:00 PM EDT Office Visit Cardiology, [address] [place] [address] Chuck Steen MD [address] [place] [address] 09/24/2024 10:00 AM EDT Office Visit Cardiology, [facility] [address] [place] [address] Muriel Kat CRNP [address] [place] [address] 11/27/2024 8:00 AM EDT Nurse Only Ancillary [facility] [address] [place] [address] [facility], Nurse Annual Wellness [address] [address] 11/29/2024 10:30 AM EDT Appointment Vascular Lab [address] [address] 11/29/2024 11:00 AM EDT Appointment Vascular Lab [place] [address] [place] [address] 11/29/2024 12:00 PM EDT Office Visit Vascular Surg [facility] [address] [place] [address] Vishnu Metzger MD [address], [place] [id number] Health Maintenance Due Date Last Done Comments DXA Scan 06/10/2019 06/10/2015, 03/08, 04/02/2013 CKD PHOS USE SMARTSET 89665 02/18/202402/04, 08/04/2022, 01/09/2021, Additional history exists GFR 08/07/2024 02/07/2024, 07/06, 02/22/2023, Additional history exists HbA1c 08/18/2024 02/18/2024, 07/06, 08/04/2022, Additional history exists Diabetic Foot Exam 08/29/2024 08/30/2023, 0 08/27/2022, 08/25/2021, Additional history exists Adult Wellness Visit 11/24/2024 11/25/2023, 11/16/2022, 11/13/2021 Depression Monitoring 11/24/2024 11/25/2023 Diabetic Eye Exam 01/15/2025 01/16/2024, , 05/16/2023, Additional history exists CKD HGB USE SMARTSET [id number] 02/06/202502/06, 02/07/2024, 12/03/2023, Additional history exists Albumin/Creatinine [...] as of this encounter Visit Diagnoses Diagnosis Chronic coronary artery disease- Primary Coronary atherosclerosis of unspecified type of vessel, ekwok or graft Ischemic cardiomyopathy Other specified forms of chronic ischemic heart disease Biventricular ICD (implantable cardioverter-defibrillator) in place LBBB (left bundle branch block) Other left bundle branch block Chronic systolic heart failure (HCC) Chronic systolic heart failure Moderate aortic stenosis Aortic valve disorders HTN, goal below 130/80 Unspecified essential hypertension Dyslipidemia Other and unspecified hyperlipidemia documented in this encounter Advance Directives * [...] and were consensually agreed upon. Care Teams Band Lining Bander Relationship Specialty Start Date End Date Dane Godwin MD [address] [facility] [place] [id number] PCP - General Family Medicine 07/08/20 documented as of this encounter"
--- OUTSIDE RECORDS SUMMARY | 2024-06-13 02:46 | External Medical Summary ---
Author Name Unknown Address Unknown Organization : Laboratory Report Ordering Provider Test Date Status TRENTON LUNA 03/08/2024 09:08:19 Final Observation Date Value Abnormality Reference (Units ) Status Glucose Point of Care 03/08/2024 09:08:19 86 70-120 (mg/dL) Final Performing Location
--- OUTSIDE RECORDS SUMMARY | 2024-06-13 02:46 | External Medical Summary | Summary of Care ---
Author Name Unknown Organization [facility] Address [address] [facility] [address] Phone [phone] Care Team Providers Care Communications Strategist Name Role Phone Dane Godwin MD Primary Care Provider [phone] Encounter Details Date Type Department Care Team (Late st Contact Info) Description 03/29/2024 Result Scan Unspecified Department Vishnu Little, DO [address] [facility] [address] <No scans attached> Allergies Active Allergy Reactions Criticality Noted Date Comments Adhesive Tape 05/10/2011 Only use paper tape Rosiglitazone 12/01/2005 anemia documented as of this encounter (statuses as of 03/29/2024) Medications ONETOUCH ULTRA BLUE STRPIndications :Background diabetic [...] as of this encounter (statuses as of 03/29/2024) Active Problems Problem Noted Date Diagnosed Date [...] ventricle 08/08/2019 Coronary artery disease invo lving [place] coronary artery of [place] heart 08/06/2019 Mild aortic stenosis 09/13/2018 Colostomy [...] as of this encounter (statuses as of 03/29/2024) Resolved Problems Problem Noted Date Diagnosed Date [...] Per CKD protocol History of colon polyps 06/12/201803/2020 Type 2 diabetes mellitus wit h stage [...] anemia 12/01/2005 09/09/2016 Overview (12/01/2005): Dx'd by signaler/oncologist ADJ DISORDER W/DEPRES MOOD 12/01/2005 0 07/05/2020 BENIGN HYPERTENSION 12/01/2005 01/08/20 06 Anemia 12/01/2005 07/05/2020 Menopause 12/14/2002 03/14/2017 ELEV BL PRES W-O HYPERTN 12/14/2002 FAM HX-DIABETES MELLITUS Disorder of intervertebral disc 02/23/2018 documented as of this encounter (statuses as of 03/29/2024) Immunizations Name Administration Dates Next Due COVID-19 [...] Industry Job Start Date Job End Date [employer] Not on file Not on file Not on julia e Travel History Travel Start Travel End Robin 02/20/2024 02/29/2024 documented as of this encounter Functional Status * Are you deaf or do you have serious difficulty hearing? Answer Date of Assessment Author No 09/08/2019 1:36 PM EDT Clint Henderson RN * Are you blind or do you have serious difficulty seeing, even when wearing glasses? Answer Date of Assessment Author Yes 09/08/2019 1:36 PM EDT Clint eHnderson RN * Do you have serious difficulty [...] Clint Henderson RN documented in this encounter Plan of Treatment Upcoming Encounters Date Type Department Care Team (Late st Contact Info) Description 03/30/2024 7:40 AM EST Office Visit Family Practice [facility] [address] [facility] [place] [address] Dane Godwin MD 132 [facility] [place] [address] 04/24/2024 10:30 AM EST Office Visit General Surgery, [facility] 132 [facility] [place] [address] Marilyn Boyle MD [address] [place] [address] 05/30/2024 2:00 PM EDT Cardiac Studies Cardiac Studies, [facility] 132 [place] [address] 05/30/2024 3:00 PM EDT Office Visit Cardiology, [facility] [address] [place] [address] Chuck Steen MD [address] [place] [address] 09/24/2024 10:00 AM EDT Office Visit Cardiology, [facility] [address] [place] [address] Muriel Kat CRNP 132 [facility] [place] [address] 11/27/2024 8:00 AM EDT Nurse Only Ancillary [address] [place] [address] [facility], Nurse Annual Wellness [address] [address] 11/29/2024 10:30 AM EDT Appointment Vascular Lab [address] [address] 11/29/2024 11:00 AM EDT Appointment Vascular Lab [place] [address] [place] [address] 11/29/2024 12:00 PM EDT Office Visit Vascular Surg [place] [address] [place] [address] Vishnu Metzger MD [address] [place] [address] Health Maintenance Due Date Last Done Comments DXA Scan 06/10/2019 06/10/2015, 03/08, 04/02/2013 CKD PHOS USE SMARTSET 02320 02/18/202402/04, 08/04/2022, 01/09/2021, Additional history exists GFR 08/07/2024 02/07/2024, 07/06, 02/22/2023, Additional history exists HbA1c 08/18/2024 02/18/2024, 07/06, 08/04/2022, Additional history exists Diabetic Foot Exam 08/29/2024 08/30/2023, 0 08/27/2022, 08/25/2021, Additional history exists Adult Wellness Visit 11/24/2024 11/25/2023, 11/16/2022, 11/13/2021 Depression Monitoring 11/24/2024 11/25/2023 Diabetic Eye Exam 01/15/2025 01/16/2024, , 05/16/2023, Additional history exists CKD HGB USE SMARTSET 19392 02/06/202502/06, 02/07/2024, 12/03/2023, Additional history exists Albumin/Creatinine [...] Date/Time Associated Diagnosis Comments CARDIOLOGY SCANNED RESULT 03/29/2024 documented in this encounter Results * CARDIOLOGY SCANNED RESULT (03/29/2024) 03/29/2024 Vishnu Little DO OTHER Final Result documented in this encounter [...] and were consensually agreed upon. Care Teams Communications Strategist Relationship Specialty Start Date End Date Dane Godwin MD [address] [place] [address] PCP - General Family Medicine 07/08/20 documented as of this encounter
--- OUTSIDE RECORDS SUMMARY | 2024-06-13 02:46 | External Medical Summary | Summary of Care ---
Author Name Unknown Organization [facility] Address [address] [place] [address] Phone [phone] Care Team Providers Care Farmworker Name Role Phone Dane Godwin MD Primary Care Provider [phone] Encounter Details Date Type Department Care Team (Late st Contact Info) Description 03/29/2024 Population Health External Data Unspecified Department Allergies Active Allergy Reactions Criticality Noted Date [...] ventricle 08/08/2019 Coronary artery disease invo lving [place] coronary artery of [place] heart 08/06/2019 Mild aortic stenosis 09/13/2018 Colostomy [...] anemia 12/01/2005 09/09/2016 Overview (12/01/2005): Dx'd by spiritual minister/oncologist ADJ DISORDER W/DEPRES MOOD 12/01/2005 0 07/05/2020 [...] 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 Not on file Not [...] 7:40 AM EST Office Visit Family Practice [facility] [address] [place] [address] Dane Godwin MD [address] [place] [address] 04/24/2024 10:30 AM EST Office Visit General Surgery, [facility] [address] [place] [address] Marilyn Boyle MD [address] [place] [address] 05/30/2024 2:00 PM EDT Cardiac Studies Cardiac Studies, [facility] [address] [place] [address] 05/30/2024 3:00 PM EDT Office Visit Cardiology, [facility] [address] [place] [address] Chuck Steen MD [address] [place] [address] 09/24/2024 10:00 AM EDT Office Visit Cardiology, [facility] [address] [place] [address] Muriel Kat CRNP [address] [facility] [place] [address] 11/27/2024 8:00 AM EDT Nurse Only Ancillary [facility] [address] [place] [address] [facility], Nurse Annual Wellness [facility] [address] [place] [address] 11/29/2024 10:30 AM EDT Appointment Vascular Lab [facility] [address] [place] [address] 11/29/2024 11:00 AM EDT Appointment Vascular Lab [place] [address] [place] [address] 11/29/2024 12:00 PM EDT Office Visit Vascular Surg [facility] [address] [place] [address] Vishnu Metzger MD [address] [place] [address] Health Maintenance Due Date Last Done Comments DXA Scan 06/10/2019 06/10/2015, 03/08, 04/02/2013 CKD PHOS USE SMARTSET 31121 02/18/202402/04, 08/04/2022, 01/09/2021, Additional history exists GFR 08/07/2024 02/07/2024, 07/06, 02/22/2023, Additional history exists HbA1c 08/18/2024 02/18/2024, 07/06, 08/04/2022, Additional history exists Diabetic Foot Exam 08/29/2024 08/30/2023, 0 08/27/2022, 08/25/2021, Additional history exists Adult Wellness Visit 11/24/2024 11/25/2023, 11/16/2022, 11/13/2021 Depression Monitoring 11/24/2024 11/25/2023 Diabetic Eye Exam 01/15/2025 01/16/2024, , 05/16/2023, Additional history exists CKD HGB USE SMARTSET 22468 02/06/202502/06, 02/07/2024, 12/03/2023, Additional history exists Albumin/Creatinine [...] and were consensually agreed upon. Care Teams Farmworker Relationship Specialty Start Date End Date Dane Godwin MD [address] [place] [address] PCP - General Family Medicine 07/08/20 documented as of this encounter
--- OUTSIDE RECORDS SUMMARY | 2024-06-13 02:46 | External Medical Summary | Summary of Care ---
Author Name Unknown Organization [facility] Address [address] [place] [address] Phone [phone] Care Team Providers Care Admiralty Lawyer Name Role Phone Dane Godwin MD Primary Care Provider [phone] Reason for Visit * Auth/Cert Specialty Diagnoses / Procedures Referred By Gayatri arndt Referred To Contact Diagnoses History of colon cancer History of colon cancer [Z85.038] Procedures COLONOSCOPY, DIAGNOSTIC (RECTUM) COLONOSCOPY FLEXIBLE PROXIMAL DIAGNOSTIC Lalo Segovia MD [address] [place] [address] Phone: tel: fax: OR [facility], Operating Room, [facility] [address] [place] [address] Phone: tel: Referral ID Status Reason Start Date Expiration Date Visits Re quested Visits Authorized [id number] Encounter Details Date Type Department Care Team (Latest Contact Info) Description 03/08/2024 8:42 AM EST - 03/08/2024 11:44 AM EST Hospital Encounter OR [facility], Operating Room, [facility] Floor [address] [place] [address] Lalo Segovia MD [address] [place] [address] Colonoscopy Discharge Disposition: Home - Self Care Allergies Active Allergy Reactions Criticality Noted Date Comments Adhesive Tape 05/10/2011 Only use paper tape Rosiglitazone 12/01/2005 anemia documented as of this encounter (statuses as of 03/08/2024) Medications ONETOUCH ULTRA BLUE STRPIndications: Background diabetic retinopathy(362. 01) test blood sugar 2 times daily dx 250.00 6 Box 3 3 Active Latanoprost 0.005 % Ophthalmic Solution (Xalatan) Instill 1 Drop into both eyes at bedtime. 2 Active PreserVision AREDS 2+Multi Vit Oral Capsule Take 1 Capsule by mouth daily. Active Aspirin 81 MG Oral Capsule Take by mouth. Ac tive Lisinopril 2.5 MG Oral Tablet (Prinivil)Indica tions:Ischemic cardiomyopathy,C hronic systolic congestive heart failure (HCC),Nonrheumat ic aortic valve stenosis Take 1 Tablet by mouth in the morning. 90 Tablet 3 4 Active Dorzolamide HCl-Timolol Mal 2-0.5 % Ophthalmic Solution (Cosopt Ocumeter Plus) INSTILL 1 DROP INTO EACH EYE TWICE DAILY 4 Active guaiFENesin-Code ine 100-10 MG/5ML Oral Syrup (Robitussin AC)Indications:S ubacute bronchitis Take 5 mL by mouth every 4 hours as needed for Cough. 120 mL 4 Active Additional Information Patient not taking.Reported on 02/07/2024 Metoprolol Succinate ER 25 MG Oral Tablet [...] the morning.. 90 Tablet 2 4 Active Eliquis 5 MG Oral Tablet (Apixaban) TAKE 1 TABLET IN THE MORNING AND 1 TABLET BEFORE BEDTIME 180 Tablet 1 4 Active Amoxicillin-Pot Clavulanate 875-125 MG Oral Tablet (Augmentin)Indic ations:Colonic fistula Take 1 Tablet by mouth in the morning and 1 Tablet before bedtime. 20 Tablet 1 4 Active Additional Information Patient not taking.Reported on 02/07/2024 Doxycycline Hyclate 100 MG Oral CapsuleIndicatio ns:Colonic fistula Take 1 Capsule by mouth in the morning and 1 Capsule before bedtime. Until gone.. 20 Capsule 1 4 Active Additional Information Patient not taking.Reported on 02/07/2024 Ozempic (0.25 or 0.5 MG/DOSE) 2 MG/3ML Solution Pen-injector (Semaglutide(0.2 5 or 0.5MG/DOS))Indic ations:Diabetes mellitus with stage 3 chronic kidney disease (HCC) INJECT 0.5 MG UNDER THE SKIN ONCE A WEEK 9 mL 1 4 Active Atorvastatin Calcium 80 MG Oral Tablet (Lipitor) TAKE 1 TABLET IN THE MORNING 90 Tablet 1 4 Active documented as of this encounter (statuses as of 03/08/2024) Active Problems Problem Noted Date Diagnosed Date [...] ventricle 08/08/2019 Coronary artery disease invo lving [place] coronary artery of [place] heart 08/06/2019 Mild aortic stenosis 09/13/2018 Colostomy [...] as of this encounter (statuses as of 03/08/2024) Resolved Problems Problem Noted Date Diagnosed Date [...] anemia 12/01/2005 09/09/2016 Overview (12/01/2005): Dx'd by neon technician/oncologist ADJ DISORDER W/DEPRES MOOD 12/01/2005 0 07/05/2020 BENIGN HYPERTENSION 12/01/2005 01/08/20 06 Anemia 12/01/2005 07/05/2020 Menopause 12/14/2002 03/14/2017 ELEV BL PRES W-O HYPERTN 12/14/2002 FAM HX-DIABETES MELLITUS Disorder of intervertebral disc 02/23/2018 documented as of this encounter (statuses as of 03/08/2024) Immunizations Name Administration Dates Next Due COVID-19 mRNA, LNP-s, No Pre serve, 2-Dose Series (Moderna) 05/02/2020,04/04/2020 COVID-19, MRNA-LNP, PF, 30 M CG/0.3 mL, 12 YRS AND ABOVE, IM ([employer]-Comirnaty) 11/25/2023,12/20/2022 COVID-19, mRNA, LNP-s, PF, B ooster, 100mcg/0.5mg (Moderna) 06/05/2021,01/06/2021 Covid-19, Mrna, Lnp-s, Pf, B ivalent, 30 Mcg, IM, 12 yrs and above (Chatalog) 01/22/2022 H1N1 2009 Influenza, IM 04/22/2009 Pneumococcal [...] 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 Not on julia e Travel History Travel Start Travel End [facility] 02/20/2024 02/29/2024 documented as of this encounter Last Filed Vital Signs Vital Sign Reading Time Taken Comments Blood Pressure 144/65 03/08/2024 11:33 AM EST Pulse 76 03/08/2024 11:33 AM EST Temperature 36.6 °C (97.9 °F) 03/08/2024 11:[address] Respiratory Rate 16 03/08/2024 11:33 AM EST Oxygen Saturation 95% 03/08/2024 11:33 AM EST Inhaled Oxygen Concentration - - Weight 80.3 kg (177 lb) 03/08/2024 8:55 AM EST Height 165.1 cm (5' 5") 03/08/2024 8:55 AM EST Body Mass Index 29.45 03/08/2024 8:55 AM EST documented in this [...] Clint Henderson RN documented in this encounter H&P Notes * Lalo Segovia MD - 03/08/2024 9:54 AM EST Endoscopy Pre-Procedure Assessment Name: Pearl Persaud Date: 03/08/2024 Time: 9:54 AM Procedure(s): Colonoscopy; with Indication(s) of post cancer surveillance Endoscopy Pre-Procedure Assessment: Prior to the procedure, the patient is identified. The patient's history, medications and allergieshave been reviewed. The patient is competent. The risks and benefits of the proposed procedure and the planned sedation have been discussed with the patient. All questions have been answered and informed consent for the procedure has been obtained. Prior to Admission medications Medication Sig Last Dose Discont. Atorvastatin Calcium 80 MG Oral Tablet (Lipitor) TAKE 1 TABLET IN THE MORNING 03/08/2024 Morning Ozempic (0.25 or 0.5 MG/DOSE) 2 MG/3ML Solution Pen-injector (Semaglutide(0.25 or 0.5MG/DOS)) INJECT 0.5 MG UNDER THE SKIN ONCE A WEEK 02/23/2024 Eliquis 5 MG Oral Tablet (Apixaban) TAKE 1 TABLET IN THE MORNING AND 1 TABLET BEFORE BEDTIME 03/06/2024 Escitalopram Oxalate 10 MG Oral Tablet (Lexapro) Take 1 Tablet by mouth in the morning. In the morning.. 03/08/2024 Morning glipiZIDE 5 MG Oral Tablet (Glucotrol) TAKE 1 TABLET TWICE A DAY 30 MINUTES BEFORE MORNING AND EVENING MEALS 03/07/2024 Metoprolol Succinate ER 25 MG Oral Tablet Extended Release 24 Hour (toPROL XL) Take 1 Tablet by mouth in the morning and 1 Tablet before bedtime. 03/08/2024 Morning Dorzolamide HCl-Timolol Mal 2-0.5 % Ophthalmic Solution (Cosopt Ocumeter Plus) INSTILL 1 DROP INTO EACH EYE TWICE DAILY 03/07/2024 Lisinopril 2.5 MG Oral Tablet (Prinivil) Take 1 Tablet by mouth in the morning. 03/08/2024 Morning Aspirin 81 MG Oral Capsule Take by mouth. 03/08/2024 Morning PreserVision AREDS 2+Multi Vit Oral Capsule Take 1 Capsule by mouth daily. 03/07/2024 Latanoprost 0.005 % Ophthalmic Solution (Xalatan) Instill 1 Drop into both eyes at bedtime. 03/07/2024 Amoxicillin-Pot Clavulanate 875-125 MG Oral Tablet (Augmentin) Take 1 Tablet by mouth in the morning and 1 Tablet before bedtime. Patient not taking: Reported on 02/07/2024 Doxycycline Hyclate 100 MG Oral Capsule Take 1 Capsule by mouth in the morning and 1 Capsule beforebedtime. Until gone.. Patient not taking: Reported on 02/07/2024 guaiFENesin-Codeine 100-10 MG/5ML Oral Syrup (Robitussin AC) Take 5 mL by mouth every 4 hours as needed for Cough. Patient not taking: Reported on 02/07/2024 Stellaris ULTRA BLUE STRP test blood sugar 2 times daily dx 250.00 Review of patient's allergies indicates: Allergen Reactions Adhesive Tape Only use paper tape Rosiglitazone anemia BP 132/69 | Pulse 74 | Temp 36.3 °C (97.3 °F) (Tympanic) | Resp 18 | Ht 1.651 m (5' 5") | Wt 80.3kg (177 lb) | SpO2 97% | BMI 29.45 kg/m² | BSA 1.92 m² Physical Exam: Mental Status Examination: alert and oriented. Airway Examination: normal oropharyngeal airway and neck mobility. Respiratory Examination: clear to auscultation. CV Examination: normal. ASA Grade: III - A patient with severe systemic disease. Abdomen: negative This patient has undergone a preprocedural evaluation. A determination has been made to proceed with the planned procedure under [facility] procedural guidelines and the [facility] Non-Emergent, Elective Medical Services and Treatment Recommendations (published on 06-12-19). The community and hospital prevalence of COVID-19 has been discussed as well as this patient's specific risks associated with SARS-CoV-19 infection. Based upon the clinical acuity and patient-specific care considerations, this procedure is deemed a Tier II - Intermediate acuity treatment or service with either progression or the threat of progressive disease related to the delay in treatment. Not providing the service has the potential for increasing morbidity or mortality. After reviewing the risks and benefits, the patient is deemed in satisfactory condition to undergo the procedure. The anesthesia plan is to use general anesthesia. Lalo Segovia MD 03/08/2024 documented in this encounter Procedure Notes * Dane Godwin MD - 03/08/2024 9:41 AM ESTAssociated Order(s): COLONOSCOPY [facility] Patient Name: Pearl Persaud Procedure Date: 03/08/2024 9:41 AM Date of : 1945 Admit Type: Outpatient Note Status: Finalized Date of : 1945 Admit Type: Outpatient Age: 78 Room: OR 5 Gender: Female Note Status: Finalized Procedure: Colonoscopy Indications: High risk colon cancer surveillance: Personal history of colon cancer Providers: Lalo Segovia MD (Doctor) Referring MD: Dane Godwin MD Medicines: See the Anesthesia note for documentation of the administered medications Complications: No immediate complications. Procedure: Pre-Anesthesia Assessment: - ASA Grade Assessment: III - A patient with severe systemic disease. - See [facility] electronic record for H&P. After I obtained informed consent, the scope was passed under direct vision. All instruments were visually inspected immediately before and after removal from the patient to ensure they are fully intact. Throughout the procedure, the patient's blood pressure, pulse, and oxygen saturations were monitored continuously. The GIF-Q190 Endoscope ([id number]) was introduced through the colostomy and advanced to the ileocolonic anastomosis. The colonoscopy was performed without difficulty. The patient tolerated the procedure well. The quality of the bowel preparation was good. Findings & Specimens: The scope was first [...] marked ulceration makes detection of malignancy difficult. Recommendation: Discharge pt home. Lalo Segovia MD 03/08/2024 11:01:29 AM This report has been signed electronically. documented in this encounter Nursing Notes * Alena Dennis RN - 03/08/2024 10:26 AM EST Colonoscopy completed in [facility] OR. Pt marlee procedure well. Sedated by WINDING RACK OPERATOR. See anesthesia record for VS and medications given. Abd soft. Airway patent. Pt to recovery on L side with HOB elevated. Report to recovery room nurse. Bedside cleaning done by Julius Smith RN. documented in this encounter Plan of Treatment Upcoming Encounters Date Type Department Care Team (Late st Contact Info) Description 03/27/2024 9:00 AM EST Office Visit Cardiology, [facility] [address] [place] [address] Muriel Kat CRNP [address] [place] [address] 03/30/2024 7:40 AM EST Office Visit Family Practice [facility] [address] [place] [address] Dane Godwin MD [address] [place] [address] 04/24/2024 10:30 AM EST Office Visit General Surgery, [facility] [address] [facility] [place] [address] Marilyn Boyle MD [address] [place] [address] 05/30/2024 2:00 PM EDT Cardiac Studies Cardiac Studies, [facility] [address] [place] [address] 05/30/2024 3:00 PM EDT Office Visit Cardiology, [facility] [address] [facility] [place] [address] Chuck Steen MD [address] [place] [address] 11/27/2024 8:00 AM EDT Nurse Only Ancillary [facility] [address] [address] Wilber Nurse Annual Wellness [facility] [address] [place] [address] 11/29/2024 10:30 AM EDT Appointment Vascular [facility] [place] [address] [place] [address] 11/29/2024 11:00 AM EDT Appointment Vascular Lab [place] [address] [place] [address] 11/29/2024 12:00 PM EDT Office Visit Vascular Surg [place] [address] [place] [address] Vishnu Metzger MD [address] [place] [address] Scheduled Procedures Name Priority Associated Diagnoses Date/Ti me COLONOSCOPY FLEXIBLE PROXIMAL DIAGNOSTIC Recall History of colon cancer 03/08/2024 9:33 AM EST Health Maintenance Due Date Last Done Comments DXA Scan 06/10/2019 06/10/2015, 03/08, 04/02/2013 CKD PHOS USE SMARTSET 35321 02/18/202402/04, 08/04/2022, 01/09/2021, Additional history exists GFR 08/07/2024 02/07/2024, 07/06, 02/22/2023, Additional history exists HbA1c 08/18/2024 02/18/2024, 07/06, 08/04/2022, Additional history exists Diabetic Foot Exam 08/29/2024 08/30/2023, 0 08/27/2022, 08/25/2021, Additional history exists Adult Wellness Visit 11/24/2024 11/25/2023, 11/16/2022, 11/13/2021 Depression Monitoring 11/24/2024 11/25/2023 Diabetic Eye Exam 01/15/2025 01/16/2024, , 05/16/2023, Additional history exists CKD HGB USE SMARTSET 68091 02/06/202502/06, 02/07/2024, 12/03/2023, Additional history exists Albumin/Creatinine Ratio 02/17/2025 024, 08/07/2022, 08/21/2021, Additional history exists DTap/Tdap Vaccines (3 - Td or Tdap) 06/22/2028 06/22/2018, 02/27/2008 Colonoscopy 03/08/2029 03/08/2024, 11/2018, 07/13/2018, Additional history exists Pneumococcal Vaccine: 50+ Years Completed 09/09/2016, 09/10/2015, 12/01/2005 Zoster Vaccines Completed 01/07/2020, 08/05, 05/05/2012 COVID-19 Vaccine Completed 11/25/2023, , 01/22/2022, Additional history exists Influenza Vaccine (FLU shot) Completed 11/25/2023, 11/25/2023, 12/06/2022, Additional history exists RETIRED - COLONOSCOPY-EVERY 5 YRS AGES 18-100 Discontinued 03/08/2024, 07/13/2018, 07/13/2018, Additional history exists HPV (Gardasil) Vaccine [...] Procedure Name Priority Date/Time Associated Diagnosis Comments COLONOSCOPY 03/08/2024 9:41 AM EST GLUCOSE METER, POINT OF CARE RACQUEL 03/08/2024 9:08 AM EST documented in this encounter Results * COLONOSCOPY (03/08/2024 9:41 AM EST) 03/08/2024 9:41 AM EST Narrative Procedure Note Dane Godwin MD - 03/08/2024 9:[address] [facility] Patient Name: Pearl Persaud Procedure Date: 03/08/2024 9:41 AM Date of : 1945 Admit Type: Outpatient Note Status:Finalized Date of : 1945 Admit Type: Outpatient Age: 78 Room: OR 5 Gender: Female Note Status: Finalized Procedure: Colonoscopy Indications: High risk colon cancer surveillance: Personalhistory of colon cancer Providers: Lalo Segovia MD (Doctor) Referring MD: Dane Godwin MD Medicines: See the Anesthesia note for documentation of theadministered medications Complications: No immediate complications. Procedure: Pre-Anesthesia Assessment: - ASA Grade Assessment: III - A patient with severesystemic disease. - See [facility] electronic record for H&P. After I obtained informed consent, the scope waspassed under direct vision. All instruments were visually inspected immediatelybefore and after removal from the patient to ensure they are fully intact. Throughout the procedure, the patient's bloodpressure, pulse, and oxygen saturations were monitored continuously. The GIF-Q190 Endoscope([id number]) was introduced through the colostomy and advanced to the ileocolonicanastomosis. The colonoscopy was performed without difficulty. The patient toleratedthe procedure well. The quality of the bowel preparation was good. Findings & Specimens: The scope was first introduced into the ostomy, and advanced to whatappeared to be an ileo-colonic anastamosis. The entire colon was unremarkable. The scope was then introduced into the anus. There was a largehemorrhoid at the anus. There was marked anal stenosis, and the ultra-thin upper endoscope was used. Themucosa of the rectal stump was pale, atrophic, with multiple telangeictasias and contact bleeding. Thesuture line of the rectal stump was markedly abnormal, characterized by ulceration and multiple areas ofoutpouching with an ulcerated surface mucosa and exudate. There was a possible pinpoint fistulaopening. There was no evidence of malignancy in the rectal stump, although the marked ulceration makesdetection of malignancy difficult. Recommendation: Discharge pt home. Lalo Segovia MD 03/08/2024 11:01:29 AM This report has been signed electronically. us Dane Godwin MD GASTRO LOWER Final Res ult * GLUCOSE METER, POINT OF CARE (03/08/2024 9:08 AM EST) GLUCOSE - POCT 86 70 - 120 mg/dL 03/08/2024 9:11 AM EST [facility] Blood Whole blood specimen / Unknown 03/08/2024 9:08 AM EST 03/08/2024 9:11 AM EST us Lalo Segovia MD LAB POINT OF CA RE TEST DOCKED DEVICE UNSOLICITED RESULTS Final Result [facility] [address] [place] [address] documented in this encounter Administered Medications Inactive Administered Medications - up to 3 most recent administrations Medication Order MAR Action Action Date Dose Rate Site Isolyte-S pH 7.4 infusion Intravenous, at 25 mL/hr, All Patients EXCEPT Dialysis patients Plasma-LYTE 148, isolyte-S, and isolyte-S pH 7.4 are considered equivalent - including for MAR barcode scanning., CONTINUOUS, Starting on Saloni 03/08/24 at 0915, Until Saloni 03/08/24 at 1544, Pre-Op Restarted 03/08/2024 10:01 AM EST Continue from Pre-Op 03/08/2024 9:53 AM EST 25 mL/hr New Bag 03/08/2024 9:09 AM EST 25 mL/hr 25 mL/hr documented in this encounter Active and Recently Administered Medications Times are shown in EST. Continuous Medication Order 03/06/2024 03/07/2024 03/08/2024 Isolyte-S pH 7.4 infusion Intravenous, at 25 mL/hr, All Patients EXCEPT Dialysis patients Plasma-LYTE 148, isolyte-S, and isolyte-S pH 7.4 are considered equivalent - including for MAR barcode scanning., CONTINUOUS, Starting on Saloni 03/08/24 at 0915, Until Saloni 03/08/24 at 1544, Pre-Op 0909 (New Bag - Prov ider: Noemy Shah RN)0953 (Continue from Pre-Op - Provider: Delta Zuleta CRNA)1000 (Paused - Provider: Delta Zuleta CRNA - Comment: Switch to gravity)1001 (Restarted - Provider: Delta Zuleta CRNA)1032 (Stopped - Provider: Delta Zuleta CRNA) documented in this encounter Advance Directives * [...] and were consensually agreed upon. Care Teams Admiralty Lawyer Relationship Specialty Start Date End Date Dane Godwin MD [address] [facility] [place] [address] PCP - General Family Medicine 07/08/20 documented as of this encounter
--- OUTSIDE RECORDS SUMMARY | 2024-06-13 02:46 | External Medical Summary | Summary of Care ---
Author Name Unknown Organization [facility] Address [address] [place] [address] Phone [phone] Care Team Providers Care Business Systems Developer Name Role Phone Yimi Meyer MD Primary Care Provider [phone] Reason for Visit * Reason Onset Date Comments Medication Refill 03/08/2024 Encounter Details Date Type Department Care Team (Late st Contact Info) Description 03/08/2024 Refill Family Practice [facility] [address] [facility] [place] [address] Y[facility] [place] [address] Allergies Active Allergy Reactions Criticality Noted Date Comments Adhesive Tape 05/10/2011 Only use paper tape Rosiglitazone 12/01/2005 anemia documented as of this encounter (statuses as of 03/11/2024) Medications ONETOUCH ULTRA BLUE STRPIndications :Background diabetic [...] Ac tive Lisinopril 2.5 MG Oral Tablet (Prinivil)Indic ations:Ischemic cardiomyopathy, Chronic systolic congestive heart failure (HCC),Nonrheuma tic aortic valve stenosis Take 1 Tablet by mouth in the morning. 90 Tablet 3 4 Active Dorzolamide HCl-Timolol Mal 2-0.5 % Ophthalmic Solution (Cosopt Ocumeter Plus) INSTILL 1 DROP INTO EACH EYE TWICE DAILY 4 Active guaiFENesin-Cod eine 100-10 MG/5ML Oral Syrup (Robitussin AC)Indications: Subacute bronchitis Take 5 mL by mouth every [...] the morning.. 90 Tablet 2 4 Active Amoxicillin-Pot Clavulanate 875-125 MG Oral Tablet (Augmentin)La cations:Colonic fistula Take 1 Tablet by mouth in the morning and 1 Tablet before bedtime. 20 Tablet 1 4 Active Additional Information Patient not taking.Reported on 02/07/2024 Doxycycline Hyclate 100 MG Oral CapsuleIndicati ons:Colonic fistula Take 1 Capsule by mouth in [...] BEFORE BEDTIME 180 Tablet 1 5 Active Eliquis 5 MG Oral Tablet (Apixaban) TAKE 1 TABLET IN THE MORNING AND 1 TABLET BEFORE BEDTIME 180 Tablet 1 4 025 Discontin ued(Refil l) documented as of this encounter (statuses as of 03/11/2024) Active Problems Problem Noted Date Diagnosed Date [...] ventricle 08/08/2019 Coronary artery disease invo lving [place] coronary artery of [place] heart 08/06/2019 Mild aortic stenosis 09/13/2018 Colostomy [...] as of this encounter (statuses as of 03/11/2024) Resolved Problems Problem Noted Date Diagnosed Date [...] anemia 12/01/2005 09/09/2016 Overview (12/01/2005): Dx'd by filter cleaner/oncologist ADJ DISORDER W/DEPRES MOOD 12/01/2005 0 07/05/2020 BENIGN HYPERTENSION 12/01/2005 01/08/20 06 Anemia 12/01/2005 07/05/2020 Menopause 12/14/2002 03/14/2017 ELEV BL PRES W-O HYPERTN 12/14/2002 FAM HX-DIABETES MELLITUS Disorder of intervertebral disc 02/23/2018 documented as of this encounter (statuses as of 03/11/2024) Immunizations Name Administration Dates Next Due COVID-19 [...] 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 Not on file Not on julia e Travel History Travel Start Travel End [facility] [place] 02/20/2024 02/29/2024 documented as of this encounter [...] Miscellaneous Notes * Telephone Encounter - Yimi Meyer MD - 03/11/2024 3:00 PM ESTSigned Prescriptions: Disp Refills Apixaban 5 MG Oral Tablet (Eliquis) 180 Ta*1 Sig: TAKE 1 TABLET IN THE MORNING AND 1 TABLET BEFORE BEDTIME Authorizing Provider: YIMI MEYER * Telephone Encounter - Unique Jefferson RPh - 2024 2:28 PM EST Pending Prescriptions: Disp Refills Apixaban 5 MG Oral Tablet (Eliquis) 180 Ta*1 Sig: TAKE 1 TABLET IN THE MORNING AND 1 TABLET BEFORE BEDTIME * Telephone Encounter - Unique Jefferson RPh - 2024 2:28 PM EST PLT Date Value Ref Range Status 02/07/2024 124 (L) 140 - 400 K/uL Final 12/03/2023 121 (L) 140 - 400 K/uL Final documented in this encounter Plan of Treatment Upcoming Encounters Date Type Department Care Team (Late st Contact Info) Description 03/27/2024 9:00 AM EST Office Visit Cardiology, [facility] [address] [place] [address] Muriel Kat CRNP 132 [place] [address] 03/30/2024 7:40 AM EST Office Visit Family Practice [facility] [address] [place] [address] Yimi Meyer MD [address] [place] [address] 04/24/2024 10:30 AM EST Office Visit General Surgery, [facility] [address] [place] [address] Marilyn Boyle MD [address] [place], [place] [id number] 05/30/2024 2:00 PM EDT Cardiac Studies Cardiac Studies, [facility] [address] [place] [address] 05/30/2024 3:00 PM EDT Office Visit Cardiology, [facility] [address] [place] [address] Chuck Steen MD [address] [place], [place] [id number] 11/27/2024 8:00 AM EDT Nurse Only Ancillary [facility] [address] [place] [address] [facility], Nurse Annual Wellness [facility] [address] [place] [address] 11/29/2024 10:30 AM EDT Appointment Vascular Lab [facility] [address] [place], [place] [id number] 11/29/2024 11:00 AM EDT Appointment Vascular Lab [facility] [address] [place] [address] 11/29/2024 12:00 PM EDT Office Visit Vascular Surg [facility] [place] [address] [place] [address] Vishnu Metzger MD [address] [place] [address] Health Maintenance Due Date Last Done Comments DXA Scan 06/10/2019 06/10/2015, 03/08, 04/02/2013 CKD PHOS USE SMARTSET 27612 02/18/202402/04, 08/04/2022, 01/09/2021, Additional history exists GFR 08/07/2024 02/07/2024, 07/06, 02/22/2023, Additional history exists HbA1c 08/18/2024 02/18/2024, 07/06, 08/04/2022, Additional history exists Diabetic Foot Exam 08/29/2024 08/30/2023, 0 08/27/2022, 08/25/2021, Additional history exists Adult Wellness Visit 11/24/2024 11/25/2023, 11/16/2022, 11/13/2021 Depression Monitoring 11/24/2024 11/25/2023 Diabetic Eye Exam 01/15/2025 01/16/2024, , 05/16/2023, Additional history exists CKD HGB USE SMARTSET 95407 02/06/202502/06, 02/07/2024, 12/03/2023, Additional history exists Albumin/Creatinine [...] and were consensually agreed upon. Care Teams Business Systems Developer Relationship Specialty Start Date End Date Yimi Meyer MD [address] [place] [address] PCP - General Family Medicine 07/08/20 documented as of this encounter
--- OUTSIDE RECORDS SUMMARY | 2024-06-13 02:46 | External Medical Summary | Summary of Care ---
Author Name Unknown Organization [facility] Address [address] [place] [address] Phone [phone] Care Team Providers Care Legal Operations Manager Name Role Phone Dane Godwin MD Primary Care Provider [phone] Reason for Visit * Reason Onset Date Comments Pre Op Discussion 03/01/2024 Encounter Details Date Type Department Care Team (Late st Contact Info) Description 03/01/2024 Telephone ENDO [facility], Endoscopy [address] [phone] Lalo Segovia MD [address] [place] [address] Pre Op Discussion Allergies Active Allergy Reactions Criticality Noted Date Comments Adhesive Tape 05/10/2011 Only use paper tape Rosiglitazone 12/01/2005 anemia documented as of this encounter (statuses as of 03/05/2024) Medications ONETOUCH ULTRA BLUE STRPIndications: Background diabetic [...] as of this encounter (statuses as of 03/05/2024) Active Problems Problem Noted Date Diagnosed Date [...] ventricle 08/08/2019 Coronary artery disease invo lving [place] coronary artery of [place] heart 08/06/2019 Mild aortic stenosis 09/13/2018 Colostomy [...] as of this encounter (statuses as of 03/05/2024) Resolved Problems Problem Noted Date Diagnosed Date [...] anemia 12/01/2005 09/09/2016 Overview (12/01/2005): Dx'd by infant babysitter/oncologist ADJ DISORDER W/DEPRES MOOD 12/01/2005 0 07/05/2020 BENIGN HYPERTENSION 12/01/2005 01/08/20 06 Anemia 12/01/2005 07/05/2020 Menopause 12/14/2002 03/14/2017 ELEV BL PRES W-O HYPERTN 12/14/2002 FAM HX-DIABETES MELLITUS Disorder of intervertebral disc 02/23/2018 documented as of this encounter (statuses as of 03/05/2024) Immunizations Name Administration Dates Next Due COVID-19 mRNA, LNP-s, No Pre serve, 2-Dose Series (Moderna) 05/02/2020,04/04/2020 COVID-19, MRNA-LNP, PF, 30 M CG/0.3 mL, 12 YRS AND ABOVE, IM 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 To start the morning after procedureunless otherwise instructed by Dr Segovia. 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 Okay to take last dose of Eliquis in the evening 3 days before the procedure. No Eliquis on the day 2 days before procedure. No Eliquis on the day before procedure. No Eliquis the day of procedure. As long as there are no bleeding complications, she may resume the Eliquis in the morning after thecolonoscopy. Patient was on aspirin for a history of complex coronary heart disease and previous coronary stent.She should remain on aspirin 81 milligrams daily without interruption. Vishnu Little DO Cardiology * Telephone Encounter - Dane Godwin MD - 03/01/2024 11:54 AM EST yes * Telephone Encounter - Veronica Swann RN - 03/01/2024 10:41 AM EST Pearl is scheduled for a colonoscopy 03/08/23. May she hold her Eliquis 2-3 days prior to procedure. She may continue the ASA 81 mg daily. Your input is appreciated. Thank you documented in this encounter Plan of Treatment Upcoming Encounters Date Type Department Care Team (Latest Contact Info) Description 03/08/2024 10:29 AM EST Hospital Encounter OR [facility], Operating Room, [facility] - 4th Floor [address] [facility] [place] [phone] Lalo Segovia MD [address] [place] [address] 03/08/2024 10:29 AM EST - 03/08/2024 11:24 AM EST Surgery OR [facility], Operating Room, [facility] - 4th Floor [address] [facility] [place] [phone] Lalo Segovia MD [address] [place] [address] COLONOSCOPY FLEXIBLE PROXIMAL DIAGNOSTIC 03/27/2024 9:00 AM EST Office Visit Cardiology, [facility] [address] [place] [address] Muriel Kat CRNP [address] [place] [address] 03/30/2024 7:40 AM EST Office Visit Family Practice [facility] [address] [place] [address] Dane Godwin MD [address] [place] [address] 04/24/2024 10:30 AM EST Office Visit General Surgery, [facility] [address] [place] [address] Marilyn Boyle MD [address] [place] [address] 05/30/2024 2:00 PM EDT Cardiac Studies Cardiac Studies, [facility] [address] [place] [address] 05/30/2024 3:00 PM EDT Office Visit Cardiology, [facility] [address] [place] [address] Chuck Steen MD [address] [place] [address] 11/27/2024 8:00 AM EDT Nurse Only Ancillary [address] [place] [address] [facility], Nurse Annual Wellness [address] [place] [address] 11/29/2024 10:30 AM EDT Appointment Vascular Lab [place] [address] [place] [address] 11/29/2024 11:00 AM EDT Appointment Vascular Lab [place] [address] [place] [address] 11/29/2024 12:00 PM EDT Office Visit Vascular Surg [facility] [address] [place] [address] Vishnu Metzger MD [address] [place] [address] Scheduled Procedures Name Priority Associated Diagnoses Date/Ti me COLONOSCOPY FLEXIBLE PROXIMAL DIAGNOSTIC Recall History of colon cancer 03/08/2024 10:29 AM EST Health Maintenance Due Date Last Done Comments DXA Scan 06/10/2019 06/10/2015, 03/08, 04/02/2013 Colonoscopy 07/14/2023 07/13/2018, 11/2018, 09/03/2016, Additional history exists CKD PHOS USE SMARTSET 18416 02/18/202402/04, 08/04/2022, 01/09/2021, Additional history exists GFR 08/07/2024 02/07/2024, 07/06, 02/22/2023, Additional history exists HbA1c 08/18/2024 02/18/2024, 07/06, 08/04/2022, Additional history exists Diabetic Foot Exam 08/29/2024 08/30/2023, 0 08/27/2022, 08/25/2021, Additional history exists Adult Wellness Visit 11/24/2024 11/25/2023, 11/16/2022, 11/13/2021 Depression Monitoring 11/24/2024 11/25/2023 Diabetic Eye Exam 01/15/2025 01/16/2024, , 05/16/2023, Additional history exists CKD HGB USE SMARTSET 48099 02/06/202502/06, 02/07/2024, 12/03/2023, Additional history exists Albumin/Creatinine Ratio 02/17/2025 024, 08/07/2022, 08/21/2021, Additional history exists DTap/Tdap Vaccines (3 - Td or Tdap) 06/22/2028 06/22/2018, 02/27/2008 Pneumococcal Vaccine: 50+ Years Completed 09/09/2016, 09/10/2015, 12/01/2005 RETIRED - COLONOSCOPY-EVERY 5 YRS AGES 18-100 Discontinued 07/13/2018, 07/13/2018, 09/03/2016, Additional history exists Zoster Vaccines Completed 01/07/2020, 08/05, 05/05/2012 COVID-19 Vaccine Completed 11/25/2023, , 01/22/2022, Additional history exists Influenza Vaccine (FLU shot) Completed 11/25/2023, 11/25/2023, 12/06/2022, Additional history exists HPV (Gardasil) Vaccine Aged [...] and were consensually agreed upon. Care Teams Legal Operations Manager Relationship Specialty Start Date End Date Dane Godwin MD [address] [place] [id number] PCP - General Family Medicine 07/08/20 documented as of this encounter
--- OUTSIDE RECORDS SUMMARY | 2024-06-13 02:47 | External Medical Summary ---
Author Name Unknown Address Unknown Organization [id number]:[facility] - [address] [facility] [address] Laboratory Report Ordering Provider Test Date Status ASHLEIGH SPENCER 02/07/2024 13:36:00 Final Observation Date Value Abnormality Reference (Units ) Status SYNC LEUKOCYTES IN BLOOD BY AUTOMATED COUNT 02/07/2024 13:36:00 5.52 4.00-10.80 (K/uL) Final Segs 02/07/2024 13:36:00 73.9 40.0-75.0 (%) Final Lymphs % 02/07/2024 13:36:00 11.2 Below low normal 18.0-42.0 (%) Final Monos 02/07/2024 13:36:00 11.1 Above high normal 1.0-11.0 (%) Final Eosinophils 02/07/2024 13:36:00 2.7 0.0-6.0 (%) Final Basos 02/07/2024 13:36:00 0.7 0.0-2.0 (%) Final Immature Granulocyte, Percent 02/07/2024 13:36:00 0.4 0.0-2.0 (%) Final Absolute Segs 02/07/2024 13:36:00 4.08 1.80-7.70 (K/uL) Final Lymphs, absolute 02/07/2024 13:36:00 0.62 Below low normal 1.00-4.80 (K/ul) Final Monos, Abs 02/07/2024 13:36:00 0.61 0.00-1.10 (K/uL) Final Eos, Abs 02/07/2024 13:36:00 0.15 0.00-0.70 (K/uL) Final Basos, Abs 02/07/2024 13:36:00 0.04 0.00-0.20 (K/uL) Final Immature Granulocytes, Number 02/07/2024 13:36:00 0.02 0.00-0.20 (K/uL) Final Performing Location LABORATORY [facility] [place] - [facility] [address] [facility] [address]
--- OUTSIDE RECORDS SUMMARY | 2024-06-13 02:47 | External Medical Summary | Summary of Care ---
Author Name Unknown Organization [facility] Address [address] [place] [address] Phone [phone] Care Team Providers Care Printing Assistant Name Role Phone Dane Godwin MD Primary Care Provider [phone] Reason for Visit * Reason Comments Pain Had left leg pain, b ad yesterday. Left leg is always slightly swollen from clots "years ago",... it's not more swollen than usual. Encounter Details Date Type Department Care Team (Late st Contact Info) Description 02/07/2024 8:40 AM EST Office Visit Family Practice [facility] [address] [place] [address] Riri Alcantara CRNP [address] [place] [address] Rectal bleeding*; Colonic fistula; Pain of left lower leg; Type 2 diabetes mellitus with hemoglobin A1c goal of less than 8.0% (HCC); Colostomy status (HCC); History of rectal cancer Allergies Active Allergy Reactions Criticality Noted Date Comments Adhesive Tape 05/10/2011 Only use paper tape Rosiglitazone 12/01/2005 anemia documented as of this encounter (statuses as of 02/07/2024) Medications ONETOUCH ULTRA BLUE STRPIndications: Background diabetic [...] as of this encounter (statuses as of 02/07/2024) Active Problems Problem Noted Date Diagnosed Date Pain of left lower leg 02/07/2024 Rectal bleeding 02/07/2024 Radiation induced proctitis 02/02/2023 Overweight (BMI 25.0-29.9) 12/17/2021 LBBB (left bundle branch block) 12/02/2020 PAD (peripheral artery disease) 07/08/2020 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 07/05/2020 Chronic systolic heart failure 07/05/2020 Ischemic cardiomyopathy 08/16/2019 Mural thrombus of left ventricle 08/08/2019 Coronary artery disease invo [place]ving [place] coronary artery of [place] heart 08/06/2019 Mild aortic stenosis 09/13/2018 Colostomy [...] as of this encounter (statuses as of 02/07/2024) Resolved Problems Problem Noted Date Diagnosed Date [...] anemia 12/01/2005 09/09/2016 Overview (12/01/2005): Dx'd by forms builder/oncologist ADJ DISORDER W/DEPRES MOOD 12/01/2005 0 07/05/2020 BENIGN HYPERTENSION 12/01/2005 01/08/20 06 Anemia 12/01/2005 07/05/2020 Menopause 12/14/2002 03/14/2017 ELEV BL PRES W-O HYPERTN 12/14/2002 FAM HX-DIABETES MELLITUS Disorder of intervertebral disc 02/23/2018 documented as of this encounter (statuses as of 02/07/2024) Immunizations Name Administration Dates Next Due COVID-19 [...] 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 Not on file Not on file Not on julia e documented as of this encounter Last Filed Vital Signs Vital Sign Reading Time Taken Comments Blood Pressure 124/80 02/07/2024 8:49 AM EST Pulse 87 02/07/2024 8:49 AM EST Temperature - - Respiratory Rate - - Oxygen Saturation - - Inhaled Oxygen Concentration - - Weight 80.3 kg (177 lb 2 oz) 02/07/2024 8:49 AM EST Height - - Body Mass Index 29.48 11/25/2023 8:13 AM EDT documented in this encounter Functional Status * [...] documented in this encounter Progress Notes * Riri Alcantara CRNP - 02/07/2024 8:47 AM EST Images from the original note were not included. Family Medicine Visit CC: left leg pain History of Present Illness: Pearl Persaud is a 78 year old female presenting with her today with complaints of left leg pain that starts in buttock. It comes and goes. Worse with pivoting and sitting down. There isweakness. She has numbness and tingling at baseline s/p clots years ago. Denies low back pain. Denies new loss of bowel or bladder function. She has hx chronic colonic fistula with recurrent infection that has caused symptoms. She was seen in [facility] for recurrent colonic fistula. Treated with augmentin and doxycycline. But didhave increase discharge and bleeding starting 2 weeks ago. Notes there is a new vent whole in the last 2 weeks. She has had this same leg pain in the past when the abscess gets larger per her report. She has appt with colorectal surgeon in Apr. 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 In [place] part of year with . Social Needs Financial Resource Strain: Low Risk (08/17/2023) Financial Resource Strain Do you have any trouble paying for your medications, or do you think you might in the future? (Adult - for ages 18 years and over): No Does your family have trouble paying for medicine? (Household - for ages 0-17 years): Not on file Food Insecurity: No Food Insecurity (08/17/2023) Food Insecurity Do you need food for this week? (Adult - for ages 18 years and over): No Are you able to get enough food for your family? (Household - for ages 0-17 years): Not on file Does your family need food this week? (Household - for ages 0-17 years): Not on file Do you always have enough food for your family? (Household - for ages 0-17 years): Not on file Transportation Needs: No Transportation Needs (08/17/2023) Transportation [...] Stability Do you currently live in a penitentiary or have no steady place to sleep [...] - for ages0-17 years): Not on file PMH: Past Medical History: Diagnosis Date Benign neoplasm of colon 09/30/2006 adenomatous tissue Benign neoplasm of colon 06/25/2009 one polyp, fistula, adenomatous tissue repeat in 3 years Chronic systolic heart failure (HCC) 07/05/2020 Depressive disorder, not elsewhere classified Disorder of intervertebral disc resolved DM type 2, goal A1c below 7 Dyslipidemia 07/28/2012 H. pylori infection 2005 s/p treatment ICD (implantable cardioverter-defibrillator) in place [...] by Brijesh Wayne DO at CARDIAC LABS [facility] CATARACT SURGERY,COMPLEX 2005 both eyes, accelerated cataracts [...] performed by Lalo Segovia MD at ENDOSCOPY [facility] COLONOSCOPY, DIAGNOSTIC (RECTUM) 09/03/2016 benign polyp, repeat 5 yrs/COLONOSCOPY FLEXIBLE PROXIMAL DIAGNOSTIC performed by Lalo Segovia MD at ENDOSCOPY [facility] COLONOSCOPY, DIAGNOSTIC (RECTUM) 07/13/2018 radiation changes, repeat 5 yrs/COLONOSCOPY FLEXIBLE PROXIMAL DIAGNOSTIC performed by Lalo Segovia MD at ENDOSCOPY [facility] COLORECTAL CANCER SCREEN; COLON 06/25/2009 one polyp, fistula, adenomatous tissue repeat in 3 years COLOSTOMY 05/03/2011 COLOSTOMY performed by KEVIN MORE at OR [facility] CYSTOSCOPY/INSERTION OF STENT 03/15/2012 ECHO (2-D COMPLETE) murmur, "pin shaped hole in heart", no SBE EGD, FLEXIBLE, W/US GUIDE FNA/BIOPSY 05/19/2004 h. pylori ERCP, DIAGNOSTIC, SPECIMEN [facility] Left 09/13/2018 EXCISION OF BREAST LESION RADIOLOGICAL MARKER performed by Randi Rose MD at OR [facility] EXPLORATION OF ABDOMEN 03/15/2012 redo of low [...] Renee Vo IV, MD at CARDIAC LABS [facility] MAMMOGRAM - BILATERAL 03/06/2008 birad code 2 PARTIAL REMOVAL OF RECTUM 09/2003 and reversal in 09/08 RADATION/ONCOLOGY CONSULT 2003 treated with Rad Rx and chemoradiotherapy REMOVE GALLBLADDER 03/04/2015 gallstones pancreatitis US GUIDED BREAST BIOPSY LEFT Left 07/04/2018 benign breast tissue with focal apocrine change and few associated microcalcifications Current Outpatient Medications Medication Sig Dispense Refill Atorvastatin Calcium 80 MG Oral Tablet (Lipitor) TAKE 1 TABLET IN THE MORNING 90 Tablet 1 Ozempic (0.25 or 0.5 MG/DOSE) 2 MG/3ML Solution Pen-injector (Semaglutide(0.25 or 0.5MG/DOS)) INJECT 0.5 MG UNDER THE SKIN ONCE A WEEK 9 mL 1 Amoxicillin-Pot Clavulanate 875-125 MG Oral Tablet (Augmentin) Take 1 Tablet by mouth in the morning and 1 Tablet before bedtime. 20 Tablet 1 Doxycycline Hyclate 100 MG Oral Capsule Take 1 Capsule by mouth in the morning and 1 Capsule beforebedtime. Until gone.. 20 Capsule 1 Eliquis 5 MG Oral Tablet (Apixaban) TAKE 1 TABLET IN THE MORNING AND 1 TABLET BEFORE BEDTIME 180 Tablet 1 Escitalopram Oxalate 10 MG Oral Tablet (Lexapro) Take 1 Tablet by mouth in the morning. In the morning.. 90 Tablet 2 glipiZIDE 5 MG Oral Tablet (Glucotrol) TAKE 1 TABLET TWICE A DAY 30 MINUTES BEFORE MORNING AND EVENING MEALS 180 Tablet 3 Metoprolol Succinate ER 25 MG Oral Tablet Extended Release 24 Hour (toPROL XL) Take 1 Tablet by mouth in the morning and 1 Tablet before bedtime. 180 Tablet 3 Dorzolamide HCl-Timolol Mal 2-0.5 % Ophthalmic Solution (Cosopt Ocumeter Plus) INSTILL 1 DROP INTO EACH EYE TWICE DAILY guaiFENesin-Codeine 100-10 MG/5ML Oral Syrup (Robitussin AC) Take 5 mL by mouth every 4 hours as needed for Cough. (Patient not taking: Reported on 08/31/2023) 120 mL 0 Lisinopril 2.5 MG Oral Tablet (Prinivil) Take 1 Tablet by mouth in the morning. 90 Tablet 3 Aspirin 81 MG Oral Capsule Take by mouth. PreserVision AREDS 2+Multi Vit Oral Capsule Take 1 Capsule by mouth daily. Latanoprost 0.005 % Ophthalmic Solution (Xalatan) Instill 1 Drop into both eyes at bedtime. ONETOUCH ULTRA BLUE STRP test blood sugar 2 times daily dx 250.00 6 Box 3 No current facility-administered medications for this visit. Review of patient's allergies indicates: Allergen Reactions Adhesive Tape Only use paper tape Rosiglitazone anemia Most Recent Immunizations Administered Date(s) Administered COVID-19 mRNA, LNP-s, No Preserve, 2-Dose Series (Moderna) 05/02/2020 COVID-19, MRNA-LNP, PF, 30 MCG/0.3 mL, 12 YRS AND ABOVE, IM ([facility]) 11/25/2023 COVID-19, mRNA, LNP-s, PF, Booster, 100mcg/0.5mg (Moderna) 06/05/2021 Covid-19, Mrna, Lnp-s, Pf, Bivalent, 30 Mcg, IM, 12 yrs and above (Pfizer) 01/22/2022 H1N1 2009 Influenza, IM 04/22/2009 Pneumococcal Conjugate Vacc, 13 Valent (Prevnar) 09/10/2015 Pneumococcal Polysaccharide PPV23 (Pneumovax) 09/09/2016 RSV Vac., Recomb, Adjuvant, PF,0.5 Ml (Arexvy) 12/20/2022 Seasonal Influenza Vac., MDV, IM, 0.5 mL (Fluzone) 12/13/2013 Seasonal Influenza Virus Vaccine, Unspecified Formulation 12/22/2020 Seasonal Influenza, High Dose, Trivalent, PF, IM (Fluzone HD) 11/25/2023 Seasonal Influenza, PF, 6 M & above, IM , (FluLaval or Fluzone) 12/20/2017 Seasonal Influenza, Quadrivalent Hd (Fluzone Hd) 12/06/2022 Seasonal Influenza, Quadrivalent Hd, 65+ Yrs 12/01/2019 Seasonal Influenza, Quadrivalent, No Preserve, IM 12/02/2015 Seasonal Influenza, Trivalent, Adjuvanted, 65+ YRS, PF, (Fluad) 12/01/2019 TDAP (age 10 and older)(Boostrix) 06/22/2018 TDAP, Age 7 and older, IM (Adacel) 02/27/2008 Varicella Zoster Vaccine (Adult) 05/05/2012 Zoster Vaccine Recombinant (Shingrix) 01/07/2020 Review of Systems: Review of Systems Constitutional: Negative for fatigue and fever. Gastrointestinal: Positive for anal bleeding. Negative for abdominal distention, abdominal pain, blood in stool, constipation, diarrhea, nausea and vomiting. Musculoskeletal: Positive for gait problem. Negative for back pain. Physical Exam: Filed Vitals: 02/07/24 0849 BP: 124/80 Pulse: 87 Weight: 177 lb 2 oz (80.3 kg) Physical Exam HENT: Head: Normocephalic. Eyes: Pupils: Pupils are equal, round, and reactive to light. Cardiovascular: Rate and Rhythm: Normal rate. Pulmonary: Effort: Pulmonary effort is normal. Breath sounds: Normal breath sounds. Abdominal: General: Bowel sounds are normal. Palpations: Abdomen is soft. Tenderness: There is no abdominal tenderness. Musculoskeletal: General: Normal range of motion. Cervical back: Normal range of motion. Right lower leg: No edema. Left lower leg: Edema present. Skin: Comments: Swelling, tender. Left buttock, no redness. There is pin hole right upper buttock in crease. Nontender. No discharge right now. She does have red blood at rectum . Neurological: General: No focal deficit present. Mental Status: She is alert and oriented to person, place, and time. Comments: Gait is altered and she states this is her baseline Psychiatric: Mood and Affect: Mood normal. Behavior: Behavior normal. Thought Content: Thought content normal. Judgment: Judgment normal. Assessment and Plan: 1. Rectal bleeding (Primary) Recurrent and usually occurs with increased fistula infection. This started on 03/24/2023. She did take doxycycline and augmentin with minimal improvement. Notes new fistula from existing. 2. Colonic fistula Chronic but now new whole draining 3. Pain of left lower leg ? Radicular vs enlarging abscess which patient reports has been the case in the past 4. Type 2 diabetes mellitus with hemoglobin A1c goal of less than 8.0% ([facility]) 5. Colostomy status ([facility]) No blood or diarrhea. 6. History of rectal cancer Dr. Godwin in to discuss with patient and recommend ED eval. Patient is now agreeable to travel by her personal car to [facility]. TT to [facility] ED aware. I have advised the patient to call our office incase of any worsening or new symptoms. I spent a total of 40-54 minutes (exact time 40 mins) on the date of service in preparation, delivery, and documentation of the care provided to Pearl Persaud excluding any time spent in the performance of separately billed services. DIAZ Chi, LUCINDA [facility] documented in this encounter Plan of Treatment Upcoming Encounters Date Type Department Care Team (Latest Contact Info) Description 03/05/2024 9:00 AM EST Office Visit Family Practice [facility] [address] [place] [address] Dane Godwin MD [address] [place] [address] 03/08/2024 10:36 AM EST Hospital Encounter OR [facility], Operating Room, [facility] - 4th Floor [address] [facility] [place] [address] Lalo Segovia MD [address] [place] [address] 03/08/2024 10:36 AM EST - 03/08/2024 11:31 AM EST Surgery OR [facility], Operating Room, [facility] - 4th Floor [address] [facility] [place] [phone] Lalo Segovia MD [address] [place] [address] COLONOSCOPY FLEXIBLE PROXIMAL DIAGNOSTIC 03/27/2024 9:00 AM EST Office Visit Cardiology, [facility] [address] [place] [address] Muriel Kat CRNP [address] [place] [address] 04/24/2024 10:30 AM EST Office Visit General Surgery, [facility] [address] [facility] [address] Marilyn Boyle MD [address] [place], [place] [id number] 05/30/2024 2:00 PM EDT Cardiac Studies Cardiac Studies, [facility] [address] [place] [address] 05/30/2024 3:00 PM EDT Office Visit Cardiology, [facility] [address] [place] [address] Chuck Steen MD [address] [place], [place] [id number] 11/27/2024 8:00 AM EDT Nurse Only Ancillary Hanna Merino [place] [address] [facility] [place] [address] [place], Nurse Annual Wellness [facility] [address] [place] [address] 11/29/2024 10:30 AM EDT Appointment Vascular Lab [place] [address] [place] [address] 11/29/2024 11:00 AM EDT Appointment Vascular Lab [facility] [address] [place] [address] 11/29/2024 12:00 PM EDT Office Visit Vascular Surg [facility] [address] [place] [address] Vishnu Metzger MD [address] [place] [address] Scheduled Procedures Name Priority Associated Diagnoses Date/Ti me COLONOSCOPY FLEXIBLE PROXIMAL DIAGNOSTIC Recall History of colon cancer 03/08/2024 10:36 AM EST Health Maintenance Due Date Last Done Comments DXA Scan 06/10/2019 06/10/2015, 03/08, 04/02/2013 Colonoscopy 07/14/2023 07/13/2018, 0511/2018, 09/03/2016, Additional history exists Albumin/Creatinine Ratio 08/08/2023 023, 08/21/2021, 09/12/2017, Additional history exists GFR 02/02/2024 08/02/2023, 02/04, 02/17/2023, Additional history exists HbA1c 02/02/2024 08/02/2023, 07/07, 10/22/2021, Additional history exists CKD PHOS USE SMARTSET 59279 02/18/202402/04, 08/04/2022, 01/09/2021, Additional history exists Diabetic Foot Exam 08/29/2024 08/30/2023, 0 08/27/2022, 08/25/2021, Additional history exists Diabetic Eye Exam 09/21/2024 09/22/2023, , 04/21/2023, Additional history exists Adult Wellness Visit 11/24/2024 11/25/2023, 11/16/2022, 11/13/2021 Depression Monitoring 11/24/2024 11/25/2023 CKD HGB USE SMARTSET 56368 12/02/202412/02, 12/03/2023, 08/02/2023, Additional history exists DTap/Tdap Vaccines (3 - Td or Tdap) 06/22/2028 06/22/2018, 02/27/2008 Pneumococcal Vaccine: 65+ Years Completed 09/09/2016, 09/10/2015, 12/01/2005 RETIRED - [...] as of this encounter Visit Diagnoses Diagnosis Rectal bleeding- Primary Hemorrhage of rectum and anus Colonic fistula Fistula of intestine, excluding rectum and anus Pain of left lower leg Pain in limb Type 2 diabetes mellitus with hemoglobin A1c goal of less than 8.0% (HCC) Colostomy status (HCC) Colostomy status History of rectal cancer Personal history of malignant neoplasm of rectum, rectosigmoid junction, and anus History of colon cancer Personal history of malignant neoplasm of large intestine documented in this encounter Advance Directives * [...] and were consensually agreed upon. Care Teams Printing Assistant Relationship Specialty Start Date End Date Dane Godwin MD [address] [place] [address] PCP - General Family Medicine 07/08/20 documented as of this encounter
--- OUTSIDE RECORDS SUMMARY | 2024-06-13 02:47 | External Medical Summary ---
Author Name Unknown Address Unknown Organization [id number]:LABORATORY [facility] - [address] [place] [address] Laboratory Report Ordering Provider Test Date Status ASHLEIGH SPENCER 02/07/2024 13:36:00 Final Observation Date Value Abnormality Reference (Units ) Status Lactic Acid, Whole Blood 02/07/2024 13:36:00 1.1 0.4-2.0 (mmol/L) Final Performing Location LAB[facility]ORY [facility] - [address] [place] [address]
--- OUTSIDE RECORDS SUMMARY | 2024-06-13 02:47 | External Medical Summary ---
Author Name Unknown Address Unknown Organization [id number]:[facility] - [address] [place] [address] Laboratory Report Ordering Provider Test Date Status ASHLEIGH SPENCER 02/07/2024 13:36:00 Final Observation Date Value Abnormality Reference (Units ) Status Lipase 02/07/2024 13:36:00 39 13-60 (U/L ) Final Performing Location LAB[facility]ATORY [facility] - [address] [place] [address]
--- OUTSIDE RECORDS SUMMARY | 2024-06-13 02:47 | External Medical Summary ---
Author Name Unknown Address Unknown Organization [id number]:[facility]ORY [facility] - [address] [place] [address] Laboratory Report Ordering Provider Test Date Status ASHLEIGH SPENCER 02/07/2024 13:36:00 Final Observation Date Value Abnormality Reference (Units ) Status Erythrocyte sedimentation rate by Photometric method 02/07/2024 13:36:00 28 <30 (mm/hour) Final Performing Location LAB[facility]ATORY [facility] - [address] [place] [address]
--- OUTSIDE RECORDS SUMMARY | 2024-06-13 02:47 | External Medical Summary ---
Author Name Unknown Address Unknown Organization [id number]:LABORATORY [facility] - [address] [place] [address] Laboratory Report Ordering Provider Test Date Status MITCH GELLER 02/18/2024 09:02:08 Final Normal: <30 mg/g creatinine< br/>High: 30-300 mg/g creatinine
Very High: >300 mg/g creatinine
Nephrotic: >2200 mg/g creatinine Observation Date Value Abnormality Reference (Units ) Status Albumin, Urine 02/18/2024 09:02:08 53.00 (mg/dL) Final Creatinine, Urine 02/18/2024 09:02:08 149 (mg/dL) Final Albumin/Creatinine [Mass Ratio] in Urine 02/18/2024 09:02:08 356 Above high normal <30 (mg/g Creat) Final Performing Location LABORATORY [facility] - [address] [place] [address]
--- OUTSIDE RECORDS SUMMARY | 2024-06-13 02:47 | External Medical Summary | Summary of Care ---
Author Name Unknown Organization [facility] Address [address] [place] [address] Phone [phone] Care Team Providers Care Triage Register Nurse Name Role Phone Dane Godwin MD Primary Care Provider [phone] Reason for Visit * Reason Comments Leg Pain Left leg; known pelv ic infection Encounter Details Date Type Department Care Team (Late st Contact Info) Description 02/07/2024 3:26 PM EST - 02/07/2024 6:52 PM EST Emergency [facility] ([place] Emergency Department ([facility]) [address] [place] [address] [place] [address] Colostomy status (HCC) (Primary Dx); Intestinal fistula; History of rectal cancer Discharge Disposition: Home - Self Care Allergies Active Allergy Reactions Criticality Noted Date Comments Adhesive Tape 05/10/2011 Only use paper tape Rosiglitazone 12/01/2005 anemia documented as of this encounter (statuses as of 02/08/2024) Medications ONETOUCH ULTRA BLUE STRPIndications: Background diabetic [...] as of this encounter (statuses as of 02/08/2024) Active Problems Problem Noted Date Diagnosed Date Pain of left lower leg 02/07/2024 Rectal bleeding 02/07/2024 Radiation induced proctitis 02/02/2023 Overweight (BMI 25.0-29.9) 12/17/2021 LBBB (left bundle branch block) 12/02/2020 PAD (peripheral artery disease) 07/08/2020 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 07/05/2020 Chronic systolic heart failure 07/05/2020 Ischemic cardiomyopathy 08/16/2019 Mural thrombus of left ventricle 08/08/2019 Coronary artery disease invo lving [place] coronary artery of [place] heart 08/06/2019 Mild aortic stenosis 09/13/2018 Colostomy [...] as of this encounter (statuses as of 02/08/2024) Resolved Problems Problem Noted Date Diagnosed Date [...] anemia 12/01/2005 09/09/2016 Overview (12/01/2005): Dx'd by fire support specialist/oncologist ADJ DISORDER W/DEPRES MOOD 12/01/2005 0 07/05/2020 BENIGN HYPERTENSION 12/01/2005 01/08/20 06 Anemia 12/01/2005 07/05/2020 Menopause 12/14/2002 03/14/2017 ELEV BL PRES W-O HYPERTN 12/14/2002 FAM HX-DIABETES MELLITUS Disorder of intervertebral disc 02/23/2018 documented as of this encounter (statuses as of 02/08/2024) Immunizations Name Administration Dates Next Due COVID-19 [...] 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 Not on file Not on julia e documented as of this encounter Last Filed Vital Signs Vital Sign Reading Time Taken Comments Blood Pressure 179/80 02/07/2024 4:00 PM EST Pulse 76 02/07/2024 4:00 PM EST Temperature 36.2 °C (97.2 °F) 02/07/2024 4:00 PM ES T Respiratory Rate 19 02/07/2024 2:00 PM EST Oxygen Saturation 98% 02/07/2024 4:00 PM EST Inhaled Oxygen Concentration - - Weight - - Height - - Body Mass Index - - documented in this encounter Functional Status * [...] Assessment Author No 09/08/2019 1:36 PM KIMT Ritter, A jackie R, RN * Because of a physical, mental, [...] Clint Henderson RN documented in this encounter ED Notes * Ham Norwood, DO - 02/07/2024 5:53 PM EST HISTORY OF PRESENT ILLNESS Pearl Persaud is a 78 year old female who presents to the ED for evaluation of Leg Pain (Left leg; known pelvic infection). The patient was seen at 02/07/24 1335. 78-year-old female who presentswith left leg pain. Patient with complex medical history with previous pelvic infection with fistula from rectal mass to presacral area. Patient states she has been having worsening left leg pain for the last couple days. Patient states she became concerned when she had bleeding and purulent discharge from a pinpoint lesion located beside her previous fistula in her intergluteal fold. Patient denies fever, chills, nausea, vomiting. Review of Systems Constitutional: Negative for chills, fatigue and fever. HENT: Negative for congestion and sore throat. Respiratory: Negative for cough and shortness of breath. Cardiovascular: Negative for chest pain and palpitations. Gastrointestinal: Negative for abdominal pain, nausea and vomiting. Genitourinary: Negative for dysuria and hematuria. Skin: Negative for color change and rash. Neurological: Negative for dizziness and headaches. All other systems reviewed and are negative. The patient's allergies, past history, and medications were reviewed. PHYSICAL EXAM Initial Vitals (see all): BP 160/83 | Pulse 72 | Resp 18 | Temp 97 | O2 100 %, Room Air, None | Weight 80.34 kg | Height 165.1 cm | BMI 29.48 kg/m2 Initial Pain Assessment (see all): 0 (no pain)/10 ([facility] Adult Scale 0-10) Physical Exam Vitals and nursing note reviewed. Constitutional: Appearance: Normal appearance. She is not ill-appearing. HENT: Head: Normocephalic and atraumatic. Nose: Nose normal. Mouth/Throat: Mouth: Mucous membranes are moist. Pharynx: Oropharynx is clear. Eyes: Pupils: Pupils are equal, round, and reactive to light. Cardiovascular: Rate and Rhythm: Normal rate and regular rhythm. Pulmonary: Effort: Pulmonary effort is normal. No respiratory distress. Breath sounds: Normal breath sounds. No wheezing or rales. Abdominal: General: Abdomen is flat. Bowel sounds are normal. There is no distension. Palpations: Abdomen is soft. Tenderness: There is no abdominal tenderness. Genitourinary: Comments: Pinpoint lesion located on top of presacral area, no purulent drainage, no erythema Musculoskeletal: General: Normal range of motion. Skin: General: Skin is warm and dry. Capillary Refill: Capillary refill takes less than 2 seconds. Neurological: General: No focal deficit present. Mental Status: She is alert and oriented to person, place, and time. Psychiatric: Mood and Affect: Mood normal. PROCEDURES AND TREATMENTS ED Orders | ED Results MEDICAL DECISION MAKING Nursing notes and vital signs were reviewed. ED consults were placed. Differential Diagnoses Based on my history, physical exam, and evaluation, the differential includes, but is not limited, to the following diagnoses: Fistula, abscess, seroma. 78-year-old female who presents with concern for abscess secondary to fistula. CT scan consistent with fluid collection. No fever, normal laboratory testing, specifically no leukocytosis, normal lactic acid; only mild elevation in CRP which was less than previous testing. Consultation with Colorectal surgery due to patient's complex surgical history and referral from [place] for evaluation.General Surgery recommended discharge and continue with outpatient follow up as scheduled Clinical Impressions Colostomy status (HCC) Intestinal fistula History of rectal cancer Disposition Discharged. The patient's condition at disposition was: stable. Ham Norwood * Sophie Olson RN - 02/07/2024 1:33 PM EST Pt presents to [facility] ED c/o leg pain. Pt was seen for left leg pain yesterday and had thought that she had a DVT. It was ruled out yesterday that she didn't. However, pt has a known pelvic infection that per her PCP, who she saw today, stated was getting worse. They advised that she come to the ED for further imaging. Pt A&Ox4. documented in this encounter Miscellaneous Notes * Pt Handout (on AVS) - Enma Ham Bartlett, DO - 02/07/2024 6:33 PM EST [id number] Anal Fistula The anal canal is the end portion of the intestinal tract. It is a channel or tunnel that connects the rectum to the anus. Sometimes, an abnormal passage forms from the anal canal to the skin near the anus. This is called an anal fistula. Anal fistulas can also form from the anal canal to other organs, such as the vagina or urinary tract. An anal fistula most often occurs from an anal gland that has developed a pus- filled infection (abscess). A fistula can also occur with certain conditions. These include Crohn?s disease or after radiation therapy for cancer in the pelvic area, such as rectal cancer. Injury to the anal canal and surgery can also lead to anal fistulas. Some sexually transmitted infections (STIs), like herpes and gonorrhea, can also raise the risk of anal fistulas. Symptoms of an anal fistula can include: · Itching · Discomfort or pain while passing stools · Pain in or near the rectum · Drainage, which may contain blood, pus, or both (the drainage may be constant or stop and start again) · Bleeding from the rectum · Fever · Urinary problems If you have an anal abscess or infection along with a fistula, you may also notice redness, swelling, or soreness in or near the anus or rectum. Treatment often depends on the location, severity, and cause of the anal fistula. The abscess usually needs to be drained. If caused by Crohn?s disease, an anal fistula may respond to medicines such as antibiotics and immunosuppressants. This may lead to complete closure of the fistula. But once treatment stops, there south high chance that the fistula may form again. Anal fistulas often require surgery if other treatments don?t correct the problem. The type of surgery depends on the type of fistula and the cause of the fistula. More than 1 surgery may be needed. If you have questions about treatment, your healthcare provider can help. Home care As you recover from treatment, make sure to take any prescribed medicines as directed. Don't take any [id number] medicines without first talking to your healthcare provider. You may also be advised to: · Soak in a warm bath 3 or 4 times a day. · Wear a pad over your anal area as directed. · Eat a diet high in fiber. · Drink plenty of fluids. · Use a stool softener or bulk laxative as needed. · Return to your normal routine only after your healthcare provider says it's OK. Follow-up care Follow up with your healthcare provider, or as advised. When to seek medical advice Call your healthcare provider right away if any of these occur: · Fever of 100.4°F (38°C) or higher, or as directed by your healthcare provider · Hard or painful stools or trouble controlling your bowel movements · Symptoms of the anal fistula coming back, like pain or drainage · Increased pain, redness, swelling, or drainage in or near the anus or rectum · Mucus, pus, or blood in the stool (dark or bright red) · Pain in the belly that does not get better after treatment or that does not go away after a few hours · Swelling in the belly that does not go away after a few hours · Vomiting that won?t stop · Symptoms that get worse or new symptoms To learn more The resources below can help you learn more about anal fistulas. They may also help you find support if you have a condition such as Crohn?s disease. · [place] [employer], www.fascrs.org/patients · Crohn?s and Colitis [employer] of [place], www.crohnscolitisfoundation.org Last Reviewed Date: 2023 00:00:00 © [employer]. All rights reserved. This information is not intended as a substitute for professional medical care. Always follow your healthcare professional's instructions. * ED Chief Pilot Note - Freida Street RN - 02/07/2024 6:11 PM EST Surgery at bedside for consult documented in this encounter Plan of Treatment Upcoming Encounters Date Type Department Care Team (Latest Contact Info) Description 03/05/2024 9:00 AM EST Office Visit [facility] [address] [place] [address] Dane Godwin MD [address] [place] [address] 03/08/2024 10:36 AM EST Hospital Encounter OR [facility], Operating Room, [facility] - 4th Floor [address] [facility] [id number] Lalo Segovia MD [address] [place] [address] 03/08/2024 10:36 AM EST - 03/08/2024 11:31 AM EST Surgery OR [facility], Operating Room, [facility] - 4th Floor [address] [facility] [place] [address] Lalo Segovia MD [address] [place] [address] COLONOSCOPY FLEXIBLE PROXIMAL DIAGNOSTIC 03/27/2024 9:00 AM EST Office Visit Cardiology, [facility] [address] [place] [address] Muriel Kat CRNP [address] [place] [address] 04/24/2024 10:30 AM EST Office Visit General Surgery, [facility] [address] [place] [address] Marilyn Boyle MD [address] [place] [address] 05/30/2024 2:00 PM EDT Cardiac Studies Cardiac Studies, [address] [address] 05/30/2024 3:00 PM EDT Office Visit Cardiology, [address] [address] Chuck Steen MD [address] [place] [address] 11/27/2024 8:00 AM EDT Nurse Only Ancillary [address] [address] [facility], Nurse Annual Wellness [address] [address] 11/29/2024 10:30 AM EDT Appointment Vascular Lab [place] [address] [place] [address] 11/29/2024 11:00 AM EDT Appointment Vascular [facility] [place] [address] [place] [address] 11/29/2024 12:00 PM EDT Office Visit Vascular Surg [place] [address] [place] [address] Vishnu Metzger MD [address] [place] [address] Scheduled Procedures Name Priority Associated Diagnoses Date/Ti me COLONOSCOPY FLEXIBLE PROXIMAL DIAGNOSTIC Recall History of colon cancer 03/08/2024 10:36 AM EST Health Maintenance Due Date Last Done Comments DXA Scan 06/10/2019 06/10/2015, 03/08, 04/02/2013 Colonoscopy 07/14/2023 07/13/2018, 11/2018, 09/03/2016, Additional history exists Albumin/Creatinine Ratio 08/08/2023 023, 08/21/2021, 09/12/2017, Additional history exists HbA1c 02/02/2024 08/02/2023, 07/07, 10/22/2021, Additional history exists CKD PHOS USE SMARTSET 96555 02/18/202402/04, 08/04/2022, 01/09/2021, Additional history exists GFR 08/07/2024 02/07/2024, 07/06, 02/22/2023, Additional history exists Diabetic Foot Exam 08/29/2024 08/30/2023, 0 08/27/2022, 08/25/2021, Additional history exists Diabetic Eye Exam 09/21/2024 09/22/2023, , 04/21/2023, Additional history exists Adult Wellness Visit 11/24/2024 11/25/2023, 11/16/2022, 11/13/2021 Depression Monitoring 11/24/2024 11/25/2023 CKD HGB USE SMARTSET 94324 02/06/202502/06, 02/07/2024, 12/03/2023, Additional history exists DTap/Tdap Vaccines (3 - [...] Procedure Name Priority Date/Time Associated Diagnosis Comments CT ABD/PELVIS W IV CONTRAST - WO ORAL CONTRAST STAT 02/07/2024 4:05 PM EST LACTATE, WHOLE BLOOD WITH REFLEX IF ABNORMAL STAT 02/07/2024 1:36 PM EST DIFFERENTIAL, AUTOMATED STAT 02/07/2024 1:36 PM EST CRP (INFLAMMATORY MARKER) STAT 02/07/2024 1:36 PM EST COMPREHENSIVE METABOLIC PANEL STAT 02/07/2024 1:36 PM EST CBC STAT 02/07/2024 1:36 PM EST PT INR STAT 02/07/2024 1:36 PM EST LIPASE STAT 02/07/2024 1:36 PM EST APTT STAT 02/07/2024 1:36 PM EST ERYTHROCYTE SEDIMENTATION RATE (ESR) STAT 02/07/2024 1:36 PM EST CBC STAT 02/07/2024 1:36 PM EST documented in this encounter Results * CT ABD/PELVIS W IV CONTRAST - WO ORAL CONTRAST (02/07/2024 4:05 PM EST) Anatomical Region Laterality Modality Body, Abdomen, Pelvis Computed T omography 02/07/2024 4:56 PM EST Impressions 02/07/2024 5:03 PM EST IMPRESSION 1. Chronic post treatment changes of the rectal stump and presacral area with chronic 3.8 cm left presacral fluid collection and persistent fistula with 5.2 cm left medial gluteal fluid collection. Persistent 3.2 cm right presacral fluid collection 2. Indeterminate irregular left lower lobe nodule. CT chest is recommended for further evaluation. Added to radiology results pathway communication system at 5:03 pm on 02/07/2024. I have personally reviewed this examination and agree with the resident/fellow physician's interpretation. Narrative 02/07/2024 5:03 PM EST EXAM EXAM: CT ABD/PELVIS W IV CONTRAST - WO ORAL CONTRAST DATE and TIME: 02/07/2024 4:05 pm HISTORY fistula, rectal bleeding, chronic pelvic infection? TECHNIQUE Axial images of the abdomen and pelvis were obtained. Sagittal and coronal images were reconstructed from the axial data. Oral Contrast: Not administered. IV Contrast: Administered. COMPARISON CT pelvis 09/26/2019 FINDINGS Lower chest: Irregular left lower lobe nodule, indeterminate (3:14) Lines and devices: None. Liver: Unremarkable. Gallbladder: Cholecystectomy. Bile ducts: Mild intrahepatic and extrahepatic biliary ductal dilatation likely due to reservoir effect. Pancreas: Unremarkable. Spleen: Unremarkable. Adrenals: Unremarkable. Kidneys/Ureters: Symmetric nephrograms. No nephrolithiasis. No hydroureteronephrosis. Bladder: Unremarkable. Reproductive organs: Calcified uterine fibroids. Peritoneum/Retroperitoneum: Chronic post treatment changes of the rectal stump and presacral area with chronic left presacral fluid collection measures 1.9 x 3.8 cm and persistent fistula with left medial gluteal fluid collection measuring 3.7 x 3.7 x 5.2 cm. Right presacral fluid collection measures 3.2 x 2.0 cm Bowel: Postsurgical changes of right hemicolectomy and low anterior resection. Left lower quadrant end colostomy. Normal appendix. No dilated bowel loops. Lymph nodes: No lymphadenopathy. Vessels: Unremarkable. Abdominal Wall/Soft Tissues: Right upper quadrant incisional hernia measures 1.3 cm. Parastomal hernia contains loops of small bowel without evidence of obstruction. Bones: Degenerative changes the spine and sacroiliac joints. Chronic L2 and L3 compression deformities. Procedure Note Madhu Valera MD - 02/07/2024 EXAM EXAM: CT ABD/PELVIS W IV CONTRAST - WO ORAL CONTRAST DATE and TIME: 02/07/2024 4:05 pm HISTORY fistula, rectal bleeding, chronic pelvic infection? TECHNIQUE Axial images of the abdomen and pelvis were obtained. Sagittal and coronalimages were reconstructed from the axial data. Oral Contrast: Not administered. IV Contrast: Administered. COMPARISON CT pelvis 09/26/2019 FINDINGS Lower chest: Irregular left lower lobe nodule, indeterminate (3:14) Lines and devices: None. Liver: Unremarkable. Gallbladder: Cholecystectomy. Bile ducts: Mild intrahepatic and extrahepatic biliary ductal dilatationlikely due to reservoir effect. Pancreas: Unremarkable. Spleen: Unremarkable. Adrenals: Unremarkable. Kidneys/Ureters: Symmetric nephrograms. No nephrolithiasis. Nohydroureteronephrosis. Bladder: Unremarkable. Reproductive organs: Calcified uterine fibroids. Peritoneum/Retroperitoneum: Chronic post treatment changes of the rectalstump and presacral area with chronic left presacral fluid collectionmeasures 1.9 x 3.8 cm and persistent fistula with left medial glutealfluid collection measuring 3.7 x 3.7 x 5.2 cm. Right presacral fluidcollection measures 3.2 x 2.0 cm Bowel: Postsurgical changes of right hemicolectomy and low anteriorresection. Left lower quadrant end colostomy. Normal appendix. Nodilated bowel loops. Lymph nodes: No lymphadenopathy. Vessels: Unremarkable. Abdominal Wall/Soft Tissues: Right upper quadrant incisional herniameasures 1.3 cm. Parastomal hernia contains loops of small bowel withoutevidence of obstruction. Bones: Degenerative changes the spine and sacroiliac joints. Chronic L2and L3 compression deformities. IMPRESSION IMPRESSION 1. Chronic post treatment changes of the rectal stump and presacral areawith chronic 3.8 cm left presacral fluid collection and persistent fistulawith 5.2 cm left medial gluteal fluid collection. Persistent 3.2 cm rightpresacral fluid collection 2. Indeterminate irregular left lower lobe nodule. CT chest isrecommended for further evaluation. Added to radiology results pathway communication system at 5:03 pm on02/07/2024. I have personally reviewed this examination and agree with the resident/fellow physician's interpretation. us Venita Delgado PA-C RAD CT Fin al Result * (ABNORMAL) DIFFERENTIAL, AUTOMATED (02/07/2024 1:36 PM EST) WBC 5.52 4.00 - 10.80 K/uL 02/07/2024 1:52 PM EST [facility] Neutrophils % 73.9 40.0 - 75.0 % 02/07/2024 1:52 PM EST [facility] Lymphocytes % 11.2(L) 18.0 - 42.0 % 02/07/2024 1:52 PM EST [facility] Monocytes % 11.1(H) 1.0 - 11.0 % 02/07/2024 1:52 PM EST [facility] Eosinophils % 2.7 0.0 - 6.0 % 02/07/2024 1:52 PM EST [facility] Basophils % 0.7 0.0 - 2.0 % 02/07/2024 1:52 PM EST [facility] Immature Granulocytes % 0.4 0.0 - 2.0 % 02/07/2024 1:52 PM EST [facility] Absolute Neutrophils 4.08 1.80 - 7.70 K/uL 02/07/2024 1:52 PM EST [facility] Absolute Lymphocytes 0.62(L) 1.00 - 4.80 K/ul 02/07/2024 1:52 PM EST [facility] Absolute Monocytes 0.61 0.00 - 1.10 K/uL 02/07/2024 1:52 PM EST [facility] Absolute Eosinophils 0.15 0.00 - 0.70 K/uL 02/07/2024 1:52 PM EST [facility] Absolute Basophils 0.04 0.00 - 0.20 K/uL 02/07/2024 1:52 PM EST [facility] Absolute Immature Granulocytes 0.02 0.00 - 0.20 K/uL 02/07/2024 1:52 PM EST [facility] Blood Venous blood specimen / Unknown Venipuncture / Unknown 02/07/2024 1:36 PM EST 02/07/2024 1:42 PM EST us Venita Delgado PA-C LAB BLOOD ORDERABLE S Final Result [facility] [address] [facility] [place] [address] * (ABNORMAL) CBC (02/07/2024 1:36 PM EST) WBC 5.52 4.00 - 10.80 K/uL 02/07/2024 1:52 PM EST [facility] RBC 3.99 3.85 - 5.15 M/uL 02/07/2024 1:52 PM EST [facility] HGB 11.7(L) 12.0 - 15.3 g/dL 02/07/2024 1:52 PM EST [facility] HCT 38.1 36.0 - 45.2 % 02/07/2024 1:52 PM EST [facility] MCV 95.5 81.5 - 97.5 fL 02/07/2024 1:52 PM EST [facility] MCH 29.3 27.0 - 34.0 pg 02/07/2024 1:52 PM EST [facility] MCHC 30.7 32.0 - 36.0 g/dL 02/07/2024 1:52 PM EST [facility] RDW 13.4 11.5 - 15.5 % 02/07/2024 1:52 PM EST [facility] PLT 124(L) 140 - 400 K/uL 02/07/2024 1:52 PM EST [facility] MPV 10.1 6.6 - 11.1 fL 02/07/2024 1:52 PM EST [facility] nRBCs 0 <=0 /100 WBCs 02/07/2024 1:52 PM EST [facility] Blood Venous blood specimen / Unknown Venipuncture / Unknown 02/07/2024 1:36 PM EST 02/07/2024 1:42 PM EST Venita Delgado PA-C LAB BLOOD ORDERABLE S Final Result LABORATORY [facility] [address] [place] [address] * ERYTHROCYTE SEDIMENTATION RATE (ESR) (02/07/2024 1:36 PM EST) ESR 28 <30 mm/hour 02/07/2024 1:48 PM EST [facility] Blood Venous blood specimen / Unknown Venipuncture / Unknown 02/07/2024 1:36 PM EST 02/07/2024 1:42 PM EST Venita Delgado PA-C LAB BLOOD ORDERABLE S Final Result LAB[facility]ATORY [facility] [address] [place] [address] * (ABNORMAL) CRP (INFLAMMATORY MARKER) (02/07/2024 1:36 PM EST) Pathologist [facility] CRP (Inflammatory Marker) 19(H) <=5 mg/L 02/07/2024 2:11 PM EST LABORATORY [facility] Blood Venous blood specimen / Unknown Venipuncture / Unknown 02/07/2024 1:36 PM EST 02/07/2024 1:41 PM EST Venita Delgado PA-C LAB BLOOD ORDERABLE S Final Result Performing Organization Address City/[facility]/ZIP Co de Phone Number LABORATORY [facility] [address] [place] [address] * APTT (02/07/2024 1:36 PM EST) Pathologist [facility] aPTT 35 21 - 38 seconds 02/07/2024 2:07 PM EST LABORATORY [facility] Blood Venous blood specimen / Unknown Venipuncture / Unknown 02/07/2024 1:36 PM EST 02/07/2024 1:41 PM EST Narrative LABORATORY [facility] - 02/07/2024 2:07 PM EST Anticoagulation may affect testing. Refer to [employer] Test Catalog for a list of effects. Venita Delgado PA-C LAB BLOOD ORDERABLE S Final Result LABORATORY [facility] [address] [place] [address] * (ABNORMAL) PT INR (02/07/2024 1:36 PM EST) Prothrombin Time 15.4(H) 11.6 - 15.2 seconds 02/07/2024 2:06 PM EST LABORATORY [facility] INR 1.2 0.8 - 1.2 02/07/2024 2:06 PM EST LABORATORY [facility] Blood Venous blood specimen / Unknown Venipuncture / Unknown 02/07/2024 1:36 PM EST 02/07/2024 1:41 PM EST Narrative [facility] - 02/07/2024 2:06 PM EST Warfarin Therapy INR: 2.0-3.0 conventional anticoagulation INR: 2.5-3.5 high intensity anticoagulation Venita Delgado PA-C LAB BLOOD ORDERABLE S Final Result Performing Organization Address City/[facility]/ZIP Co de Phone Number LABORATORY [facility] [address] [place] [address] * LIPASE (02/07/2024 1:36 PM EST) Lipase 39 13 - 60 U/L 02/07/2024 2:11 PM EST LABORATORY [facility] Blood Venous blood specimen / Unknown Venipuncture / Unknown 02/07/2024 1:36 PM EST 02/07/2024 1:41 PM EST Venita Delgado PA-C LAB BLOOD ORDERABLE S Final Result Performing Organization Address [facility] [facility] Co de Phone Number LABORATORY [facility] [facility] [address] [place] [address] * LACTATE, WHOLE BLOOD WITH REFLEX IF ABNORMAL (02/07/2024 1:36 PM EST) Pathologist [facility] Lactate, Whole Blood 1.1 0.4 - 2.0 mmol/L 02/07/2024 1:44 PM EST LABORATORY [facility] Blood Venous blood specimen / Unknown Venipuncture / Unknown 02/07/2024 1:36 PM EST 02/07/2024 1:41 PM EST Venita Delgado PA-C LAB BLOOD ORDERABLE S Final Result Performing Organization Address City/[facility] Co de Phone Number LABORATORY [facility] [address] [place] [address] * (ABNORMAL) COMPREHENSIVE METABOLIC PANEL (02/07/2024 1:36 PM EST) BUN 27(H) 6 - 20 mg/dL 02/07/2024 2:11 PM EST [facility] CREATININE 0.9 0.5 - 1.0 mg/dL 02/07/2024 2:11 PM EST [facility] EGFR 67 >=60 mL/min 02/07/2024 2:11 PM EST [facility] Comment:eGFR is calculated b ased on the CKD-EPI 2020 equation. SODIUM 137 135 - 146 mmol/L 02/07/2024 2:11 PM EST [facility] POTASSIUM 4.3 3.5 - 5.1 mmol/L 02/07/2024 2:11 PM EST [facility] CHLORIDE 105 98 - 107 mmol/L 02/07/2024 2:11 PM EST [facility] CO2 22 22 - 32 mmol/L 02/07/2024 2:11 PM EST [facility] ANION GAP 10 7 - 15 mmol/L 02/07/2024 2:11 PM EST [facility] GLUCOSE 119 70 - 120 mg/dL 02/07/2024 2:11 PM EST [facility] Albumin 3.4(L) 3.8 - 5.0 g/dL 02/07/2024 2:11 PM EST [facility] AST 26 10 - 35 U/L 02/07/2024 2:11 PM EST [facility] Alkaline Phosphatase 123 35 - 130 U/L 02/07/2024 2:11 PM EST [facility] Bilirubin, Total 0.5 <=1.2 mg/dL 02/07/2024 2:11 PM EST [facility] CALCIUM 9.4 8.4 - 10.2 mg/dL 02/07/2024 2:11 PM EST [facility] Protein 6.2 6.0 - 8.3 g/dL 02/07/2024 2:11 PM EST [facility] ALT 18 10 - 35 U/L 02/07/2024 2:11 PM EST [facility] Blood Venous blood specimen / Unknown Venipuncture / Unknown 02/07/2024 1:36 PM EST 02/07/2024 1:41 PM EST us Venita Delgado PA-C LAB BLOOD ORDERABLE S Final Result LABORATORY [facility] [address] [facility] [place] [address] documented in this encounter Visit Diagnoses Diagnosis Colostomy status (HCC)- Primary Colostomy status Intestinal fistula Fistula of intestine, excluding rectum and anus History of rectal cancer Personal history of malignant neoplasm of rectum, rectosigmoid junction, and anus History of colon cancer Personal history of malignant neoplasm of large intestine documented in this encounter Administered Medications Inactive Administered Medications - up to 3 most recent administrations Medication Order MAR Action Action Date Dose Rate Site Iopamidol (Isovue 370) inj 80 mL 80 mL, Intravenous, ONCE, On 02/07/24 at 1645, For 1 dose, Radiology Medication Routing (Non-IR) Given 02/07/2024 4:45 PM EST 79 mL documented in this encounter Active and Recently Administered Medications Times are shown in EST. Scheduled Medication Order 02/05/2024 02/06/2024 02/07/2024 Iopamidol (Isovue 370) inj 80 mL (COMPLETED) 80 mL, Intravenous, ONCE, On 02/07/24 at 1645, For 1 dose, Radiology Medication Routing (Non-IR) 1645 (Given - Provid er: Yumiko Bajwa, RT (R)) documented in this encounter Advance Directives * [...] and were consensually agreed upon. Care Teams Triage Register Nurse Relationship Specialty Start Date End Date Dane Godwin MD [address] [place] [address] PCP - General Family Medicine 07/08/20 documented as of this encounter"
--- OUTSIDE RECORDS SUMMARY | 2024-06-13 02:47 | External Medical Summary | Summary of Care ---
Author Name Unknown Organization [facility] Address [address] [place] [address] Phone [phone] Care Team Providers Care Senior Sales Executive Name Role Phone Dane Godwin MD Primary Care Provider [phone] Encounter Details Date Type Department Care Team (Late st Contact Info) Description 11/10/2023 Telephone Radiology, [facility] [address] [place] [address] Dane Godwin MD [address] [place] [address] Allergies Active Allergy Reactions Criticality Noted Date Comments Adhesive Tape 05/10/2011 Only use paper tape Rosiglitazone 12/01/2005 anemia documented as of this encounter (statuses as of 02/09/2024) Medications ONETOUCH ULTRA BLUE STRPIndications :Background diabetic [...] BEFORE BEDTIME 180 Tablet 1 4 Active documented as of this encounter (statuses as of 02/09/2024) Active Problems Problem Noted Date Diagnosed Date Pain of left lower leg 02/07/2024 Rectal bleeding 02/07/2024 Radiation induced proctitis 02/02/2023 Overweight (BMI 25.0-29.9) 12/17/2021 LBBB (left bundle branch block) 12/02/2020 PAD (peripheral artery disease) 07/08/2020 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 07/05/2020 Chronic systolic heart failure 07/05/2020 Ischemic cardiomyopathy 08/16/2019 Mural thrombus of left ventricle 08/08/2019 Coronary artery disease invo [place]ving [place] coronary artery of [place] heart 08/06/2019 Mild aortic stenosis 09/13/2018 Colostomy [...] as of this encounter (statuses as of 02/09/2024) Resolved Problems Problem Noted Date Diagnosed Date [...] anemia 12/01/2005 09/09/2016 Overview (12/01/2005): Dx'd by estate tax examiner/oncologist ADJ DISORDER W/DEPRES MOOD 12/01/2005 0 07/05/2020 BENIGN HYPERTENSION 12/01/2005 01/08/20 06 Anemia 12/01/2005 07/05/2020 Menopause 12/14/2002 03/14/2017 ELEV BL PRES W-O HYPERTN 12/14/2002 FAM HX-DIABETES MELLITUS Disorder of intervertebral disc 02/23/2018 documented as of this encounter (statuses as of 02/09/2024) Immunizations Name Administration Dates Next Due COVID-19 mRNA, LNP-s, No Pre serve, 2-Dose Series (Moderna) 05/02/2020,04/04/2020 COVID-19, MRNA-LNP, PF, 30 M CG/0.3 mL, 12 YRS AND ABOVE, IM (PFIZER-Comirnaty) 12/20/2022 COVID-19, mRNA, LNP-s, PF, B ooster, 100mcg/0.5mg [...] Unspecified Formulation 12/22/2020,12/01/2019,11/08/2018,12/20,01/11/2017,12/02/2015,12/13/2014 ,12/13/2013,11/28/2012,11/22/2011,11/06,04/22/2009,01/29/2008, 7,01/06/2006 Seasonal Influenza, PF, 6 M & above, [...] No 08/17/2023 Does the household have a [facility] source of income? 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 I did offer her to go to [facility] since their machine can accommodate Pacemakers. She would like to hold off on the scan for now until she can talk with you at her next appointment in February. Thanks! Emely Ervin documented in this encounter Plan of Treatment Upcoming Encounters Date Type Department Care Team (Latest Contact Info) Description 03/05/2024 9:00 AM EST Office Visit Family Practice [facility] [address] [address] Dane Godwin MD [address] [place] [address] [address] 03/08/2024 10:36 AM EST Hospital Encounter OR [facility], Operating Room, [facility] - 4th Floor [address] [place] [address] [place] [address] Lalo Segovia MD [address] [place] [address] 03/08/2024 10:36 AM EST - 03/08/2024 11:31 AM EST Surgery OR [facility], Operating Room, [facility] - 4th Floor [address] [facility] [place] [phone] Lalo Segovia MD [address] [place] [address] COLONOSCOPY FLEXIBLE PROXIMAL DIAGNOSTIC 03/27/2024 9:00 AM EST Office Visit Cardiology, [facility] [address] Muriel Kat [facility] [place] [address] 04/24/2024 10:30 AM EST Office Visit General Surgery, [facility] [address] [facility] [place] [address] Marilyn Boyle MD [address] [place] [address] 05/30/2024 2:00 PM EDT Cardiac Studies Cardiac Studies, [facility] [address] [facility] [place] [address] 05/30/2024 3:00 PM EDT Office Visit Cardiology, [facility] [address] [facility] [place] [address] Chuck Steen MD [address] [place] [facility] [place] [address] 11/27/2024 8:00 AM EDT Nurse Only Ancillary [facility] [address] [facility] [place] [address] [facility], Nurse Annual Wellness [facility] [place] [address] 11/29/2024 10:30 AM EDT Appointment Vascular Lab [facility] [address] [place] [address] 11/29/2024 11:00 AM EDT Appointment Vascular Lab [place] [address] [place] [address] 11/29/2024 12:00 PM EDT Office Visit Vascular Surg [facility] [address] [place] [address] Vishnu Metzger MD [address] [place] [address] Scheduled Procedures Name Priority Associated Diagnoses Date/Ti me COLONOSCOPY FLEXIBLE PROXIMAL DIAGNOSTIC Recall History of colon cancer 03/08/2024 10:36 AM EST Health Maintenance Due Date Last Done Comments DXA Scan 06/10/2019 06/10/2015, 03/08, 04/02/2013 Colonoscopy 07/14/2023 07/13/2018, 0511/2018, 09/03/2016, Additional history exists Albumin/Creatinine Ratio 08/08/2023 023, 08/21/2021, 09/12/2017, Additional history exists HbA1c 02/02/2024 08/02/2023, 07/07, 10/22/2021, Additional history exists CKD PHOS USE SMARTSET 92639 02/18/202402/04, 08/04/2022, 01/09/2021, Additional history exists GFR 08/07/2024 02/07/2024, 07/06, 02/22/2023, Additional history exists Diabetic Foot Exam 08/29/2024 08/30/2023, 0 08/27/2022, 08/25/2021, Additional history exists Diabetic Eye Exam 09/21/2024 09/22/2023, , 04/21/2023, Additional history exists Adult Wellness Visit 11/24/2024 11/25/2023, 11/16/2022, 11/13/2021 Depression Monitoring 11/24/2024 11/25/2023 CKD HGB USE SMARTSET 87075 02/06/202502/06, 02/07/2024, 12/03/2023, Additional history exists DTap/Tdap [...] and were consensually agreed upon. Care Teams Senior Sales Executive Relationship Specialty Start Date End Date Dane Godwin MD [address] [place] [address] PCP - General Family Medicine 07/08/20 documented as of this encounter
--- OUTSIDE RECORDS SUMMARY | 2024-06-13 02:47 | External Medical Summary | Summary of Care ---
Author Name Unknown Organization [facility] Address [address] [place] [address] Phone [phone] Care Team Providers Care Machine Records Units Supervisor Name Role Phone Dane Godwin MD Primary Care Provider [phone] Reason for Visit * Reason Comments Outpatient Testing Encounter Details Date Type Department Care Team (Late st Contact Info) Description 02/18/2024 9:00 AM EST Laboratory Laboratory, [facility] [address] [place] [address] [facility] [address] [place] [address] Type 2 diabetes mellitus with hemoglobin A1c goal of less than 8.0% ([facility]) Allergies Active Allergy Reactions Criticality Noted Date Comments Adhesive Tape 05/10/2011 Only use paper tape Rosiglitazone 12/01/2005 anemia documented as of this encounter (statuses as of 02/18/2024) Medications ONETOUCH ULTRA BLUE STRPIndications: Background diabetic [...] as of this encounter (statuses as of 02/18/2024) Active Problems Problem Noted Date Diagnosed Date [...] ventricle 08/08/2019 Coronary artery disease invo [place]ving [place] coronary artery of [place] heart 08/06/2019 Mild aortic stenosis 09/13/2018 [...] as of this encounter (statuses as of 02/18/2024) Resolved Problems Problem Noted Date Diagnosed Date [...] anemia 12/01/2005 09/09/2016 Overview (12/01/2005): Dx'd by supervisor mapping/oncologist ADJ DISORDER W/DEPRES MOOD 12/01/2005 0 07/05/2020 BENIGN HYPERTENSION 12/01/2005 01/08/20 06 Anemia 12/01/2005 07/05/2020 Menopause 12/14/2002 03/14/2017 ELEV BL PRES W-O HYPERTN 12/14/2002 FAM HX-DIABETES MELLITUS Disorder of intervertebral disc 02/23/2018 documented as of this encounter (statuses as of 02/18/2024) Immunizations Name Administration Dates Next Due COVID-19 [...] 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, Operating Room, [facility] - 4th Floor [address] [facility] [place] [phone] Lalo Segovia MD [address] [place] [address] 03/08/2024 10:36 AM EST - 03/08/2024 11:31 AM EST Surgery OR [facility], Operating Room, [facility] - 4th Floor [address] [facility] [place] [phone] Lalo Segovia MD [address] [place] [address] COLONOSCOPY FLEXIBLE PROXIMAL DIAGNOSTIC 03/27/2024 9:00 AM EST Office Visit Cardiology, [facility] [address] [address] Muriel Kat CRNP [address] [place] [address] 04/24/2024 10:30 AM EST Office Visit General Surgery, [facility] [address] [address] Marilyn Boyle MD [address] [place] [address] 05/30/2024 2:00 PM EDT Cardiac Studies Cardiac Studies, [facility] [address] [address] [address] 05/30/2024 3:00 PM EDT Office Visit Cardiology, [facility] [address] [place] [address] Chuck Steen MD [address] [place] [address] 11/27/2024 8:00 AM EDT Nurse Only Ancillary [facility] 132 [place] [address] [facility], Nurse Annual Wellness [address] [address] 11/29/2024 10:30 AM EDT Appointment Vascular Lab [place] [address] [place] [address] 11/29/2024 11:00 AM EDT Appointment Vascular Lab [place] [address] [place] [address] 11/29/2024 12:00 PM EDT Office Visit Vascular Surg [place] [address] [place] [address] Vishnu Metzger MD [address] [place] [address] Pending Results Name Type Priority Associated Diagnoses Date /Time HEMOGLOBIN A1C Lab Routine Type 2 diabetes mellitus with hemoglobin A1c goal of less than 8.0% ([facility]) 02/18/2024 9:01 AM EST ALBUMIN / CREATININE RATIO, URINE Lab Routine Type 2 diabetes mellitus with hemoglobin A1c goal of less than 8.0% ([facility]) 02/18/2024 9:02 AM EST Scheduled Procedures Name Priority Associated Diagnoses Date/Ti me COLONOSCOPY FLEXIBLE PROXIMAL DIAGNOSTIC Recall History of colon cancer 03/08/2024 10:36 AM EST Health Maintenance Due Date Last Done Comments DXA Scan 06/10/2019 06/10/2015, 03/08, 04/02/2013 Colonoscopy 07/14/2023 07/13/2018, 11/2018, 09/03/2016, Additional history exists Albumin/Creatinine Ratio 08/08/2023 023, 08/21/2021, 09/12/2017, Additional history exists HbA1c 02/02/2024 08/02/2023, 07/07, 10/22/2021, Additional history exists CKD PHOS USE SMARTSET 45782 02/18/202402/04, 08/04/2022, 01/09/2021, Additional history exists GFR 08/07/2024 02/07/2024, 07/06, 02/22/2023, Additional history exists Diabetic Foot Exam 08/29/2024 08/30/2023, 0 08/27/2022, 08/25/2021, Additional history exists Diabetic Eye Exam 09/21/2024 09/22/2023, , 04/21/2023, Additional history exists Adult Wellness Visit 11/24/2024 11/25/2023, 11/16/2022, 11/13/2021 Depression Monitoring 11/24/2024 11/25/2023 CKD HGB USE SMARTSET 95225 02/06/202502/06, 02/07/2024, 12/03/2023, Additional history exists DTap/Tdap [...] A1c goal of less than 8.0% (HCC) History of colon cancer Personal history of [...] and were consensually agreed upon. Care Teams Machine Records Units Supervisor Relationship Specialty Start Date End Date Dane Godwin MD [address] [place] [address] PCP - General Family Medicine 07/08/20 documented as of this encounter
--- OUTSIDE RECORDS SUMMARY | 2024-06-13 02:47 | External Medical Summary | Summary of Care ---
Author Name Unknown Organization [facility] Address [address] [place] [address] Phone [phone] Care Team Providers Care Tire Mold Tester Name Role Phone Dane Godwin MD Primary Care Provider [phone] Reason for Visit * Reason Onset Date Comments Pre Op Discussion 03/01/2024 Encounter Details Date Type Department Care Team (Late st Contact Info) Description 03/01/2024 Telephone ENDO [facility], Endoscopy [address] [address] Lalo Segovia MD [address] [place] [address] Pre Op Discussion Allergies Active Allergy Reactions Criticality Noted Date Comments Adhesive Tape 05/10/2011 Only use paper tape Rosiglitazone 12/01/2005 anemia documented as of this encounter (statuses as of 03/01/2024) Medications ONETOUCH ULTRA BLUE STRPIndications: Background diabetic [...] as of this encounter (statuses as of 03/01/2024) Active Problems Problem Noted Date Diagnosed Date [...] ventricle 08/08/2019 Coronary artery disease invo lving [place] coronary artery of [place] heart 08/06/2019 Mild aortic stenosis 09/13/2018 Colostomy [...] as of this encounter (statuses as of 03/01/2024) Resolved Problems Problem Noted Date Diagnosed Date [...] anemia 12/01/2005 09/09/2016 Overview (12/01/2005): Dx'd by cadd technician/oncologist ADJ DISORDER W/DEPRES MOOD 12/01/2005 0 07/05/2020 BENIGN HYPERTENSION 12/01/2005 01/08/20 06 Anemia 12/01/2005 07/05/2020 Menopause 12/14/2002 03/14/2017 ELEV BL PRES W-O HYPERTN 12/14/2002 FAM HX-DIABETES MELLITUS Disorder of intervertebral disc 02/23/2018 documented as of this encounter (statuses as of 03/01/2024) Immunizations Name Administration Dates Next Due COVID-19 mRNA, LNP-s, No Pre serve, 2-Dose Series (Moderna) 05/02/2020,04/04/2020 COVID-19, MRNA-LNP, PF, 30 M CG/0.3 mL, 12 YRS AND ABOVE, IM ([facility] 11/25/2023,12/20/2022 COVID-19, mRNA, LNP-s, PF, B ooster, [...] 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 Not [...] encounter Miscellaneous Notes * Telephone Encounter - Vishnu Little DO [...] Description 03/05/2024 9:00 AM EST Office Visit [facility] [address] [place] [address] [address] Dane Godwin MD [address] [place] [address] 03/08/2024 10:37 AM EST Hospital Encounter OR [facility], Operating Room, [facility] - 4th Floor [address] [place] [address], [place] [address] Lalo Segovia MD [address] [place] [address] 03/08/2024 10:37 AM EST - 03/08/2024 11:32 AM EST Surgery OR [facility], Operating Room, [facility] - 4th Floor [address] [facility] [place] [address] Lalo Segovia MD [address] [place] [address] COLONOSCOPY FLEXIBLE PROXIMAL DIAGNOSTIC 03/27/2024 9:00 AM EST Office Visit Cardiology, [facility] [address] [place] [address] Muriel Kat CRNP [address] [facility] [place] [address] 04/24/2024 10:30 AM EST Office Visit General Surgery, [facility] [address] [place] [address] Marilyn Boyle MD [address] [place], [place] [address] 05/30/2024 2:00 PM EDT Cardiac Studies Cardiac Studies, [facility] [address] [place] [address] 05/30/2024 3:00 PM EDT Office Visit Cardiology, [facility] [address] [place] [address] Chuck Steen MD [address] [place] [address] 11/27/2024 8:00 AM EDT Nurse Only Ancillary [facility] 132 [facility] [place] [address] [place], Nurse Annual Wellness Shun [address] [address] 11/29/2024 10:30 AM EDT Appointment Vascular Lab [place] [address] [place] [address] 11/29/2024 11:00 AM EDT Appointment Vascular Lab [place] [address] [place] [address] 11/29/2024 12:00 PM EDT Office Visit Vascular Surg [place] [address] [place] [address] Vishnu Metzger MD [address] [place] [address] Scheduled Procedures Name Priority Associated Diagnoses Date/Ti me COLONOSCOPY FLEXIBLE PROXIMAL DIAGNOSTIC Recall History of colon cancer 03/08/2024 10:37 AM EST Health Maintenance Due Date Last Done Comments DXA Scan 06/10/2019 06/10/2015, 03/08, 04/02/2013 Colonoscopy 07/14/2023 07/13/2018, 11/2018, 09/03/2016, Additional history exists CKD PHOS USE SMARTSET 16417 02/18/202402/04, 08/04/2022, 01/09/2021, Additional history exists GFR 08/07/2024 02/07/2024, 07/06, 02/22/2023, Additional history exists HbA1c 08/18/2024 02/18/2024, 07/06, 08/04/2022, Additional history exists Diabetic Foot Exam 08/29/2024 08/30/2023, 0 08/27/2022, 08/25/2021, Additional history exists Adult Wellness Visit 11/24/2024 11/25/2023, 11/16/2022, 11/13/2021 Depression Monitoring 11/24/2024 11/25/2023 Diabetic Eye Exam 01/15/2025 01/16/2024, , 05/16/2023, Additional history exists CKD HGB USE SMARTSET 24940 02/06/202502/06, 02/07/2024, 12/03/2023, Additional history exists Albumin/Creatinine [...] and were consensually agreed upon. Care Teams Tire Mold Tester Relationship Specialty Start Date End Date Dane Godwin MD [address] [place] [address] [address] PCP - General Family Medicine 07/08/20 documented as of this encounter
--- OUTSIDE RECORDS SUMMARY | 2024-06-13 02:47 | External Medical Summary ---
Author Name Unknown Address Unknown Organization [id number]:[facility] [place] [address] [facility] [address] [facility] [address] Laboratory Report Ordering Provider Test Date Status YIMIMAKAYLAMITCH 02/18/2024 09:01:28 Final Observation Date Value Abnormality Reference (Units ) Status HbA1C 02/18/2024 09:01:28 7.2 Above high normal 4. 0-5.6 (%) Final The use of HbA1c to monitor glycemic status is based on normal hemoglobin and HbA composition. This test should not be used in patients with abnormal hemoglobin that affects the half life of the red blood cell or the in vivo glycation rates. Glucose, estimated average 02/18/2024 09:01:28 160 Above high normal <126 (mg/dL) Kg fox Performing Location [facility] [place] [address] [facility] [address]
--- OUTSIDE RECORDS SUMMARY | 2024-06-13 02:47 | External Medical Summary ---
Author Name Unknown Address Unknown Organization [id number]:[facility] [place] [address] [place] [address] Laboratory Report Ordering Provider Test Date Status ASHLEIGH SPENCER 02/07/2024 13:36:00 Final Warfarin Therapy
INR: 2 .0-3.0 conventional anticoagulation
INR: 2.5- 3.5 high intensity anticoagulation Observation Date Value Abnormality Reference (Units ) Status PT 02/07/2024 13:36:00 15.4 Above high normal 11 .6-15.2 (seconds) Final INR 02/07/2024 13:36:00 1.2 0.8-1.2 Final Performing Location [facility] [place] [address] [place] [address]
--- OUTSIDE RECORDS SUMMARY | 2024-06-13 02:47 | External Medical Summary ---
Author Name Unknown Address Unknown Organization [id number]:[facility] [place] [address] [facility] [address] [place] [place] [address] Laboratory Report Ordering Provider Test Date Status ASHLEIGH SPENCER 02/07/2024 13:36:00 Final Anticoagulation may affect t esting. Refer to [facility] Test Catalog for a list of effects. Observation Date Value Abnormality Reference (Units ) Status aPTT panel - Platelet poor plasma 02/07/2024 13:36:00 35 21-38 (seconds) Final Performing Location [facility] [place] [address] [place] [address]
--- OUTSIDE RECORDS SUMMARY | 2024-06-13 02:47 | External Medical Summary ---
Author Name Unknown Address Unknown Organization K01:LABORATORY [facility] - [address] [place] [address] Laboratory Report Ordering Provider Test Date Status ASHLEIGH SPENCER 02/07/2024 13:36:00 Final Observation Date Value Abnormality Reference (Units ) Status CRP, low-sensitivity 02/07/2024 13:36:00 19 Above high normal <=5 (mg/L) Final Performing Location LABORATORY [facility] - [address] [place] [address]
--- OUTSIDE RECORDS SUMMARY | 2024-06-13 02:47 | External Medical Summary ---
Author Name Unknown Address Unknown Organization K01:[facility] [place] [address] [facility] [address] Laboratory Report Ordering Provider Test Date Status ASHLEIGH SPENCER 02/07/2024 13:36:00 Final Observation Date Value Abnormality Reference (Units ) Status BUN 02/07/2024 13:36:00 27 Above high normal 6-20 (mg/dL) Final Creatinine 02/07/2024 13:36:00 0.9 0.5-1.0 (mg/dL) Final Glomerular filtration rate/1.73 sq M.predicted [Volume Rate/Area] in Serum, Plasma or Blood by Creatinine-based formula (CKD-EPI) 02/07/2024 13:36:00 67 >=60 (mL/min) Final eGFR is calculated based on the CKD-EPI 2020 equation. Sodium 02/07/2024 13:36:00 137 135-146 (m mol/L) Final Potassium 02/07/2024 13:36:00 4.3 3.5-5.1 (m mol/L) Final Cl 02/07/2024 13:36:00 105 98-107 (mm ol/L) Final CO2 02/07/2024 13:36:00 22 22-32 (mmo l/L) Final Anion gap 02/07/2024 13:36:00 10 7-15 (mmol /L) Final Glucose 02/07/2024 13:36:00 119 70-120 (mg /dL) Final Albumin 02/07/2024 13:36:00 3.4 Below low normal 3.8 -5.0 (g/dL) Final AST (Aspartate aminotransferase) 02/07/2024 13:36:00 26 10-35 (U/L) Fin al Alk Phos 02/07/2024 13:36:00 123 35-130 (U/ L) Final Bilirubin, Total 02/07/2024 13:36:00 0.5 <=1 .2 (mg/dL) Final Calcium 02/07/2024 13:36:00 9.4 8.4-10.2 ( mg/dL) Final Protein 02/07/2024 13:36:00 6.2 6.0-8.3 (g /dL) Final ALT (Alanine aminotransferase) 02/07/2024 13:36:00 18 10-35 (U/L) Kg fox Performing Location [facility] [place] [address] [facility] [address]
--- OUTSIDE RECORDS SUMMARY | 2024-06-13 02:47 | External Medical Summary | Summary of Care ---
Author Name Unknown Organization [facility] Address [address] [place] [address] Phone [phone] Care Team Providers Care Automotive Service Management Teacher Name Role Phone Dane Godwin MD Primary Care Provider [phone] Encounter Details Date Type Department Care Team (Late st Contact Info) Description 11/10/2023 Telephone Radiology, [facility] [address] [place] [address] Dane Godwin MD [address] [place] [address] Allergies Active Allergy Reactions Criticality [...] ventricle 08/08/2019 Coronary artery disease invo lving [place] coronary artery of [place] heart 08/06/2019 Mild aortic stenosis 09/13/2018 Colostomy [...] anemia 12/01/2005 09/09/2016 Overview (12/01/2005): Dx'd by third shift lieutenant/oncologist ADJ DISORDER W/DEPRES MOOD 12/01/2005 0 07/05/2020 [...] No 08/17/2023 Does the household have a [facility] source of income? 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 The patient is aware and would like Dexa appointment cancelled. Thank you! Emely Ervin documented in this encounter Plan of Treatment Upcoming Encounters Date Type Department Care Team (Latest Contact Info) Description 03/05/2024 9:00 AM EST Office Visit [facility] [address] [address] Dane Godwin MD [address] [address] 03/08/2024 10:36 AM EST Hospital Encounter OR [facility], Operating Room, [facility] - 4th Floor [address] [place] [phone] Lalo Segovia MD [address] [address] 03/08/2024 10:36 AM EST - 03/08/2024 11:31 AM EST Surgery OR [facility], Operating Room, [facility] 4th [facility] [address] [facility] [phone] Lalo Segovia MD [address] [facility] [place] [address] COLONOSCOPY FLEXIBLE PROXIMAL DIAGNOSTIC 03/27/2024 9:00 AM EST Office Visit Cardiology, [facility] [address] [place] [address] Muriel Kat CRNP [address] [facility] [place] [address] 04/24/2024 10:30 AM EST Office Visit General Surgery, [facility] [address] [place] [address] Marilyn Boyle MD [address] [place] [address] 05/30/2024 2:00 PM EDT Cardiac Studies Cardiac Studies, [facility] [address] [place] [address] 05/30/2024 3:00 PM EDT Office Visit Cardiology, [facility] [address] [place] [address] Chuck Steen MD [address] [place] [address] 11/27/2024 8:00 AM EDT Nurse Only Ancillary [facility] [address] [facility] [address] Wilber, Nurse Annual Wellness [address] [place] [address] 11/29/2024 10:30 AM EDT Appointment Vascular [facility] [place] [address] [place] [address] 11/29/2024 11:00 AM EDT Appointment Vascular [facility] [place] [address] [place] [address] 11/29/2024 12:00 PM EDT Office Visit Vascular Surg [place] [address] [place] [address] Vishnu Metzger MD [address] [place] [address] Scheduled Procedures Name Priority Associated Diagnoses Date/Ti me COLONOSCOPY FLEXIBLE PROXIMAL DIAGNOSTIC Recall History of colon cancer 03/08/2024 10:36 AM EST Health Maintenance Due Date Last Done Comments DXA Scan 06/10/2019 06/10/2015, 03/08, 04/02/2013 Colonoscopy 07/14/2023 07/13/2018, 11/2018, 09/03/2016, Additional history exists Albumin/Creatinine Ratio 08/08/2023 023, 08/21/2021, 09/12/2017, Additional history exists HbA1c 02/02/2024 08/02/2023, 07/07, 10/22/2021, Additional history exists CKD PHOS USE SMARTSET 70217 02/18/202402/04, 08/04/2022, 01/09/2021, Additional history exists GFR 08/07/2024 02/07/2024, 07/06, 02/22/2023, Additional history exists Diabetic Foot Exam 08/29/2024 08/30/2023, 0 08/27/2022, 08/25/2021, Additional history exists Diabetic Eye Exam 09/21/2024 09/22/2023, , 04/21/2023, Additional history exists Adult Wellness Visit 11/24/2024 11/25/2023, 11/16/2022, 11/13/2021 Depression Monitoring 11/24/2024 11/25/2023 CKD HGB USE SMARTSET 92218 02/06/202502/06, 02/07/2024, 12/03/2023, Additional history exists DTap/Tdap [...] and were consensually agreed upon. Care Teams Automotive Service Management Teacher Relationship Specialty Start Date End Date Dane Godwin MD [address] [address] PCP - General Family Medicine 07/08/20 documented as of this encounter
--- OUTSIDE RECORDS SUMMARY | 2024-06-13 02:47 | External Medical Summary ---
Author Name Unknown Address Unknown Organization K01:[facility] [place] [address] [place] [address] Laboratory Report Ordering Provider Test Date Status ASHLEIGH SPENCER 02/07/2024 13:36:00 Final Observation Date Value Abnormality Reference (Units ) Status WBC, Total 02/07/2024 13:36:00 5.52 4.00-10.80 (K/uL) Final RBC 02/07/2024 13:36:00 3.99 3.85-5.15 (M/uL) Final Hemoglobin 02/07/2024 13:36:00 11.7 Below low normal 12.0-15.3 (g/dL) Final HCT 02/07/2024 13:36:00 38.1 36.0-45.2 (%) Final MCV 02/07/2024 13:36:00 95.5 81.5-97.5 (fL) Final MCH 02/07/2024 13:36:00 29.3 27.0-34.0 (pg) Final MCHC 02/07/2024 13:36:00 30.7 32.0-36.0 (g/dL) Final RDW 02/07/2024 13:36:00 13.4 11.5-15.5 (%) Final Platelets 02/07/2024 13:36:00 124 Below low normal 140-400 (K/uL) Final MPV 02/07/2024 13:36:00 10.1 6.6-11.1 (fL) Final Nucleated erythrocytes/100 leukocytes [Ratio] in Blood by Automated count 02/07/2024 13:36:00 0 <=0 (/100 WBCs) Final Performing Location [facility] [place] - [address] [place] [address]
--- OUTSIDE RECORDS SUMMARY | 2024-06-13 02:48 | External Medical Summary | Summary of Care ---
Author Name Unknown Organization [facility] Address [address] [facility] [place] [address] Phone [phone] Care Team Providers Care Police Department Secretary Name Role Phone Dane Godwin MD Primary Care Provider [phone] Encounter Details Date Type Department Care Team (Late st Contact Info) Description 12/29/2023 Result Scan Unspecified Department Vishnu Little, DO [address] [facility] [address] <No scans attached> Allergies Active Allergy Reactions Criticality Noted Date Comments Adhesive Tape 05/10/2011 Only use paper tape Rosiglitazone 12/01/2005 anemia documented as of this encounter (statuses as of 12/29/2023) Medications Medication Sig Dispensed Refills Start Date End Date Status ONETOUCH ULTRA BLUE STRPIndications:Alesha kground diabetic retinopathy(362.01) test blood sugar 2 times daily dx 250.00 6 Box 3 04/03/2012 Active Latanoprost 0.005 % Ophthalmic Solution (Xalatan) Instill 1 Drop into both eyes at bedtime. 09/20/2021 Active PreserVision AREDS 2+Multi Vit Oral Capsule Take 1 Capsule by mouth daily. Active Aspirin 81 MG Oral Capsule Take by mouth. Active Atorvastatin Calcium 80 MG Oral Tablet (Lipitor) TAKE 1 TABLET IN THE MORNING 90 Tablet 3 01/17/2023 Active Additional Information Patient taking differently:80 mg Oral,In the evening, Reported on 08/31/2023 Lisinopril 2.5 MG Oral Tablet (Prinivil)Indicatio ns:Ischemic cardiomyopathy,Traffic Rate Analyst william systolic congestive heart failure (HCC),Nonrheumatic aortic valve stenosis Take 1 Tablet by mouth in the morning. 90 Tablet 3 05/23/2023 Active Dorzolamide HCl-Timolol Mal 2-0.5 % Ophthalmic Solution (Cosopt Ocumeter Plus) INSTILL 1 DROP INTO EACH EYE TWICE DAILY 05/16/2023 Active guaiFENesin-Codeine 100-10 MG/5ML Oral Syrup (Robitussin AC)Indications:Suba cute bronchitis Take 5 mL by mouth every 4 hours as needed for Cough. 120 mL 05/31/2023 Active Additional Information Patient not taking.Reported on 08/31/2023 Ozempic (0.25 or 0.5 MG/DOSE) 2 MG/3ML Solution Pen-injector (Semaglutide(0.25 or 0.5MG/DOS))Indicati ons:Diabetes mellitus with stage 3 chronic kidney disease (HCC) Inject 0.5 mg under the skin once a week. 9 mL 1 07/23/2023 Active Metoprolol Succinate ER 25 MG Oral Tablet Extended Release 24 Hour (toPROL XL) Take 1 Tablet by mouth in the morning and 1 Tablet before bedtime. 180 Tablet 3 08/15/2023 Active glipiZIDE 5 MG Oral Tablet (Glucotrol)Indicati ons:Diabetes mellitus with stage 3 chronic kidney disease (HCC) TAKE 1 TABLET TWICE A DAY 30 MINUTES BEFORE MORNING AND EVENING MEALS 180 Tablet 3 08/22/2023 Active Escitalopram Oxalate 10 MG Oral Tablet (Lexapro)Indication s:Adjustment disorder with depressed mood Take 1 Tablet by mouth in the morning. In the morning.. 90 Tablet 2 10/24/2023 Active Eliquis 5 MG Oral Tablet (Apixaban) TAKE 1 TABLET IN THE MORNING AND 1 TABLET BEFORE BEDTIME 180 Tablet 1 11/04/2023 Active Amoxicillin-Pot Clavulanate 875-125 MG Oral Tablet (Augmentin)Indicati ons:Colonic fistula Take 1 Tablet by mouth in the morning and 1 Tablet before bedtime. 20 Tablet 1 12/03/2023 Active Doxycycline Hyclate 100 MG Oral CapsuleIndications: Colonic fistula Take 1 Capsule by mouth in the morning and 1 Capsule before bedtime. Until gone.. 20 Capsule 1 12/03/2023 Active documented as of this encounter (statuses as of 12/29/2023) Active Problems Problem Noted Date Diagnosed Date Radiation induced proctitis 02/02/2023 Overweight (BMI 25.0-29.9) 12/17/2021 LBBB (left bundle branch block) 12/02/2020 PAD (peripheral artery disease) 07/08/2020 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 07/05/2020 Chronic systolic heart failure 07/05/2020 Ischemic cardiomyopathy 08/16/2019 Mural thrombus of left ventricle 08/08/2019 Coronary artery disease invo lving [place] coronary artery of [place] heart 08/06/2019 Mild aortic stenosis 09/13/2018 Colostomy status 09/09/2016 HTN, goal below 130/80 05/12/2015 Overview: Per HTN Protocol #27. Dyslipidemia 07/28/2012 Type 2 diabetes mellitus wit h hemoglobin A1c goal of less than 8.0% 01/02/2009 Overview: Per Diabetes Taxonomy. ICD-10 update of inactive term Stage 3a chronic kidney disease 05/24/2007 History of rectal cancer 12/01/2005 Overview: S/p ileostomy and reversal S/p chemotherapy 6weeks [...] Thanks, Lalo Segovia MD Diabetic polyneuropathy 12/01/2005 Overview: May be from DM vs chemo/radiation ICD-10 update of inactive term Diabetes mellitus with background retinopathy Overview: ICD-10 update of inactive term Major depressive disorder Overview: ICD-10 update of inactive term documented as of this encounter (statuses as of 12/29/2023) Resolved Problems Problem Noted Date Diagnosed Date Resolved Date Medical home patient encounter 12/18/2021 02/24/2022 Diabetes mellitus with stage 3 chronic kidney disease 01/14/2020 08/26/2022 Overview: Per CKD protocol Hypertensive kidney disease with stage 3a chronic kidney disease 01/14/2020 07/05/2020 Overview: Per CKD protocol Sacral wound 09/08/2019 07/05/2020 Abscess 09/08/2019 07/05/2020 Overview: Prescaral abscess Intracardiac thrombus 08/09/20192020 Acute systolic [...] fistula 04/29/2011 03/12/2016 History of osteomyelitis 04/01/201103/2020 Overview: Sacral osteomyelitis HTN, goal below 130/80 04/22/200910/27 DM TYPE 2 CAUSING RENAL DZ 01/02/2009 0 08/10/2018 Overview: Per Diabetes Taxonomy. Added per DM w/ renal complications protocol #4 DIAB RENAL MANIF ADULT 09/27/200701/02 Overview: Per Diabetes Taxonomy. Added per DM w/ renal complications protocol #4 Benign neoplasm of colon 09/30/200610/2018 Overview: adenomatous tissue ADVANCE DIRECTIVE INFORMATION 05/25/2006 07/05/2020 Overview: Yes, Patient instructed to provide copy of advance directive for provider to review and to be scanned into Electronic Medical Record Type 2 diabetes mellitus wit h hemoglobin A1c goal of less than 7.0% 12/01/2005 01/02/2009 Overview: Per Diabetes Taxonomy. ICD-10 update of inactive term INFORMATION 12/01/2005 12/01/2005 Overview: Cold agglutins. Autoimmune hemolytic anemia 12/01/2005 09/09/2016 Overview: Dx'd by [place] planning manager/oncologist ADJ DISORDER W/DEPRES MOOD 12/01/2005 0 07/05/2020 BENIGN HYPERTENSION 12/01/2005 01/08/20 06 Anemia 12/01/2005 07/05/2020 Menopause 12/14/2002 03/14/2017 ELEV BL PRES W-O HYPERTN 12/14/2002 FAM HX-DIABETES MELLITUS Disorder of intervertebral disc 02/23/2018 documented as of this encounter (statuses as of 12/29/2023) Immunizations Name Administration Dates Next Due COVID-19 mRNA, LNP-s, No Pre serve, 2-Dose Series (Moderna) 05/02/2020,04/04/2020 COVID-19, MRNA-LNP, 23-24, P F, 30 MCG/0.3 mL, 12 YRS AND ABOVE, IM (PFIZER-Comirnaty) 12/20/2022 COVID-19, MRNA-LNP, 24-25, P R, 30MCG/0.3ML, IM, 12YRS AND ABOVE (Pfizer-Comirnaty) 11/25/2023 COVID-19, mRNA, LNP-s, PF, B ooster, 100mcg/0.5mg [...] Date Recorded PHQ Adult Total Score 0 11/16/2022 Hunger Vital Sign Answer Date Recorded Within the past 12 months, y ou worried that your food would run out before you got the money to buy more. Never true 11/27/19 22 Within the past 12 months, t he food you bought just didn't last and you didn't have money to get more. Never true 11/26/2021 Sex and Gender Information Value Date Recorded Sex Assigned at Female 06/22/2018 7:56 AM EDT Gender Identity Female 06/22/2018 7:56 AM EDT Sexual Orientation Straight 06/22/2018 7: 56 AM EDT Job Start Date Occupation Industry Not on file Not on file Not on file documented as of this encounter Functional Status Functional Status Response Date of Assess ment Are you deaf or do you have serious difficulty hearing? No 09/08/2019 Are you blind or do you have serious difficulty seeing, even when wearing glasses? 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 09/08/2019 Do you have serious difficul ty walking or climbing stairs? (5 years old or older) No 09/08/2019 Do you have difficulty dress ing or bathing? (5 years old or older) No 09/08/2019 Because of a physical, menta l, or emotional condition, do you have difficulty doing errands alone such as visiting a doctor s office or shopping? (15 years old or older) No 09/08/2019 Cognitive Status Response Date of Assessm ent Because of a physical, menta l, or emotional condition, do you have serious difficulty concentrating, remembering, or making decisions? (5 years old or older) No 09/08/2019 documented as of this encounter Plan of Treatment Upcoming Encounters Date Type Department Care Team (Latest Contact Info) Description 03/05/2024 9:00 AM EST Office Visit Family Practice [facility] [address] [address] Dane Godwin MD [address] [address] 03/08/2024 10:44 AM EST Hospital Encounter OR [facility], Operating Room, [facility] - 4th Floor [address] [facility] [place] [phone] Lalo Segovia MD [address] [place] [address] 03/08/2024 10:44 AM EST - 03/08/2024 11:39 AM EST Surgery OR [facility], Operating Room, [facility] - 4th Floor [address] [facility] [place] [phone] Lalo Segovia MD [address] [place] [address] COLONOSCOPY FLEXIBLE PROXIMAL DIAGNOSTIC 03/27/2024 9:00 AM EST Office Visit Cardiology, [facility] [address] [facility] [place] [address] Muriel Kat CRNP [address] [place] [address] 05/30/2024 2:00 PM EDT Cardiac Studies Cardiac Studies, [facility] [address] [facility] [place] [address] 05/30/2024 3:00 PM EDT Office Visit Cardiology, [facility] [address] [facility] [place] [address] Chuck Steen MD [address] [place] [address] 11/27/2024 8:00 AM EDT Nurse Only Ancillary [facility] [address] [facility] [place] [address] Wilber, Nurse Annual Wellness [facility] [address] [facility] [place] [address] 11/29/2024 10:30 AM EDT Appointment Vascular Lab [place] [address] [place] [address] 11/29/2024 11:00 AM EDT Appointment Vascular Lab [place] [address] [place] [address] 11/29/2024 12:00 PM EDT Office Visit Vascular Surg [place] [address] [place] [address] Vishnu Metzger MD [address] [place] [address] Scheduled Procedures Name Priority Associated Diagnoses Date/Ti me COLONOSCOPY FLEXIBLE PROXIMAL DIAGNOSTIC Recall History of colon cancer 03/08/2024 10:44 AM EST Health Maintenance Due Date Last Done Comments DXA Scan 06/10/2019 06/10/2015, 03/08, 04/02/2013 Colonoscopy 07/14/2023 07/13/2018, 0511/2018, 09/03/2016, Additional history exists Albumin/Creatinine Ratio 08/08/2023 023, 08/21/2021, 09/12/2017, Additional history exists GFR 02/02/2024 08/02/2023, 02/04, 02/17/2023, Additional history exists HbA1c 02/02/2024 08/02/2023, 0503/2022, 10/22/2021, Additional history exists CKD PHOS USE SMARTSET 46830 02/18/202402/04, 08/04/2022, 01/09/2021, Additional history exists Diabetic Foot Exam 08/29/2024 08/30/2023, 0 08/27/2022, 08/25/2021, Additional history exists Diabetic Eye Exam 09/21/2024 09/22/2023, , 04/21/2023, Additional history exists Adult Wellness Visit 11/24/2024 11/25/2023, 11/16/2022, 11/13/2021 Depression Monitoring 11/24/2024 11/25/2023 CKD HGB USE SMARTSET 36196 12/02/202412/02, 12/03/2023, 08/02/2023, Additional history exists DTap/Tdap Vaccines (3 - Td or Tdap) 06/22/2028 06/22/2018, 02/27/2008 Pneumococcal Vaccine: 65+ Years Completed 09/09/2016, 09/10/2015, 12/01/2005 RETIRED - COLONOSCOPY-EVERY 5 YRS AGES 18-100 Discontinued 07/13/2018, 07/13/2018, 09/03/2016, Additional history exists Zoster Vaccines Completed 01/07/2020, 08/05, 05/05/2012 COVID-19 Vaccine Completed 11/25/2023, , 01/22/2022, Additional history exists Influenza Vaccine (FLU shot) Completed 11/25/2023, 12/06/2022, 11/27/2021, Additional history exists HPV (Gardasil) Vaccine Aged [...] Date/Time Associated Diagnosis Comments CARDIOLOGY SCANNED RESULT 12/29/2023 documented in this encounter Results * CARDIOLOGY SCANNED RESULT (12/29/2023) 12/29/2023 Vishnu GARCIA documented in this encounter Advance Directives * [...] and were consensually agreed upon. Care Teams Police Department Secretary Relationship Specialty Start Date End Date Dane Godwin MD [address] [address] PCP - General Family Medicine 07/08/20 documented as of this encounter
--- OUTSIDE RECORDS SUMMARY | 2024-06-13 02:48 | External Medical Summary | Summary of Care ---
Author Name Unknown Organization [facility] Address [address] [place] [address] Phone [phone] Care Team Providers Care Wet Room Worker Name Role Phone Ymii Meyer MD Primary Care Provider [phone] Reason for Visit * Reason Comments eRx-Medication Refill Encounter Details Date Type Department Care Team (Late st Contact Info) Description 01/16/2024 Refill Family Practice [facility] [address] [place] [address] Yimi Meyer MD [address] [place] [address] Allergies Active Allergy Reactions Criticality Noted Date Comments Adhesive Tape 05/10/2011 Only use paper tape Rosiglitazone 12/01/2005 anemia documented as of this encounter (statuses as of 01/17/2024) Medications ONETOUCH ULTRA BLUE STRPIndications :Background diabetic retinopathy(362 .01) test blood sugar 2 times daily dx 250.00 6 Box 3 04/03/19 13 Active Latanoprost 0.005 % Ophthalmic Solution (Xalatan) Instill 1 Drop into both eyes at bedtime. 09/21/19 22 Active PreserVision AREDS 2+Multi Vit Oral Capsule Take 1 Capsule by mouth daily. Active Aspirin 81 MG Oral Capsule Take by mouth. Ac tive Lisinopril 2.5 MG Oral Tablet (Prinivil)Indic ations:Ischemic cardiomyopathy, Chronic systolic congestive heart failure (HCC),Nonrheuma tic aortic valve stenosis Take 1 Tablet by mouth in the morning. 90 Tablet 3 05/23/19 24 Active Dorzolamide HCl-Timolol Mal 2-0.5 % Ophthalmic Solution (Cosopt Ocumeter Plus) INSTILL 1 DROP INTO EACH EYE TWICE DAILY 05/16/19 24 Active guaiFENesin-Cod eine 100-10 MG/5ML Oral Syrup (Robitussin AC)Indications: Subacute bronchitis Take 5 mL by mouth every 4 hours as needed for Cough. 120 mL 05/31/19 24 Active Additional Information Patient not taking.Reported on 08/31/2023 Metoprolol Succinate ER 25 MG Oral Tablet Extended Release 24 Hour (toPROL XL) Take 1 Tablet by mouth in the morning and 1 Tablet before bedtime. 180 Tablet 3 08/15/19 24 Active glipiZIDE 5 MG Oral Tablet (Glucotrol)La cations:Diabete s mellitus with stage 3 chronic kidney disease (HCC) TAKE 1 TABLET TWICE A DAY 30 MINUTES BEFORE MORNING AND EVENING MEALS 180 Tablet 3 08/22/19 24 Active Escitalopram Oxalate 10 MG Oral Tablet (Lexapro)Indica tions:Adjustmen t disorder with depressed mood Take 1 Tablet by mouth in the morning. In the morning.. 90 Tablet 2 10/24/19 24 Active Eliquis 5 MG Oral Tablet (Apixaban) TAKE 1 TABLET IN THE MORNING AND 1 TABLET BEFORE BEDTIME 180 Tablet 1 11/04/19 24 Active Amoxicillin-Pot Clavulanate 875-125 MG Oral Tablet (Augmentin)La cations:Colonic fistula Take 1 Tablet by mouth in the morning and 1 Tablet before bedtime. 20 Tablet 1 12/03/19 24 Active Doxycycline Hyclate 100 MG Oral CapsuleIndicati ons:Colonic fistula Take 1 Capsule by mouth in the morning and 1 Capsule before bedtime. Until gone.. 20 Capsule 1 12/03/19 24 Active Ozempic (0.25 or 0.5 MG/DOSE) 2 MG/3ML Solution Pen-injector (Semaglutide(0. 25 or 0.5MG/DOS))La cations:Diabete s mellitus with stage 3 chronic kidney disease (HCC) INJECT 0.5 MG UNDER THE SKIN ONCE A WEEK 9 mL 1 01/10/20 24 Active Atorvastatin Calcium 80 MG Oral Tablet (Lipitor) TAKE 1 TABLET IN THE MORNING 90 Tablet 1 01/17/20 24 Active Atorvastatin Calcium 80 MG Oral Tablet (Lipitor) TAKE 1 TABLET IN THE MORNING 90 Tablet 3 01/18/20 23 024 Discontinued documented as of this encounter (statuses as of 01/17/2024) Active Problems Problem Noted Date Diagnosed Date Radiation induced proctitis 02/02/2023 Overweight (BMI 25.0-29.9) 12/17/2021 LBBB (left bundle branch block) 12/02/2020 PAD (peripheral artery disease) 07/08/2020 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 07/05/2020 Chronic systolic heart failure 07/05/2020 Ischemic cardiomyopathy 08/16/2019 Mural thrombus of left ventricle 08/08/2019 Coronary artery disease invo lving [place] coronary artery of [place] heart 08/06/2019 Mild aortic stenosis 09/13/2018 [...] as of this encounter (statuses as of 01/17/2024) Resolved Problems Problem Noted Date Diagnosed Date [...] anemia 12/01/2005 09/09/2016 Overview (12/01/2005): Dx'd by butcher helper/oncologist ADJ DISORDER W/DEPRES MOOD 12/01/2005 0 07/05/2020 BENIGN HYPERTENSION 12/01/2005 01/08/20 06 Anemia 12/01/2005 07/05/2020 Menopause 12/14/2002 03/14/2017 ELEV BL PRES W-O HYPERTN 12/14/2002 FAM HX-DIABETES MELLITUS Disorder of intervertebral disc 02/23/2018 documented as of this encounter (statuses as of 01/17/2024) Immunizations Name Administration Dates Next Due COVID-19 [...] 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 Not on file Not [...] encounter Miscellaneous Notes * Telephone Encounter - Kamala Goyal [facility] - 01/17/2024 11:38 AM ESTSigned Prescriptions: Disp Refills Atorvastatin Calcium 80 MG Oral Tablet (Li*90 Tab*1 Sig: TAKE 1 TABLET IN THE MORNINGAuthorizing Provider: YIMI MEYER User: KAMALA GOYAL------- documented in this encounter Plan of Treatment Upcoming Encounters Date Type Department Care Team (Latest Contact Info) Description 03/05/2024 9:00 AM EST Office Visit Family Practice [facility] [address] [place] [address] Yimi Meyer MD [address] [place] [address] 03/08/2024 10:36 AM EST Hospital Encounter OR [facility], Operating Room, [facility] - 4th Floor [address] [place] [id number] Lalo Segovia MD [address] [place] [address] 03/08/2024 10:36 AM EST - 03/08/2024 11:31 AM EST Surgery OR [facility], Operating Room, [facility] - 4th Floor [address] [facility] [place] [phone] Lalo Segovia MD [address] [place] [address] COLONOSCOPY FLEXIBLE PROXIMAL DIAGNOSTIC 03/27/2024 9:00 AM EST Office Visit Cardiology, [facility] [address] [place] [address] Muriel Kat CRNP [address] [place] [address] 05/30/2024 2:00 PM EDT Cardiac Studies Cardiac Studies, [address] [address] 05/30/2024 3:00 PM EDT Office Visit Cardiology, [address] [address] Chuck Steen MD [address] [place] [address] 11/27/2024 8:00 AM EDT Nurse Only Ancillary [address] [address] [facility], Nurse Annual Wellness [address] [address] 11/29/2024 10:30 AM EDT Appointment Vascular Lab [place] [address] [place] [address] 11/29/2024 11:00 AM EDT Appointment Vascular Lab [place] [address] [place] [address] 11/29/2024 12:00 PM EDT Office Visit Vascular Surg [facility] [address] [place] [address] Vishnu Metzger MD [address] [place] [address] Scheduled Procedures Name Priority Associated Diagnoses Date/Ti [...] Additional history exists CKD PHOS USE SMARTSET 71839 02/18/202402/04, 08/04/2022, 01/09/2021, Additional history exists Diabetic Foot Exam 08/29/2024 08/30/2023, 0 08/27/2022, 08/25/2021, Additional history exists Diabetic Eye Exam 09/21/2024 09/22/2023, , 04/21/2023, Additional history exists Adult Wellness Visit 11/24/2024 11/25/2023, 11/16/2022, 11/13/2021 Depression Monitoring 11/24/2024 11/25/2023 CKD HGB USE SMARTSET 34210 12/02/202412/02, 12/03/2023, 08/02/2023, Additional history exists DTap/Tdap [...] and were consensually agreed upon. Care Teams Wet Room Worker Relationship Specialty Start Date End Date Yimi Meyer MD [address] [place] [address] PCP - General Family Medicine 07/08/20 documented as of this encounter
--- OUTSIDE RECORDS SUMMARY | 2024-06-13 02:48 | External Medical Summary | Summary of Care ---
Author Name Unknown Organization [facility] Address [address] [place] [address] Phone [phone] Care Team Providers Care Generator Technician Name Role Phone Yimi Meyer MD Primary Care Provider [phone] Reason for Visit * Reason Comments eRx-Medication Refill Encounter Details Date Type Department Care Team (Late st Contact Info) Description 01/09/2024 Refill Family Practice [facility] [address] [place] [address] Yimi Meyer MD [address] [place] [address] Diabetes mellitus with stage 3 chronic kidney disease (HCC) Allergies Active Allergy Reactions Criticality Noted Date Comments Adhesive Tape 05/10/2011 Only use paper tape Rosiglitazone 12/01/2005 anemia documented as of this encounter (statuses as of 01/10/2024) Medications Medication Sig Dispensed Refills Start Date End Date Status ONETOUCH ULTRA BLUE STRPIndications: Background diabetic retinopathy(362. [...] on 08/31/2023 Lisinopril 2.5 MG Oral Tablet (Prinivil)Indica tions:Ischemic cardiomyopathy,C hronic systolic congestive heart failure (HCC),Nonrheumat ic aortic valve stenosis Take 1 Tablet by mouth in the morning. 90 Tablet 3 05/23/2023 Active Dorzolamide HCl-Timolol Mal 2-0.5 % Ophthalmic Solution (Cosopt Ocumeter Plus) INSTILL 1 DROP INTO EACH EYE TWICE DAILY 05/16/2023 Active guaiFENesin-Code ine 100-10 MG/5ML Oral Syrup [...] 08/15/2023 Active glipiZIDE 5 MG Oral Tablet (Glucotrol)Indic [...] 12/03/2023 Active Doxycycline Hyclate 100 MG Oral CapsuleIndicatio ns:Colonic fistula Take 1 Capsule by mouth in the morning and 1 Capsule before bedtime. Until gone.. 20 Capsule 1 12/03/2023 Active Ozempic (0.25 or 0.5 MG/DOSE) 2 MG/3ML Solution Pen-injector (Semaglutide(0.2 5 or 0.5MG/DOS))Indic ations:Diabetes mellitus with stage 3 chronic kidney disease (HCC) INJECT 0.5 MG UNDER THE SKIN ONCE A WEEK 9 mL 1 01/10/2024 Active Ozempic (0.25 or 0.5 MG/DOSE) 2 MG/3ML Solution Pen-injector (Semaglutide(0.2 5 or 0.5MG/DOS))Indic ations:Diabetes mellitus with stage 3 chronic kidney disease (HCC) Inject 0.5 mg under the skin once a week. 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 coronary artery of [place] heart 08/06/2019 Mild aortic stenosis 09/13/2018 Colostomy [...] as of this encounter (statuses as of 01/10/2024) Resolved Problems Problem Noted Date Diagnosed Date [...] hemolytic anemia 12/01/2005 09/09/2016 Overview: Dx'd by community specialist/oncologist ADJ DISORDER W/DEPRES MOOD 12/01/2005 0 07/05/2020 BENIGN HYPERTENSION 12/01/2005 01/08/20 06 Anemia 12/01/2005 07/05/2020 Menopause 12/14/2002 03/14/2017 ELEV BL PRES W-O HYPERTN 12/14/2002 FAM HX-DIABETES MELLITUS Disorder of intervertebral disc 02/23/2018 documented as of this encounter (statuses as of 01/10/2024) Immunizations Name Administration Dates Next Due COVID-19 [...] No 09/08/2019 documented as of this encounter Miscellaneous Notes * Telephone Encounter - [place], [facility], [facility] - 01/10/2024 8:59 AM ESTSigned Prescriptions: Disp Refills Ozempic (0.25 or 0.5 MG/DOSE) 2 MG/3ML Marli*9 mL 1 Sig: INJECT 0.5 MG UNDER THE SKIN ONCE A WEEKAuthorizing Provider: YIMI MEYEROrderaric User: UNIQUE FINCH documented in this encounter Plan of Treatment Upcoming Encounters Date Type Department Care Team (Latest Contact Info) Description 03/05/2024 9:00 AM EST Office Visit [facility] [address] [place] [address] Yimi Meyer MD [address] [place] [address] 03/08/2024 10:36 AM EST Hospital Encounter OR [facility], Operating Room, [facility] - 4th Floor [address] [place] [phone] Lalo Segovia MD [address] [place] [address] 03/08/2024 10:36 AM EST - 03/08/2024 11:31 AM EST Surgery OR [facility], Operating Room, [facility] - 4th Floor [address] [place] [address] Lalo Segovia MD [address] [place] [address] COLONOSCOPY FLEXIBLE PROXIMAL DIAGNOSTIC 03/27/2024 9:00 AM EST Office Visit Cardiology, [facility] [address] [place] [address] Muriel Kat CRNP [address] [facility] [place] [address] 05/30/2024 2:00 PM EDT Cardiac Studies Cardiac Studies, [facility] [address] [place] [address] 05/30/2024 3:00 PM EDT Office Visit Cardiology, [facility] [address] [place] [address] Chuck Steen MD [address] [place] [address] 11/27/2024 8:00 AM EDT Nurse Only Ancillary [address] [place] [address] [facility], Nurse Annual Wellness [address] [place] [address] 11/29/2024 10:30 AM EDT Appointment Vascular Lab [address] [address] 11/29/2024 11:00 AM EDT Appointment Vascular Lab [address] [address] 11/29/2024 12:00 PM EDT Office Visit Vascular Surg [address] [address] Vishnu Metzger MD [facility] [address] [place] [address] Scheduled Procedures Name Priority Associated Diagnoses Date/Ti me COLONOSCOPY FLEXIBLE PROXIMAL DIAGNOSTIC Recall History of colon cancer 03/08/2024 10:36 AM EST Health Maintenance Due Date Last Done Comments DXA Scan 06/10/2019 06/10/2015, 03/08, 04/02/2013 Colonoscopy 07/14/2023 07/13/2018, 050 11/2018, 09/03/2016, Additional history exists Albumin/Creatinine Ratio 08/08/2023 023, 08/21/2021, 09/12/2017, Additional history exists GFR 02/02/2024 08/02/2023, 02/04, 02/17/2023, Additional history exists HbA1c 02/02/2024 08/02/2023, 07/07, 10/22/2021, Additional history exists CKD PHOS USE SMARTSET 26823 02/18/202402/04, 08/04/2022, 01/09/2021, Additional history exists Diabetic Foot Exam 08/29/2024 08/30/2023, 0 08/27/2022, 08/25/2021, Additional history exists Diabetic Eye Exam 09/21/2024 09/22/2023, , 04/21/2023, Additional history exists Adult Wellness Visit 11/24/2024 11/25/2023, 11/16/2022, 11/13/2021 Depression Monitoring 11/24/2024 11/25/2023 CKD HGB USE SMARTSET 88448 12/02/202412/02, 12/03/2023, 08/02/2023, Additional history exists DTap/Tdap [...] as of this encounter Visit Diagnoses Diagnosis Diabetes mellitus with stage 3 chronic kidney disease (HCC) Type II or unspecified type diabetes mellitus with renal manifestations, not stated as uncontrolled History of colon cancer Personal history of [...] and were consensually agreed upon. Care Teams Generator Technician Relationship Specialty Start Date End Date Yimi Meyer MD [address] [place] [address] PCP - General Family Medicine 07/08/20 documented as of this encounter
[2024-06-13] MEDS ORDERED: DEXTROSE 50% 50 ML SYRINGE IV PRN (02:58)
[2024-06-13] MEDS ORDERED: GLUCOSE 10 TAB/TUBE PO PRN (02:58)
[2024-06-13] MEDS ORDERED: GLUCOSE 40% GEL 15 GM TUBE PO PRN (02:58)
[2024-06-13] MEDS ORDERED: CARBOHYDRATES FOR HYPOGLYCEMIA PO PRN (02:58)
[2024-06-13] MEDS ORDERED: GLUCAGON FOR INJ 1 MG VIAL SQ PRN (02:58)
[2024-06-13] MEDS: INSULIN ASPART PER UNIT CHARGE SC SCH (03:38)
[2024-06-13] MEDS: DOXYCYCLINE HYCLATE 100 MG in DEXTROSE 5% MINI-B 100 ML IV STA (03:42)
--- NOTE | 2024-06-13 03:43 | History & Physical Report ---
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 Progressive transaminitis without abdominal pain chronic systolic heart failure secondary to ischemic cardiomyopathy status post ICD (EF 25%, TTE 2024), equivocal volume status chronic LBBB valvular heart disease (moderate /MR, mild AR TTE 2023) history of cardiac thrombus/DVT on Eliquis hypertension, BP stable hyperlipidemia, on statin Rx history of DM2 on oral medications, patient markedly hyperglycemic, outpatient hemoglobin A1c of 7.2 from February 2024 history of MRSA PCU Cultures, Doxycycline, Zosyn Contact patient's [facility] colorectal surgeon (Dr. Boyle) during confinement for additional recommendations. (ED provider in touch with on-call [facility] colorectal surgeon Dr. Lopez prior to hospitalist consultation for admission. No surgical intervention recommended as per conversation.) Follow H&H, transfuse PRBC if hemoglobin less than 8 and or for symptomatic anemia Hold aspirin and Eliquis for now given bleeding resulting in hemoglobin drop from baseline Resume once H&H stable Trend troponin, TTE given marked troponin elevation May benefit from inpatient cardiology eval Follow LFTs, hold statin for now GI consult re: transaminitis Monitor creatinine response to gentle IV hydration given pulmonary congestion and systolic dysfunction Hold lisinopril for now given hyperkalemia and kidney dysfunction Basal bolus insulin, ISS BG goal 110-140, carb count coverage Update hemoglobin A1c DVT prophylaxis. SCDs while Eliquis on hold given bleeding enterocutaneous wound Full code Patient requesting updates providers. Federico Baljeet Lentzpatrialeonard contact #[phone]. Text document was generated using Versus voice recognition software. It may contain grammatical or spelling errors. Kindly contact undersigned for clarification of any documentation item in question. History of Present Illness Chief Complaint: Bottom bleeding Primary Care Provider: Dane Godwin MD History obtained from patient, family, and records. Medical history significant for chronic systolic heart failure secondary to ischemic cardiomyopathy status post ICD (EF 25%, TTE 2024), CAD status post stent, PVD, chronic LBBB, valvular heart disease (moderate AAS/MR, mild AR TTE 2023), history of cardiac thrombus/DVT on Eliquis, hypertension, hyperlipidemia, rectal cancer status post surgery/chemoradiation, history of osteomyelitis/r adiation proctitis/fistula status post ostomy, abdominopelvic/and enterocutaneous fistulae/recurrent presacral fluid collections, history of DM2 on oral medications, chronic anemia (baseline hemoglobin of 11), , glaucoma, history of MRSA Last confinement December 2021 for recurrent pelvic abscess. No surgical intervention. Abscess improved with medical management. 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 Patient averse to definitive procedure of abdominal perineal resection as per note. Procedure would be challenging to undertake given patient cardiac condition as per provider documentation. Conservative management recommended. 5 days ago, patient noted buttock pain followed by bloody drainage. Some chills. Denies chest pain, SOB. Generalized weakness. Watery ostomy output without abdominal pain. Tylenol 500 mg 3 times daily taken for pain not effective as per patient. One-time intake of ibuprofen. Patient brought by to ER for evaluation. Zosyn administered at the ER. 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 Allergies Allergy/AdvReac Type Severity Reaction Status Date / Time adhesive Allergy Intermediate HIVES Verified 06/12/24 22:07 rosiglitazone AdvReac Unknown ANEMIA/retinal Verified 06/12/24 22:07 BLEEDING Home Medications Medication Instructions Recorded Confirmed Type apixaban 5 mg tablet (Eliquis) 5 mg PO BID 12/11/21 06/12/24 History atorvastatin 80 mg tablet 80 mg PO QPM 12/11/21 06/12/24 History escitalopram oxalate 10 mg tablet 10 mg PO QAM 12/11/21 06/12/24 History glipizide 5 mg tablet 5 mg PO AMPM 12/11/21 06/12/24 History latanoprost 0.005 % eye drops 1 drp OPB QAM 12/11/21 06/12/24 History metoprolol succinate 25 mg 25 mg PO BID 12/11/21 06/12/24 History tablet,extended release 24 hr vitamins A,C,Z-qgho-tmhzig 4,296 1 cap PO DAILY 12/11/21 06/12/24 History mcg-226 mg-90 mg capsule (PreserVision AREDS) aspirin 81 mg capsule 81 mg PO QAM 12/09/23 06/12/24 History dorzolamide-timolol (PF) 2 %-0.5 % 1 drp ophthalmic (eye) AMPM 12/09/23 06/12/24 History eye drops in a dropperette (Cosopt (PF)) lisinopril 2.5 mg tablet 2.5 mg PO QAM 12/09/23 06/12/24 History semaglutide 0.25 mg or 0.5 mg (2 0.5 mg subcut WK 06/12/24 06/12/24 History mg/3 mL) subcutaneous pen injector (Ozempic) Past Med/Surg History Problem List (Updated 06/13/24 @ 02:58 by Gerber Mcclain DO) Elevated troponin (Acute) Elevated procalcitonin (Acute) Abscess, female pelvis, chronic (Acute) Left buttock pain (Acute) BENI (acute kidney injury) (Acute) Syncope (Acute) Pelvic abscess Carotid artery disease Ventricular mural thrombus Chronic systolic heart failure Hypomagnesemia BENI (acute kidney injury) Abscess Coronary artery disease Severe mitral regurgitation Ischemic cardiomyopathy Multi-vessel coronary artery stenosis Elevated troponin I level Abnormal finding on breast imaging Acute HFrEF (heart failure with reduced ejection fraction) Elevated d-dimer Discharge planning issues DVT prophylaxis COVID-19 ruled out Depression Left bundle branch block Diabetic neuropathy Diabetic retinopathy Diabetes mellitus type 2 with complications Dyslipidemia History of MRSA infection buttock ulcer 2019 Elevated troponin I level (Acute) SOB (shortness of breath) (Acute) CHF (congestive heart failure) (Acute) Hypertension Medical History Colostomy present Diabetes mellitus, type 2 History of anemia Retinopathy being monitored Depression Neuropathy Hx of pancreatitis Ejection fraction < 50% 25 per >just checked at [facility] ICD (implantable cardioverter-defibrillator) in place 2019>medtronic device (Dr. Mera [facility]) Hx of acute heart failure 2019 History of myocardial infarction 2020 Hypertension Hyperlipidemia History of DVT (deep vein thrombosis) 2004- LLE while receiving EPO History of osteomyelitis sacrum Rectal carcinoma hx of 2004- dS/P resection, chemo, radiation therapy Anorectal fistula (Unknown) presently being treated for infection in fistula Surgical History History of anesthesia reaction slow to wake up after colonoscopy History of ERCP History of esophagogastroduodenoscopy (EGD) History of colonoscopy History of tooth extraction History of cataract surgery right/left H/O vitrectomy right History of heart artery stent 1 stent placed at [facility] Status post colostomy 2003 initially after resection rectal cancer, reversed new colostomy after pelvic abscess in 2011 History of colon resection low anterior resection for colon cancer Family History Father Diabetes Lung cancer Mother Heart disease Hypertension Other No family history of adverse response to anesthesia Social History Smoking Status: Never smoker Tobacco Type: Cigarettes Second Hand Exposure: Yes (as a child); Hx Alcohol Use: Yes Alcohol type: hard liquor Alcohol Intake Frequency Comment: occasional Hx Substance Use: No Preferred Language: Slovenian Communication Ability: Effective Java Security Engineer Required: No Beliefs That Will Affect Care: None Current Living Situation: Spouse Feels Safe at Home: Yes Assistive Devices: Cane and Glasses Review of Systems Review of Systems: As per HPI, all other systems reviewed and negative Physical Exam Physical Exam: GENERAL: Slightly uncomfortable, obese, no respiratory distress SKIN: Pallor, warm HEENT: Pale palpebral conjunctivae, no ptosis, dry buccal mucosa NECK : Supple, no tenderness CHEST : Decreased breath sounds , no tenderness HEART : Diminished S1-S2, systolic murmur ABDOMEN: Some distention, ostomy bag in place, no overt tenderness BACK: Dressing with dried blood over buttock EXTREMITIES : Minimal LE swelling, no LE tenderness, no other conspicuous deformities noted NEUROLOGIC : Coherent, no facial asymmetry, no other gross focality Results & Data Results & Data Vital Signs (Past 12 Hours) Vital Signs Temp Pulse Pulse Resp BP BP Pulse Ox 06/13/24 03:21 77 20 125/74 95 06/13/24 02:30 74 20 119/66 97 06/13/24 02:06 76 17 125/75 99 06/13/24 01:39 75 14 109/67 98 06/13/24 01:29 77 06/13/24 01:00 80 19 107/73 98 06/13/24 00:03 85 23 112/67 92 06/12/24 23:00 108/72 06/12/24 22:51 84 18 112/67 93 06/12/24 22:30 115/66 06/12/24 22:00 87 27 H 108/57 L 90 06/12/24 21:33 91 H 06/12/24 20:52 36.9 C 95 H 17 124/69 95 O2 Del Method 06/13/24 03:21 06/13/24 02:30 06/13/24 02:06 06/13/24 01:39 06/13/24 01:29 06/13/24 01:00 06/13/24 00:03 06/12/24 23:00 06/12/24 22:51 Room Air 06/12/24 22:30 06/12/24 22:00 06/12/24 21:33 06/12/24 20:52 Room Air Laboratory Results Laboratory Results WBC 9.63 K/ul (4.8-10.8) 06/12/24 21:11 RBC 3.91 M/uL (4.20-5.40) L 06/12/24 21:11 Hgb 11.1 g/dl (12.0-16.0) L 06/12/24 21:11 Hct 34.9 % (37.0-47.0) L 06/12/24 21:11 MCV 89.3 fL (80.0-100.0) 06/12/24 21:11 MCH 28.4 pg (25.0-34.0) 06/12/24 21:11 MCHC 31.8 g/dL (32.0-36.0) L 06/12/24 21:11 RDW Std Deviation 49.0 fL (36.4-46.3) H 06/12/24 21:11 RDW Coeff of Gemma 15.1 % (11.5-14.5) H 06/12/24 21:11 Plt Count 176 K/uL (130-400) 06/12/24 21:11 MPV 10.5 fL (9.4-12.4) 06/12/24 21:11 PT 10.9 Seconds (9.0-12.0) 06/12/24 22:43 INR 1.0 (0.9-1.1) 06/12/24 22:43 APTT 27 Seconds (21-31) 06/12/24 22:43 PTT Ratio 1.0 06/12/24 22:43 Sodium 131 mmol/L (136-145) L 06/12/24 21:11 Potassium 5.2 mmol/L (3.5-5.1) H 06/12/24 21:11 Chloride 103 mmol/L (98-107) 06/12/24 21:11 Carbon Dioxide 22 mmol/L (21-32) 06/12/24 21:11 Anion Gap 6 (3-11) 06/12/24 21:11 BUN 32 mg/dl (6-23) H 06/12/24 21:11 Creatinine 1.32 mg/dl (0.6-1.2) H 06/12/24 21:11 Est Cr Clr Drug Dosing Not Reportable 06/12/24 21:11 eGFR 41.58 06/12/24 21:11 BUN/Creatinine Ratio 24.2 (10-20) H 06/12/24 21:11 Glucose 380 mg/dl (70-99(Fasting)) H* 06/12/24 21:11 POC Glucose 291 mg/dl (70-99) H 06/13/24 03:25 Calcium 8.7 mg/dl (8.6-10.3) 06/12/24 21:11 Total Bilirubin 0.6 mg/dl (0.2-1.0) 06/12/24 21:11 AST 206 U/L (13-39) H 06/12/24 21:11 ALT 293 U/L (7-52) H 06/12/24 21:11 Alkaline Phosphatase 284 U/L (34-104) H 06/12/24 21:11 Troponin I High Sens 239.5 pg/ml (0-14) H* D 06/12/24 22:44 Total Protein 6.7 gm/dl (6.0-8.3) 06/12/24 21:11 Albumin 3.6 gm/dl (3.4-5.0) 06/12/24 21:11 Globulin 3.1 gm/dl (2.5-4.0) 06/12/24 21:11 Albumin/Globulin Ratio 1.2 (0.9-2) 06/12/24 21:11 Procalcitonin 0.57 ng/ml (0-0.5) H 06/12/24 22:44 Urine Color Yellow 06/12/24 23:22 Urine Appearance Cloudy (Clear) A 06/12/24 23:22 Urine pH 5.0 (4.5-7.5) 06/12/24 23:22 Ur Specific Century 1.024 (1.000-1.030) 06/12/24 23:22 Urine Protein 1+ (Negative) H 06/12/24 23:22 Urine Glucose (UA) Trace (Negative) H 06/12/24 23:22 Urine Ketones Trace (Negative) H 06/12/24 23:22 Urine Blood 3+ (Negative) H 06/12/24 23:22 Urine Nitrite Negative (Negative) 06/12/24 23:22 Urine Bilirubin Negative (Negative) 06/12/24 23:22 Urine Urobilinogen Negative (Negative) 06/12/24 23:22 Ur Leukocyte Esterase 2+ (Negative) H 06/12/24 23:22 Urine WBC (Auto) >50 /hpf (0-5) H 06/12/24 23:22 Urine RBC (Auto) 3-5 /hpf (0-2) H 06/12/24 23:22 U Hyaline Cast (Auto) >20 /lpf (0-2) H 06/12/24 23:22 U Epithel Cells (Auto) 6-10 /hpf (0-2) H 06/12/24 23:22 Urine Bacteria (Auto) 4+ (None Seen) H 06/12/24 23:22 Blood Type B Positive 06/12/24 21:11 Antibody Screen NEGATIVE 06/12/24 21:11 Impressions Abdomen/Pelvis CT 06/12/24 23:15 EXAM: CT abd pelvis IV con only CLINICAL HISTORY: Transaminitis, rectal pain/bleeding, left buttocks TECHNIQUE: CT of the abdomen and pelvis was performed with and without contrast, with the following protocol: axial images with, and reconstructed coronal and sagittal images. One of the following dose reduction techniques was utilized for this exam: Automated exposure control, adjustment of the mA and/or kV according to patient size, and use of iterative reconstruction. COMPARISON: 12/11/2021. FINDINGS: Lung bases: New bilateral mild pleural effusion, with passive atelectasis. A new consolidation in the left lower lobe. Few calcified granulomas and visualized both lungs. Abdomen: Interval increase in size of the heterogeous soft tissue density in the presacral space, measuring about 7.0 x 8.1 cm (previously 5.0 x 6.4 cm), with hypodense areas, also an increase in size, and calcifications. The largest hypodense collection is seen extending superficially to the left gluteal region. It measures about 5.5 x 3.5 cm (previously 4.4 x 2.6 cm). The uterus and rectum are not seen separately. Liver: Normal in size, shape, and density. No focal lesions, cysts, or masses were identified. Hepatic vasculature is unremarkable. New intrahepatic biliary ectasia. A calcified granuloma in right lobe of liver. Gallbladder and Biliary System: The gallbladder is surgically absent. The common bile duct is midly dilated, new finding. Pancreas: Pancreatic head, body, and tail are visualized and appear normal in size and density. No pancreatic masses or calcifications were noted. The pancreatic duct is not dilated. Spleen: Normal in size, shape, and density. No splenic lesions or masses were identified. Few calcified granulomas in the splenic parenchyma. Appendix: Not clearly delineated. Kidneys and Adrenal Glands: Both kidneys are normal in size, shape, and position. Cortical thickness is within normal limits. Bilateral small renal cortical cyst. No renal calculi or hydronephrosis. Perinephric fat stranding seen bilaterally. Adrenal glands are unremarkable with no evidence of masses or hyperplasia. Pelvis: Urinary Bladder: The urinary bladder is moderately filled with diffuse mural thickening and perivesical fat-stranding. Peritoneal and Retroperitoneal Structures: No free fluid or abnormal fluid collections were identified within the abdomen or pelvis. No lymphadenopathy was noted. Bowel: Mild mucosal wall thickening of the gastric antrum. A stoma in the left lower anterior abdomen, with herniated large and small bowel loops. Surgical wires are seen in the presumed sigmoid in the left lower abdomen and the hepatic flexure. There is diverticulum at the 2nd segment of the duodenum, which is interval stable. No evidence of bowel obstruction or wall thickening. Bones and Soft Tissues: Bilateral sacroilitis. No fractures or abnormal masses were identified. IMPRESSION: 1. Interval increase in size of the heterogeneous soft tissue density in the presacral space, measuring about 7.0 x 8.1 cm (previously 5.0 x 6.4 cm), with hypodense areas, also increase in sizes, and calcifications. The largest hypodense collection is seen extending superficially to the left gluteal region,likely an absces. It measures about 5.5 x 3.5 cm (previously 4.4 x 2.6 cm). The uterus and rectum are not seen separately. 2. Mild mucosal wall thickening of the gastric antrum. 3. A stoma in the left lower anterior abdomen, with herniated large and small bowel loops. No evidence of bowel obstruction. 4. New bilateral mild pleural effusion, with passive atelectasis. 5. A new consolidation in the left lower lobe. Electronically signed by Vince White 06-13-2024 01:25 AM Diagnostic Findings EKG as per my interpretation :Rate 90, paced rhythm
[2024-06-13] MEDS ORDERED: PROMETHAZINE 6.25 MG/50.25 ML BAG IV PRN (04:11)
[2024-06-13] MEDS ORDERED: HYDROmorphone INJ 0.5 MG/0.5 ML SYR IV PRN (04:11)
[2024-06-13] MEDS ORDERED: ACETAMINOPHEN 500 MG TAB PO PRN (04:11)
--- NOTE | 2024-06-13 04:18 | XRay Report ---
EXAM: XR chest 1V portable CLINICAL HISTORY: Renal failure TECHNIQUE: An X-ray image of the chest is obtained in AP projection. COMPARISON: CR 12/11/2021 FINDINGS: Pulmonary Parenchyma: Left-sided cardiac pacemaker Prominent bilateral bronchovascular markings otherwise. Lungs are clear bilaterally. No evidence of consolidation, collapse, or focal opacities. No pulmonary nodules are identified. No evidence of pleural effusion or pleural thickening. Heart and Mediastinum: Enlarged Heart size and shape are normal. No mediastinal widening or masses. No hilar or mediastinal lymphadenopathy. Bony Thorax: The bony thorax appears intact without fractures or deformities. Soft Tissues: Soft tissues overlying the chest wall are unremarkable. IMPRESSION: 1. Stationary course. 2. Prominent bilateral bronchovascular markings. 3. Mild cardiomegaly. 4. No acute cardiopulmonary abnormalities are identified. Electronically signed by Vince White 06-13-2024 04:18 AM
[2024-06-13] MEDS: LANTUS PER UNIT CHARGE SQ SCH (04:23)
[2024-06-13 04:36] LABS: Basophils # (auto) 0.01 K/uL (0.00-0.20); Basophils % (auto) 0.2 %; Hematocrit (blood only) 29.9 % (37.0-47.0); Hemoglobin 9.6 g/dl (12.0-16.0); Immature Granulocytes # (auto) 0.02 K/uL (0.01-0.20); Immature Granulocytes % (auto) 0.4 %; Lymphocytes # (auto) 0.29 K/uL (1.20-3.40); Lymphocytes % (auto) 5.3 %; Mean Corpuscular Hemoglobin 28.5 pg (25.0-34.0); Mean Corpuscular Hgb Conc 32.1 g/dL (32.0-36.0); Mean Corpuscular Volume 88.7 fL (80.0-100.0); Mean Platelet Volume 10.3 fL (9.4-12.4); Monocytes # (auto) 0.49 K/uL (0.11-0.59); Neutrophils # (auto) 4.65 K/uL (1.40-6.50); Neutrophils % (auto) 85.1 %; Platelet Count 150 K/uL (130-400); RDW Coefficient of Variation 15.1 % (11.5-14.5); RDW Standard Deviation 49.1 fL (36.4-46.3); Red Blood Count 3.37 M/uL (4.20-5.40); White Blood Count 5.46 K/ul (4.8-10.8)
[2024-06-13 04:51] LABS: BUN Creatinine Ratio 25.4 (10-20); Calcium 8.3 mg/dl (8.6-10.3); Creatinine Clr Calc Pharmacy 40.3 ml/min; Potassium 4.7 mmol/L (3.5-5.1)
[2024-06-13 04:59] LABS: Albumin Globulin Ratio 1.1 (0.9-2); Globulin 2.8 gm/dl (2.5-4.0); Total Protein 5.8 gm/dl (6.0-8.3)
[2024-06-13 05:03] LABS: Partial Thromboplastin Ratio 1.1; Partial Thromboplastin Time 29 Seconds (21-31)
[2024-06-13 05:07] LABS: Thyroid Stimulating Hormone 0.636 uIu/ml (0.300-4.500)
[2024-06-13] MEDS: ALBUMIN 25% 25 GM/100 ML VIAL IV ONE (05:25)
[2024-06-13 05:50] VITALS: RESP 16
[2024-06-13 05:58] LABS: Adenovirus F 40/41 PCR Not Detected (NotDetected); Astrovirus PCR Not Detected (NotDetected); Campylobacter PCR Not Detected (NotDetected); Cryptosporidium PCR Not Detected (NotDetected); Cyclospora cayetanensis PCR Not Detected (NotDetected); Entamoeba histolytica PCR Not Detected (NotDetected); Enteroaggregative E.coli(EAEC) Not Detected (NotDetected); Enteropathogenic E.coli (EPEC) Not Detected (NotDetected); Enterotoxigenic E.coli (ETEC) Not Detected (NotDetected); Giardia lamblia PCR Not Detected (NotDetected); Norovirus GI/GII PCR Not Detected (NotDetected); Plesiomonas shigelloides PCR Not Detected (NotDetected); Rotavirus A PCR Not Detected (NotDetected); Salmonella PCR Not Detected (NotDetected); Sapovirus PCR Not Detected (NotDetected); Shiga-like Toxin E.coli (STEC) Not Detected (NotDetected); Shigella/Enteroinvasive E.coli Not Detected (NotDetected); Vibrio cholerae PCR Not Detected (NotDetected); Vibrio species PCR Not Detected (NotDetected); Yersinia enterocolitica PCR Not Detected (NotDetected)
[2024-06-13] MEDS ORDERED: VANCOMYCIN CONSULT ACTIVE PRN (07:37)
[2024-06-13 07:46] LABS: Estimated Average Glucose 163 mg/dl; Hemoglobin A1C 7.3 % (4.5-5.6)
[2024-06-13] MEDS: VANCOMYCIN HCL 1,750 MG in SODIUM CHLORIDE 0.9% 500 ML IV STA (09:24)
[2024-06-13] MEDS: PIPERACILLIN/TAZOBACTAM 4.5 GM/100 ML BAG IV SCH (09:24)
--- NOTE | 2024-06-13 09:24 | Cardiology Consultation ---
Date of Consultation June 13, 2024 Assessment & Plan (1) Elevated troponin: (2) Abscess: (3) Ischemic cardiomyopathy: (4) Aortic valve stenosis: (5) Mitral regurgitation: Plan 79 year old female admitted with recurrent rectal pain and bleeding, symptoms recurrent presacral abscess. Cardiology consultation requested secondary to elevated high-sensitivity troponin (43.0 -> 239.5 -> 7,032 pg/mL) occurring in the setting of critical illness, known multivessel coronary artery and ischemic cardiomyopathy disease with chronic total occlusions of the right coronary artery and LAD and moderate to severe aortic valve stenosis. Patient asymptomatic in regards to angina. EKG paced. Resting echocardiography without significant change compared to recent outpatient study. Volume status appears compensated. No arrhythmias on telemetry. Recommend conservative medical management. Continue metoprolol succinate as prescribed, without interruption. Aspirin and Eliquis are on hold appropriately and will need to be resumed when safe. Atorvastatin on hold as well noting transaminitis. Supervising Physician Co-Signing Physician Notes Patient seen and personally examined. Assessment plan as outlined by advanced provider above. Echocardiogram performed personally reviewed. Management and care discussed and personally endorsed 79-year-old female with known multivessel coronary disease and ischemic cardiomyopathy with extensive inferior anteroseptal scarring. Valvular heart disease with at least moderate aortic stenosis. Presents with noncardiac complaints with rectal bleeding and abscess. Troponins elevated. Echocardiogram without acute changes in LV systolic function or wall motion. Exam consistent with moderate aortic stenosis no signs of heart failure or volume overload Troponin likely demand based. EKG unhelpful given ventricular paced rhythm Recommendations continue usual cardiac medications. Treat underlying medical concerns History of Present Illness Reason for Consultation: Type 2 [place] Requesting Physician: Dr. Rupert Frazier MD Attending Physician: Dr. Rupert Frazier MD History of Present Illness Pearl Persaud is a very pleasant 79-year-old female with history of rectal cancer who presented to [facility] on June 12, 2024 with recurrent rectal pain and bleeding, symptoms initially beginning on 2024. CT of the abdomen and pelvis revealed recurrent presacral abscess. High-sensitivity troponin elevated (43.0 -> 239.5 -> 7,032 pg/mL) leading to cardiology consultation. Patient asymptomatic in regards to angina, chest pain, worsening shortness of breath, etc. EKG with ventricular paced rhythm. Resting echocardiography without significant change when compared to recent outpatient study. Chest x-ray without acute cardiopulmonary abnormality. Telemetry benign. Past Medical and Surgical History: ASCVD, ischemic cardiomyopathy with LVEF 25% Multivessel coronary artery disease with catheterization in July 1999, chronic total occlusion of RCA and LAD. Imaging with no viability of the anterior wall and apex. Status post PCI of the left circumflex with a drug-eluting stent, August 08, 2019 History of LV apical mural thrombus via cardiac MRI Chronic systolic heart failure, NYHA class III Chronic left bundle branch block Status post biventricular pacemaker/ICD, 12/06/[address] Vo Aortic valve stenosis Mitral regurgitation Peripheral arterial disease including carotid disease and lower extremity peripheral arterial disease, followed by [facility] vascular surgery History of rectal carcinoma circa 2002, status post chemotherapy x 2, radiation, previously with right sided colostomy, currently with left-sided colostomy, osteomyelitis, radiation proctitis/fistula Recurrent DVTs left lower extremity Hypertension Dyslipidemia Type 2 diabetes mellitus with neuropathy Chronic kidney disease Chronic anemia Glaucoma History of MRSA Family History: Positive for CAD in mother, details unknown. Father was a heavy smoker, history of lung cancer Social History: Smoker in college, with significant exposure to secondhand smoke via parents. No significant alcohol. 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 Allergies Allergy/AdvReac Type Severity Reaction Status Date / Time adhesive Allergy Intermediate HIVES Verified 06/12/24 22:07 rosiglitazone AdvReac Unknown ANEMIA/retinal Verified 06/12/24 22:07 BLEEDING Home Medications Medication Instructions Recorded Confirmed Type apixaban 5 mg tablet (Eliquis) 5 mg PO BID 12/11/21 06/12/24 History atorvastatin 80 mg tablet 80 mg PO QPM 12/11/21 06/12/24 History escitalopram oxalate 10 mg tablet 10 mg PO QAM 12/11/21 06/12/24 History glipizide 5 mg tablet 5 mg PO AMPM 12/11/21 06/12/24 History latanoprost 0.005 % eye drops 1 drp OPB QAM 12/11/21 06/12/24 History metoprolol succinate 25 mg 25 mg PO BID 12/11/21 06/12/24 History tablet,extended release 24 hr vitamins A,C,H-toza-ujhpyk 4,296 1 cap PO DAILY 12/11/21 06/12/24 History mcg-226 mg-90 mg capsule (PreserVision AREDS) aspirin 81 mg capsule 81 mg PO QAM 12/09/23 06/12/24 History dorzolamide-timolol (PF) 2 %-0.5 % 1 drp ophthalmic (eye) AMPM 12/09/23 06/12/24 History eye drops in a dropperette (Cosopt (PF)) lisinopril 2.5 mg tablet 2.5 mg PO QAM 12/09/23 06/12/24 History semaglutide 0.25 mg or 0.5 mg (2 0.5 mg subcut WK 06/12/24 06/12/24 History mg/3 mL) subcutaneous pen injector (Ozempic) Patient History Medical History Colostomy present Diabetes mellitus, type 2 History of anemia Retinopathy being monitored Depression Neuropathy Hx of pancreatitis Ejection fraction < 50% 25 per >just checked at [facility] ICD (implantable cardioverter-defibrillator) in place 2019>Streamline [employer] device (Dr. Tesfaye checks and [facility]) Hx of acute heart failure 2019 History of myocardial infarction 2019 Hypertension Hyperlipidemia History of DVT (deep vein thrombosis) 2003- LLE while receiving EPO History of osteomyelitis sacrum Rectal carcinoma hx of 2004- dS/P resection, chemo, radiation therapy Anorectal fistula (Unknown) presently being treated for infection in fistula Surgical History History of anesthesia reaction slow to wake up after colonoscopy History of ERCP History of esophagogastroduodenoscopy (EGD) History of colonoscopy History of tooth extraction History of cataract surgery right/left H/O vitrectomy right History of heart artery stent 1 stent placed at [facility] Status post colostomy 2003 initially after resection rectal cancer, reversed new colostomy after pelvic abscess in 2011 History of colon resection low anterior resection for colon cancer Family History Father Diabetes Lung cancer Mother Heart disease Hypertension Other No family history of adverse response to anesthesia Social History Smoking Status: Never smoker Tobacco Type: Cigarettes Second Hand Exposure: No; Do You Dip or Chew Tobacco: No; Hx Alcohol Use: Yes Alcohol type: hard liquor Alcohol Intake Frequency Comment: occasional Hx Substance Use: No Preferred Language: Taiwanese Communication Ability: Effective Case Advocate Required: No Beliefs That Will Affect Care: None Current Living Situation: Spouse Other Information That Helps Us Care for You: No Feels Safe at Home: Yes Safety Concerns: Feels Safe At This Time Assistive Devices: Cane and Glasses Review of Systems Review of Systems: Complete Review of Systems is as stated above, negative, or noncontributory. Physical Exam Physical Exam: General: A&Ox3. NAD. HENT: Normocephalic. Atraumatic. Eyes: PER. Conjunctiva pink, sclera pale. Neck: Carotid bruits. No JVD. Heart: RRR. Grade III/ systolic ejection murmur. No diastolic murmur. Lungs: Clear to auscultation. Abdomen: Left sided coloscopy. Extremities: No significant edema. No cyanosis. Limited neurological examination is without focal deficits. Pulses: Posterior tibial=0/4. Results & Data Vital Signs (Past 12 Hours) Vital Signs Temp Pulse Pulse Resp BP BP Pulse Ox 06/13/24 07:20 36.4 C L 61 127/78 96 06/13/24 05:50 97 06/13/24 05:49 88 L 06/13/24 05:30 70 16 111/63 91 06/13/24 05:00 72 20 104/63 93 06/13/24 04:30 72 20 108/69 95 06/13/24 04:00 75 20 128/92 98 06/13/24 03:30 75 18 119/72 93 06/13/24 03:21 77 20 125/74 95 06/13/24 02:30 74 20 119/66 97 06/13/24 02:06 76 17 125/75 99 06/13/24 01:39 75 14 109/67 98 06/13/24 01:29 77 06/13/24 01:00 80 19 107/73 98 06/13/24 00:03 85 23 112/67 92 06/12/24 23:00 108/72 06/12/24 22:51 84 18 112/67 93 06/12/24 22:30 115/66 06/12/24 22:00 87 27 H 108/57 L 90 06/12/24 21:33 91 H O2 Del Method O2 Flow Rate 06/13/24 07:20 Nasal Cannula 2 06/13/24 05:50 Nasal Cannula 2 06/13/24 05:49 Room Air 06/13/24 05:30 06/13/24 05:00 06/13/24 04:30 06/13/24 04:00 06/13/24 03:30 06/13/24 03:21 06/13/24 02:30 06/13/24 02:06 06/13/24 01:39 06/13/24 01:29 06/13/24 01:00 06/13/24 00:03 06/12/24 23:00 06/12/24 22:51 Room Air 06/12/24 22:30 06/12/24 22:00 06/12/24 21:33 Laboratory Results Cardiac Enzymes 06/12/24 06/12/24 06/13/24 Range/Units 21:11 22:44 04:24 AST 206 H 733 H (13-39) U/L Troponin I High Sens 43.0 H 239.5 H* D 7032.0 H* D (0-14) pg/ml Coagulation 06/12/24 06/12/24 06/13/24 Range/Units 21:11 22:43 04:24 PT Cancelled 10.9 APTT Cancelled 27 29 CBC 06/12/24 06/13/24 Range/Units 21:11 04:24 WBC 9.63 5.46 (4.8-10.8) K/ul RBC 3.91 L 3.37 L (4.20-5.40) M/uL Hgb 11.1 L 9.6 L (12.0-16.0) g/dl Hct 34.9 L 29.9 L (37.0-47.0) % Plt Count 176 150 (130-400) K/uL Neut # (Auto) 4.65 (1.40-6.50) K/uL Lymph # (Auto) 0.29 L (1.20-3.40) K/uL Sevier # (Auto) 0.49 (0.11-0.59) K/uL Eos # (Auto) 0.00 (0.00-0.50) K/uL Baso # (Auto) 0.01 (0.00-0.20) K/uL Comprehensive Metabolic Panel 06/12/24 06/13/24 Range/Units 21:11 04:24 Sodium 131 L 131 L (136-145) mmol/L Potassium 5.2 H 4.7 (3.5-5.1) mmol/L Chloride 103 105 (98-107) mmol/L Carbon Dioxide 22 21 (21-32) mmol/L BUN 32 H 31 H (6-23) mg/dl Creatinine 1.32 H 1.22 H (0.6-1.2) mg/dl Glucose 380 H* 292 H (70-99(Fasting)) mg/dl Calcium 8.7 8.3 L (8.6-10.3) mg/dl AST 206 H 733 H (13-39) U/L ALT 293 H 588 H (7-52) U/L Alkaline Phosphatase 284 H 420 H (34-104) U/L Total Protein 6.7 5.8 L (6.0-8.3) gm/dl Albumin 3.6 3.0 L (3.4-5.0) gm/dl Intake and Output 06/12/24 06/13/24 06/13/24 22:59 06:59 14:59 Intake Total 1200 / 1200 100 / 100 Balance 1200 / 1200 100 / 100 Intake: IV 1200 / 1200 100 / 100 Albumin 25% 25 gm In 100 ml @ 100 / 100 50 mls/hr IV ONE ONE Rx#: [id number] Doxycycline Hyclate 100 mg In 100 / 100 Dextrose 5% Mini-B 100 ml @ 50 mls/hr IV NOW STA Rx#:[id number] Piperacillin/Tazobactam 4.5 gm 100 / 100 In 100 ml @ 200 mls/hr IV NOW ONE Rx#:[id number] Sodium Chloride 0.9% 1,000 ml @ 1000 / 1000 999 mls/hr IV .Q1H1M ONE Rx#: [id number] Other: Weight 83.1 kg 79.1 kg Weight Measurement Method [facility] Patient Weight 06/14/24 06:59 Weight 79.1 kg Diagnostic Findings April 11, 2024 device interrogation demonstrated appropriate function, 2.8 years remaining longevity. Rhythm BiV paced 97.8% of the time. OptiVol below threshold. June 13, 2024 TTE ([facility], Dr. Roth): Normal-sized left ventricle. Left ventricular wall thickness mild to moderately increased and noninfarcted segments with extensive scarring of the mid and apical inferior and septal davila. Extensive septal and inferior wall infarct with scarring and thinning. Diffuse hypokinesis of other segments. LVEF 30 to 35%. Grade 2 diastolic dysfunction, consistent with elevated left atrial pressure. Moderately calcified aortic valve leaflets with restricted leaflet mobility, moderate to severe valvular aortic stenosis. Moderate mitral regurgitation. Mild to moderate tricuspid regurgitation. Elevated RVSP, 40 to 50 mmHg. Telemetry: Sinus with intermittent atrial pacing, biventricular pacing
[2024-06-13] MEDS: LATANOPROST 0.005% OP SOLN 2.5 ML BTL OPB SCH (09:25)
[2024-06-13] MEDS: CEROVITE ADV FORMULA TAB PO SCH (09:25)
[2024-06-13] MEDS: ESCITALOPRAM OXALATE 10 MG TAB PO SCH (09:25)
[2024-06-13] MEDS: METOPROLOL SUCC 25MG EXT REL TAB PO SCH (09:25)
[2024-06-13] MEDS: DORZOLAMIDE/TIMOLOL 22.3/6.8MG/ML 10 ML BTL OP SCH (09:26)
--- NOTE | 2024-06-13 09:46 | Pharmacy Report ---
Pharmacy PK ABX Note - Date of Service June 13, 2024 - Assessment and Plan Assessment 79 year old F receiving empiric vancomycin and Zosyn for treatment of recurrent presacral abscess. Pertinent microbiologic data includes: negative MRSA nasal swab, urine and blood cultures x 2 pending. Pertinent PMH inclues T2DM, hx rectal cancer s/p surgery/chemoradiation, osteomyelitis, radiation proctitis, fistula s/p ostomy, and hx of MRSA infection. Renal function appears to be near baseline. Day # 1 of antimicrobial therapy. Plan Vancomycin * Loading dose: 1750 mg IV x 1 * Maintenance dose: 1250 mg IV every 24 hours * Regimen is predicted to achieve target AUC/JEFFRY of 400-600 mg/L.hr * Random level ordered for: 06/15/24 Pharmacy will continue to follow and will adjust dose/frequency as necessary. Thank you. Pharmacy has transitioned to AUC monitoring for vancomycin. AUC/JEFFRY is the preferred PK/PD target and is associated with decreased risk of nephrotoxicity compared to traditional trough targets.
[2024-06-13 10:19] LABS: Hematocrit (blood only) 30.4 % (37.0-47.0); Hemoglobin 9.5 g/dl (12.0-16.0)
--- NOTE | 2024-06-13 10:28 | Communication Note ---
Date of Service: June 13, 2024 Surgical consultation placed for presacral abscess. Patient not examined, Chart and outpatient [facility] chart and imaging extensively reviewed. Patient has history of rectal carcinoma s/p Hartmans procedure and chronic enterocutaneous fistula who follows with Dr. Boyle in Colorectal surgery. Last seen by Dr. Boyle in April 2024 and recommend examination under anesthesia for further evaluation of chronic fistula and abscess. She had a outpatient CT scan in February of 2024 showed Chronic post treatment changes of the rectal stump and presacral area with chronic left presacral fluid collection measures 1.9 x 3.8 cm and persistent fistula with left medial gluteal fluid collection measuring 3.7 x 3.7 x 5.2 cm. Right presacral fluid collection measures 3.2 x 2.0 cm. She has a history of prior chemotherapy and radiation. Presented to ED with increasing buttock pain and bleeding. CT scan abd/pelvis here on 06/12/24 IMPRESSION: 1. Interval increase in size of the heterogeneous soft tissue density in the presacral space, measuring about 7.0 x 8.1 cm (previously 5.0 x 6.4 cm), with hypodense areas, also increase in sizes, and calcifications. The largest hypodense collection is seen extending superficially to the left gluteal region,likely an absces. It measures about 5.5 x 3.5 cm (previously 4.4 x 2.6 cm). The uterus and rectum are not seen separately. 2. Mild mucosal wall thickening of the gastric antrum. 3. A stoma in the left lower anterior abdomen, with herniated large and small bowel loops. No evidence of bowel obstruction. 4. New bilateral mild pleural effusion, with passive atelectasis. 5. A new consolidation in the left lower lobe. Reviewed images above and outpatient [facility] images. 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 given the complexity of the chronic findings, patient's history of chemo/radiation and rectal carcinoma and follows with colorectal surgery, would recommend colorectal surgery evaluation. Unsure if the findings on our CT scan are significant change from priors but would recommend transfer to colorectal service given extent of findings. Discussed with Dr. perry who agrees with transfer on this complex patient. Discussed with Dr. Frazier, Hospitalist this morning at 8:00 am.
[2024-06-13 11:12] LABS: Hep B Surface Ag with confirm Negative (Negative)
[2024-06-13 11:17] LABS: Hep C Ab Rflx HepCQuant RNA Negative (Negative)
--- NOTE | 2024-06-13 15:37 | Communication Note ---
Patient seen and examined at bedside. Discussed transfer to higher level of care given complexity of case. Patient is agreeable, discussed with over phone as well. Of note, discussed case with patient's outpatient colorectal surgeon and colorectal surgery team at [facility]. Discussed enlarging fluid collection and new and new onset continuous bleeding, that is in a different profile than before. Colorectal surgery agreeable to transfer. Noted troponin elevation, cardiology consulted, appreciate recs. Date of Service: June 13, 2024
[2024-06-13 16:01] VITALS: BP 92/60; PULSE 75; TEMP 98.6; O2SAT 93
[2024-06-13 16:12] LABS: Hematocrit (blood only) 28.4 % (37.0-47.0); Hemoglobin 8.9 g/dl (12.0-16.0)
[2024-06-13] MEDS: oxyCODONE HCL IR 5 MG TAB (IMMEDIATE RELEASE) PO PRN (16:39)
--- NOTE | 2024-06-13 17:15 | Communication Note ---
By CMS guidelines, a determination that the admission or continued stay is not medically necessary has been made by a member of the UR committee and a physician for this hospital stay, therefore a Code 44 will be completed and the Inpatient admission will be changed to outpatient. Date of Service: June 13, 2024
--- NOTE | 2024-06-13 17:23 | Discharge Summary ---
Discharge Summary Date of Service June 13, 2024 Principal Dx & Hospital Course #1 = Principal Diagnosis (1) Abscess: Recurrent presacral abscess, history abdominopelvic/enterocutaneous fistulae presenting as buttock cleft bleeding, hemoglobin drop from baseline hx rectal cancer status post surgery/chemoradiation history of osteomyelitis/radiation proctitis/fistula status post ostomy No sepsis for now, borderline procalcitonin elevation Discussed with patients colorectal team, will transfer to [facility] for further intervention and evaluation given complex anatomy, change in bleeding pattern, and enlargement of fluid collection Marked troponin elevation secondary to illness in the setting of kidney dysfunction History CAD status post stent/PVD Patient without chest pain or SOB symptoms. Progressive transaminitis without abdominal pain chronic systolic heart failure secondary to ischemic cardiomyopathy status post ICD (EF 25%, TTE 2024), equivocal volume status chronic LBBB valvular heart disease (moderate /MR, mild AR TTE 2023) history of cardiac thrombus/DVT on Eliquis hypertension, BP stable hyperlipidemia, on statin Rx history of DM2 on oral medications, patient markedly hyperglycemic, outpatient hemoglobin A1c of 7.2 from February 2024 history of MRSA PCU Cultures, Doxycycline, Zosyn Follow H&H, transfuse PRBC if hemoglobin less than 8 and or for symptomatic anemia Hold aspirin and Eliquis for now given bleeding resulting in hemoglobin drop from baseline Resume once H&H stable Trend troponin, TTE given marked troponin elevation May benefit from inpatient cardiology eval Follow LFTs, hold statin for now GI consult re: transaminitis Monitor creatinine response to gentle IV hydration given pulmonary congestion and systolic dysfunction Hold lisinopril for now given hyperkalemia and kidney dysfunction Basal bolus insulin, ISS BG goal 110-140, carb count coverage Update hemoglobin A1c Notes For Next Care Provider 79 yo female with pmhx of chronic systolic heart failure secondary to ischemic cardiomyopathy status post ICD (EF 25%, TTE 2024), CAD status post stent, PVD, chronic LBBB, valvular heart disease (moderate AAS/MR, mild AR TTE 2023), histo ry of cardiac thrombus/DVT on Eliquis, hypertension, hyperlipidemia, rectal cancer status post surgery/chemoradiation, history of osteomyelitis/radiation proctitis/fistula status post ostomy, abdominopelvic/and enterocutaneous fistulae/recurrent presacral fluid collections, history of DM2 on oral medications, chronic anemia (baseline hemoglobin of 11), , glaucoma, history of MRSA presents for worsening pain and bleeding. On medicine, consulted general surgery, who recommended transfer given complexity of anatomy and change in bleeding pattern/enlargement of fluid collection. Discussed with colorectal surgery, who agreed with transfer plan at [facility]. Medication Changes From Visit -see below Admission HPI Per Admitting Provider History obtained from patient, family, and records. Medical history significant for chronic systolic heart failure secondary to ischemic cardiomyopathy status post ICD (EF 25%, TTE 2024), CAD status post stent, PVD, chronic LBBB, valvular heart disease (moderate AAS/MR, mild AR TTE 2023), history of cardiac thrombus/DVT on Eliquis, hypertension, hyperlipidemia, rectal cancer status post surgery/chemoradiation, history of osteomyelitis/radiation proctitis/fistula status post ostomy, abdominopelvic/and enterocutaneous fistulae/recurrent presacral fluid collections, history of DM2 on oral medications, chronic anemia (baseline hemoglobin of 11), , glaucoma, history of MRSA Last confinement December 2021 for recurrent pelvic abscess. No surgical intervention. Abscess improved with medical management. Patient seen at [facility] colorectal surgeon office 2 months ago for evaluation of enterocutaneous fistula, gluteal cleft connecting to left gluteus muscle leading to recurrent infections. Patient averse to definitive procedure of abdominal perineal resection as per note. Procedure would be challenging to undertake given patient cardiac condition as per provider documentation. Conservative management recommended. 5 days ago, patient noted buttock pain followed by bloody drainage. Some chills. Denies chest pain, SOB. Generalized weakness. Watery ostomy output without abdominal pain. Tylenol 500 mg 3 times daily taken for pain not effective as per patient. One-time intake of ibuprofen. Patient brought by to ER for evaluation. Zosyn administered at the ER. 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 External ears normal. No rhinorrhea. Moist mucous membranes. Neck: Supple, full range of motion, no observable masses, No meningeal sign. Lungs: No Respiratory distress. CV: RRR, no edema. Abdomen: Soft, nondistended, No rebound tenderness. MSK: No joint swelling, no redness. Noted wound sites Skin: No rashes, petechiae, lesions. Normal color per patient. Neuro: Normal Gait, Grossly intact. Psych: Appropriate for situation. Updated Medication List Medication Instructions Recorded Confirmed Type apixaban 5 mg tablet (Eliquis) 5 mg PO BID 12/11/21 06/12/24 History atorvastatin 80 mg tablet 80 mg PO QPM 12/11/21 06/12/24 History escitalopram oxalate 10 mg tablet 10 mg PO QAM 12/11/21 06/12/24 History glipizide 5 mg tablet 5 mg PO AMPM 12/11/21 06/12/24 History latanoprost 0.005 % eye drops 1 drp OPB QAM 12/11/21 06/12/24 History metoprolol succinate 25 mg 25 mg PO BID 12/11/21 06/12/24 History tablet,extended release 24 hr vitamins A,C,L-bppi-ppqcws 4,296 1 cap PO DAILY 12/11/21 06/12/24 History mcg-226 mg-90 mg capsule (PreserVision AREDS) aspirin 81 mg capsule 81 mg PO QAM 12/09/23 06/12/24 History dorzolamide-timolol (PF) 2 %-0.5 % 1 drp ophthalmic (eye) AMPM 12/09/23 06/12/24 History eye drops in a dropperette (Cosopt (PF)) lisinopril 2.5 mg tablet 2.5 mg PO QAM 12/09/23 06/12/24 History semaglutide 0.25 mg or 0.5 mg (2 0.5 mg subcut WK 06/12/24 06/12/24 History mg/3 mL) subcutaneous pen injector (Ozempic) Hospital Stay Data Consultations 06/13/24 02:35 ED Decision to Admit Stat 06/13/24 06:13 Consult Gastroenterology Routine 06/13/24 07:51 Consult General Surgery Routine 06/13/24 07:55 Consult Cardiology Routine 06/13/24 15:36 Burn CD for patient Stat Diagnostic Imagining Performed 06/12/24 23:15 CT Abd and Pelvis [CT abd pelvis IV con only] Stat Pending Results Patient Have Any Pending Studies at Discharge: No Discharge Instructions Given to Patient (Per Discharging Provider) 1. Patient transfer to [facility] for higher level of care. Total Time Total Time Spent Total Time Spent (In Minutes): I spent a total of 35 minutes in direct patient care, including [id number] time with the patient and/or family, reviewing medical records, ordering and r eviewing diagnostic tests, and coordinating care with other healthcare providers. This time includes: history taking, physical examination, medical decision making, counseling, ECG interpretation, imaging interpretation, lab interpretation, orders, and education, excluding time spent in the performance of separately billed services.
[2024-06-13] MEDS ORDERED: VANCOMYCIN HCL 1,250 MG in SODIUM CHLORIDE 0.9% 250 ML IV SCH (21:00)
--- NOTE | 2024-06-14 06:09 | Electrocardiogram Report ---
Test Reason : Blood Pressure : */* mmHG Vent. Rate : 95 BPM Atrial Rate : 95 BPM P-R Int : 164 ms QRS Dur : 130 ms QT Int : 404 ms P-R-T Axes : 80 -56 113 degrees QTcB Int : 507 ms Atrial-sensed ventricular-paced rhythm Abnormal ECG When compared with ECG of 24-Jan-2023 23:36, Vent. rate has increased by 25 bpm Confirmed by Papito Gilmore ([id number]) on 06/14/2024 6:09:15 AM Referred By: REFERRED SELF Confirmed By: Papito Gilmore
[2024-06-15 15:02] LABS: Hepatitis A Antibody IgM NON-REACTIVE (NON-REACTIVE); Hepatitis B Core Antibody IgM NON-REACTIVE (NON-REACTIVE)
--- NOTE | 2024-07-05 12:56 | Coding Query ---
A supporting diagnosis is required for the test/procedure performed on this patient in order for us to be reimbursed by the patient's insurance. Please provide a supporting diagnosis for the following test/procedure listed below next to the test name. *If there is no additional diagnosis for this patient that would support the following test/procedure please document that below next to the test/procedure. Test(s)/Procedure(s) that require a supporting diagnosis: *GI GASTROINTESTINAL PANEL DIAGNOSIS:diarrhea Thank you Maira Brandon [employer] Once completed, please kindly fax back to [phone] For questions please call [phone] [facility]
== END 2024-06-13 17:40 | disposition short-term general hospital (02) | DRG 371 ==
LOC: ED 20:50 → INTOOBSV 06-13 03:45 → 2S 06-13 03:45